=== PATIENT | female | born 2000 | race Caucasian/White ===

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

== ENCOUNTER 2019-07-09 09:23 | Inpatient (IN) | payer MEDICAID ==
[2019-07-09] VITALS (14 sets, daily range): BP systolic 84–160; BP diastolic 44–117
[~2019-07-09] VITALS: Ht 157 cm; Wt 79.0 kg
[~2019-07-09 09:23] MED LIST changes: +ACET-77 PO; +DOCU100C37 PO; +GUAI600T43 PO; +IBUP-844 PO; +INSN1U SQ; +METR-145 PO; -METR500T21 PO; +SERT50TA2 PO
--- NOTE | 2019-07-09 09:48 | NUR ---
PT VOMITED LARGE AMT OF CLEAR LIQUID (WATER).
--- NOTE | 2019-07-09 09:58 | NUR ---
RESTING WITH EYES CLOSED.
--- NOTE | 2019-07-09 10:26 | ED Psychosocial ---
General Chief Complaint: Substance Abuse Stated Complaint: PANIC ATTACK Nursing Triage Note: ARRIVED VIA EMS FROM HOME. EMS REPORTS PT S/O LEFT TWO DAYS AGO WITH THE KIDS AND WENT TO [place]. PT SNORTED METH AT THAT TIME. PT HAS NOT SLEPT AND HAS BEEN CUTTING HERSELF AND COMPLETLEY TORE UP THE HOUSE. EMS REPORTS PT BEING VERY ANXIOUS. BRUISING NOTED RIGHT ARM. MULTIPLE CUT [place] NEW AND OLD LEFT LOWER ARM. PT DENIES BEING ABUSED OR IN HARM. PT. WANTING TO SLEEP. WARM BLANKET APPLIED ET LIGHTS TURNED DOWN. Source: patient, EMS Exam Limitations: clinical condition History of Present Illness Date Seen by Provider: Jul 09, 2019 Time Seen by Provider: 10:24 Initial Comments This 19-year-old white female presents via EMS with a history of acute meth use and an attempt to harm her self by cutting her left wrist. The patient's has left her in the previous 2 days and taken their children to [place]. On environmental health nurse arrival it was apparent that the patient had torn up the house. This insulin-dependent diabetics glucose was 200 at the scene. The patient has not slept for the last 2 days. Upon arrival in the emergency department patient fell asleep. She is arousable but not offering helpful history at this point. Allergies and Home Medications Allergies Coded Allergies: No Known Drug Allergies (Unverified , 08/12/12) Home Medications Acetaminophen 500 Mg Tablet, 1,000 MG PO Q8H PRN for PAIN-MILD Prescribed by: SHANKAR ALONZO on 02/07/18914 Docusate Sodium 100 Mg Capsule, 100 MG PO BID Prescribed by: SHANKAR ALONZO on 02/07/18914 Guaifenesin 600 Mg Tab.er.12h, 600 MG PO BID Prescribed by: SHANKAR ALONZO on 02/07/18914 Ibuprofen 600 Mg Tablet, 600 MG PO Q6H Prescribed by: SHANKAR ALONZO on 02/07/18914 Insulin Aspart 300 Units/3 Ml Solution, 5 UNITS SQ AC Prescribed by: DARION HERRING on 04/29/16 1109 Insulin Aspart 300 Units/3 Ml Solution, 28 UNITS SQ AC, (Reported) Multivit with Calcium,Iron,Min 1 Each Tablet, 1 TAB PO DAILY, (Reported) Sertraline HCl 50 Mg Tablet, 50 MG PO DAILY, (Reported) Patient Home Medication List Home Medication List Reviewed: Yes Review of Systems Constitutional: no symptoms reported EENTM: no symptoms reported Respiratory: no symptoms reported Cardiovascular: no symptoms reported Gastrointestinal: no symptoms reported Genitourinary: no symptoms reported Musculoskeletal: no symptoms reported Skin: see HPI Psychiatric/Neurological: Anxiety, Depressed, Emotional Problems Past Evtkrko-Pmrcsb-Nrddco Hx Past Med/Social Hx: Reviewed Nursing Past Med/Soc Hx Patient Social History Alcohol Use: Occasionally Uses Alcohol Beverage of Choice: Whiskey, Vodka Recreational Drug Use: Yes (SNORTS METH, POT) Drug of Choice: marijuana Smoking Status: Current Everyday Smoker Type Used: Cigarettes Former Smoker, Quit: Apr 02, 2016 2nd Hand Smoke Exposure: Yes (history of IV drug usage, meth, opiates, etc in the past) Recent Foreign Travel: No Contact w/Someone Who Travel: No Recent Infectious Disease Expo: No Recent Hopitalizations: No Physical Abuse: No (BRUISING NOTED) Sexual Abuse: No Mistreated: No Fear: No Immunizations Up To Date Tetanus Booster (TDap): Less than 5yrs PED Vaccines UTD: No Seasonal Allergies Seasonal Allergies: Yes Past Medical History Surgeries: Yes (splinter removed from left foot ) Ear Surgery Respiratory: No Asthma Currently Using CPAP: No Currently Using BIPAP: No Cardiac: No Hypertension Neurological: No Reproductive Disorders: No Female Reproductive Disorders: Denies Sexually Transmitted Disease: No HIV/AIDS: No Genitourinary: No UTI-Chronic Gastrointestinal: No Musculoskeletal: No Endocrine: Yes Diabetes, Insulin dep HEENT: No Chronic Ear Infection, Tonsilitis Loss of Vision: Denies Hearing Impairment: Denies Cancer: No Psychosocial: Yes (no suicide but did self harm) Anxiety, Depression Integumentary: No Blood Disorders: No Adverse Reaction/Blood Tranf: No Family Medical History Colon cancer 19 MOTHER (copd ; breast cancer ) Cystic fibrosis (nephew has CF ) Hypertension 19 MOTHER (copd ; breast cancer ) No Pertinent Family Hx Physical Exam Vital Signs - First Documented 07/09/19 09:23 Temp 35.7 Pulse 99 Resp 16 B/P (MAP) 131/94 (106) Pulse Ox 100 O2 Delivery Room Air Capillary Refill : Less Than 3 Seconds Height, Weight, BMI Height: 5'2.00" Weight: 210lbs. 0.0oz. 95.781742wm; 27.00 BMI Method:Stated General Appearance: WD/WN, moderate distress (patient was agitated upon arrival. Within the next 30 minutes patient fell asleep) HEENT: normal ENT inspection Neck: full range of motion, supple Respiratory: lungs clear Cardiovascular: regular rate, rhythm Gastrointestinal: normal bowel sounds, non tender, soft Extremities: normal range of motion, non-tender, other (superficial lacerations are noted over the volar surface of the left wrist.) Neurologic/Psychiatric: no motor/sensory deficits Appearance/Memory: disheveled, other (the patient is asleep. She will rouse and is minimally verbally appropriate.) Progress/Results/Core Measures Results/Orders Lab Results Laboratory Tests Test 07/09/19 10:53 07/09/19 10:58 07/09/19 12:30 07/09/19 12:31 Range/Units White Blood Count 26.8 H 4.3-11.0 10^3/uL Red Blood Count 5.24 4.35-5.85 10^6/uL Hemoglobin 16.5 H 11.5-16.0 G/DL Hematocrit 47 35-52 % Mean Corpuscular Volume 89 80-99 FL Mean Corpuscular Hemoglobin 31 25-34 PG Mean Corpuscular Hemoglobin Concent 35 32-36 G/DL Red Cell Distribution Width 12.5 10.0-14.5 % Platelet Count 416 H 130-400 10^3/uL Mean Platelet Volume 9.8 7.4-10.4 FL Neutrophils (%) (Auto) 87 H 42-75 % Lymphocytes (%) (Auto) 8 L 12-44 % Monocytes (%) (Auto) 4 0-12 % Eosinophils (%) (Auto) 0 0-10 % Basophils (%) (Auto) 0 0-10 % Neutrophils # (Auto) 23.4 H 1.8-7.8 X 10^3 Lymphocytes # (Auto) 2.1 1.0-4.0 X 10^3 Monocytes # (Auto) 1.2 H 0.0-1.0 X 10^3 Eosinophils # (Auto) 0.0 0.0-0.3 10^3/uL Basophils # (Auto) 0.1 0.0-0.1 10^3/uL Neutrophils % (Manual) 87 % Lymphocytes % (Manual) 6 % Monocytes % (Manual) 5 % Band Neutrophils 2 % Toxic Granulation 1+ Blood Morphology Comment NORMAL Sodium Level 136 135-145 MMOL/L Potassium Level 4.7 3.6-5.0 MMOL/L Chloride Level 106 98-107 MMOL/L Carbon Dioxide Level < 5 *L 21-32 MMOL/L Anion Gap 20 H 5-14 MMOL/L Blood Urea Nitrogen 14 7-18 MG/DL Creatinine 1.17 0.60-1.30 MG/DL Estimat Glomerular Filtration Rate 59 BUN/Creatinine Ratio 12 Glucose Level 209 H 70-105 MG/DL Calcium Level 10.1 8.5-10.1 MG/DL Corrected Calcium 8.5-10.1 MG/DL Total Bilirubin 0.3 0.1-1.0 MG/DL Aspartate Amino Transf (AST/SGOT) 35 H 5-34 U/L Alanine Aminotransferase (ALT/SGPT) 37 0-55 U/L Alkaline Phosphatase 162 H 40-136 U/L Total Protein 9.2 H 6.4-8.2 GM/DL Albumin 5.6 H 3.2-4.5 GM/DL Salicylates Level < 5.0 L 5.0-20.0 MG/DL Acetaminophen Level < 10 L 10-30 UG/ML Serum Alcohol < 10 <10 MG/DL Urine Color YELLOW Urine Clarity CLEAR Urine pH 5.5 5-9 Urine Specific [place] >=1.030 1.016-1.022 Urine Protein 1+ H NEGATIVE Urine Glucose (UA) TRACE H NEGATIVE Urine Ketones 3+ H NEGATIVE Urine Nitrite NEGATIVE NEGATIVE Urine Bilirubin NEGATIVE NEGATIVE Urine Urobilinogen 0.2 < = 1.0 MG/DL Urine Leukocyte Esterase NEGATIVE NEGATIVE Urine RBC (Auto) 1+ H NEGATIVE Urine RBC 0-2 /HPF Urine WBC 0-2 /HPF Urine Crystals NONE /LPF Urine Bacteria FEW H /HPF Urine Casts NONE /LPF Urine Mucus NEGATIVE /LPF Urine Culture Indicated NO Urine Opiates Screen NEGATIVE NEGATIVE Urine Oxycodone Screen NEGATIVE NEGATIVE Urine Methadone Screen NEGATIVE NEGATIVE Urine Propoxyphene Screen NEGATIVE NEGATIVE Urine Barbiturates Screen NEGATIVE NEGATIVE Ur Tricyclic Antidepressants Screen NEGATIVE NEGATIVE Urine Phencyclidine Screen NEGATIVE NEGATIVE Urine Amphetamines Screen POSITIVE H NEGATIVE Urine Methamphetamines Screen POSITIVE H NEGATIVE Urine Benzodiazepines Screen NEGATIVE NEGATIVE Urine Cocaine Screen NEGATIVE NEGATIVE Urine Cannabinoids Screen POSITIVE H NEGATIVE Blood Gas Puncture Site RT RAD Blood Gas Patient Temperature 96.2 Arterial Blood pH 7.10 *L 7.37-7.43 Arterial Blood Partial Pressure CO2 11 *L 35-45 MMHG Arterial Blood Partial Pressure O2 114 H 79-93 MMHG Arterial Blood HCO3 3 *L 23-27 MMOL/L Arterial Blood Total CO2 3.8 L 21.0-31.0 MMOL/L Arterial Blood Oxygen Saturation 97 94-100 % Arterial Blood Base Excess -25.1 L -2.5-2.5 MMOL/L [place] Test YES-POS Blood Gas Ventilator Setting NO Blood Gas Inspired Oxygen ROOM AIR Lactic Acid Level 0.89 0.50-2.00 MMOL/L Test 07/09/19 12:51 Range/Units Glucometer 232 H 70-110 MG/DL My Orders Orders - YADIRA VELARDE MD Cbc With Automated Diff (07/09/19 10:33) Comprehensive Metabolic Panel (07/09/19 10:33) Ua Culture If Indicated (07/09/19 10:33) Drug Screen Stat (Urine) (07/09/19 10:33) Salicylate (07/09/19 10:33) Alcohol (07/09/19 10:33) Ekg Tracing (07/09/19 10:33) Chest 1 View, Ap/Pa Only (07/09/19 10:33) Acetaminophen (07/09/19 10:33) Manual Differential (07/09/19 10:53) Blood Culture (07/09/19 12:03) Arterial Blood Gas (07/09/19 12:03) Lactic Acid Analyzer (07/09/19 12:03) Arterial Blood Draw (07/09/19 ) Insulin Determir (Per Unit) (Levemir (Pe (07/09/19 12:59) Lactated Ringers (Lr 1000 Ml Iv Solution (07/09/19 13:01) Piperacillin/Tazobactam (Bulk) (Zosyn In (07/09/19 13:00) Ondansetron Injection (Zofran Injectio (07/09/19 13:15) Vital Signs/I&O 07/09/19 07/09/19 09:23 09:48 Temp 35.7 37.7 Pulse 99 Resp 16 B/P (MAP) 131/94 (106) Pulse Ox 100 O2 Delivery Room Air Blood Pressure Mean: 106 POS Progress Progress Note : Time: 10:33 Progress Note Screening exams for a psych admission have been initiated. 1 p.m. The patient's labs demonstrated a leukocytosis of 26,000. Patient's CO2 is 5. Her pH is 7.1. Lactic acid is pending. Repeat glucose is 232. Patient was vigorously fluid resuscitated with orders for her 3 L of lactated Ringer's. Patient received 15 units of Levemir subcutaneous. Zosyn 4.5 g IV and IV vancomycin per the pharmacist have been ordered. The patient was was awake and able to offer coherent conversation. Patient was admitted to Dr. Herring service Dr. Hernandez has been counseled. Departure Communication (Admissions) Time/Spoke to Admitting Phy: 13:13 Dr. Herring Time/Spoke to Consulting Phy: 13:13 Dr. Hernandez Impression Primary Impression: Leukocytosis Qualified Codes: D72.829 - Elevated white blood cell count, unspecified Additional Impressions: Acidosis Methadone adverse reaction Qualified Codes: T40.3X5A - Adverse effect of methadone, initial encounter Sepsis Qualified Codes: A41.9 - Sepsis, unspecified organism Disposition: ADMITTED INPATIENT Condition: Improved Admissions Decision to Admit Reason: Admit from ER (General) Decision to Admit/Date: Jul 09, 2019 Time/Decision to Admit Time: 13:13 Departure-Patient Inst. Referrals: [facility] [place] (PCP/Family) Primary Care Physician Patient Instructions: ALCOHOL AND SUBSTANCE ABUSE YADIRA VELARDE MD Jul 09, 2019 10:26 POS
--- NOTE | 2019-07-09 11:00 | NUR ---
CONTINUES TO REST WITH EYES CLOSED BUT WILL WAKE WHEN TALKED TO AND MUMBLE. AT TIMES SHE IGNORES AND CLOSES HER EYES.
[2019-07-09 11:01] LABS: BASOPHILS # (AUTO) 0.1 10^3/uL (0.0-0.1); BASOPHILS % (AUTO) 0 % (0-10); EOSINOPHILS % (AUTO) 0 % (0-10); HEMATOCRIT 47 % (35-52); HEMOGLOBIN 16.5 G/DL (11.5-16.0); LYMPHOCYTES # (AUTO) 2.1 X 10^3 (1.0-4.0); LYMPHOCYTES % (AUTO) 8 % (12-44); MEAN CORPUSCULAR HGB CONC 35 G/DL (32-36); MEAN CORPUSCULAR VOLUME 89 FL (80-99); MEAN PLATELET VOLUME 9.8 FL (7.4-10.4); MONOCYTES # (AUTO) 1.2 X 10^3 (0.0-1.0); MONOCYTES % (AUTO) 4 % (0-12); NEUTROPHILS # (AUTO) 23.4 X 10^3 (1.8-7.8); NEUTROPHILS % (AUTO) 87 % (42-75); PLATELET COUNT 416 10^3/uL (130-400); RED CELL DISTRIBUTION WIDTH 12.5 % (10.0-14.5); WHITE BLOOD COUNT 26.8 10^3/uL (4.3-11.0)
[2019-07-09 11:02] LABS: MEAN CORPUSCULAR HEMOGLOBIN 31 PG (25-34)
[2019-07-09 11:09] LABS: BILIRUBIN,URINE NEGATIVE (NEGATIVE); CLARITY,URINE CLEAR; COLOR,URINE YELLOW; GLUCOSE, URINE (UA) TRACE (NEGATIVE); KETONES,URINE 3+ (NEGATIVE); LEUKOCYTE ESTERASE ,URINE NEGATIVE (NEGATIVE); NITRITE,URINE NEGATIVE (NEGATIVE); PH,URINE 5.5 (5-9); PROTEIN,URINE 1+ (NEGATIVE)
--- NOTE | 2019-07-09 11:14 | NUR ---
PT'S MOM ON THE PHONE WANTING INFORMATION. PT GAVE PERMISSION FOR ME TO TALK TO HER MOM.
[2019-07-09 11:15] LABS: BAND NEUTROPHILS 2 %; LYMPHOCYTES % (MANUAL) 6 %; MONOCYTES % (MANUAL) 5 %; NEUTROPHILS % (MANUAL) 87 %; RBC MORPH NORMAL; TOXIC GRANULATION/VACUOLAZATIO 1+
[2019-07-09 11:18] LABS: BACTERIA,URINE FEW /HPF; RBC,URINE 0-2 /HPF; WBC,URINE 0-2 /HPF
[2019-07-09 11:22] LABS: AMPHETAMINE SCREEN, URINE POSITIVE (NEGATIVE); BARBITURATE SCREEN URINE NEGATIVE (NEGATIVE); BENZODIAZEPINES SCREEN URINE NEGATIVE (NEGATIVE); CANNABINOID SCREEN, URINE POSITIVE (NEGATIVE); COCAINE SCREEN URINE NEGATIVE (NEGATIVE); METHADONE STAT NEGATIVE (NEGATIVE); METHAMPHETAMINE SCREEN URINE S POSITIVE (NEGATIVE); OPIATE SCREEN URINE NEGATIVE (NEGATIVE); OXYCODONE STAT NEGATIVE (NEGATIVE); PROPOXYPHENE STAT NEGATIVE (NEGATIVE); TRICYCLIC ANTIDEPRESSANTS SCRE NEGATIVE (NEGATIVE)
[2019-07-09 11:23] LABS: ALANINE AMINOTRANSFERASE 37 U/L (0-55); ALBUMIN 5.6 GM/DL (3.2-4.5); ALKALINE PHOSPHATASE 162 U/L (40-136); BILIRUBIN,TOTAL 0.3 MG/DL (0.1-1.0); BUN/CREATININE RATIO 12; CALCIUM 10.1 MG/DL (8.5-10.1); CHLORIDE 106 MMOL/L (98-107); CREATININE SERUM 1.17 MG/DL (0.60-1.30); GFR ESTIMATED 59; GLUCOSE 209 MG/DL (70-105); POTASSIUM 4.7 MMOL/L (3.6-5.0); SALICYLATE < 5.0 MG/DL (5.0-20.0); SODIUM 136 MMOL/L (135-145); TOTAL PROTEIN 9.2 GM/DL (6.4-8.2)
--- NOTE | 2019-07-09 11:32 | Diagnostic Imaging Report ---
CLINICAL INDICATION: Patient with substance abuse. Exam: Portable chest x-ray upright view. Comparisons: Chest x-ray dated 04/29/2016. Findings: Lungs/pleura: Lungs are clear. There is no pneumothorax. There is no pleural effusion. Mediastinum: Unremarkable. Pulmonary vasculature: Unremarkable. Heart: Unremarkable. Bones/extrathoracic soft tissue: Unremarkable. Impression: There is no radiographic evidence of acute cardiopulmonary process. Dictated by: Dictated on workstation # [id number]
[2019-07-09 11:38] LABS: CARBON DIOXIDE < 5 MMOL/L (21-32)
[2019-07-09 11:39] LABS: ACETAMINOPHEN < 10 UG/ML (10-30)
--- NOTE | 2019-07-09 12:00 | NUR ---
RESTING IN BED ET NO CHANGE IN STATUS. VSS .
--- NOTE | 2019-07-09 12:33 | NUR ---
FINANCIAL LEGAL ASSISTANT NOTIFEID OF NEEDING A BED.
--- NOTE | 2019-07-09 12:42 | NUR ---
LAB IN ROOM AT THIS TIME.
[2019-07-09 12:47] LABS: ABG BASE EXCESS -25.1 MMOL/L (-2.5-2.5); ABG OXYGEN SATURATION 97 % (94-100); ABG PO2 114 MMHG (79-93); ABG TCO2 3.8 MMOL/L (21.0-31.0)
[2019-07-09 12:49] LABS: ABG PCO2 11 MMHG (35-45); ALLENS TEST YES-POS
[2019-07-09 12:50] LABS: INSPIRED O2 ROOM AIR; PATIENT TEMP 96.2; VENTILATOR NO
--- NOTE | 2019-07-09 12:51 | History & Physical-Hospitalist ---
History of Present Illness HPI/Chief Complaint Chief complaint: Altered mental status History of present illness: This is a 19-year-old white female clinic patient of [facility] who presents to the ER after altered mental status was noted by family patient had suffered multiple losses in her psychosocial life and apparently took an overdose of methamphetamine. At this current time she is exhibiting signs of multisystem organ failure and will be intubated. Exam Limitations: clinical condition Date Seen 07/09/19 Time Seen by a Provider: 13:00 Attending Physician [facility] Referring Physician Date of Admission Home Medications & Allergies Home Medications Reviewed patient Home Medication Reconciliation performed by pharmacy medication reconciliations field technician and/or nursing. Patients Allergies have been reviewed. Allergies Allergies Coded Allergies No Known Drug Allergies (Unverified08/12/12) Past Gygdvlp-Rstpis-Wcvobc Hx Past Med/Social Hx: Reviewed Nursing Past Med/Soc Hx, Reviewed and Corrections made Patient Social History Marrital Status: single Alcohol Use: Occasionally Uses Alcohol Beverage of Choice: Whiskey, Vodka Recreational Drug Use: Yes (SNORTS METH, POT) Drug of Choice: marijuana Smoking Status: Current Everyday Smoker Former Smoker, Quit: Apr 02, 2016 Type Used: Cigarettes 2nd Hand Smoke Exposure: Yes (history of IV drug usage, meth, opiates, etc in the past) Recent Foreign Travel: No Contact w/other who traveled: No Recent Hopitalizations: No Recent Infectious Disease Expo: No Immunizations Up To Date Tetanus Booster (TDap): Less than 5yrs Pediatric: No Seasonal Allergies Seasonal Allergies: Yes Past Medical History Surgeries: Ear Surgery Currently Using CPAP: No Currently Using BIPAP: No Cardiac: Hypertension Reproductive: No Sexually Transmitted Disease: No HIV/AIDS: No Female Reproductive Disorders: Denies Genitourinary: UTI-Chronic Endocrine: Diabetes, Insulin dep HEENT: Chronic Ear Infection, Tonsilitis Loss of Vision: Denies Hearing Impairment: Denies Psychosocial: Anxiety, Depression History of Blood Disorders: No Adverse Reaction to Blood Marquez: No Family History Colon cancer 19 MOTHER (copd ; breast cancer ) Cystic fibrosis (nephew has CF ) Hypertension 19 MOTHER (copd ; breast cancer ) No Pertinent Family Hx Review of Systems ROS-Unable to Obtain: intubation Constitutional: see HPI Physical Exam Physical Exam Vital Signs Vital Signs - First Documented 07/09/19 07/09/19 09:23 14:35 Temp 35.7 Pulse 99 Resp 16 B/P (MAP) 131/94 (106) Pulse Ox 100 O2 Delivery Room Air O2 Flow Rate 30.00 Capillary Refill : Less Than 3 Seconds Height, Weight, BMI Height: 5'2.00" Weight: 210lbs. 0.0oz. 95.036955zq; 27.00 BMI Method:Stated General Appearance: Anxious, Chronically ill, Severe Distress Respiratory: Crackles, Decreased Breath Sounds Cardiovascular: Tachycardia Neurologic/Psychiatric: Alert, Disoriented Results Results/Procedures Labs Laboratory Tests 07/09/19 10:53 Patient resulted labs reviewed. Assessment/Plan Admission Diagnosis Assessment: Multisystem organ failure Acute respiratory failure requiring intubation Severe sepsis Methamphetamine use Episode of SVT Metabolic acidosis Plan: Ventilator management per Dr. Hernandez Severe sepsis protocol Antibiotics Insulin drip Admission Status: Inpatient Order (span 2 midnights) Reason for Inpatient Admission: severe sepsis with vent dependence Diagnosis/Problems Diagnosis/Problems (1) Severe sepsis (2) DKA (diabetic ketoacidoses) (3) Type 1 diabetes (4) Confusion (5) Respiratory failure (6) Ventilator dependence (7) Methamphetamine abuse (8) SVT (supraventricular tachycardia) (9) Leukocytosis Status: Acute Qualifiers: Leukocytosis type: unspecified Qualified Codes: D72.829 - Elevated white blood cell count, unspecified (10) Alcoholism Status: Acute (11) Electrolyte imbalance Status: Acute DARION HRERING DO Jul 09, 2019 12:51 POS
--- NOTE | 2019-07-09 12:58 | NUR ---
BRUISING NOTICED WIDE SPREAD ALL OVER BILAT LEGS. DR IN ROOM ET AWARE ET PLAN FOR SOCIAL SERVICE CONSULT WITH ADMISSION.
[2019-07-09] MEDS ORDERED: PIPERACILLIN/TAZOBACTAM (BULK) 4.5 GM in NS (IVPB) 100 ML IV ONE (13:00)
[2019-07-09] MEDS ORDERED: LACTATED RINGERS 1,000 ML IV ONE (13:01)
[2019-07-09] MEDS ORDERED: ONDANSETRON 4 MG/2 ML (SDV) Z0FRAN ONE (13:04)
[2019-07-09] MEDS ORDERED: LACTATED RINGERS 1,000 ML IV SCH (13:15)
[2019-07-09] MEDS ORDERED: ONDANSETRON 4 MG/2 ML (SDV) Z0FRAN IVP ONE (13:15)
--- NOTE | 2019-07-09 13:15 | NUR ---
PT STARTING TO PANIC AGAIN. STATES SHE CAN'T BREATHE AND NEEDS TO GO OUT SIDE. PULSE OX 100% RA. EASILY TALKED DOWN ET LAYING BACK IN BED AGAIN EATING ICE.
--- NOTE | 2019-07-09 13:26 | NUR ---
Pt arrived to [facility] from ED. Pt alert et yelling out. Pt grabbing stomach and writhing in pain. Pt screaming for water. Pt able to state where she is, speech garbled. Pt instantly falls asleep mid-scream. Pt alternates between screaming, garbled speech, et sleeping.
--- NOTE | 2019-07-09 13:42 | NUR ---
VANCOMYCIN DOSING: IBW 49.7, SCr 1.17, CrCl 60 LOADING DOSE 1,500 MG MAIN DOSE 1,000 MG DAILY VANCOMYCIN TROUGH ORDERED FOR 07/12/19 @ 13:00 IF TROUGH > 20 HOLD 07/12/19 14:00 DOSE.
[2019-07-09] MEDS ORDERED: CATHETER FLUSH 10 ML SYR IV PRN (13:45)
--- NOTE | 2019-07-09 13:50 | NUR ---
Dr. Hernandez notified pt here et status. States he will be here to see pt shortly.
[2019-07-09] MEDS ORDERED: HALOPERIDOL 5 MG/ML (HALDOL) AMP IV PRN (14:00)
[2019-07-09] MEDS ORDERED: VANCOMYCIN 1500 MG/NS 500 ML IVPB IV NR ×2 (14:00)
[2019-07-09] MEDS ORDERED: LORazepam INJ 2 MG/ML (ATIVAN) VIAL IVP PRN (14:00)
[2019-07-09] MEDS ORDERED: morphine INJ 4 MG/ML 1 ML (VIAL/SYRINGE) IVP PRN (14:15)
[2019-07-09] MEDS: LACTATED RINGERS 1,000 ML IV SCH ×2 (14:19→14:21)
[2019-07-09] MEDS: DEXMEDETOMIDINE 1,000 MCG/NS 250 ML IV SCH ×2 (14:20)
[2019-07-09] MEDS ORDERED: PROPOFOL DRIP (ICU) 100 ML IV ONE (14:23)
[2019-07-09] MEDS ORDERED: SODIUM BICARB 8.4% 50 MEQ/50 ML VIAL ONE (14:23)
[2019-07-09] MEDS ORDERED: PROMETHAZINE INJ 25 MG/ML (PHENERGAN) AMP ONE (14:27)
--- NOTE | 2019-07-09 14:30 | NUR ---
Intubation timeline - Sanjana Hoover RT, Penny Caamrillo, RN house sup, this RN et Donald Ramirez, RN at bedside. 1430 - 4mg versed IV push given 1432 - 50mg Fentanyl IV push given 1433 - 50mg IV push propofol 1434 - 30mg propofol IV push given, 50mg rocuronium given 1435 - Pt intubated by Dr. Hernandez with 7.5 tube, color change, 23@lip 1445 - 50mg fentanyl given 1450 - 4mg versed IV push given
[2019-07-09] MEDS ORDERED: meTOprolol 5 MG/5 ML (LOPRESSOR) VIAL ONE (14:49)
--- NOTE | 2019-07-09 14:58 | Pulmonary Procedures ---
Pulmonary Procedures Date of Procedure Date of Service: Jul 09, 2019 Lumen: triple (US guided ) Central Line Procedure: betadine prep, sterile drapes applied Position: internal jugular (R) Anesthesia: local Volume Anesthetic (ccs): 5 Complications: none Post Position: sutured, good blood return, position confirmed w/ CXR JAMEL NIEVES DO Jul 09, 2019 14:58 POS
--- NOTE | 2019-07-09 14:59 | Pulmonary Procedures ---
Pulmonary Procedures Date of Procedure Date of Service: Jul 09, 2019 Reason for Intubation: Acute agitation, respiratory failure Time of Intubation: 14:59 Intubation Method: orotracheal Tube Size: 7.5 Medications: Fentanyl, Propofol, Rocuronium, Versed Positive End Tide CO2: Yes Breath Sounds after Intubation: bilateral-equal Intubation Complications: no complications Post Intubation Xray: Yes JAMEL NIEVES DO Jul 09, 2019 14:59 POS
[2019-07-09] MEDS ORDERED: fentaNYL INJECTION 1,000 MCG in NS (IVPB) 80 ML IV SCH (15:00)
--- NOTE | 2019-07-09 15:00 | NUR ---
Unable to complete all interventions on admission due to pt being intubated et unable to make contact with family or SO
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
[2019-07-09] MEDS ORDERED: FOMEPIZOLE INJECTION 1.5 GM in NS (IVPB) 100 ML IV NR (15:06)
[2019-07-09] MEDS ORDERED: inSUlin REGULAR TPN/DRIP ONLY 250 UNITS in NORMAL SALINE 250 ML IV SCH ×2 (15:15→16:30)
[2019-07-09] MEDS ORDERED: POTASSIUM CL 10MEQ/50ML IVPB 50 ML IV SCH (15:15)
--- NOTE | 2019-07-09 15:25 | Diagnostic Imaging Report ---
CLINICAL INDICATION: Patient with history of substance abuse. Patient intubated. Evaluate lines and tubes. EXAM: Portable chest x-ray, upright view. COMPARISONS: Chest x-ray dated 07/09/2019. FINDINGS: Lungs are clear. There is no pleural effusion or pneumothorax. Pulmonary vasculature and cardiac silhouette are within normal limits. There is interval placement of ET tube with tip seen roughly 2.2 cm from the level of the yifan. Right IJ central line is seen with tip in the distal superior vena cava. Orogastric feeding tube is seen with its distal portion below the level of the diaphragm, and appears to be looped with its tip overlying the expected region of the gastric fundus. Bones show no significant abnormality. IMPRESSION: 1: Lines and tubes are in place, as described above. 2: There is no radiographic evidence of acute cardiopulmonary process. Dictated by: Dictated on workstation # [id number]
[2019-07-09] MEDS ORDERED: PROMETHAZINE INJ 25 MG/ML (PHENERGAN) AMP IVP NR (15:30)
[2019-07-09] MEDS ORDERED: meTOprolol 5 MG/5 ML (LOPRESSOR) VIAL IV NR (15:30)
[2019-07-09] MEDS ORDERED: fentaNYL INJECTION 1,250 MCG in NS (IVPB) 250 ML IV SCH (15:30)
[2019-07-09] MEDS ORDERED: SODIUM BICARB 8.4% 50 MEQ/50 ML VIAL IV NR (15:30)
[2019-07-09] MEDS: fentaNYL 1,250 MCG/NS 250 ML DRIP IV SCH ×2 (15:40)
[2019-07-09] MEDS: D5 LR IV SCH ×4 (15:56→20:00)
[2019-07-09] MEDS: KCL IV SCH ×4 (15:56→20:00)
[2019-07-09 16:00] LABS: ABG BASE EXCESS -17.3 MMOL/L (-2.5-2.5); ABG OXYGEN SATURATION 99 % (94-100); ABG PCO2 21 MMHG (35-45); ABG PO2 143 MMHG (79-93); ABG TCO2 9.6 MMOL/L (21.0-31.0)
[2019-07-09 16:01] LABS: ABG PH 7.24 (7.37-7.43)
[2019-07-09] MEDS: PROPOFOL DRIP (ICU) 100 ML IV SCH ×2 (16:01→20:01)
[2019-07-09 16:02] LABS: ALLENS TEST YES-POS; INSPIRED O2 30%; VENTILATOR YES
[2019-07-09] MEDS ORDERED: NS IV 1000 ML 1,000 ML IV SCH (16:25)
[2019-07-09 16:31] LABS: BASOPHILS # (AUTO) 0.1 10^3/uL (0.0-0.1); BASOPHILS % (AUTO) 0 % (0-10); EOSINOPHILS # (AUTO) 0.1 10^3/uL (0.0-0.3); EOSINOPHILS % (AUTO) 0 % (0-10); HEMATOCRIT 37 % (35-52); HEMOGLOBIN 12.9 G/DL (11.5-16.0); LYMPHOCYTES # (AUTO) 2.1 X 10^3 (1.0-4.0); LYMPHOCYTES % (AUTO) 8 % (12-44); MEAN CORPUSCULAR HEMOGLOBIN 32 PG (25-34); MEAN CORPUSCULAR HGB CONC 35 G/DL (32-36); MEAN CORPUSCULAR VOLUME 91 FL (80-99); MEAN PLATELET VOLUME 9.9 FL (7.4-10.4); MONOCYTES # (AUTO) 1.3 X 10^3 (0.0-1.0); MONOCYTES % (AUTO) 5 % (0-12); NEUTROPHILS # (AUTO) 22.9 X 10^3 (1.8-7.8); NEUTROPHILS % (AUTO) 87 % (42-75); PLATELET COUNT 319 10^3/uL (130-400); RED CELL DISTRIBUTION WIDTH 12.1 % (10.0-14.5); WHITE BLOOD COUNT 26.4 10^3/uL (4.3-11.0)
[2019-07-09 16:45] LABS: BILIRUBIN,URINE NEGATIVE (NEGATIVE); COLOR,URINE YELLOW; GLUCOSE, URINE (UA) 1+ (NEGATIVE); KETONES,URINE 3+ (NEGATIVE); LEUKOCYTE ESTERASE ,URINE NEGATIVE (NEGATIVE); NITRITE,URINE NEGATIVE (NEGATIVE); PH,URINE 5.5 (5-9); PROTEIN,URINE 1+ (NEGATIVE)
[2019-07-09] MEDS ORDERED: ROCURONIUM 10 MG/ML 5 ML SYRINGE IV ONE (16:45)
[2019-07-09] MEDS ORDERED: fentaNYL INJECTION 100 MCG/2 ML AMP INJ ONE (16:45)
[2019-07-09] MEDS ORDERED: MIDAZOLAM 5 MG/5 ML (VERSED) VIAL INJ ONE (16:45)
[2019-07-09 16:52] LABS: CLARITY,URINE SL CLOUDY
--- NOTE | 2019-07-09 16:52 | NUR ---
Attempted to call emergency contact numbers listed et top two numbers the individuals whom answered stated it was wrong number. Bottom number listed on emergenct contacts goes to voicemail et states the patient's name. Unable to reach family at this time
[2019-07-09 16:54] LABS: BACTERIA,URINE NEGATIVE /HPF; RENAL EPITHELIAL CELLS,URINE RARE /HPF; SQUAMOUS EPITHELIAL CELL,UR RARE /HPF
[2019-07-09 16:57] LABS: ALANINE AMINOTRANSFERASE 28 U/L (0-55); ALKALINE PHOSPHATASE 113 U/L (40-136); BILIRUBIN,TOTAL 0.4 MG/DL (0.1-1.0); BUN/CREATININE RATIO 14; CALCIUM 8.1 MG/DL (8.5-10.1); CHLORIDE 107 MMOL/L (98-107); CREATININE SERUM 0.86 MG/DL (0.60-1.30); GFR ESTIMATED > 60; GLUCOSE 275 MG/DL (70-105); MAGNESIUM 1.8 MG/DL (1.6-2.4); PHOSPHORUS 4.1 MG/DL (2.3-4.7); SODIUM 138 MMOL/L (135-145); TOTAL PROTEIN 6.4 GM/DL (6.4-8.2); TRIGLYCERIDES 180 MG/DL (<150)
[2019-07-09 16:59] LABS: CARBON DIOXIDE 8 MMOL/L (21-32)
[2019-07-09] MEDS: D5 1/2 NS 1000 ML IV SOLUTION 1,000 ML IV SCH ×2 (17:43→21:42)
[2019-07-09] MEDS: 1/2 NS IV SOLUTION 1,000 ML IV SCH ×2 (17:43→21:42)
[2019-07-09] MEDS: POTASSIUM CL 10MEQ/50ML IVPB 50 ML IV SCH ×7 (17:43→21:51)
[2019-07-09] MEDS ORDERED: inSUlin ASPART (NovoLOG) 1 UNIT/0.01 ML (CHARGE PER UNIT) SQ SCH (18:00)
[2019-07-09] MEDS ORDERED: NS IV 500 ML 500 ML ONE (18:09)
[2019-07-09] MEDS: PIPERACILLIN/TAZO 4.5 GM/NS 100 ML IV SCH ×2 (18:25)
[2019-07-09 18:41] LABS: BUN/CREATININE RATIO 14; CALCIUM 7.6 MG/DL (8.5-10.1); CHLORIDE 111 MMOL/L (98-107); GFR ESTIMATED > 60; GLUCOSE 307 MG/DL (70-105); POTASSIUM 3.8 MMOL/L (3.6-5.0); SODIUM 140 MMOL/L (135-145)
[2019-07-09 18:43] LABS: CARBON DIOXIDE 9 MMOL/L (21-32)
--- NOTE | 2019-07-09 19:53 | NUR ---
Contacted E-ICU, updated on pt condition, IV medications clarified.
[2019-07-09] MEDS ORDERED: NS IV 500 ML 500 ML IV ONE (20:30)
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
[2019-07-09] MEDS: ENOXAPARIN 40 MG/0.4 ML (LOVENOX) SYR SC SCH (21:11)
[2019-07-10] VITALS (30 sets, daily range): BP systolic 78–107; BP diastolic 42–86
[2019-07-10] MEDS: D5 LR IV SCH ×2 (00:09)
[2019-07-10] MEDS: KCL IV SCH ×2 (00:09)
[2019-07-10] MEDS: POTASSIUM CHLORIDE INJ 20 MEQ in D5 LR IV SOLUTION 1,000 ML IV SCH ×7 (00:10→21:20)
[2019-07-10] MEDS: POTASSIUM CL 10MEQ/50ML IVPB 50 ML IV SCH ×18 (00:43→22:40)
[2019-07-10] MEDS: PIPERACILLIN/TAZO 4.5 GM/NS 100 ML IV SCH ×6 (02:28→18:24)
[2019-07-10] MEDS: DEXMEDETOMIDINE 1,000 MCG/NS 250 ML IV SCH ×2 (02:28)
[2019-07-10 03:05] LABS: BASOPHILS % (AUTO) 0 % (0-10); EOSINOPHILS # (AUTO) 0.1 10^3/uL (0.0-0.3); EOSINOPHILS % (AUTO) 0 % (0-10); HEMATOCRIT 31 % (35-52); LYMPHOCYTES # (AUTO) 3.9 X 10^3 (1.0-4.0); LYMPHOCYTES % (AUTO) 29 % (12-44); MEAN CORPUSCULAR HEMOGLOBIN 32 PG (25-34); MEAN CORPUSCULAR HGB CONC 36 G/DL (32-36); MEAN CORPUSCULAR VOLUME 88 FL (80-99); MEAN PLATELET VOLUME 9.6 FL (7.4-10.4); MONOCYTES % (AUTO) 7 % (0-12); NEUTROPHILS # (AUTO) 8.8 X 10^3 (1.8-7.8); NEUTROPHILS % (AUTO) 64 % (42-75); PLATELET COUNT 255 10^3/uL (130-400); WHITE BLOOD COUNT 13.8 10^3/uL (4.3-11.0)
[2019-07-10 03:06] LABS: ABG BASE EXCESS -10.4 MMOL/L (-2.5-2.5); ABG OXYGEN SATURATION 99 % (94-100); ABG PCO2 23 MMHG (35-45); ABG PH 7.39 (7.37-7.43); ABG PO2 111 MMHG (79-93); ABG TCO2 14.7 MMOL/L (21.0-31.0)
--- NOTE | 2019-07-10 03:18 | NUR ---
Pt's temperature decreased, warm blankets applied, will recheck temp
[2019-07-10 03:21] LABS: ALLENS TEST POSITIVE; INSPIRED O2 N; PATIENT TEMP 35.5; VENTILATOR YES
[2019-07-10 03:33] LABS: ALANINE AMINOTRANSFERASE 16 U/L (0-55); ALBUMIN 3.1 GM/DL (3.2-4.5); ALKALINE PHOSPHATASE 87 U/L (40-136); BILIRUBIN,TOTAL 0.4 MG/DL (0.1-1.0); BUN/CREATININE RATIO 11; CALCIUM 8.2 MG/DL (8.5-10.1); CARBON DIOXIDE 14 MMOL/L (21-32); CHLORIDE 120 MMOL/L (98-107); GFR ESTIMATED > 60; GLUCOSE 142 MG/DL (70-105); MAGNESIUM 1.6 MG/DL (1.6-2.4); POTASSIUM 2.6 MMOL/L (3.6-5.0); SODIUM 142 MMOL/L (135-145); TOTAL PROTEIN 4.8 GM/DL (6.4-8.2)
[2019-07-10] MEDS: MAGNESIUM 1 GM/100 ML IVPB 100 ML IV SCH ×3 (03:51→05:10)
[2019-07-10] MEDS: KCL 20 MEQ TAB (K-DUR) PO SCH (05:10)
--- NOTE | 2019-07-10 06:01 | Pulmonary Progress Note ---
Subjective Date Seen by a Provider: Jul 10, 2019 Time Seen by a Provider: 08:22 Subjective/Events-last exam PT is sedated on vent Sepsis Event Evaluation Height, Weight, BMI Height: 5'2.00" Weight: 210lbs. 0.0oz. 95.868234bd; 26.41 BMI Method:Stated Focused Exam Lactate Level 07/09/19 12:31: Lactic Acid Level 0.89 Exam Exam Vital Signs Date Time Temp Pulse Resp B/P (MAP) Pulse Ox O2 Delivery O2 Flow Rate FiO2 07/10/19 04:00 Mechanical Ventilator 21 07/10/19 03:30 59 24 98 21 07/10/19 03:17 35.5 Mechanical Ventilator 21.00 07/10/19 01:00 62 07/10/19 00:00 Mechanical Ventilator 21 07/10/19 00:00 64 93/56 (68) 99 Mechanical Ventilator 21.00 07/10/19 00:00 36.0 Mechanical Ventilator 21.00 07/09/19 23:10 65 24 99 21 07/09/19 23:00 65 91/52 (65) 100 Mechanical Ventilator 21.00 07/09/19 22:00 67 87/48 (61) 98 Mechanical Ventilator 21.00 07/09/19 21:00 68 86/44 (58) 98 Mechanical Ventilator 21.00 07/09/19 20:01 70 88/44 96 Mechanical Ventilator 07/09/19 20:00 Mechanical Ventilator 21 07/09/19 20:00 70 88/44 (59) 97 Mechanical Ventilator 21.00 07/09/19 19:59 35.8 Mechanical Ventilator 21.00 07/09/19 19:00 72 07/09/19 19:00 71 86/44 (58) 98 Mechanical Ventilator 21.00 07/09/19 18:17 88 24 100 21 07/09/19 18:00 75 84/44 (57) 97 Mechanical Ventilator 21.00 07/09/19 17:00 79 84/49 (61) 96 Mechanical Ventilator 21.00 07/09/19 16:01 127/74 07/09/19 16:00 Mechanical Ventilator 21 07/09/19 16:00 87 108/67 (81) 98 Mechanical Ventilator 21.00 07/09/19 15:33 36.0 07/09/19 15:05 149 07/09/19 15:00 158 27 160/117 (131) 99 Mechanical Ventilator 30.00 07/09/19 14:49 206 07/09/19 14:45 151 07/09/19 14:45 88 24 100 30 07/09/19 14:35 Mechanical Ventilator 30.00 07/09/19 14:00 72 153/87 (109) 100 Room Air 07/09/19 13:45 112 31 127/98 (108) 100 Room Air 07/09/19 13:33 114 07/09/19 13:30 97 Room Air 07/09/19 13:25 36.0 115 18 121/86 100 Room Air 07/09/19 09:48 37.7 07/09/19 09:23 35.7 99 16 131/94 (106) 100 Room Air I & O 07/10/19 07:00 Intake Total 8240.5 ml Output Total 1400 ml Balance 6840.5 ml Height & Weight Height: 5'2.00" Weight: 210lbs. 0.0oz. 95.914075id; 26.41 BMI Method:Stated General Appearance: No Apparent Distress, Anxious, Chronically ill Neck: Full Range of Motion, Non Tender, Supple Respiratory: Crackles, Decreased Breath Sounds Cardiovascular: Regular Rate, Rhythm, No Edema, Tachycardia Capillary Refill: Less Than 3 Seconds Gastrointestinal: normal bowel sounds, non tender, soft Neurologic/Psychiatric: Alert, Disoriented Skin: Normal Color, Warm/Dry Lymphatic: No Adenopathy Results Lab Laboratory Tests 07/09/19 10:53 07/09/19 16:23 07/09/19 18:10 07/10/19 02:47 Assessment/Plan Assessment/Plan Acute respiratory failure -Continue vent management. -Repeat all labs severe sepsis -Continue Zosyn. D/C Vanco -Lactic acid is negative -3+ ketones in urine -Check beta hydroxybuterate - was high and is now improved. - serum osmolarity pending -Check toxic alcohol panel Methamphetamine -Unsure if pt was just snorting or also injecting Hypokalemia -Replace -And recheck Marijuanna use Severe metabolic acidosis - most likely secondary secondary to acute DKA -PT does have IDDM -Gap is now closed -Will continue DKA protocol for now -Betahydroxybuterate was high now improved. Pt did have urine Ketones. -Pt was given Fomparazole prior to all labs coming back. This looks more like acute DKA vs toxic alcohol. -Will D/C Fomaprazole and continue to treat DKA. -Aggressive IVF JAMEL NIEVES DO Jul 10, 2019 06:01 POS
[2019-07-10] MEDS ORDERED: D5 LR IV SOLUTION 1,000 ML IV ONE ×2 (06:30→06:39)
--- NOTE | 2019-07-10 06:45 | Diagnostic Imaging Report ---
INDICATION: Intubated. COMPARISON: 07/09/2019. FINDINGS: Single view of the chest demonstrates well positioned support lines. Lungs remain clear. The heart is normal. There is no pneumothorax. Osseous structures are age-appropriate. IMPRESSION: Stable support lines. No acute cardiopulmonary findings. Dictated by: Dictated on workstation # [id number]
--- NOTE | 2019-07-10 08:18 | Physical Therapy Progress Note ---
Therapy Progress Note Patient is currently sedated and on ventilator. PT will continue to monitor patient status and assess when medically stable and able to actively participate with skilled therapy. REN WIN PT Jul 10, 2019 08:18 POS
--- NOTE | 2019-07-10 08:32 | Occ Therapy Progress Note ---
Therapy Progress Note Pt. is currently sedated and on ventilator support. Will continue to monitor and evaluate pt. when medically stable. 0832 ISAK HE OT Jul 10, 2019 08:32 POS
--- NOTE | 2019-07-10 08:49 | NUR ---
Dr. Hernandez updated on pt status including hypotension
[2019-07-10] MEDS ORDERED: KCL 20 MEQ POWDER FOR ORAL SOLUTION PO ONE (09:00)
[2019-07-10] MEDS ORDERED: PANTOPRAZOLE 40 MG (PROTONIX) VIAL IV SCH (09:00)
--- NOTE | 2019-07-10 09:00 | NUR ---
Pt hypothermic despite warm blankets. Rectal temp probe et bear hugger placed on pt.
[2019-07-10] MEDS: PANTOPRAZOLE 40 MG (PROTONIX) VIAL IV SCH ×2 (09:02→20:39)
[2019-07-10] MEDS ORDERED: LACTATED RINGERS 1,000 ML IV ONE ×4 (09:05→20:46)
[2019-07-10] MEDS ORDERED: LACTATED RINGERS 1,000 ML IV SCH ×2 (09:15→21:30)
--- NOTE | 2019-07-10 09:30 | NUR ---
Dr. Hernandez notified or phos level
[2019-07-10] MEDS ORDERED: INSU100I14 SQ (09:38)
[2019-07-10] MEDS ORDERED: CEPH500C PO (09:38)
[2019-07-10] MEDS ORDERED: INSU100I29 SQ ×2 (09:38)
[2019-07-10] MEDS ORDERED: NS IV NR ×2 (10:30)
[2019-07-10] MEDS ORDERED: SODIUM PHOSPHATE MM IV NR ×2 (10:30)
[2019-07-10 10:35] LABS: CLARITY,URINE CLEAR; COLOR,URINE YELLOW; GLUCOSE, URINE (UA) NEGATIVE (NEGATIVE); KETONES,URINE NEGATIVE (NEGATIVE); LEUKOCYTE ESTERASE ,URINE 1+ (NEGATIVE); NITRITE,URINE NEGATIVE (NEGATIVE); PROTEIN,URINE NEGATIVE (NEGATIVE)
--- NOTE | 2019-07-10 10:44 | NUR ---
Received dietary consult regarding pt's vent status. Would recommend the following TF: Jevity 1.5 at goal rate of 45 ml/hr. Begin at 10 ml/hr and increase by 10 ml q6h as tolerated. At goal rate, provides 1620 kcal (20 kcal/kg); 68 g Pro (0.9 g Pro/kg); and 820 ml free water. Flush with 125 ml H2O q4h for hydration status. With flushes, provides 1570 ml free water. If pt's blood glucose levels remain elevated, would recommend switching to Glucerna 1.5 at same goal rate of 45 ml/hr. At goal rate of Glucerna 1.5, provides 1620 kcal (20 kcal/kg); 89 g Pro (1.1 g Pro/kg) and 820 ml free water. Flush with 125 ml q4h H2O for hydration status. With flushes, provides, 1570 ml free water. Will continue to follow and reassess as pt needs and status change. Dwain Casarez, MS, RD, LD [phone]
[2019-07-10 10:57] LABS: BILIRUBIN,URINE 1+ (NEGATIVE)
[2019-07-10 10:58] LABS: AMORPHOUS SEDIMENT,UR FEW AMOR URATES /LPF; BACTERIA,URINE FEW /HPF; WBC,URINE 50-100 /HPF
--- NOTE | 2019-07-10 11:36 | NUR ---
SS/CM: Pt is on the vent and is non responsive Plan: Consult for Drug and Alcohol. Will meet with pt and or next of kin to determine plan for pt once pt is responsive.
--- NOTE | 2019-07-10 11:36 | NUR ---
UNABLE TO SPEAK WITH THE PATIENT ABOUT MEDICATIONS AT THIS TIME. [facility] HAS NOT FILLED ANYTHING SINCE 2016. [facility] DID NOT HAVE ANY ACTIVITY SINCE 10-05-17. [facility] FILLED: 07-04-19 CEPHALEXIN 500MG Q12H X 10 DAYS #20 06-23-19 NOVOLOG PEN 16 UNITS TID AC 06-23-19 LEVEMIR FLEXTOUCH 28 AM 30 HS 06-14-19 TEST STRIP AND LANCETS BID THEY HAVE NOT FILLED SERTRALINE 50MG SINCE APR 2018
[2019-07-10] MEDS ORDERED: VANCOMYCIN 1 GM/NS 250 ML IVPB IV SCH ×2 (14:00)
--- NOTE | 2019-07-10 14:05 | NUR ---
Dr. Hernandez updated on pt status including hypotension
--- NOTE | 2019-07-10 15:03 | NUR ---
Pt on the vent and non-responsive. Offered compassionate touch and prayed for God's mercy and help in the pt's time of need.
[2019-07-10] MEDS: PROPOFOL DRIP (ICU) 100 ML IV SCH (15:13)
--- NOTE | 2019-07-10 15:43 | Progress Note ---
Subjective Subjective/Events-last exam Patient intubated and sedated. Review of Systems Unable to get 2/2 sedation Focused Exam Lactate Level 07/09/19 12:31: Lactic Acid Level 0.89 Objective Exam Last Set of Vital Signs Vital Signs Date Time Temp Pulse Resp B/P (MAP) Pulse Ox O2 Delivery O2 Flow Rate FiO2 07/10/19 15:13 86/53 07/10/19 15:00 72 23 100 Mechanical Ventilator 21.00 07/10/19 12:00 36.9 07/10/19 12:00 21 Capillary Refill : Less Than 3 Seconds I&O Intake and Output 07/10/19 00:00 Intake Total 5820.5 ml Output Total 1250 ml Balance 4570.5 ml Intake Oral 0 ml IV Total 5820.5 ml Output Urine Total 1250 ml Daily Weight Change Unsure/Unresponsive General: Other (Intubated and sedated) Lungs: Other (Bilateral wheezing, breathing with vent) Heart: Regular Rate, No Murmurs Abdomen: Normal Bowel Sounds, Soft Extremities: No Edema, No Tenderness/Swelling Results/Procedures Lab Laboratory Tests 07/09/19 15:55: Blood Gas Puncture Site RT RAD, Blood Gas Patient Temperature 36.0, Arterial B lood pH 7.24*L, Arterial Blood Partial Pressure CO2 21L, Arterial Blood Partial Pressure O2 143H, Arterial Blood HCO3 9*L, Arterial Blood Total CO2 9.6L, Arterial Blood Oxygen Saturation 99, Arterial Blood Base Excess -17.3L, Montez Test YES-POS, Blood Gas Ventilator Setting YES, Blood Gas Inspired Oxygen 30% 07/09/19 16:01: Glucometer 256H 07/09/19 16:23: White Blood Count 26.4H, Red Blood Count 4.05L, Hemoglobin 12.9#, Hematocrit 37, Mean Corpuscular Volume 91, Mean Corpuscular Hemoglobin 32, Mean Corpuscular Hemoglobin Concent 35, Red Cell Distribution Width 12.1, Platelet Count 319, Mean Platelet Volume 9.9, Neutrophils (%) (Auto) 87H, Lymphocytes (%) (Auto) 8L, Monocytes (%) (Auto) 5, Eosinophils (%) (Auto) 0, Basophils (%) (Auto) 0, Neutrophils # (Auto) 22.9H, Lymphocytes # (Auto) 2.1, Monocytes # (Auto) 1.3H, Eosinophils # (Auto) 0.1, Basophils # (Auto) 0.1, Sodium Level 138, Potassium Level 4.0, Chloride Level 107, Carbon Dioxide Level 8*L, Anion Gap 23H, Blood Urea Nitrogen 12, Creatinine 0.86, Estimat Glomerular Filtration Rate > 60, BUN/Creatinine Ratio 14, Glucose Level 275H, Calcium Level 8.1L, Corrected Calcium 8.1L, Phosphorus Level 4.1, Magnesium Level 1.8, Total Bilirubin 0.4, Aspartate Amino Transf (AST/SGOT) 24, Alanine Aminotransferase (ALT/SGPT) 28, Alkaline Phosphatase 113, Total Protein 6.4, Albumin 4.0, Triglycerides Level 180H 07/09/19 16:25: Beta-Hydroxybutyrate (Chem panel) 8.97H 07/09/19 16:39: Urine Color YELLOW, Urine Clarity SL CLOUDY, Urine pH 5.5, Urine Specific [place] >=1.030, Urine Protein 1+H, Urine Glucose (UA) 1+H, Urine Ketones 3+H, Urine Nitrite NEGATIVE, Urine Bilirubin NEGATIVE, Urine Urobilinogen 0.2, Urine Leukocyte Esterase NEGATIVE, Urine RBC (Auto) 1+H, Urine RBC NONE, Urine WBC NONE, Urine Squamous Epithelial Cells RARE, Urine Renal Epithelial Cells RARE, Urine Crystals NONE, Urine Bacteria NEGATIVE, Urine Casts NONE, Urine Mucus SMALLH, Urine Culture Indicated NO 07/09/19 16:58: Glucometer 255H 07/09/19 17:58: Glucometer 282H 07/09/19 18:10: Sodium Level 140, Potassium Level 3.8, Chloride Level 111H, Carbon Dioxide Level 9*L, Anion Gap 20H, Blood Urea Nitrogen 11, Creatinine 0.80, Estimat Glomerular Filtration Rate > 60, BUN/Creatinine Ratio 14, Glucose Level 307H, Calcium Level 7.6L 07/09/19 18:57: Glucometer 253H 07/09/19 20:12: Glucometer 266H 07/09/19 21:10: Glucometer 261H 07/09/19 22:27: Glucometer 228H 07/09/19 23:27: Glucometer 209H 07/10/19 00:13: Glucometer 216H 07/10/19 01:32: Glucometer 181H 07/10/19 02:16: Glucometer 161H 07/10/19 02:47: White Blood Count 13.8H, Red Blood Count 3.48L, Hemoglobin 11.0L, Hematocrit 31L , Mean Corpuscular Volume 88, Mean Corpuscular Hemoglobin 32, Mean Corpuscular Hemoglobin Concent 36, Red Cell Distribution Width 12.0, Platelet Count 255, Mean Platelet Volume 9.6, Neutrophils (%) (Auto) 64, Lymphocytes (%) (Auto) 29, Monocytes (%) (Auto) 7, Eosinophils (%) (Auto) 0, Basophils (%) (Auto) 0, Neutrophils # (Auto) 8.8H, Lymphocytes # (Auto) 3.9, Monocytes # (Auto) 1.0, Eosinophils # (Auto) 0.1, Basophils # (Auto) 0.0, Blood Gas Puncture Site LEFT RADIAL, Blood Gas Patient Temperature 35.5, Arterial Blood pH 7.39, Arterial Blood Partial Pressure CO2 23L, Arterial Blood Partial Pressure O2 111H, Arter ial Blood HCO3 14*L, Arterial Blood Total CO2 14.7L, Arterial Blood Oxygen Saturation 99, Arterial Blood Base Excess -10.4L, Montez Test POSITIVE, Blood Gas Ventilator Setting YES, Blood Gas Inspired Oxygen N, Sodium Level 142, Potassium Level 2.6L, Chloride Level 120H, Carbon Dioxide Level 14L, Anion Gap 8, Blood Urea Nitrogen 8, Creatinine 0.70, Estimat Glomerular Filtration Rate > 60, BUN/Creatinine Ratio 11, Glucose Level 142H, Calcium Level 8.2L, Corrected Calcium 8.9, Phosphorus Level < 0.7#*L, Magnesium Level 1.6, Total Bilirubin 0.4, Aspartate Amino Transf (AST/SGOT) 13, Alanine Aminotransferase (ALT/SGPT) 16, Alkaline Phosphatase 87, Total Protein 4.8L, Albumin 3.1L, Beta- Hydroxybutyrate (Chem panel) 0.05 07/10/19 03:21: Glucometer 144H 07/10/19 04:09: Glucometer 102 07/10/19 05:15: Glucometer 111H 07/10/19 06:17: Glucometer 84 07/10/19 08:13: Glucometer 178H 07/10/19 09:13: Glucometer 140H 07/10/19 10:14: Glucometer 129H 07/10/19 10:25: Urine Color YELLOW, Urine Clarity CLEAR, Urine pH 6.0, Urine Specific [place] 1.020, Urine Protein NEGATIVE, Urine Glucose (UA) NEGATIVE, Urine Ketones NEGATIVE, Urine Nitrite NEGATIVE, Urine Bilirubin 1+H, Urine Urobilinogen 0.2, Urine Leukocyte Esterase 1+H, Urine RBC (Auto) TRACE-I, Urine RBC 5-10H, Urine WBC 50-100H, Urine Squamous Epithelial Cells 2-5, Urine Crystals PRESENTH, Urine Amorphous Sediment FEW JASON URATESH, Urine Bacteria FEWH, Urine Casts NONE, Urine Mucus SMALLH, Urine Culture Indicated YES 07/10/19 11:00: Glucometer 97 07/10/19 12:20: Glucometer 146H 07/10/19 13:05: Glucometer 111H 07/10/19 14:02: Glucometer 128H 07/10/19 15:10: Glucometer 141H Assessment/Plan Assessment/Plan (1) Respiratory failure Status: Acute Assessment & Plan: 07/10: Likely 2/2 to drug OD, Vent managed by Dr Hernandez, MAT protocol Qualifiers: Qualified Codes: J96.01 - Acute respiratory failure with hypoxia (2) Severe sepsis Status: Acute Assessment & Plan: 07/10: Continue broad spectrum antibiotics, HDS (3) DKA (diabetic ketoacidoses) Status: Acute Assessment & Plan: 07/10: Continue insulin gtts, blood sugars better controlled Qualifiers: (4) Type 1 diabetes Status: Chronic Qualifiers: Qualified Codes: E10.9 - Type 1 diabetes mellitus without complications (5) Methamphetamine abuse Status: Chronic Assessment & Plan: 07/10: Suspected Suicide attempt, per family patient had recent stay at inpatient psych in [place], Will needs psych eval when extubated (6) Hypokalemia Status: Acute Assessment & Plan: - Replaced and repeat level this afternoon (7) Hypophosphatemia Status: Acute Assessment & Plan: 07/10: Severely low, replaced and repeat this afternoon (8) DVT prophylaxis Status: Acute Assessment & Plan: Lovenox Clinical Quality Measures DVT/VTE Risk/Contraindication: Risk Factor Score Per Nursin RFS Level Per Nursing on Admit: 1=Low/No VTE PPX HARRY TO MD Jul 10, 2019 15:43 POS
--- NOTE | 2019-07-10 16:00 | NUR ---
Pt's grandmother, Alfred, at bedside
[2019-07-10] MEDS: fentaNYL 1,250 MCG/NS 250 ML DRIP IV SCH ×2 (16:32)
[2019-07-10 19:45] LABS: ALANINE AMINOTRANSFERASE 28 U/L (0-55); ALBUMIN 2.8 GM/DL (3.2-4.5); ALKALINE PHOSPHATASE 78 U/L (40-136); BUN/CREATININE RATIO 8; CALCIUM 7.8 MG/DL (8.5-10.1); CARBON DIOXIDE 16 MMOL/L (21-32); CREATININE SERUM 0.74 MG/DL (0.60-1.30); GFR ESTIMATED > 60; GLUCOSE 198 MG/DL (70-105); MAGNESIUM 1.7 MG/DL (1.6-2.4); POTASSIUM 4.2 MMOL/L (3.6-5.0); SODIUM 143 MMOL/L (135-145); TOTAL PROTEIN 4.4 GM/DL (6.4-8.2)
[2019-07-10 19:54] LABS: BILIRUBIN,TOTAL 0.3 MG/DL (0.1-1.0); CHLORIDE 121 MMOL/L (98-107)
[2019-07-10] MEDS: ENOXAPARIN 40 MG/0.4 ML (LOVENOX) SYR SC SCH (20:39)
[2019-07-10] MEDS ORDERED: MIDAZOLAM 5 MG/5 ML (VERSED) VIAL IV PRN (21:30)
[2019-07-11] VITALS (15 sets, daily range): BP systolic 90–147; BP diastolic 52–107
[2019-07-11] MEDS: POTASSIUM CL 10MEQ/50ML IVPB 50 ML IV SCH ×8 (00:30→08:17)
[2019-07-11] MEDS: POTASSIUM CHLORIDE INJ 20 MEQ in D5 LR IV SOLUTION 1,000 ML IV SCH (01:34)
[2019-07-11] MEDS: PIPERACILLIN/TAZO 4.5 GM/NS 100 ML IV SCH ×6 (02:36→19:44)
[2019-07-11 03:18] LABS: BASOPHILS % (AUTO) 0 % (0-10); EOSINOPHILS % (AUTO) 0 % (0-10); HEMATOCRIT 30 % (35-52); HEMOGLOBIN 10.5 G/DL (11.5-16.0); LYMPHOCYTES # (AUTO) 4.3 X 10^3 (1.0-4.0); LYMPHOCYTES % (AUTO) 35 % (12-44); MEAN CORPUSCULAR HEMOGLOBIN 32 PG (25-34); MEAN CORPUSCULAR HGB CONC 35 G/DL (32-36); MEAN CORPUSCULAR VOLUME 90 FL (80-99); MEAN PLATELET VOLUME 9.9 FL (7.4-10.4); MONOCYTES # (AUTO) 1.2 X 10^3 (0.0-1.0); MONOCYTES % (AUTO) 10 % (0-12); NEUTROPHILS # (AUTO) 6.9 X 10^3 (1.8-7.8); NEUTROPHILS % (AUTO) 56 % (42-75); PLATELET COUNT 191 10^3/uL (130-400); RED CELL DISTRIBUTION WIDTH 12.3 % (10.0-14.5); WHITE BLOOD COUNT 12.5 10^3/uL (4.3-11.0)
[2019-07-11 03:19] LABS: ABG BASE EXCESS -8.3 MMOL/L (-2.5-2.5); ABG OXYGEN SATURATION 99 % (94-100); ABG PCO2 21 MMHG (35-45); ABG PH 7.46 (7.37-7.43); ABG PO2 122 MMHG (79-93); ABG TCO2 15.7 MMOL/L (21.0-31.0)
[2019-07-11 03:20] LABS: ALLENS TEST POSITIVE; INSPIRED O2 21
[2019-07-11 03:21] LABS: PATIENT TEMP 35.8; VENTILATOR YES
[2019-07-11 03:42] LABS: ALANINE AMINOTRANSFERASE 33 U/L (0-55); ALBUMIN 2.5 GM/DL (3.2-4.5); ALKALINE PHOSPHATASE 79 U/L (40-136); BILIRUBIN,TOTAL 0.2 MG/DL (0.1-1.0); BUN/CREATININE RATIO 7; CALCIUM 7.8 MG/DL (8.5-10.1); CARBON DIOXIDE 15 MMOL/L (21-32); CHLORIDE 121 MMOL/L (98-107); CREATININE SERUM 0.68 MG/DL (0.60-1.30); GFR ESTIMATED > 60; GLUCOSE 124 MG/DL (70-105); MAGNESIUM 1.5 MG/DL (1.6-2.4); PHOSPHORUS 2.1 MG/DL (2.3-4.7); POTASSIUM 3.5 MMOL/L (3.6-5.0); SODIUM 146 MMOL/L (135-145); TOTAL PROTEIN 4.1 GM/DL (6.4-8.2)
--- NOTE | 2019-07-11 04:28 | Pulmonary Progress Note ---
Subjective Time Seen by a Provider: 07:16 Sepsis Event Evaluation Height, Weight, BMI Height: 5'2.00" Weight: 210lbs. 0.0oz. 95.567103kn; 26.41 BMI Method:Stated Focused Exam Lactate Level 07/09/19 12:31: Lactic Acid Level 0.89 Exam Exam Vital Signs Date Time Temp Pulse Resp B/P (MAP) Pulse Ox O2 Delivery O2 Flow Rate FiO2 07/11/19 01:53 71 24 100 21 07/11/19 01:00 72 24 95/61 (72) 99 Mechanical Ventilator 21.00 07/11/19 00:40 74 07/11/19 00:00 36.3 07/11/19 00:00 98 Mechanical Ventilator 21 07/11/19 00:00 74 23 96/52 (67) 100 Mechanical Ventilator 21.00 07/10/19 23:00 77 23 88/49 (62) 99 Mechanical Ventilator 21.00 07/10/19 22:00 80 24 88/50 (63) 99 Mechanical Ventilator 21.00 07/10/19 21:33 80 24 99 21 07/10/19 21:00 81 23 83/49 (60) 100 Mechanical Ventilator 21.00 07/10/19 20:00 98 Mechanical Ventilator 21 07/10/19 20:00 86 23 90/65 (73) 100 Mechanical Ventilator 21.00 07/10/19 20:00 37.0 07/10/19 19:00 86 24 92/67 (75) 100 Mechanical Ventilator 21.00 07/10/19 18:39 86 07/10/19 18:27 86 24 100 21 07/10/19 18:00 84 23 100/86 (91) 100 Mechanical Ventilator 21.00 07/10/19 17:00 82 24 100/82 (88) 100 Mechanical Ventilator 21.00 07/10/19 16:00 98 Mechanical Ventilator 21 07/10/19 16:00 80 23 92/59 (70) 100 Mechanical Ventilator 21.00 07/10/19 15:13 86/53 07/10/19 15:00 36.7 72 23 106/65 (79) 100 Mechanical Ventilator 21.00 07/10/19 14:50 72 24 100 21 07/10/19 14:00 72 24 89/59 (69) 100 Mechanical Ventilator 21.00 07/10/19 13:00 68 20 86/59 (68) 100 Mechanical Ventilator 21.00 07/10/19 13:00 72 07/10/19 12:00 36.9 63 10 95/73 (80) 100 Mechanical Ventilator 21.00 07/10/19 12:00 98 Mechanical Ventilator 21 07/10/19 11:25 61 24 100 21 07/10/19 11:00 57 23 96/71 (79) 100 Mechanical Ventilator 21.00 07/10/19 10:00 58 23 87/62 (70) 100 Mechanical Ventilator 21.00 07/10/19 09:00 59 23 86/59 (68) 100 Mechanical Ventilator 21.00 07/10/19 09:00 35.3 07/10/19 08:05 57 24 100 21 07/10/19 08:00 57 23 84/54 (64) 100 Mechanical Ventilator 21.00 07/10/19 08:00 98 Mechanical Ventilator 21 07/10/19 08:00 35.0 07/10/19 07:00 58 23 78/49 (59) 100 Mechanical Ventilator 21.00 07/10/19 07:00 58 07/10/19 06:00 56 86/58 (67) 100 Mechanical Ventilator 21.00 07/10/19 05:00 56 85/42 (56) 99 Mechanical Ventilator 21.00 I & O 07/11/19 07:00 Intake Total 7910 ml Output Total 965 ml Balance 6945 ml Height & Weight Height: 5'2.00" Weight: 210lbs. 0.0oz. 95.295757ag; 26.41 BMI Method:Stated General Appearance: No Apparent Distress, Anxious, Chronically ill Neck: Full Range of Motion, Non Tender, Supple Respiratory: Crackles, Decreased Breath Sounds Cardiovascular: Regular Rate, Rhythm, No Edema, Tachycardia Capillary Refill: Less Than 3 Seconds Gastrointestinal: normal bowel sounds, non tender, soft Neurologic/Psychiatric: Alert, Disoriented Skin: Normal Color, Warm/Dry Lymphatic: No Adenopathy Results Lab Laboratory Tests 07/09/19 10:53 07/09/19 16:23 07/09/19 18:10 07/10/19 02:47 07/10/19 18:00 07/11/19 03:05 Assessment/Plan Assessment/Plan Acute respiratory failure -Continue vent management. -Repeat all labs severe sepsis - Zosyn. D/C Vanco -Lactic acid is negative -3+ ketones in urine -Check beta hydroxybuterate - was high and is now improved. - serum osmolarity pending -Check toxic alcohol panel DKA -Give levemir and D/C gtt Methamphetamine -Unsure if pt was just snorting or also injecting Hypokalemia, hypomag, hypophos -Replace -And recheck Marijuanna use Severe metabolic acidosis - -Improving JAMEL NIEVES DO Jul 11, 2019 04:28 POS
[2019-07-11] MEDS ORDERED: LACTATED RINGERS 1,000 ML IV SCH (04:30)
[2019-07-11] MEDS ORDERED: LACTATED RINGERS 1,000 ML IV ONE (04:40)
[2019-07-11] MEDS: MAGNESIUM 1 GM/100 ML IVPB 100 ML IV SCH ×5 (04:56→07:08)
[2019-07-11] MEDS: DEXMEDETOMIDINE 1,000 MCG/NS 250 ML IV SCH ×2 (05:06)
[2019-07-11] MEDS: KCL 20 MEQ TAB (K-DUR) PO SCH (06:22)
[2019-07-11] MEDS: inSUlin ASPART (NovoLOG) 1 UNIT/0.01 ML (CHARGE PER UNIT) SC SCH ×4 (06:23→20:19)
--- NOTE | 2019-07-11 06:49 | Diagnostic Imaging Report ---
INDICATION: Intubation, acidosis, unresponsive. TECHNIQUE: Single view chest 3:55 AM. CORRELATION STUDY: 07/10/2019 FINDINGS: The heart size, mediastinal configuration and pulmonary vascularity are within normal limits. The lungs are clear with no consolidating infiltrate. There is no significant effusion or pneumothorax. Endotracheal tube projects over the low trachea just above the yifan. Gastric tube and right IJ central line remain in place. IMPRESSION: 1. Stable appearance of the support lines and tubes. Endotracheal tube tip does project over the lower aspect of the trachea. Dictated by: Dictated on workstation # [id number]
--- NOTE | 2019-07-11 08:06 | Physical Therapy Progress Note ---
Therapy Progress Note Patient is currently sedated and on mechanical ventilator. PT will continue to monitor patient status and assess when medically stable and able to actively participate with skilled therapy. REN WIN PT Jul 11, 2019 08:06 POS
[2019-07-11] MEDS: PANTOPRAZOLE 40 MG (PROTONIX) VIAL IV SCH ×2 (08:16→20:18)
--- NOTE | 2019-07-11 08:54 | NUR ---
RT at bedside. Pt extubated without difficulty. RA. Able to vocalize. Alert and Oriented x4.
[2019-07-11] MEDS ORDERED: POTASSIUM PHOSPHATE INJ 30 MM in NS (IVPB) 250 ML IV ONE (09:00)
--- NOTE | 2019-07-11 12:56 | Occupational Therapy Eval ---
OT Evaluation-General/PLF Medical Diagnosis Admission Date Jul 09, 2019 at 12:40 Medical Diagnosis: acidosis/unresponsive Onset Date: Jul 09, 2019 Therapy Diagnosis Therapy Diagnosis: debility Height/Weight Height (Feet): 5 Height (Inches): 2.00 Weight (Pounds): 210 Weight (Ounces): 0.0 Precautions Precautions/Isolations: Aspiration, Fall Prevention, Standard Precautions Safety Interventions: Reorient-PRN Referral Physician: Mary Medical History Pertinent Medical History: DM, HTN Additional Medical History anxiety, depression, history of IV drug use. Current History Pt presented to hospital with AMS. Pt had multisystem organ failure and respiratory failure requiring intubation. Pt extubated this morning. Reviewed History: Yes Social History Home: Single Level Current Living Status: Other Family (father) ADL-Prior Level of Function SCALE: Activities may be completed with or without assistive devices. 0-Qkcgbghgpb-yudslls completes the activity by him/herself with no assistance from a helper. 5-Set-up or Clean-up Assistance-helper sets up or cleans up; patient completes activity. [place] assists only prior to or following the activity. 4-Supervision or Touching Assistance-helper provides verbal cues and/or touching/steadying and/or contact guard assistance as patient completes activity. Assistance may be provided throughout the activity or intermittently. 3-Partial/Moderate Assistance-helper does LESS THAN HALF the effort. [place] lifts, holds or supports trunk or limbs, but provides less than half the effort. 2-Substantial/Maximal Assistance-helper does MORE THAN HALF the effort. [place] lifts or holds trunk or limbs and provides more than half the effort. 4-Hdntkrfrn-dvynan does ALL the effort. Patient does none of the effort to complete the activity. Or, the assistance of 2 or more helpers is required for the patient to complete the activity. If activity was not attempted, code reason: 7-Patient Refused. 9-Not Applicable-not attempted and the patient did not perform the activity before the current illness, exacerbation or injury. 10-Not Attempted due to Environmental Limitations-(lack of equipment, weather restraints, etc.). 88-Not Attempted due to Medical Conditions or Safety Concerns. ADL PLOF Comments Pt reports being independent with mobility and self care prior to admission. Self Care: Independent Functional Cognition: Independent OT Current Status Subjective Pt in bed, agrees to therapy. Mental Status/Objective Patient Orientation: Person, Place Attachments: Amador Catheter, IV Current Upper Extremity ROM Not formally assessed, but pt moving bilateral UE without difficulty throughout session. ADL-Treatment ADL-Current Pt in bed, requesting to use toilet. Supine to sit without assist. Pt sit to stand with supervision. Pt transferred to toilet with hand held assist. Pt attempts to move quickly, requires cues for safety and assist to manage lines. Pt able to complete toileting hygiene. Then transferred to chair with SBA for safety. Pt demonstrated ability to doff/don socks with set up while seated. Declined to complete grooming tasks at this time. Pt sitting in chair with needs met, chair alarm in place, and father present after session. Eating (QC): 5 (set up) Oral Hygiene (QC): 7 Shower/Bathe Self (QC): 10 Upper Body Dressing (QC): 10 Lower Body Dressing (QC): 10 On/Off Footwear (QC): 5 Toileting Hygiene (QC): 4 (SBA) Toilet Transfer (QC): 4 (SBA) Education OT Patient Education: Rehab process Teaching Recipient: Patient Teaching Methods: Discussion OT Handstitching Machine Armhole Feller Goals Penitentiary Goals Time Frame: Jul 15, 2019 Eating (QC): 6 Oral Hygiene (QC): 6 Toileting Hygiene (QC): 6 Shower/Bathe Self (QC): 6 Upper Body Dressing (QC): 6 Lower Body Dressing (QC): 6 On/Off Footwear (QC): 6 1=Demonstrate adherence to instructed precautions during ADL tasks. 2=Patient will verbalize/demonstrate understanding of assistive devices/modifications for ADL. 3=Patient will improve strength/tolerance for activity to enable patient to perform ADL's. OT Education/Plan Problem List/Assessment Assessment: Impaired Self-Care Skills Pt admitted with AMS. Extubated this am. Pt transferred to commode with cues for safety and assist to manage lines. Will follow up with pt for safety regarding ADLs and transfers. Discharge Recommendations Plan/Recommendations: Continue POC Treatment Plan/Plan of Care Treatment,Training & Education: Yes Patient would benefit from OT for education, treatment and training to promote independence in ADL's, mobility, safety and/or upper extremity function for ADL's. Plan of Care: ADL Retraining, Functional Mobility Treatment Duration: Jul 15, 2019 Frequency: 5 times per week Estimated Hrs Per Day: .25 hour per day Rehab Potential: Fair Time/GCodes Start Time: 11:02 Stop Time: 11:22 Total Time Billed (hr/min): 20 Billed Treatment Time 1 visit, NARCISO(20minutes) SCOTTY CONNELLY OT Jul 11, 2019 12:56 POS
--- NOTE | 2019-07-11 13:00 | NUR ---
Mental Health Screener at bedside.
--- NOTE | 2019-07-11 13:14 | Physical Therapy Evaluation ---
PT Evaluation-General Medical Diagnosis Admission Date Jul 09, 2019 at 12:40 Medical Diagnosis: acidosis/unresponsive Onset Date: Jul 09, 2019 Therapy Diagnosis Therapy Diagnosis: debility/weakness Height/Weight Height (Feet): 5 Height (Inches): 2.00 Weight (Pounds): 210 Weight (Ounces): 0.0 Precautions Precautions/Isolations: Aspiration, Fall Prevention, Standard Precautions Referral Physician: Mary Reason for Referral: Evaluation/Treatment Medical History Pertinent Medical History: DM, HTN Additional Medical History alcohol and drug use Current History EMS from home secondary to "snorted" mets and cutting self Reviewed History: Yes Social History Home: Single Level Current Living Status: Other Family (father) Prior Prior Level of Function SCALE: Activities may be completed with or without assistive devices. 2-Nrndekvqve-qgkabmy completes the activity by him/herself with no assistance from a helper. 5-Set-up or Clean-up Assistance-helper sets up or cleans up; patient completes activity. [place] assists only prior to or following the activity. 4-Supervision or Touching Assistance-helper provides verbal cues and/or touching/steadying and/or contact guard assistance as patient completes activity. Assistance may be provided throughout the activity or intermittently. 3-Partial/Moderate Assistance-helper does LESS THAN HALF the effort. [place] lifts, holds or supports trunk or limbs, but provides less than half the effort. 2-Substantial/Maximal Assistance-helper does MORE THAN HALF the effort. [place] lifts or holds trunk or limbs and provides more than half the effort. 1-Lzuajplqi-lnmcej does ALL the effort. Patient does none of the effort to complete the activity. Or, the assistance of 2 or more helpers is required for the patient to complete the activity. If activity was not attempted, code reason: 7-Patient Refused. 9-Not Applicable-not attempted and the patient did not perform the activity before the current illness, exacerbation or injury. 10-Not Attempted due to Environmental Limitations-(lack of equipment, weather restraints, etc.). 88-Not Attempted due to Medical Conditions or Safety Concerns. Bed Mobility: 6 Transfers (B,C,W/C): 6 Gait: 6 Stairs: 6 Indoor Mobility (Ambulation): Independent Stairs: Independent Prior Devices Use: None PT Evaluation-Current Subjective Patient request toilet use. Objective Patient Orientation: Normal For Age Attachments: Amador Catheter, IV ROM/Strength ROM Lower Extremities bilateral LE WFL Strength Lower Extremities 5/5 grossly bilateral LE Integumentary/Posture Integumentary refer to nursing notes Bowel Incontinence: No Bladder Incontinence: Amador Cath Posture WFL Neuromuscular (Tone, Coordination, Reflexes) grossly intact Sensory Vision: Functional Hearing: Functional Sensation Right Lower Extremit: Intact Sensation Left Lower Extremity: Intact Transfers Roll Left to Right (QC): 6 Sit to Lying (QC): 6 Lying to Sitting/Side of Bed(Q: 6 Sit to Stand (QC): 6 Chair/Dza-aw-Ypfwn Xfer(QC): 6 Car Transfer (QC): 10 Gait Does the Patient Walk?: Yes Mode of Locomotion: Walk Anticipated Mode of Locomotion: Walk Walk 10 feet (QC): 6 Walk 50 ft with 2 Turns(QC): 7 Walk 150 ft (QC): 7 Walking 10ft/uneven surface-QC: 7 Gait Assistive Device: None Wheelchair Training Does the Pt Use a Wheelchair?: No Wheel 50 ft with 2 turns (QC): 9 Wheel 150 ft (QC): 9 Type of Wheelchair: Manual Stairs 1 Step (curb) (QC): 88 4 Steps (QC): 88 12 Steps (QC): 88 Balance Sitting Static: Normal Sitting Dynamic: Normal Standing Static: Normal Standing Dynamic: Normal Picking up an Object (QC): 6 Assessment/Needs Patient is currently independent with all gross motor skills and declined ambulation outside of room. Patient declined PT. PT to dismiss patient from services. Rehab Potential: Fair PT Combo Welder Goals Combo Welder Goals PT Combo Welder Goals Time Frame: Jul 11, 2019 Roll Left & Right (QC): 6 Sit to Lying (QC): 6 Lying-Sitting on Side/Bed(QC): 6 Sit to Stand (QC): 6 Chair/Dqe-lb-Llnkb Xfer(QC): 6 Toilet Transfer (QC): 6 Car Transfer (QC): 6 Does the Patient Walk: Yes Walk 10 feet (QC): 6 Walk 50ft with 2 Turns (QC): 6 Walk 150 ft (QC): 6 Walking 10ft on Uneven Surface: 6 1 Step (curb) (QC): 6 4 Steps (QC): 6 12 Steps (QC): 6 Picking up an Object (QC): 6 Does the Pt use WC or Scooter?: No Type: N/A Type: N/A PT Plan Treatment/Plan Treatment Plan: Discontinue PT, goals met Treatment Plan: Other Treatment Duration: Jul 11, 2019 Frequency: 1 time per week Estimated Hrs Per Day: .25 hour per day Patient and/or Family Agrees t: Yes Time/GCodes Time In: 1247 Time Out: 1255 Total Billed Treatment Time: 8 Total Billed Treatment 1 visit EVLowC 8 min REN WIN PT Jul 11, 2019 13:14 POS
--- NOTE | 2019-07-11 14:00 | NUR ---
Dr Hernandez and Dr Abreu notified on mental health screener's observations. Field Geologist looking for bed for voluntary Psychiatric hold.
--- NOTE | 2019-07-11 16:11 | NUR ---
SS/CM: Visited pt based on need for possible psychiatric placement for suicidal ideation. Plan: Pt to be evaluated for inpatient psychiatric placement. [facility] notified (Thompson Celestin [phone]) Summary: Visited with pt. Pt reports she want her child, but can not have him as he is with his father. She says she is stable and does not need a Cement Finisher Apprentice or mental health. [facility] notified about need for screening. [facility] assessed pt. Pt meets criteria for inpatient psychiatric placement, based on significant suicidal attempt on 07/09/19, pt remains agitated, distraught, and unclear, and refuses to state if she has a plan to harm herself. Pt continues to have suspicious behavior about her intent. Pt at this time reportedly is wanting to go voluntary per the screener from mental health. Will follow up and seek psychiatric placement for pt.
--- NOTE | 2019-07-11 16:12 | NUR ---
Pt elevated BS. Notified. Orders received.
[2019-07-11] MEDS ORDERED: ACETAMINOPHEN 325 MG TABLET ONE (17:08)
[2019-07-11] MEDS: ACETAMINOPHEN 325 MG TABLET PO PRN (17:12)
[2019-07-11] MEDS: ENOXAPARIN 40 MG/0.4 ML (LOVENOX) SYR SC SCH (20:18)
--- NOTE | 2019-07-11 20:53 | Progress Note ---
Subjective Subjective/Events-last exam Patient extubated this AM. States that she was upset after the FOB took her son and she was trying to hurt herself but denies trying to kill herself. States that she recently had inpatient stay in [place] last month for similar thoughts. Review of Systems HEENT: Sore Throat, Other (dry mouth) Pulmonary: Cough Cardiovascular: No: Chest Pain, Palpitations Gastrointestinal: No: Nausea, Vomiting, Abdominal Pain Genitourinary: No Dysuria, No Frequency Focused Exam Lactate Level 07/09/19 12:31: Lactic Acid Level 0.89 Objective Exam Last Set of Vital Signs Vital Signs Date Time Temp Pulse Resp B/P (MAP) Pulse Ox O2 Delivery O2 Flow Rate FiO2 07/11/19 17:00 98 25 Room Air 07/11/19 13:00 23 07/11/19 08:00 35.3 07/11/19 08:00 21.00 07/11/19 08:00 21 Capillary Refill : Less Than 3 Seconds I&O Intake and Output 07/11/19 00:00 Intake Total 9650 ml Output Total 1515 ml Balance 8135 ml Intake Oral 0 ml IV Total 9650 ml Output Urine Total 815 ml Gastric Drainage Total 700 ml General: Alert, Oriented X3, No Acute Distress Lungs: Clear to Auscultation, Normal Air Movement Heart: Regular Rate, No Murmurs Abdomen: Normal Bowel Sounds, Soft, No Tenderness, No Masses Extremities: No Edema, No Tenderness/Swelling Neuro: Sensation Intact, Cranial Nerves 3-12 NL Psych/Mental Status: Mental Status NL, Mood NL Results/Procedures Lab Laboratory Tests 07/10/19 21:24: Glucometer 188H 07/10/19 22:07: Glucometer 183H 07/10/19 23:06: Glucometer 164H 07/11/19 00:04: Glucometer 158H 07/11/19 00:59: Glucometer 152H 07/11/19 02:06: Glucometer 136H 07/11/19 02:58: Glucometer 119H 07/11/19 03:05: White Blood Count 12.5H, Red Blood Count 3.33L, Hemoglobin 10.5L, Hematocrit 30L , Mean Corpuscular Volume 90, Mean Corpuscular Hemoglobin 32, Mean Corpuscular Hemoglobin Concent 35, Red Cell Distribution Width 12.3, Platelet Count 191, Mean Platelet Volume 9.9, Neutrophils (%) (Auto) 56, Lymphocytes (%) (Auto) 35, Monocytes (%) (Auto) 10, Eosinophils (%) (Auto) 0, Basophils (%) (Auto) 0, Neutrophils # (Auto) 6.9, Lymphocytes # (Auto) 4.3H, Monocytes # (Auto) 1.2H, Eosinophils # (Auto) 0.0, Basophils # (Auto) 0.0, Sodium Level 146H, Potassium Level 3.5L, Chloride Level 121H, Carbon Dioxide Level 15L, Anion Gap 10, Blood Urea Nitrogen 5L, Creatinine 0.68, Estimat Glomerular Filtration Rate > 60, BUN/Creatinine Ratio 7, Glucose Level 124H, Calcium Level 7.8L, Corrected Calcium 9.0, Phosphorus Level 2.1L, Magnesium Level 1.5L, Total Bilirubin 0.2, Aspartate Amino Transf (AST/SGOT) 49H, Alanine Aminotransferase (ALT/SGPT) 33, Alkaline Phosphatase 79, Total Protein 4.1L, Albumin 2.5L 07/11/19 03:10: Blood Gas Puncture Site LEFT RADIAL, Blood Gas Patient Temperature 35.8, Arterial Blood pH 7.46H, Arterial Blood Partial Pressure CO2 21L, Arterial Blood Partial Pressure O2 122H, Arterial Blood HCO3 15*L, Arterial Blood Total CO2 15.7L, Arterial Blood Oxygen Saturation 99, Arterial Blood Base Excess -8.3L, Montez Test POSITIVE, Blood Gas Ventilator Setting YES, Blood Gas Inspired Oxygen 21 07/11/19 03:57: Glucometer 124H 07/11/19 11:29: Glucometer 320H 07/11/19 15:10: Glucometer 392H 07/11/19 16:09: Glucometer 402*H 07/11/19 20:13: Glucometer 243H Microbiology 07/09/19 Blood Culture - Preliminary, Resulted No growth 07/10/19 Gram Stain - Final, Resulted 07/10/19 Sputum Culture - Preliminary, Resulted YEAST 07/10/19 Urine Culture - Final, Complete NO GROWTH Assessment/Plan Assessment/Plan (1) Respiratory failure Status: Acute Assessment & Plan: 07/10: Likely 2/2 to drug OD, Vent managed by Dr Hernandez, [facility] protocol 07/11: Extubated today, Will continue antibiotics at this time Qualifiers: Qualified Codes: J96.01 - Acute respiratory failure with hypoxia (2) Severe sepsis Status: Resolved Assessment & Plan: 07/10: Continue broad spectrum antibiotics, HDS (3) DKA (diabetic ketoacidoses) Status: Acute Assessment & Plan: 07/10: Continue insulin gtts, blood sugars better controlled 07/11: Restart home insulin Qualifiers: (4) Type 1 diabetes Status: Chronic Qualifiers: Qualified Codes: E10.9 - Type 1 diabetes mellitus without complications (5) Methamphetamine abuse Status: Chronic Assessment & Plan: 07/10: Suspected Suicide attempt, per family patient had recent stay at inpatient psych in [place], Will needs psych eval when extubated (6) Hypokalemia Status: Resolved Assessment & Plan: - Replaced and repeat level this afternoon (7) Hypophosphatemia Status: Resolved Assessment & Plan: 07/10: Severely low, replaced and repeat this afternoon (8) DVT prophylaxis Status: Acute Assessment & Plan: Lovenox Clinical Quality Measures DVT/VTE Risk/Contraindication: Risk Factor Score Per Nursin RFS Level Per Nursing on Admit: 1=Low/No VTE PPX HARRY TO MD Jul 11, 2019 20:52 POS
[2019-07-11] MEDS ORDERED: NON-FORMULARY MEDICATION 1 EA EA (Insulin Detemir (Levemir Flextouch) 30 UNIT) SQ SCH (21:00)
[2019-07-11] MEDS ORDERED: ZOLPIDEM 5 MG (AMBIEN) TAB ONE (23:30)
[2019-07-11] MEDS ORDERED: ZOLPIDEM 5 MG (AMBIEN) TAB PO PRN (23:45)
[2019-07-12] VITALS (7 sets, daily range): BP systolic 122–147; BP diastolic 60–83
[2019-07-12] MEDS: PIPERACILLIN/TAZO 4.5 GM/NS 100 ML IV SCH ×6 (03:00→18:52)
[2019-07-12 05:28] LABS: BASOPHILS % (AUTO) 0 % (0-10); EOSINOPHILS % (AUTO) 0 % (0-10); HEMATOCRIT 34 % (35-52); HEMOGLOBIN 11.9 G/DL (11.5-16.0); LYMPHOCYTES # (AUTO) 4.4 X 10^3 (1.0-4.0); LYMPHOCYTES % (AUTO) 31 % (12-44); MEAN CORPUSCULAR HEMOGLOBIN 31 PG (25-34); MEAN CORPUSCULAR HGB CONC 35 G/DL (32-36); MEAN CORPUSCULAR VOLUME 90 FL (80-99); MEAN PLATELET VOLUME 10.4 FL (7.4-10.4); MONOCYTES # (AUTO) 1.6 X 10^3 (0.0-1.0); MONOCYTES % (AUTO) 12 % (0-12); NEUTROPHILS % (AUTO) 57 % (42-75); PLATELET COUNT 233 10^3/uL (130-400); WHITE BLOOD COUNT 14.1 10^3/uL (4.3-11.0)
[2019-07-12 05:46] LABS: ALANINE AMINOTRANSFERASE 59 U/L (0-55); ALBUMIN 3.2 GM/DL (3.2-4.5); ALKALINE PHOSPHATASE 119 U/L (40-136); BILIRUBIN,TOTAL 0.3 MG/DL (0.1-1.0); BUN/CREATININE RATIO 7; CALCIUM 7.9 MG/DL (8.5-10.1); CARBON DIOXIDE 20 MMOL/L (21-32); CHLORIDE 107 MMOL/L (98-107); CREATININE SERUM 0.76 MG/DL (0.60-1.30); GFR ESTIMATED > 60; GLUCOSE 230 MG/DL (70-105); POTASSIUM 3.9 MMOL/L (3.6-5.0); SODIUM 139 MMOL/L (135-145); TOTAL PROTEIN 5.5 GM/DL (6.4-8.2)
[2019-07-12] MEDS ORDERED: inSUlin ASPART (NovoLOG) 1 UNIT/0.01 ML (CHARGE PER UNIT) SC SCH (06:00)
[2019-07-12] MEDS ORDERED: INSULIN ASPART 16 UNIT SQ SCH (06:00)
[2019-07-12] MEDS: inSUlin ASPART (NovoLOG) 1 UNIT/0.01 ML (CHARGE PER UNIT) SC SCH ×4 (06:35→21:36)
[2019-07-12] MEDS ORDERED: INSULIN DETEMIR 28 UNIT SQ SCH (09:00)
--- NOTE | 2019-07-12 10:22 | NUR ---
SS/CM: Referral sent to [facility]: phone [phone] Plan: Follow up with [facility] determine bed availability and if they can take pt. Summary: Awaiting to hear back on bed availability and if no availability will contact another Behavioral Health placement.
[2019-07-12] MEDS ORDERED: LORazepam 1 MG (ATIVAN) TAB PO NR (12:15)
--- NOTE | 2019-07-12 15:07 | NUR ---
SS/CM: [facility] called and are requesting additional information. They are requesting to know if pt is suicidal right now. Plan: To meet with pt and determine her current mental health status.
--- NOTE | 2019-07-12 15:12 | NUR ---
SS/MH: Visited with pt to determine her current mental health status Plan: Determine if inpatient or outpatient will meet pt's needs for mental health Summary: Pt reports that she is wanting to leave and go somewhere and get help so that she can be with her baby. She reports talking to son Pt is tearful indicating she is sad about being away from her child. Pt seems more clear on today and shares that she does not remember visiting with this worker on yesterday. Pt denies suicidal thoughts or ideas. Pt reports that she just wants to get help and be able to be with her son and yudith. Pt reports that she wants help with her anger and emotions. Pt seems motivated to get help. This worker will follow up with physician Dr. Abreu and let her know the current status of the pt. Talked with Dr. Abreu, she is updated on status of [facility] and pts' current mental health status. She will follow up with [facility] and see if she can get an appt for outpatient based on pt no longer having suicidal thoughts. Dr Abreu returned called - pt will have a phone call from a Behavioral Health Counselor in the morning 07/13. and can be discharged tomorrow with a in person appt on Wednesday, 07/14 at 11:00am with Mental health person Manju Mcclellan at [facility] located at [facility] and [facility] in [place]. Thompson Celestin, [facility] - notified of the above information. He is ok with that knowing that pt will be seeking outpatient treatment, and no longer meets the criteria for inpatient behavioral treatment. [facility] notified via phone- voice mail message left about no longer needing the bed for inpatient behavioral health. Addendum: 07/12/19 at 1608 by VITOR BAZZI SS/CM: Pt notified of the above information and in agreeable at this time.
[2019-07-12] MEDS: ACETAMINOPHEN 325 MG TABLET PO PRN (15:39)
[2019-07-12] MEDS: PANTOPRAZOLE 40 MG (PROTONIX) TAB PO SCH (17:56)
--- NOTE | 2019-07-12 20:55 | Progress Note ---
Subjective Subjective/Events-last exam Patient upset this AM. She has been talking to her mother. She is denying any thoughts of wanting to harm herself at this time. States that she is interested in doing outpatient. Will work on getting it set up. Review of Systems Pulmonary: Cough Cardiovascular: No: Chest Pain, Palpitations, Orthopnea Gastrointestinal: No: Nausea, Vomiting, Abdominal Pain, Diarrhea, Constipation Neurological: Other (anxiety and agitated) Objective Exam Last Set of Vital Signs Vital Signs Date Time Temp Pulse Resp B/P (MAP) Pulse Ox O2 Delivery O2 Flow Rate FiO2 07/12/19 20:33 36.6 108 20 147/66 (93) 99 Room Air 07/11/19 08:00 21.00 07/11/19 08:00 21 Capillary Refill : Less Than 3 SecondsLess Than 3 Seconds I&O Intake and Output 07/12/19 00:00 Intake Total 4450 ml Output Total 4860 ml Balance -410 ml Intake Oral 2240 ml IV Total 2210 ml Output Urine Total 4860 ml # Voids 4 # Bowel Movements 3 General: Alert, Oriented X3, Cooperative, No Acute Distress Lungs: Clear to Auscultation, Normal Air Movement Heart: Regular Rate, No Murmurs Abdomen: Normal Bowel Sounds, Soft, No Tenderness, No Masses Extremities: No Edema, No Tenderness/Swelling Skin: No Rashes, No Breakdown Neuro: Strength at 5/5 X4 Ext, Sensation Intact, Cranial Nerves 3-12 NL Results/Procedures Lab Laboratory Tests 07/12/19 04:30: White Blood Count 14.1H, Red Blood Count 3.80L, Hemoglobin 11.9, Hematocrit 34L, Mean Corpuscular Volume 90, Mean Corpuscular Hemoglobin 31, Mean Corpuscular Hemoglobin Concent 35, Red Cell Distribution Width 13.0, Platelet Count 233, Mean Platelet Volume 10.4, Neutrophils (%) (Auto) 57, Lymphocytes (%) (Auto) 31, Monocytes (%) (Auto) 12, Eosinophils (%) (Auto) 0, Basophils (%) (Auto) 0, Neutrophils # (Auto) 8.0H, Lymphocytes # (Auto) 4.4H, Monocytes # (Auto) 1.6H, Eosinophils # (Auto) 0.0, Basophils # (Auto) 0.0, Sodium Level 139, Potassium Level 3.9, Chloride Level 107, Carbon Dioxide Level 20L, Anion Gap 12, Blood Urea Nitrogen 5L, Creatinine 0.76, Estimat Glomerular Filtration Rate > 60, BUN/Creatinine Ratio 7, Glucose Level 230H, Calcium Level 7.9L, Corrected Calcium 8.5, Total Bilirubin 0.3, Aspartate Amino Transf (AST/SGOT) 68H, Alanine Aminotransferase (ALT/SGPT) 59H, Alkaline Phosphatase 119, Total Protein 5.5L, Albumin 3.2 07/12/19 11:13: Glucometer 184H 07/12/19 15:50: Glucometer 236H Microbiology 07/09/19 Blood Culture - Preliminary, Resulted No growth 07/10/19 Gram Stain - Final, Complete 07/10/19 Sputum Culture - Final, Complete YEAST 07/10/19 Urine Culture - Final, Complete NO GROWTH Assessment/Plan Assessment/Plan (1) Respiratory failure Status: Resolved Assessment & Plan: 07/10: Likely 2/2 to drug OD, Vent managed by Dr Hernandez, [facility] protocol 07/11: Extubated today, Will continue antibiotics at this time Qualifiers: Qualified Codes: J96.01 - Acute respiratory failure with hypoxia (2) Severe sepsis Status: Resolved Assessment & Plan: 07/10: Continue broad spectrum antibiotics, HDS 07/12: Continue PO antibiotics (3) DKA (diabetic ketoacidoses) Status: Acute Assessment & Plan: 07/10: Continue insulin gtts, blood sugars better controlled 07/11: Restart home insulin Qualifiers: (4) Type 1 diabetes Status: Chronic Qualifiers: Qualified Codes: E10.9 - Type 1 diabetes mellitus without complications (5) Methamphetamine abuse Status: Chronic Assessment & Plan: 07/10: Suspected Suicide attempt, per family patient had recent stay at inpatient psych in [place], Will needs psych eval when extubated 07/12: Patient denies any thoughts of wanting to harm herself this AM, Interested in outpatient rather then inpatient at this time. (6) Hypokalemia Status: Resolved Assessment & Plan: - Replaced and repeat level this afternoon (7) Hypophosphatemia Status: Resolved Assessment & Plan: 07/10: Severely low, replaced and repeat this afternoon (8) DVT prophylaxis Status: [facility] Measures DVT/VTE Risk/Contraindication: Risk Factor Score Per Nursin RFS Level Per Nursing on Admit: 1=Low/No VTE PPX HARRY TO MD Jul 12, 2019 20:55 POS
[2019-07-12] MEDS: ENOXAPARIN 40 MG/0.4 ML (LOVENOX) SYR SC SCH (21:00)
[2019-07-13 03:12] VITALS: BP 124/73
[2019-07-13] MEDS: PIPERACILLIN/TAZO 4.5 GM/NS 100 ML IV SCH ×4 (03:27→11:19)
[2019-07-13 05:12] LABS: BASOPHILS % (AUTO) 0 % (0-10); EOSINOPHILS # (AUTO) 0.1 10^3/uL (0.0-0.3); EOSINOPHILS % (AUTO) 0 % (0-10); HEMATOCRIT 36 % (35-52); HEMOGLOBIN 12.6 G/DL (11.5-16.0); LYMPHOCYTES # (AUTO) 4.1 X 10^3 (1.0-4.0); LYMPHOCYTES % (AUTO) 34 % (12-44); MEAN CORPUSCULAR HEMOGLOBIN 32 PG (25-34); MEAN CORPUSCULAR HGB CONC 35 G/DL (32-36); MEAN CORPUSCULAR VOLUME 91 FL (80-99); MEAN PLATELET VOLUME 10.2 FL (7.4-10.4); MONOCYTES # (AUTO) 1.4 X 10^3 (0.0-1.0); MONOCYTES % (AUTO) 12 % (0-12); NEUTROPHILS # (AUTO) 6.4 X 10^3 (1.8-7.8); NEUTROPHILS % (AUTO) 54 % (42-75); PLATELET COUNT 227 10^3/uL (130-400); WHITE BLOOD COUNT 11.9 10^3/uL (4.3-11.0)
[2019-07-13 05:30] LABS: ALANINE AMINOTRANSFERASE 54 U/L (0-55); ALBUMIN 3.7 GM/DL (3.2-4.5); ALKALINE PHOSPHATASE 116 U/L (40-136); BILIRUBIN,TOTAL 0.2 MG/DL (0.1-1.0); BUN/CREATININE RATIO 10; CALCIUM 8.8 MG/DL (8.5-10.1); CARBON DIOXIDE 24 MMOL/L (21-32); CHLORIDE 101 MMOL/L (98-107); CREATININE SERUM 0.72 MG/DL (0.60-1.30); GFR ESTIMATED > 60; GLUCOSE 262 MG/DL (70-105); SODIUM 137 MMOL/L (135-145); TOTAL PROTEIN 6.3 GM/DL (6.4-8.2)
[2019-07-13] MEDS: PANTOPRAZOLE 40 MG (PROTONIX) TAB PO SCH (05:47)
[2019-07-13] MEDS: inSUlin ASPART (NovoLOG) 1 UNIT/0.01 ML (CHARGE PER UNIT) SC SCH ×2 (06:08→11:20)
[2019-07-13 08:00] VITALS: BP 126/76
--- NOTE | 2019-07-13 11:00 | NUR ---
SS/CM : Discharge plan Plan: Pt spoke with Tabitha Blevins via telephone, from [facility] as a pat of the plan for her discharge. Summary: Call went well and pt did report she plans to make [facility] on tomorrow. Pt verified the location of appointment and verbalized understanding.
--- NOTE | 2019-07-13 11:47 | Discharge Summary ---
Diagnosis/Chief Complaint Date of Admission Jul 09, 2019 at 12:40 Date of Discharge 07/13/19 Admission Diagnosis Admission Diagnosis See problem list Discharge Diagnosis See below Problems/Diagnosis: (1) Respiratory failure Assessment & Plan: 07/10: Likely 2/2 to drug OD, Vent managed by Dr Hernandez, [facility] protocol 07/11: Extubated today, Will continue antibiotics at this time Qualifiers: Qualified Codes: J96.01 - Acute respiratory failure with hypoxia Status: Resolved Resolution Date/Time: 07/12/19 @ 20:54 (2) Severe sepsis Assessment & Plan: 07/10: Continue broad spectrum antibiotics, HDS 07/12: Continue PO antibiotics Status: Resolved Resolution Date/Time: 07/11/19 @ 20:52 (3) DKA (diabetic ketoacidoses) Assessment & Plan: 07/10: Continue insulin gtts, blood sugars better controlled 07/11: Restart home insulin 07/13: Patient needs to keep blood sugar log as her insulin may need adjusted after stressing event Qualifiers: Status: Acute (4) Type 1 diabetes Qualifiers: Qualified Codes: E10.9 - Type 1 diabetes mellitus without complications Status: Chronic (5) Methamphetamine abuse Assessment & Plan: 07/10: Suspected Suicide attempt, per family patient had recent stay at inpatient psych in [place], Will needs psych eval when extubated 07/12: Patient denies any thoughts of wanting to harm herself this AM, Interested in outpatient rather then inpatient at this time. 07/13: Has f.u tomorrow with [facility] Status: Chronic (6) Hypokalemia Assessment & Plan: - Replaced and repeat level this afternoon Status: Resolved Resolution Date/Time: 07/11/19 @ 20:52 (7) Hypophosphatemia Assessment & Plan: 07/10: Severely low, replaced and repeat this afternoon Status: Resolved Resolution Date/Time: 07/11/19 @ 20:52 (8) DVT prophylaxis Assessment & Plan: Lovenox Status: Acute Discharge Summary-Simple/Stand Consultations Dr Hernandez: Pulm, Critical Care Discharge Physical Examination Allergies: Coded Allergies: No Known Drug Allergies (Unverified , 08/12/12) Vitals & I&Os Vital Sign - Last 12Hours Date Time Temp Pulse Resp B/P (MAP) Pulse Ox O2 Delivery O2 Flow Rate FiO2 07/13/19 08:00 36.1 92 20 126/76 (93) 98 Room Air 07/11/19 08:00 21.00 07/11/19 08:00 21 Intake and Output 07/13/19 00:00 Intake Total 1140 ml Balance 1140 ml General Appearance: Alert, Oriented X3, Cooperative, No Acute Distress HEENT: Mucous Memb Moist/[place] Respiratory: Clear to Auscultation, Normal Air Movement Cardiovascular: Regular Rate, No Murmurs Abdominal: Normal Bowel Sounds, Soft, No Tenderness, No Masses Extremities: No Edema, No Tenderness/Swelling Skin: No Rashes, No Breakdown Neuro: Normal Speech, Strength at 5/5 X4 Ext, Sensation Intact, Cranial Nerves 3-12 NL Psych/Mental Status: Mental Status NL, Mood NL Hospital Course Was the Problem List Reviewed?: Yes See final discharge diagnosis. Discussion & Recommendations 19 yo F that presented after initial ingestion that was intubated for 2 days. Patient required ICU stay due to intubation. After extubation patient stated that she is not suicidal and she was seen by psych who stated there were not enough ground to admit to inpatient psych involuntarily and patient does not wish to have inpatient psych stay. Safety plan was discussed and patient agrees to extensive outpatient therapy at [facility]. She has clsoe f.u with tomorrow. Discharge Condition at discharge stable Instructions to patient/family Please see electronic discharge instructions given to patient. Discharge Medications Reviewed and agree with Discharge Medication list on patient's Discharge Instruction sheet Clinical Quality Measures DVT/VTE Risk/Contraindication: Risk Factor Score Per Nursin RFS Level Per Nursing on Admit: 1=Low/No VTE PPX Copy Copies To 1: HARRY TO MD, HOLLY R MD Jul 13, 2019 11:47 POS
[2019-07-13] MEDS ORDERED: CEFD300C3 PO (11:49)
--- NOTE | 2019-07-13 11:51 | Discharge Instructions ---
Discharge [facility] Reconcile Patient Problems Problems Reviewed?: Yes Discharge Medications New Medications: Cefdinir (Cefdinir) 300 Mg Capsule 300 MG PO BID, #10 CAP Continued Medications: Insulin Aspart (Novolog Flexpen) 300 Units/3 Ml Solution 16 UNITS SQ TIDAC, EA Insulin Detemir (Levemir Flextouch) 100 Unit/1 Ml Insuln.pen 28 UNIT SQ DAILY, EA Insulin Detemir (Levemir Flextouch) 100 Unit/1 Ml Insuln.pen 30 UNIT SQ HS, EA Discontinued Medications: Cephalexin (Cephalexin) 500 Mg Capsule 500 MG PO Q12H for 10 Days, CAP 10 DAY SUPPLY FILLED 07-04-19 Patient Instructions Goal/Follow Up Appt: You have an appt with Camilla wallace at 11AM tomorrow You have an appt with Dr Brady Shetty Jul 20 @ 0940 AM Activity & Diet Discharge Diet: ADA Diet Activity as Tolerated: Yes Copy Copies To 1: HARRY TO MD, HOLLY R MD Jul 13, 2019 11:51 POS
--- NOTE | 2019-07-13 12:30 | NUR ---
DC'D AMBULATORY WITH FATHER WITH F/U OUTPATIENT. VERBALIZED UNDERSTANDING.
== END 2019-07-13 12:30 | disposition home or self-care (01) | DRG 917 ==
LOC: EDUNIT# 09:23 → ER 09:24 → ICU 12:40 → 4TH 07-11 21:20
PROVIDERS: ADMIT Internal Medicine; ATTEND Internal Medicine
PROC: 5A1945Z Respiratory Ventilation, 24-96 Consecutive Hours (ICD-10-PCS; principal; 2019-07-09)
PROC: 0BH17EZ Insertion of Endotracheal Airway into Trachea, Via Natural or Artificial Opening (ICD-10-PCS; 2019-07-09)
DX: T43.622A Poisoning by amphetamines, intentional self-harm, initial encounter (principal); J96.01 Acute respiratory failure with hypoxia; A41.9 Sepsis, unspecified organism; R65.20 Severe sepsis without septic shock; E10.10 Type 1 diabetes mellitus with ketoacidosis without coma; I47.1 Supraventricular tachycardia; S61.512A Laceration without foreign body of left wrist, initial encounter; E87.6 Hypokalemia; E83.39 Other disorders of phosphorus metabolism; F15.10 Other stimulant abuse, uncomplicated; F17.210 Nicotine dependence, cigarettes, uncomplicated; J45.909 Unspecified asthma, uncomplicated; I10 Essential (primary) hypertension; F41.9 Anxiety disorder, unspecified; F32.9 Major depressive disorder, single episode, unspecified; F10.20 Alcohol dependence, uncomplicated; R41.0 Disorientation, unspecified; X78.9XXA Intentional self-harm by unspecified sharp object, initial encounter; Z79.4 Long term (current) use of insulin
CPT/HCPCS: 36415; 36600; 71045; 80048; 80053; 80306; 80320; 80329; 81000; 82010; 82805; 82962; 83036; 83605; 83690; 83735; 83930; 84100; 84478; 84703; 85007; 85025; 85027; 87040; 87070; 87088; 87205; 93005; 94002; 94003; 94799; 96372; 96374; 96375

== ENCOUNTER 2019-12-22 21:36 | Inpatient (IN) | payer MEDICAID ==
[~2019-12-22] VITALS: Ht 160 cm; Wt 65.7 kg
[~2019-12-22 21:36] MED LIST changes: -ACET-77 PO; +ACET-78 PO; +CEFD300C3 PO
--- OUTSIDE RECORDS SUMMARY | 2019-12-22 21:43 | XMS REPORT | Clinical Summary ---
Author Author [facility] Organization [facility] Address Unknown Phone Unavailable Care Team Providers [employer] Consultant Name Role Phone Nathan Tapia RN Unavailable Unavailable No Pcp, Na PCP Unavailable Source Comments Some departments are not documenting in the electronic medical record. If you d o not see the information that you expected, contact Release of Information in [facility] [employer] Information Management department at [phone] for further assistan ce in locating additional records.[facility] Allergies No Known Allergies Medications End Date Status Medication Sig Dispensed Refills Start Date Active Take 2 0 VITS62/FA/OM3/DHA/EPA tablets by ( GUMMY PO) mouth. Active blood sugar diagnostic check blood 300 strip 6 test strip sugar 8 fasting, pre and 2 hours post prandial, at bed time, and 3 am; up to 10 x q day as directed Active cyclobenzaprine Take 10 mg by 0 (FLEXERIL) 10 mg tablet mouth three times daily as needed for Muscle Cramps. Active LORazepam (ATIVAN) 0.5 mg Take 1 tablet 0 tablet by mouth every 8 hours as needed for Nausea. Active QUEtiapine (SEROQUEL) 200 Take 200 mg 0 mg tablet by mouth at bedtime daily. Active insulin syringe-needle Use 1 each as 100 Syringe 5 0 U-100 0.3 mL 31 gauge x directed as 8 14" syrg Needed. Active lancets MISC Test blood 300 each 11 sugar prn as 8 directed up to 10x q day Active ondansetron (ZOFRAN ODT) Dissolve 1 30 tablet 0 0 4 mg rapid dissolve tablet by 8 tablet mouth every 8 hours as needed for Nausea or Vomiting. Place on tongue to disolve. Active insulin aspart U-100 Please 45 mL 3 01/28 (NOVOLOG FLEXPEN) 100 administer 28 8 unit/mL injection units with PENIndications: Diabetes breakfast, 12 mellitus during units with , antepartum, lunch, and 25 unspecified diabetes units with mellitus type dinner Active insulin NPH (NOVOLIN N Inject 44 3000 Units 0 NPH U-100 INSULIN) 100 units with 8 unit/mL breakfast and injectionIndications: 62 units at Diabetes mellitus during bedtime daily , antepartum, unspecified diabetes mellitus type Active Problems Problem Noted Date High-risk in third trimester 12/30/2017 Diabetes in 08/21/2017 Immunizations Name Administration Dates Next Due Tdap Vaccine 12/07/2017 Social History Date Tobacco Use Types Packs/Day Years Used Current Every Day Smoker 0.5 Smokeless Tobacco: Current User Tobacco Cessation: Ready to Quit: No Comments: marijuana smoker Drinks/Week oz/Week Comments Alcohol Use Yes Sex Assigned at Date Recorded Not on file Industry Job Start Date Occupation Not on file Not on file Not on file Travel End Travel History Travel Start No recent travel history available. 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 Oxygen Saturation - - Inhaled Oxygen Concentration 90.5 kg (199 lb 9.6 oz) 01/11/2018 1:21 PM CDT Weight 157.5 cm (5' 2.01") 01/11/2018 1:21 PM CDT Height 36.5 01/11/2018 1:21 PM CDT Body Mass Index Plan of Treatment Health Maintenance Due Date Last Done Comments DILATED EYE EXAM 2017 FOOT EXAM 2017 HEPATITIS C SCREENING 2017 MICROALBUMIN 2017 PHYSICAL (COMPREHENSIVE) 2017 EXAM PNEUMONIA VACCINE (DM) 2017 HBA1C 06/09/2018 12/07/2017, 08/21/2017 INFLUENZA VACCINE 05/02/2020 07/08/2009 DTAP/TDAP VACCINES (2 - 12/08/2027 12/07/2017 Td) HPV VACCINES Completed 12/11/2013, 04/06/2013, 11/08/2012 MENINGOCOCCAL VACCINE Aged Out 12/11/2013, No longe r eligible based on patient's age to (ROYAL,Jeniffer) 11/08/2012 complete this topic HIV SCREENING Completed 08/21/2017 Results Not on filefrom Last 3 Months 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 necessary based on Dx
--- OUTSIDE RECORDS SUMMARY | 2019-12-22 21:44 | XMS REPORT ---
Author Author Charlotte Bello Organization [facility] Address [address] [place] [address] Care Team Providers Care Collaborative Physician Name Role Phone ROBERT Bello Unavailable PROBLEMS Type Condition ICD9-CM Code UNW03-EU Code Onset Dates Condition S tatus SNOMED Code Problem Migraine without aura and without status migrain osus, not intractable G43.009 Active 672638912 Problem Muscle spasm M62.838 Active 0410041 6 Problem Essential hypertension I10 Active 44518453 Problem BMI 31.0-31.9,adult Z68.31 Active [id number] Problem Type 1 diabetes mellitus without complication E10. 9 Active 627056851 Problem Seasonal allergies J30.2 Active 4 40688640 Problem Bipolar disorder, most recent episode manic F31.10 Active 30796411 Problem Mood disorder F39 Active 293011 05 Problem Anxiety F41.9 Active 01267685 Problem Type I diabetes mellitus with complication E10.8 Active 14527883 Problem Pityriasis rosea L42 Active 772 88522 ALLERGIES No Information ENCOUNTERS Encounter Location Date Diagnosis [facility] [address] [id number] [address] [place] [id number] 10 Sep, 2019 [facility] [address] [id number] [address] [place] [phone] Jul, [facility] [address] [id number] [address] [place] [id number] Jul, Blister of right foot, initi al encounter S90.821A [facility] [address] [id number] [address] [place] [id number] Jul, [facility] [address] [id number] [address] [place] [phone] Jul, [facility] [address] [place] [id number] 03 Jul, 2019 Abscess of great toe of left foot L02.612 and Cellulitis of toe of left foot L03.032 [facility] [address] [place] [phone] Jun, [facility] [address] [place] [id number] [address] [place] [phone] Jun, [facility] [address] [place] [id number] [address] [place] [address] Jun, Type 1 diabetes mellitus wit hout complication E10.9 and BMI 31.0- 31.9,adult Z68.31 [place] [address] [place] [id number] [address] [place] [phone] 16 May, 2019 Type 1 diabetes mellitus wit hout complication E10.9 [place] [address] [address] Mar, Encounter for Depo-Provera c ontraception Z30.42 [place] [address] [place] [id number] [address] [place] [phone] Mar, Type 1 diabetes mellitus wit hout complication E10.9 [place] [address] [place] [id number] [address] [place] [phone] Jan, Type 1 diabetes mellitus wit hout complication E10.9 [place] [address] [place] [phone] Dec, Type 1 diabetes mellitus wit hout complication E10.9 ; Seasonal allergies J30.2 and BMI 31.0-31.9,adult Z68.31 [place] [address] [place] [phone] Dec, [place] [address] [place] [id number] [address] [place] [phone] November, Type 1 diabetes mellitus wit hout complication E10.9 [place] [address] [id number] [address] 14 Nov, 2018 [facility] [address] [id number] [address] [place] [id number] 14 Nov, 2018 Encounter for Depo-Provera c ontraception Z30.42 [facility] [address] [id number] [address] [place] [phone] 10 Nov, 2018 [facility] [id number] [id number] 10 Oct, 2018 [facility] [address] [id number] [address] [place] [phone] 28 Sep, 2018 Type 1 diabetes mellitus wit hout complication E10.9 [facility] [address] [place] [id number] [address] [place] [id number] 20 Sep, 2018 [facility] [address] [id number] 07 Sep, 2018 [facility] [address] [place] [phone] 25 Sep, 2018 Influenza A J10.1 [facility] [address] [place] [id number] [address] [place] [phone] 13 Sep, 2018 [facility] [address] [place] [phone] 11 Sep, 2018 Type 1 diabetes mellitus wit hout complication E10.9 and BMI 31.0- 31.9,adult Z68.31 [facility] [address] [place] [phone] 28 Aug, 2018 control counseling Z30 .09 and Encounter for Depo-Provera contraception Z30.42 [facility] [address] [place] [phone] 16 Aug, 2018 Type I diabetes mellitus wit h complication E10.8 [facility] [address] [place] [id number] [address] [place] [id number] Aug, [facility] [address] [id number] [address] [place] [id number] Aug, Type 1 diabetes mellitus wit hout complication E10.9 [facility] [address] [id number] [address] [place] [phone] 16 Aug, 2018 [facility] [address] [id number] [address] [place] [phone] Aug, [facility] [address] [id number] [address] [place] [id number] Aug, [facility] [address] [id number] [address] [place] [phone] Aug, [facility] [address] [id number] [address] [place] [phone] Jul, Pityriasis rosea L42 [facility] [address] [id number] [address] [place] [id number] Jul, Fungal dermatosis B36.9 [facility] [address] [id number] [address] [place] [phone] Jul, [facility] [address] [id number] [address] [place] [phone] Jun, [facility] [address] [id number] [address] [place] [phone] Jun, [facility] [address] [id number] [address] [place] [id number] May, Type I diabetes mellitus wit h complication E10.8 [facility] [address] [id number] [address] [place] [id number] Apr, Type I diabetes mellitus wit h complication E10.8 [facility] [address] [id number] [address] [place] [phone] Mar, [facility] [address] [id number] [address] [place] [phone] Jan, Type I diabetes mellitus wit h complication E10.8 and Essential hypertension I10 [facility] [address] [id number] [address] [place] [phone] Jan, Type I diabetes mellitus wit h complication E10.8 [facility] [address] [id number] [address] [place] [phone] Jan, [facility] [address] [id number] [address] [place] [phone] Jan, [facility] [address] [id number] [address] [place] [id number] Jan, Type I diabetes mellitus wit h complication E10.8 [facility] [address] [id number] [address] [place] [phone] Jan, [facility] [address] [id number] [address] [place] [phone] Jan, [facility] [address] [id number] [address] [place] [phone] Jan, Type I diabetes mellitus wit h complication E10.8 ; Upper respiratory tract infection, unspecified type J06.9 and delivery O60.10X0 [facility] [address] [id number] [address] [place] [phone] Jan, [facility] [address] [id number] [address] [place] [phone] November, [facility] [address] [id number] [address] [place] [phone] November, [facility] [address] [id number] [address] [place] [id number] Sep, [facility] [address] [id number] [address] [place] [id number] Sep, [facility] [address] [id number] [address] [place] [phone] Sep, [facility] [address] [id number] [address] [place] [phone] Sep, Dysuria R30.0 and Normal pre gnancy in second trimester Z34.92 [facility] [address] [id number] [address] [place] [id number] Sep, [facility] [address] [id number] [address] [place] [phone] Sep, [facility] [address] [id number] [address] [place] [phone] Sep, [facility] [address] [id number] [address] [place] [phone] Sep, [facility] [address] [id number] [address] [place] [id number] Aug, [facility] [address] [place] [id number] [address] [place] [phone] Jul, [facility] [address] [id number] [address] [place] [phone] Jul, [facility] [address] [id number] [address] [place] [phone] Jul, [facility] [address] [id number] [address] [place] [phone] Jul, Other viral agents as the ca use of diseases classified elsewhere B97.89 and Acute upper respiratory infection, unspecified J06.9 [facility] [address] [id number] [address] [place] [id number] Jul, Type 1 diabetes mellitus wit hout complication E10.9 [facility] [address] [id number] [address] [place] [id number] Jul, [facility] [address] [id number] [address] [place] [phone] Jul, [facility] [address] [id number] [address] [place] [phone] Jul, [facility] [address] [place] [id number] [address] [place] [phone] Jul, [place] [address] [id number] Jul, Screening, deficiency anemia , iron Z13.0 [place] [address] [address] Jul, [facility] [place] [address] [address] Jul, Suprapubic discomfort R10.2 ; Near syncope R55 ; Abdominal cramping R10.9 and Less than 8 weeks gestation of Z3A.01 [place] [address] [address] Jul, [place] [address] [address] Jun, Type I diabetes mellitus wit h complication E10.8 ; Mood disorder F39 and Bipolar disorder, most recent episode manic F31.10 [facility] [place] [address] [address] May, Acute cystitis with hematuri a N30.01 [place] [address] [place] [id number] [address] [place] [phone] May, [place] [address] [address] May, Type 1 diabetes mellitus wit hout complication E10.9 [place] [address] [place] [id number] [address] [place] [address] May, Abrasion of toe of left foot , initial encounter S90.415A ; Type 1 diabetes mellitus without complication E10.9 ; Anxiety F41.9 ; Mood disorder F39 ; Essential hypertension I10 ; Migraine without aura and without status migrainosus, not intractable G43.009 ; Bipolar disorder, most recent episode manic F31.10 and Muscle spasm M62.838 [facility] [place] [id number] [address] [place] [address] Mar, Abrasion of toe of left foot , initial encounter S90.415A and Tooth pain K08.89 [facility] [address] [id number] [address] [place] [phone] Oct, [facility] [address] [id number] [address] [place] [phone] Oct, [facility] [address] [id number] [address] [place] [id number] Jul, [facility] [address] [id number] [address] [place] [phone] Jul, [facility] [address] [id number] [address] [place] [phone] Jun, [facility] [address] [id number] [address] [place] [phone] Jun, [facility] [address] [id number] [address] [place] [phone] May, [facility] [address] [id number] [address] [place] [id number] May, [facility] [address] [id number] [address] [place] [phone] May, [facility] [address] [id number] [address] [place] [phone] May, [facility] [address] [id number] [address] [place] [phone] May, [facility] [address] [id number] [address] [place] [phone] May, [facility] [address] [id number] [address] [place] [phone] May, [facility] [address] [id number] [address] [place] [phone] November, [facility] [address] [id number] [address] [place] [id number] November, [facility] [address] [id number] [address] [place] [address], [place] [address] Oct, [facility] [address] [id number] [address] [place] [address], [place] [address] Oct, [facility] [address] [id number] [address] [place] [address], [place] [address] Oct, [facility] [address] [id number] [address] [place] [address], [place] [address] Sep, [facility] [address] [id number] [address] [place] [address], [place] [address] Sep, [facility] [address] [id number] [address] [place] [address], [place] [address] Sep, [facility] [address] [id number] [address] [place] [address], [place] [address] Sep, [facility] [address] [id number] [address] [place] [address], [place] [address] Sep, [facility] [address] [id number] [address] [place] [address], [place] [address] Sep, [facility] [address] [id number] [address] [place] [address], [place] [address] Sep, [facility] [address] [id number] [address] [place] [address], [place] [address] Sep, [facility] [address] [id number] [address] [place] [address], [place] [address] Aug, [facility] [address] [id number] [address] [place] [address], [place] [address] Aug, [facility] [address] [id number] [address] [place] [address], [place] [address] Aug, [facility] [address] [id number] [address] [place] [address], [place] [address] Aug, [facility] [address] [id number] [address] [place] [address], [place] [address] Aug, [facility] [address] [id number] [address] [place] [address], [place] [address] Aug, [facility] [address] [id number] [address] [place] [address], [place] [address] Aug, [facility] [address] [id number] [address] [place] [address], [place] [address] Aug, [facility] [address] [id number] [address] [place] [address], [place] [address] Aug, [facility] [address] [id number] [address] [place] [address], [place] [address] Aug, [facility] [address] [id number] [address] [place] [address], [place] [address] Aug, [facility] [address] [id number] [address] [place] [address], [place] [address] Aug, [facility] [address] [id number] [address] [place] [address], [place] [address] Aug, [facility] [address] [id number] [address] [place] [address], [place] [address] Aug, [facility] [address] [id number] [address] [place] [address], [place] [address] Aug, [facility] [address] [id number] [address] [place] [address], [place] [address] Aug, [facility] [address] [id number] [address] [place] [address], [place] [address] Jul, [facility] [address] [id number] [address] [place] [address], [place] [address] Jul, [facility] [address] [id number] [address] [place] [address], [place] [address] Jul, [facility] [address] [id number] [address] [place] [phone] Jul, [facility] [address] [id number] [address] [place] [phone] Jul, [facility] [address] [id number] [address] [place] [phone] Jul, [facility] [address] [id number] [address] [place] [id number] Jun, [facility] [address] [id number] [address] [place] [phone] Jun, [facility] [address] [id number] [address] [place] [phone] May, [facility] [address] [id number] [address] [place] [phone] May, [facility] [address] [id number] [address] [place] [phone] May, [facility] [address] [id number] [address] [place] [id number] May, [facility] [address] [id number] [address] [place] [phone] Apr, [facility] [address] [id number] [address] [place] [phone] Apr, IMMUNIZATIONS No Known Immunizations SOCIAL HISTORY Never Assessed REASON FOR VISIT PLAN OF CARE VITAL SIGNS Height 63 in 2013-08-03 Weight 157.25 lbs 2013-08-03 Temperature 99.3 degrees Fahrenheit 2013-08-03 Heart Rate 88 bpm 2013-08-03 Respiratory Rate 24 2013-08-03 Blood pressure systolic 136 mmHg 2013-08-03 Blood pressure diastolic 84 mmHg 2013-08-03 MEDICATIONS Unknown Medications RESULTS No Results PROCEDURES No Known procedures INSTRUCTIONS MEDICATIONS ADMINISTERED No Known Medications MEDICAL (GENERAL) HISTORY Type Description Date Medical History Type I Diabetes Medical History Anxiety Medical History ADHD Medical History Bipolar Disorders Medical History Chronic Migrains Medical History Hypertension, resolved with weight loss Surgical History Tonsilectomy Surgical History [facility] Teeth Extraction Hospitalization History [facility]-diagnosed with type I diabetes 2 016 Hospitalization History diabetes regulating 08/2017 Hospitalization History childbirth Hospitalization History [facility] 07/2019
--- OUTSIDE RECORDS SUMMARY | 2019-12-22 21:44 | XMS REPORT ---
Author Author Charlotte Eller Doctor Organization [facility] Address Unknown Phone Unavailable Care Team Providers Care Wood Car Builder Name Role Phone Migration, Doctor Unavailable Unavailable PROBLEMS Type Condition ICD9-CM Code IBI56-WB Code Onset Dates Condition S tatus SNOMED Code Problem Migraine without aura and without status migrain osus, not intractable G43.009 Active 917233010 Problem Muscle spasm M62.838 Active 8035321 6 Problem Essential hypertension I10 Active 20456993 Problem BMI 31.0-31.9,adult Z68.31 Active [id number] Problem Type 1 diabetes mellitus without complication E10. 9 Active 780645586 Problem Seasonal allergies J30.2 Active 4 01187791 Problem Bipolar disorder, most recent episode manic F31.10 Active 81960804 Problem Mood disorder F39 Active 892958 05 Problem Anxiety F41.9 Active 41394284 Problem Type I diabetes mellitus with complication E10.8 Active 99111945 Problem Pityriasis rosea L42 Active 772 65807 ALLERGIES No Information ENCOUNTERS Encounter Location Date Diagnosis [facility] [id number] [place] [id number] 10 Sep, 2019 [facility] [id number] [place] [id number] Jul, [facility] [address] [place] [id number] [address] [place] [id number] Jul, Blister of right foot, initi al encounter S90.821A [facility] [id number] [place] [id number] Jul, [facility] [address] [place] [id number] [address] [place] [id number] Jul, [facility] [address] [place] [address] [id number] [address] [place] [id number] 03 Dec, 2019 Abscess of great toe of left foot L02.612 and Cellulitis of toe of left foot L03.032 [facility] [address] [id number] [address] [place] [id number] Jun, [facility] [address] [id number] [address] [place] [phone] Jun, [facility] [address] [id number] [address] [place] [id number] Jun, Type 1 diabetes mellitus wit hout complication E10.9 and BMI 31.0- 31.9,adult Z68.31 [facility] [address] [id number] [address] [place] [phone] May, Type 1 diabetes mellitus wit hout complication E10.9 [place] [address] [id number] [address] [place] [phone] Mar, Encounter for Depo-Provera c ontraception Z30.42 [place] [address] [id number] [address] [place] [phone] Mar, Type 1 diabetes mellitus wit hout complication E10.9 [place] [address] [id number] [address] [place] [phone] Jan, Type 1 diabetes mellitus wit hout complication E10.9 [place] [address] [id number] [address] [place] [phone] Dec, Type 1 diabetes mellitus wit hout complication E10.9 ; Seasonal allergies J30.2 and BMI 31.0-31.9,adult Z68.31 [facility] [address] [id number] [address] [place] [id number] Dec, [facility] [address] [id number] [address] [place] [phone] November, Type 1 diabetes mellitus wit hout complication E10.9 [facility] [address] [id number] [address] [place] [phone] November, [facility] [address] [id number] [address] [place] [id number] 14 Nov, 2018 Encounter for Depo-Provera c ontraception Z30.42 [facility] [address] [id number] [address] [place] [id number] 10 Nov, 2018 [facility] [address] [id number] [address] [place] [id number] 10 Oct, 2018 [facility] [address] [id number] [address] [place] [phone] Sep, Type 1 diabetes mellitus wit hout complication E10.9 [facility] [address] [id number] [address] [place] [phone] Sep, [facility] [address] [id number] [address] [place] [phone] Sep, [facility] [address] [id number] [address] [place] [id number] 25 Sep, 2018 Influenza A J10.1 [facility] [address] [id number] [address] [place] [id number] 13 Sep, 2018 [facility] [address] [place] [id number] 11 Sep, 2018 Type 1 diabetes mellitus wit hout complication E10.9 and BMI 31.0- 31.9,adult Z68.31 [facility] [address] [place] [id number] 28 Aug, 2018 control counseling Z30 .09 and Encounter for Depo-Provera contraception Z30.42 [facility] [address] [id number] [address] [place] [id number] 16 Aug, 2018 Type I diabetes mellitus wit h complication E10.8 [facility] [address] [id number] [address] [place] [id number] Aug, [facility] [address] [id number] [address] [place] [phone] Aug, Type 1 diabetes mellitus wit hout complication E10.9 [facility] [address] [id number] [address] [place] [id number] 16 Aug, 2018 [facility] [address] [id number] [address] [place] [phone] Aug, [facility] [address] [id number] [address] [place] [phone] Aug, [facility] [address] [id number] [address] [place] [id number] Aug, [facility] [address] [id number] [address] [place] [phone] Jul, Pityriasis rosea L42 [facility] [address] [id number] [address] [place] [phone] Jul, Fungal dermatosis B36.9 [facility] [address] [id number] [address] [place] [phone] Jul, [facility] [address] [id number] [address] [place] [phone] Jun, [facility] [address] [id number] [address] [place] [phone] Jun, [facility] [address] [id number] [address] [place] [phone] May, Type I diabetes mellitus wit h complication E10.8 [facility] [address] [id number] [address] [place] [id number] Apr, Type I diabetes mellitus wit h complication E10.8 [facility] [address] [id number] [address] [place] [id number] Mar, [facility] [address] [id number] [address] [place] [id number] Jan, Type I diabetes mellitus wit h complication E10.8 and Essential hypertension I10 [facility] [address] [id number] [address] [place] [id number] Jan, Type I diabetes mellitus wit h complication E10.8 [facility] [address] [id number] [address] [place] [id number] Jan, [facility] [address] [id number] [address] [place] [id number] Jan, [facility] [address] [id number] [address] [place] [id number] Jan, Type I diabetes mellitus wit h complication E10.8 [facility] [address] [id number] [address] [place] [phone] Jan, [facility] [address] [id number] [address] [place] [phone] Jan, [facility] [address] [id number] [address] [place] [id number] Jan, Type I diabetes mellitus wit h complication E10.8 ; Upper respiratory tract infection, unspecified type J06.9 and delivery O60.10X0 [facility] [address] [id number] [address] [place] [phone] Jan, [facility] [address] [id number] [address] [place] [phone] November, [facility] [address] [id number] [address] [place] [phone] November, [facility] [address] [id number] [address] [place] [phone] Sep, [facility] [address] [id number] [address] [place] [phone] Sep, [facility] [address] [id number] [address] [place] [phone] Sep, [facility] [address] [id number] [address] [place] [id number] Sep, Dysuria R30.0 and Normal pre gnancy in second trimester Z34.92 [facility] [address] [id number] [address] [place] [id number] Sep, [facility] [address] [id number] [address] [place] [phone] Sep, [facility] [address] [id number] [address] [place] [id number] Sep, [facility] [address] [id number] [address] [place] [phone] Sep, [facility] [address] [id number] [address] [place] [phone] Aug, [facility] [address] [id number] [address] [place] [id number] Jul, [facility] [address] [id number] [address] [place] [phone] Jul, [facility] [address] [id number] [address] [place] [id number] Jul, [facility] [address] [id number] [address] [place] [id number] Jul, Other viral agents as the ca use of diseases classified elsewhere B97.89 and Acute upper respiratory infection, unspecified J06.9 [facility] [address] [id number] [address] [place] [phone] Jul, Type 1 diabetes mellitus wit hout complication E10.9 [facility] [address] [id number] [address] [place] [id number] Jul, [facility] [address] [id number] [address] [place] [phone] Jul, [facility] [address] [id number] [address] [place] [phone] Jul, [facility] [address] [id number] [address] [place] [phone] Jul, [facility] [address] [id number] Jul, Screening, deficiency anemia , iron Z13.0 [place] [address] [id number] Jul, [facility] [place] [address] [id number] Jul, Suprapubic discomfort R10.2 ; Near syncope R55 ; Abdominal cramping R10.9 and Less than 8 weeks gestation of Z3A.01 [place] [address] [phone] Jul, [place] [address] [id number] Jun, Type I diabetes mellitus wit h complication E10.8 ; Mood disorder F39 and Bipolar disorder, most recent episode manic F31.10 [facility] [address] [address] May, Acute cystitis with hematuri a N30.01 [place] [address] [id number] May, [place] [address] [id number] May, Type 1 diabetes mellitus wit hout complication E10.9 [place] [address] [id number] May, Abrasion of toe of left foot , initial encounter S90.415A ; Type 1 diabetes mellitus without complication E10.9 ; Anxiety F41.9 ; Mood disorder F39 ; Essential hypertension I10 ; Migraine without aura and without status migrainosus, not intractable G43.009 ; Bipolar disorder, most recent episode manic F31.10 and Muscle spasm M62.838 [facility] [address] [id number] Mar, Abrasion of toe of left foot , initial encounter S90.415A and Tooth pain K08.89 [facility] [address] [id number] [address] [place] [address], [place] [address] Oct, [facility] [address] [id number] [address] [place] [address], [place] [address] Oct, [facility] [address] [id number] [address] [place] [address], [place] [address] Jul, [facility] [address] [id number] [address] [place] [phone] Jul, [facility] [address] [id number] [address] [place] [address], [place] [address] Jun, [facility] [address] [id number] [address] [place] [phone] Jun, [facility] [address] [id number] [address] [place] [address], [place] [address] May, [facility] [address] [id number] [address] [place] [phone] May, [facility] [address] [id number] [address] [place] [address], [place] [address] May, [facility] [address] [id number] [address] [place] [phone] May, [facility] [address] [id number] [address] [place] [phone] May, [facility] [address] [id number] [address] [place] [phone] May, [facility] [address] [id number] [address] [place] [id number] May, [facility] [address] [id number] [address] [place] [phone] November, [facility] [address] [id number] [address] [place] [phone] November, [facility] [address] [id number] [address] [place] [address], [place] [phone] 29 Oct, 2013 [facility] [address] [id number] [address] [place] [address], [place] [address] 17 Oct, 2013 [facility] [address] [id number] [address] [place] [address], [place] [address] 17 Oct, 2013 [facility] [address] [id number] [address] [place] [address], [place] [address] Sep, [facility] [address] [id number] [address] [place] [address], [place] [address] Sep, [facility] [address] [id number] [address] [place] [address], [place] [address] Sep, [facility] [address] [id number] [address] [place] [address], [place] [address] Sep, [facility] [address] [id number] [address] [place] [address], [place] [address] Sep, [facility] [address] [id number] [address] [place] [address], [place] [address] Sep, [facility] [address] [id number] [address] [place] [address], [place] [address] Sep, [facility] [address] [id number] [address] [place] [address], [place] [address] Sep, [facility] [address] [id number] [address] [place] [address], [place] [address] Aug, [facility] [address] [id number] [address] [place] [address], [place] [address] Aug, [facility] [address] [id number] [address] [place] [address], [place] [address] Aug, [facility] [address] [id number] [address] [place] [address], [place] [address] Aug, [facility] [address] [id number] [address] [place] [address], [place] [address] Aug, [facility] [address] [id number] [address] [place] [address], [place] [address] Aug, [facility] [address] [id number] [address] [place] [address], [place] [address] Aug, [facility] [address] [id number] [address] [place] [address], [place] [address] Aug, [facility] [address] [id number] [address] [place] [address], [place] [address] Aug, [facility] [address] [id number] [address] [place] [address], [place] [address] Aug, [facility] [address] [id number] [address] [place] [address], [place] [address] Aug, [facility] [address] [id number] [address] [place] [address], [place] [address] Aug, [facility] [address] [id number] [address] [place] [address], [place] [address] Aug, [facility] [address] [id number] [address] [place] [address], [place] [address] Aug, [facility] [address] [id number] [address] [place] [address], [place] [address] Aug, [facility] [address] [id number] [address] [place] [address], [place] [address] Aug, [facility] [address] [id number] [address] [place] [address], [place] [address] Jul, [facility] [address] [id number] [address] [place] [address], [place] [address] Jul, [facility] [address] [id number] [address] [place] [address], [place] [address] Jul, [facility] [address] [id number] [address] [place] [address], [place] [address] Jul, [facility] [address] [id number] [address] [place] [phone] Jul, [facility] [address] [id number] [address] [place] [phone] Jul, [facility] [address] [id number] [address] [place] [phone] Jun, [facility] [address] [id number] [address] [place] [phone] Jun, [facility] [address] [id number] [address] [place] [id number] May, [facility] [address] [id number] [address] [place] [phone] May, [facility] [address] [id number] [address] [place] [phone] May, [facility] [address] [id number] [address] [place] [id number] May, [facility] [address] [id number] [address] [place] [id number] Apr, [facility] [address] [id number] [address] [place] [phone] Apr, IMMUNIZATIONS No Known Immunizations SOCIAL HISTORY Never Assessed REASON FOR VISIT PLAN OF CARE VITAL SIGNS MEDICATIONS Unknown Medications RESULTS No Results PROCEDURES No Known procedures INSTRUCTIONS MEDICATIONS ADMINISTERED No Known Medications MEDICAL (GENERAL) HISTORY Type Description Date Medical History Type I Diabetes Medical History Anxiety Medical History ADHD Medical History Bipolar Disorders Medical History Chronic Migrains Medical History Hypertension, resolved with weight loss Surgical History Tonsilectomy Surgical History [facility] Teeth Extraction Hospitalization History [facility]-diagnosed with type I diabetes 2 016 Hospitalization History diabetes regulating 08/2017 Hospitalization History childbirth Hospitalization History [facility] 07/2019
--- OUTSIDE RECORDS SUMMARY | 2019-12-22 21:44 | XMS REPORT ---
Author Author Charlotte Bello Organization [facility] Address [address] [place] [address] Care Team Providers Care Reading Efficiency Course Director Name Role Phone ROBERT Bello Unavailable PROBLEMS Type Condition ICD9-CM Code DEI10-TY Code Onset Dates Condition S tatus SNOMED Code Problem Migraine without aura and without status migrain osus, not intractable G43.009 Active 610249640 Problem Muscle spasm M62.838 Active 5202963 6 Problem Essential hypertension I10 Active 29060635 Problem BMI 31.0-31.9,adult Z68.31 Active [id number] Problem Type 1 diabetes mellitus without complication E10. 9 Active 853597412 Problem Seasonal allergies J30.2 Active 4 70401534 Problem Bipolar disorder, most recent episode manic F31.10 Active 72265724 Problem Mood disorder F39 Active 338175 05 Problem Anxiety F41.9 Active 66770726 Problem Type I diabetes mellitus with complication E10.8 Active 34674753 Problem Pityriasis rosea L42 Active 772 82078 ALLERGIES No Information ENCOUNTERS Encounter Location Date Diagnosis [facility] [address] [facility] [id number] [address] [place] [address] 10 Sep, 2019 [facility] [address] [facility] [id number] [address] [place] [address] Jul, [facility] [address] [facility] [id number] [address] [place] [address] Jul, Blister of right foot, initi al encounter S90.821A [facility] [address] [facility] [id number] [address] [place] [address] Jul, [facility] [address] [facility] [id number] [address] [place] [address] Jul, [facility] [address] [place] [address] 03 Jul, 2019 Abscess of great toe of left foot L02.612 and Cellulitis of toe of left foot L03.032 [facility] [address] [place] [address] Jun, [facility] [address] [place] [id number] [address] [place] [address] Jun, [facility] [address] [place] [id number] [address] [place] [address] Jun, Type 1 diabetes mellitus wit hout complication E10.9 and BMI 31.0- 31.9,adult Z68.31 [place] [address] [place] [id number] [address] [place] [address] 16 May, 2019 Type 1 diabetes mellitus wit hout complication E10.9 [place] [address] [address] Mar, Encounter for Depo-Provera c ontraception Z30.42 [place] [address] [place] [id number] [address] [place] [address] Mar, Type 1 diabetes mellitus wit hout complication E10.9 [place] [address] [place] [id number] [address] [place] [address] Jan, Type 1 diabetes mellitus wit hout complication E10.9 [place] [address] [place] [address] Dec, Type 1 diabetes mellitus wit hout complication E10.9 ; Seasonal allergies J30.2 and BMI 31.0-31.9,adult Z68.31 [place] [address] [place] [address] Dec, [place] [address] [place] [id number] [address] [place] [address] November, Type 1 diabetes mellitus wit hout complication E10.9 [place] [address] [place] [id number] [address] 14 Nov, 2018 [facility] [address] [facility] [id number] [address] [place] [address] 14 Nov, 2018 Encounter for Depo-Provera c ontraception Z30.42 [facility] [address] [facility] [id number] [address] [place] [address] 10 Nov, 2018 [facility] [address] [facility] [id number] [address] 10 Oct, 2018 [facility] [address] [facility] [id number] [address] [place] [address] 28 Sep, 2018 Type 1 diabetes mellitus wit hout complication E10.9 [facility] [address] [place] [id number] [address] [place] [address] 20 Sep, 2018 [facility] [address] [address] 07 Sep, 2018 [facility] [address] [place] [address] 25 Sep, 2018 Influenza A J10.1 [facility] [address] [place] [id number] [address] [place] [address] 13 Sep, 2018 [facility] [address] [place] [address] 11 Sep, 2018 Type 1 diabetes mellitus wit hout complication E10.9 and BMI 31.0- 31.9,adult Z68.31 [facility] [address] [place] [address] 28 Aug, 2018 control counseling Z30 .09 and Encounter for Depo-Provera contraception Z30.42 [facility] [address] [place] [address] 16 Aug, 2018 Type I diabetes mellitus wit h complication E10.8 [facility] [address] [place] [id number] [address] [place] [address] Aug, [facility] [address] [id number] [address] [place] [address] Aug, Type 1 diabetes mellitus wit hout complication E10.9 [facility] [address] [id number] [address] [place] [address] 16 Aug, 2018 [facility] [address] [facility] [id number] [address] [place] [address] Aug, [facility] [address] [id number] [address] [place] [address] Aug, [facility] [address] [facility] [id number] [address] [place] [address] Aug, [facility] [address] [facility] [id number] [address] [place] [address] Jul, Pityriasis rosea L42 [facility] [address] [facility] [id number] [address] [place] [address] Jul, Fungal dermatosis B36.9 [facility] [address] [id number] [address] [place] [address] Jul, [facility] [address] [facility] [id number] [address] [place] [address] Jun, [facility] [address] [facility] [id number] [address] [place] [address] Jun, [facility] [address] [facility] [id number] [address] [place] [address] May, Type I diabetes mellitus wit h complication E10.8 [facility] [address] [id number] [address] [place] [address] Apr, Type I diabetes mellitus wit h complication E10.8 [facility] [address] [facility] [id number] [address] [place] [address] Mar, [facility] [address] [id number] [address] [place] [address] Jan, Type I diabetes mellitus wit h complication E10.8 and Essential hypertension I10 [facility] [address] [id number] [address] [place] [address] Jan, Type I diabetes mellitus wit h complication E10.8 [facility] [address] [id number] [address] [place] [address] Jan, [facility] [address] [id number] [address] [place] [address] Jan, [facility] [address] [id number] [address] [place] [address] Jan, Type I diabetes mellitus wit h complication E10.8 [facility] [address] [id number] [address] [place] [address] Jan, [facility] [address] [id number] [address] [place] [address] Jan, [facility] [address] [id number] [address] [place] [address] Jan, Type I diabetes mellitus wit h complication E10.8 ; Upper respiratory tract infection, unspecified type J06.9 and delivery O60.10X0 [facility] [address] [id number] [address] [place] [address] Jan, [facility] [address] [id number] [address] [place] [address] November, [facility] [address] [id number] [address] [place] [address] November, [facility] [address] [id number] [address] [place] [address] Sep, [facility] [address] [id number] [address] [place] [address] Sep, [facility] [address] [id number] [address] [place] [address] Sep, [facility] [address] [id number] [address] [place] [address] Sep, Dysuria R30.0 and Normal pre gnancy in second trimester Z34.92 [facility] [address] [facility] [id number] [address] [place] [address] Sep, [facility] [address] [facility] [id number] [address] [place] [address] Sep, [facility] [address] [facility] [id number] [address] [place] [address] Sep, [facility] [address] [id number] [address] [place] [address] Sep, [facility] [address] [facility] [id number] [address] [place] [address] Aug, [facility] [address] [place] [id number] [address] [place] [address] Jul, [facility] [address] [facility] [id number] [address] [place] [address] Jul, [facility] [address] [facility] [id number] [address] [place] [address] Jul, [facility] [address] [facility] [id number] [address] [place] [address] Jul, Other viral agents as the ca use of diseases classified elsewhere B97.89 and Acute upper respiratory infection, unspecified J06.9 [facility] [address] [facility] [id number] [address] [place] [address] Jul, Type 1 diabetes mellitus wit hout complication E10.9 [facility] [address] [facility] [id number] [address] [place] [address] Jul, [facility] [address] [facility] [id number] [address] [place] [address] Jul, [facility] [address] [facility] [id number] [address] [place] [address] Jul, [facility] [address] [place] [id number] [address] [place] [address] Jul, [place] [address] [address] Jul, Screening, deficiency anemia , iron Z13.0 [place] [address] [address] Jul, [facility] [place] [address] [address] Jul, Suprapubic discomfort R10.2 ; Near syncope R55 ; Abdominal cramping R10.9 and Less than 8 weeks gestation of Z3A.01 [place] [address] [address] Jul, [place] [address] [address] Jun, Type I diabetes mellitus wit h complication E10.8 ; Mood disorder F39 and Bipolar disorder, most recent episode manic F31.10 [facility] [place] [address] [address] May, Acute cystitis with hematuri a N30.01 [place] [address] [place] [id number] [address] [place] [address] May, [place] [address] [address] May, Type 1 diabetes mellitus wit hout complication E10.9 [place] [address] [place] [id number] [address] [place] [address] May, Abrasion of toe of left foot , initial encounter S90.415A ; Type 1 diabetes mellitus without complication E10.9 ; Anxiety F41.9 ; Mood disorder F39 ; Essential hypertension I10 ; Migraine without aura and without status migrainosus, not intractable G43.009 ; Bipolar disorder, most recent episode manic F31.10 and Muscle spasm M62.838 [facility] WALK IN [place] [id number] [address] [place] [address] Mar, Abrasion of toe of left foot , initial encounter S90.415A and Tooth pain K08.89 [facility] [address] [id number] [address] [place] [address] Oct, [facility] [address] [id number] [address] [place] [address] Oct, [facility] [address] [id number] [address] [place] [address] Jul, [facility] [address] [id number] [address] [place] [address] Jul, [facility] [address] [id number] [address] [place] [address] Jun, [facility] [address] [id number] [address] [place] [address] Jun, [facility] [address] [id number] [address] [place] [address] May, [facility] [address] [id number] [address] [place] [address] May, [facility] [address] [id number] [address] [place] [address] May, [facility] [address] [id number] [address] [place] [address] May, [facility] [address] [id number] [address] [place] [address] May, [facility] [address] [id number] [address] [place] [address] May, [facility] [address] [id number] [address] [place] [address] May, [facility] [address] [id number] [address] [place] [address] November, [facility] [address] [id number] [address] [place] [address] November, [facility] [address] [id number] [address] [place] [address], [place] [address] Oct, [facility] [address] [id number] [address] [place] [address], [place] [address] Oct, [facility] [address] [id number] [address] [place] [address], [place] [address] Oct, [facility] [address] [id number] [address] [place] [address], [place] [address] Sep, [facility] [address] [id number] [address] [place] [address], [place] [address] Sep, [facility] [address] [id number] [address] [place] [address], [place] [address] Sep, [facility] [address] [id number] [address] [place] [address], [place] [address] Sep, [facility] [address] [id number] [address] [place] [address], [place] [address] Sep, [facility] [address] [id number] [address] [place] [address], [place] [address] Sep, [facility] [address] [id number] [address] [place] [address], [place] [address] Sep, [facility] [address] [id number] [address] [place] [address], [place] [address] Sep, [facility] [address] [id number] [address] [place] [address], [place] [address] Aug, [facility] [address] [id number] [address] [place] [address], [place] [address] Aug, [facility] [address] [id number] [address] [place] [address], [place] [address] Aug, [facility] [address] [id number] [address] [place] [address], [place] [address] Aug, [facility] [address] [id number] [address] [place] [address], [place] [address] Aug, [facility] [address] [id number] [address] [place] [address], [place] [address] Aug, [facility] [address] [id number] [address] [place] [address], [place] [address] Aug, [facility] [address] [id number] [address] [place] [address], [place] [address] Aug, [facility] [address] [id number] [address] [place] [address], [place] [address] Aug, [facility] [address] [id number] [address] [place] [address], [place] [address] Aug, [facility] [address] [id number] [address] [place] [address], [place] [address] Aug, [facility] [address] [id number] [address] [place] [address], [place] [address] Aug, [facility] [address] [id number] [address] [place] [address], [place] [address] Aug, [facility] [address] [id number] [address] [place] [address], [place] [address] Aug, [facility] [address] [id number] [address] [place] [address], [place] [address] Aug, [facility] [address] [id number] [address] [place] [address], [place] [address] Aug, [facility] [address] [id number] [address] [place] [address], [place] [address] Jul, [facility] [address] [id number] [address] [place] [address], [place] [address] Jul, [facility] [address] [id number] [address] [place] [address], [place] [address] Jul, [facility] [address] [id number] [address] [place] [address] Jul, [facility] [address] [id number] [address] [place] [address] Jul, [facility] [address] [id number] [address] [place] [address] Jul, [facility] [address] [id number] [address] [place] [address] Jun, [facility] [address] [id number] [address] [place] [address] Jun, [facility] [address] [id number] [address] [place] [address] May, [facility] [address] [id number] [address] [place] [address] May, [facility] [address] [id number] [address] [place] [address] May, [facility] [address] [id number] [address] [place] [address] May, [facility] [address] [id number] [address] [place] [address] Apr, [facility] [address] [id number] [address] [place] [address] Apr, IMMUNIZATIONS No Known Immunizations SOCIAL HISTORY [...] weight loss Surgical History Tonsilectomy Surgical History [facility] Teeth Extraction Hospitalization History [facility]-diagnosed with type I diabetes 2 016 Hospitalization History diabetes regulating 08/2017 Hospitalization History childbirth Hospitalization History [facility] 07[facility]2019
--- OUTSIDE RECORDS SUMMARY | 2019-12-22 21:44 | XMS REPORT ---
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 9 Active 133808279 Problem Seasonal allergies J30.2 Active 4 84354426 Problem Bipolar disorder, most recent episode manic F31.10 Active 52628813 Problem Mood disorder F39 Active 636910 05 Problem Anxiety F41.9 Active 30315451 Problem Type I diabetes mellitus with complication E10.8 Active 29374213 Problem Pityriasis rosea L42 Active 772 20598 ALLERGIES No Information ENCOUNTERS Encounter Location Date Diagnosis [facility] [address] [id number] [address] [place] [id number] 10 Sep, 2019 [facility] [address] [id number] [address] [place] [phone] Jul, [facility] [address] [facility] [id number] [address] [place] [id number] Jul, Blister of right foot, initi al encounter S90.821A [facility] [address] [facility] [id number] [address] [place] [phone] Jul, [facility] [address] [facility] [id number] [address] [place] [phone] Jul, [facility] [address] [place] [phone] Jul, Abscess of great toe of left foot L02.612 and Cellulitis of toe of left foot L03.032 [place] [address] [place] [id number] Jun, [facility] [address] [place] [id number] [address] [place] [phone] Jun, [place] [address] [place] [id number] [address] [place] [phone] Jun, Type 1 diabetes mellitus wit hout complication E10.9 and BMI 31.0- 31.9,adult Z68.31 [place] [address] [place] [id number] [address] [place] [phone] May, Type 1 diabetes mellitus wit hout complication E10.9 [place] [address] [address] Mar, Encounter for Depo-Provera c ontraception Z30.42 [place] [address] [place] [phone] Mar, Type 1 diabetes mellitus wit hout complication E10.9 [place] [address] [place] [id number] [address] [place] [phone] Jan, Type 1 diabetes mellitus wit hout complication E10.9 [place] [address] [place] [phone] Dec, Type 1 diabetes mellitus wit hout complication E10.9 ; Seasonal allergies J30.2 and BMI 31.0-31.9,adult Z68.31 [place] [address] [place] [id number] [place] [phone] Dec, [place] [address] [place] [id number] [address] [place] [phone] November, Type 1 diabetes mellitus wit hout complication E10.9 [place] [address] [place] [id number] [address] [place] [phone] 14 Nov, 2018 [facility] [address] [facility] [id number] [address] [place] [id number] 14 Nov, 2018 Encounter for Depo-Provera c ontraception Z30.42 [facility] [address] [facility] [id number] [address] [place] [phone] 10 Nov, 2018 [facility] [address] [id number] 10 Oct, 2018 [facility] [address] [id number] [address] [place] [phone] 28 Sep, 2018 Type 1 diabetes mellitus wit hout complication E10.9 [facility] [address] [id number] [address] [place] [phone] Sep, [facility] [address] [id number] 07 Sep, 2018 [facility] [address] [id number] [address] [place] [phone] 25 Sep, 2018 Influenza A J10.1 [facility] [address] [id number] [address] [place] [phone] 13 Sep, 2018 [facility] [address] [place] [phone] 11 Sep, 2018 Type 1 diabetes mellitus wit hout complication E10.9 and BMI 31.0- 31.9,adult Z68.31 [facility] [address] [id number] [address] [place] [id number] 28 Aug, 2018 control counseling Z30 .09 and Encounter for Depo-Provera contraception Z30.42 [facility] [address] [id number] [address] [place] [phone] Aug, Type I diabetes mellitus wit h complication E10.8 [facility] [address] [id number] [address] [place] [phone] Aug, [facility] [address] [id number] [address] [place] [phone] 16 Aug, 2018 Type 1 diabetes mellitus wit hout complication E10.9 [facility] [address] [id number] [address] [place] [phone] 16 Aug, 2018 [facility] [address] [id number] [address] [place] [phone] Aug, [facility] [address] [id number] [address] [place] [phone] Aug, [facility] [address] [id number] [address] [place] [phone] Aug, [facility] [address] [facility] [id number] [address] [place] [phone] Jul, Pityriasis rosea L42 [facility] [address] [facility] [id number] [address] [place] [phone] Jul, Fungal dermatosis B36.9 [facility] [address] [id number] [address] [place] [phone] Jul, [facility] [address] [facility] [id number] [address] [place] [phone] Jun, [facility] [address] [facility] [id number] [address] [place] [id number] Jun, [facility] [address] [facility] [id number] [address] [place] [phone] May, Type I diabetes mellitus wit h complication E10.8 [facility] [address] [id number] [address] [place] [id number] Apr, Type I diabetes mellitus wit h complication E10.8 [facility] [address] [facility] [id number] [address] [place] [phone] Mar, [facility] [address] [facility] [id number] [address] [place] [phone] Jan, Type I diabetes mellitus wit h complication E10.8 and Essential hypertension I10 [facility] [address] [id number] [address] [place] [phone] Jan, Type I diabetes mellitus wit h complication E10.8 [facility] [address] [id number] [address] [place] [phone] Jan, [facility] [address] [id number] [address] [place] [phone] Jan, [facility] [address] [id number] [address] [place] [phone] Jan, Type I diabetes mellitus wit h complication E10.8 [facility] [address] [id number] [address] [place] [phone] Jan, [facility] [address] [id number] [address] [place] [phone] Jan, [facility] [address] [id number] [address] [place] [phone] Jan, Type I diabetes mellitus wit complication E10.8 ; Upper respiratory tract infection, unspecified type J06.9 and delivery O60.10X0 [facility] [address] [id number] [address] [place] [phone] Jan, [facility] [address] [id number] [address] [place] [phone] November, [facility] [address] [id number] [address] [place] [phone] November, [facility] [address] [id number] [address] [place] [phone] Sep, [facility] [address] [id number] [address] [place] [phone] Sep, [facility] [address] [id number] [address] [place] [phone] Sep, [facility] [address] [id number] [address] [place] [phone] Sep, Dysuria R30.0 and Normal pre gnancy in second trimester Z34.92 [facility] [address] [facility] [id number] [address] [place] [phone] Sep, [facility] [address] [facility] [id number] [address] [place] [phone] Sep, [facility] [address] [facility] [id number] [address] [place] [phone] Sep, [facility] [address] [facility] [id number] [address] [place] [phone] Sep, [facility] [address] [facility] [id number] [address] [place] [phone] Aug, [facility] [address] [facility] [id number] [address] [place] [phone] Jul, [facility] [address] [facility] [id number] [address] [place] [phone] Jul, [facility] [address] [facility] [id number] [address] [place] [phone] Jul, [facility] [address] [facility] [id number] [address] [place] [phone] Jul, Other viral agents as the ca use of diseases classified elsewhere B97.89 and Acute upper respiratory infection, unspecified J06.9 [facility] [address] [facility] [id number] [address] [place] [phone] Jul, Type 1 diabetes mellitus wit hout complication E10.9 [facility] [address] [facility] [id number] [address] [place] [phone] Jul, [facility] [address] [facility] [id number] [address] [place] [phone] Jul, [facility] [address] [facility] [id number] [address] [place] [phone] Jul, [facility] [address] [id number] [address] [place] [id number] Jul, [place] [address] [id number] Jul, Screening, deficiency anemia , iron Z13.0 [place] [address] [place] [id number] [address] [place] [id number] Jul, [facility] [place] [address] [address] Jul, Suprapubic discomfort R10.2 ; Near syncope R55 ; Abdominal cramping R10.9 and Less than 8 weeks gestation of Z3A.01 [place] [address] [address] Jul, [place] [address] [address] Jun, Type I diabetes mellitus wit h complication E10.8 ; Mood disorder F39 and Bipolar disorder, most recent episode manic F31.10 [facility] [place] [address] [address] May, Acute cystitis with hematuri a N30.01 [place] [address] [address] May, [place] [address] [address] May, Type 1 diabetes mellitus wit hout complication E10.9 [place] [address] [address] May, Abrasion of toe of left foot , initial encounter S90.415A ; Type 1 diabetes mellitus without complication E10.9 ; Anxiety F41.9 ; Mood disorder F39 ; Essential hypertension I10 ; Migraine without aura and without status migrainosus, not intractable G43.009 ; Bipolar disorder, most recent episode manic F31.10 and Muscle spasm M62.838 [facility] [place] [address] [place] [id number] [place] [address] Mar, Abrasion of toe of left foot , initial encounter S90.415A and Tooth pain K08.89 [facility] [address] [id number] [address] [place] [phone] Oct, [facility] [address] [id number] [address] [place] [phone] Oct, [facility] [address] [id number] [address] [place] [phone] Jul, [facility] [address] [id number] [address] [place] [id number] Jul, [facility] [address] [id number] [address] [place] [phone] Jun, [facility] [address] [id number] [address] [place] [phone] Jun, [facility] [address] [id number] [address] [place] [phone] May, [facility] [address] [id number] [address] [place] [phone] May, [facility] [address] [id number] [address] [place] [phone] May, [facility] [address] [id number] [address] [place] [phone] May, [facility] [address] [id number] [address] [place] [phone] May, [facility] [address] [id number] [address] [place] [phone] May, [facility] [address] [id number] [address] [place] [phone] May, [facility] [address] [id number] [address] [place] [phone] November, [facility] [address] [id number] [address] [place] [phone] November, [facility] [address] [id number] [address] [place] [address], [place] [address] Oct, [facility] [address] [id number] [address] [place] [address], [place] [address] Oct, [facility] [address] [id number] [address] [place] [address], [place] [address] Oct, [facility] [address] [id number] [address] [place] [address], [place] [address] Sep, [facility] [address] [id number] [address] [place] [address], [place] [address] Sep, [facility] [address] [id number] [address] [place] [address], [place] [address] Sep, [facility] [address] [id number] [address] [place] [address], [place] [address] Sep, [facility] [address] [id number] [address] [place] [address], [place] [address] Sep, [facility] [address] [id number] [address] [place] [address], [place] [address] Sep, [facility] [address] [id number] [address] [place] [address], [place] [address] Sep, [facility] [address] [id number] [address] [place] [address], [place] [address] Sep, [facility] [address] [id number] [address] [place] [address], [place] [address] Aug, [facility] [address] [id number] [address] [place] [address], [place] [address] Aug, [facility] [address] [id number] [address] [place] [address], [place] [address] Aug, [facility] [address] [id number] [address] [place] [address], [place] [address] Aug, [facility] [address] [id number] [address] [place] [address], [place] [address] Aug, [facility] [address] [id number] [address] [place] [address], [place] [address] Aug, [facility] [address] [id number] [address] [place] [address], [place] [address] Aug, [facility] [address] [id number] [address] [place] [address], [place] [address] Aug, [facility] [address] [id number] [address] [place] [address], [place] [address] Aug, [facility] [address] [id number] [address] [place] [address], [place] [address] Aug, [facility] [address] [id number] [address] [place] [address], [place] [address] Aug, [facility] [address] [id number] [address] [place] [address], [place] [address] Aug, [facility] [address] [id number] [address] [place] [address], [place] [address] Aug, [facility] [address] [id number] [address] [place] [address], [place] [address] Aug, [facility] [address] [id number] [address] [place] [address], [place] [address] Aug, [facility] [address] [id number] [address] [place] [address], [place] [address] Aug, [facility] [address] [id number] [address] [place] [address], [place] [address] Jul, [facility] [address] [id number] [address] [place] [address], [place] [address] Jul, [facility] [address] [id number] [address] [place] [address], [place] [address] Jul, [facility] [address] [id number] [address] [place] [address] [address] Jul, [facility] [address] [id number] [address] [place] [phone] Jul, [facility] [address] [id number] [address] [place] [phone] Jul, [facility] [address] [id number] [address] [place] [phone] Jun, [facility] [address] [id number] [address] [place] [id number] Jun, [facility] [address] [id number] [address] [place] [phone] May, [facility] [address] [id number] [address] [place] [phone] May, [facility] [address] [id number] [address] [place] [phone] May, [facility] [address] [id number] [address] [place] [id number] May, [facility] [address] [id number] [address] [place] [id number] Apr, [facility] [address] [id number] [address] [place] [phone] Apr, IMMUNIZATIONS No Known Immunizations SOCIAL HISTORY [...] weight loss Surgical History Tonsilectomy Surgical History [facility] Hospitalization History [facility]-diagnosed with type I diabetes 2 016 Hospitalization History diabetes regulating 08/2017 Hospitalization History childbirth Hospitalization History [facility]2019
--- OUTSIDE RECORDS SUMMARY | 2019-12-22 21:44 | XMS REPORT ---
Author Author Charlotte Zheng Organization [facility] Address [address] [place] [address] Care Team Providers Care Slip Caster Name Role Phone RYANNE Zheng Unavailable PROBLEMS Type Condition ICD9-CM Code GAT46-NL Code Onset Dates Condition S tatus SNOMED Code Problem Migraine without aura and without status migrain osus, not intractable G43.009 Active 663428162 Problem Muscle spasm M62.838 Active 7919343 6 Problem Essential hypertension I10 Active 45033583 Problem BMI 31.0-31.9,adult Z68.31 Active 355817112604330 Problem Type 1 diabetes mellitus without complication E10. 9 Active 852895219 Problem Seasonal allergies J30.2 Active 4 70946443 Problem Bipolar disorder, most recent episode manic F31.10 Active 16700725 Problem Mood disorder F39 Active 215383 05 Problem Anxiety F41.9 Active 82518071 Problem Type I diabetes mellitus with complication E10.8 Active 99656126 Problem Pityriasis rosea L42 Active 772 41091 ALLERGIES No Information ENCOUNTERS Encounter Location Date Diagnosis [facility] [address] [facility] [id number] [address] [place] [id number] 10 Sep, 2019 [facility] [address] [facility] [id number] [address] [place] [address] Jul, [facility] [address] [facility] [id number] [address] [place] [address] Jul, Blister of right foot, initi al encounter S90.821A [facility] [address] [facility] [id number] [address] [place] [address] Jul, [facility] [address] [facility] [id number] [address] [place] [address] Jul, [facility] [address] [place] [id number] [address] [place] [address] Jul, Abscess of great toe of left foot L02.612 and Cellulitis of toe of left foot L03.032 [facility] [address] [facility] [id number] [address] [place] [address] Jun, [place] [address] [address] Jun, [facility] [address] [place] [id number] [address] [place] [address] Jun, Type 1 diabetes mellitus wit hout complication E10.9 and BMI 31.0- 31.9,adult Z68.31 [place] [address] [place] [id number] [address] [place] [address] May, Type 1 diabetes mellitus wit hout complication E10.9 [place] [address] [place] [id number] [address] [place] [address] Mar, Encounter for Depo-Provera c ontraception Z30.42 [place] [address] [address] Mar, Type 1 diabetes mellitus wit hout complication E10.9 [place] [address] [place] [id number] [address] [place] [address] Jan, Type 1 diabetes mellitus wit hout complication E10.9 [place] [id number] [place] [address] Dec, Type 1 diabetes mellitus wit hout complication E10.9 ; Seasonal allergies J30.2 and BMI 31.0-31.9,adult Z68.31 [place] [address] [place] [id number] [address] [place] [address] Dec, [place] [address] [place] [id number] [address] [place] [address] November, Type 1 diabetes mellitus wit hout complication E10.9 [place] [address] [place] [id number] [address] [place] [address] 14 Nov, 2018 [facility] [address] [id number] 14 Nov, 2018 Encounter for Depo-Provera c ontraception Z30.42 [facility] [address] [facility] [id number] [address] [place] [id number] 10 Nov, 2018 [facility] [address] [facility] [id number] [address] 10 Oct, 2018 [facility] [address] [facility] [id number] [address] [place] [id number] 28 Sep, 2018 Type 1 diabetes mellitus wit hout complication E10.9 [facility] [address] [facility] [id number] [address] [place] [id number] 20 Sep, 2018 [facility] [address] [id number] 07 Sep, 2018 [facility] [address] [facility] [id number] [address] [place] [address] 25 Sep, 2018 Influenza A J10.1 [facility] [address] [place] [id number] [address] [place] [address] 13 Sep, 2018 [facility] [id number] [place] [address] 11 Sep, 2018 Type 1 diabetes mellitus wit hout complication E10.9 and BMI 31.0- 31.9,adult Z68.31 [facility] [address] [facility] [id number] [address] [place] [id number] 28 Aug, 2018 control counseling Z30 .09 and Encounter for Depo-Provera contraception Z30.42 [facility] [address] [place] [id number] [address] [place] [id number] 16 Aug, 2018 Type I diabetes mellitus wit h complication E10.8 [facility] [address] [place] [id number] [address] [place] [phone] Aug, [facility] [address] [id number] [address] [place] [address] Aug, Type 1 diabetes mellitus wit hout complication E10.9 [facility] [address] [id number] [address] [place] [address] Aug, [facility] [address] [id number] [address] [place] [id number] Aug, [facility] [address] [id number] [address] [place] [address] Aug, [facility] [address] [id number] [address] [place] [address] Aug, [facility] [address] [facility] [id number] [address] [place] [id number] Jul, Pityriasis rosea L42 [facility] [address] [facility] [id number] [address] [place] [address] Jul, Fungal dermatosis B36.9 [facility] [address] [id number] [address] [place] [id number] 04 Jul, 2018 [facility] [address] [id number] [address] [place] [address] Jun, [facility] [address] [facility] [id number] [address] [place] [address] Jun, [facility] [address] [id number] [address] [place] [address] May, Type I diabetes mellitus wit h complication E10.8 [facility] [address] [id number] [address] [place] [address] Apr, Type I diabetes mellitus wit h complication E10.8 [facility] [address] [id number] [address] [place] [address] Mar, [facility] [address] [id number] [address] [place] [phone] Jan, Type I diabetes mellitus wit h complication E10.8 and Essential hypertension I10 [facility] [address] [id number] [address] [place] [address] Jan, Type I diabetes mellitus wit h complication E10.8 [facility] [address] [id number] [address] [place] [id number] Jan, [facility] [address] [id number] [address] [place] [address] Jan, [facility] [address] [id number] [address] [place] [address] Jan, Type I diabetes mellitus wit h complication E10.8 [facility] [address] [id number] [address] [place] [address] Jan, [facility] [address] [id number] [address] [place] [address] Jan, [facility] [address] [id number] [address] [place] [address] Jan, Type I diabetes mellitus wit h complication E10.8 ; Upper respiratory tract infection, unspecified type J06.9 and delivery O60.10X0 [facility] [address] [id number] [address] [place] [phone] Jan, [facility] [address] [id number] [address] [place] [address] November, [facility] [address] [id number] [address] [place] [phone] November, [facility] [address] [id number] [address] [place] [address] Sep, [facility] [address] [id number] [address] [place] [address] Sep, [facility] [address] [id number] [address] [place] [phone] Sep, [facility] [address] [id number] [address] [place] [address] Sep, Dysuria R30.0 and Normal pre gnancy in second trimester Z34.92 [facility] [address] [facility] [id number] [address] [place] [address] Sep, [facility] [address] [facility] [id number] [address] [place] [address] Sep, [facility] [address] [facility] [id number] [address] [place] [address] Sep, [facility] [address] [facility] [id number] [address] [place] [address] Sep, [facility] [address] [facility] [id number] [address] [place] [address] Aug, [facility] [address] [facility] [id number] [address] [place] [address] Jul, [facility] [address] [facility] [id number] [address] [place] [address] Jul, [facility] [address] [facility] [id number] [address] [place] [address] Jul, [facility] [address] [facility] [id number] [address] [place] [address] Jul, Other viral agents as the ca use of diseases classified elsewhere B97.89 and Acute upper respiratory infection, unspecified J06.9 [facility] [address] [facility] [id number] [address] [place] [address] Jul, Type 1 diabetes mellitus wit hout complication E10.9 [facility] [address] [facility] [id number] [address] [place] [address] Jul, [facility] [address] [facility] [id number] [address] [place] [address] Jul, [facility] [address] [facility] [id number] [address] [place] [address] Jul, [facility] [address] [address] Jul, [place] [address] [address] Jul, Screening, deficiency anemia , iron Z13.0 [place] [id number] [address] Jul, [facility] [address] [address] Jul, Suprapubic discomfort R10.2 ; Near syncope R55 ; Abdominal cramping R10.9 and Less than 8 weeks gestation of Z3A.01 [place] [address] [address] Jul, [place] [address] [address] Jun, Type I diabetes mellitus wit h complication E10.8 ; Mood disorder F39 and Bipolar disorder, most recent episode manic F31.10 [facility] [place] [address] [address] May, Acute cystitis with hematuri a N30.01 [place] [address] [address] May, [place] [address] [address] May, Type 1 diabetes mellitus wit hout complication E10.9 [place] [address] [place] [id number] [address] [place] [address] May, Abrasion of toe of left foot , initial encounter S90.415A ; Type 1 diabetes mellitus without complication E10.9 ; Anxiety F41.9 ; Mood disorder F39 ; Essential hypertension I10 ; Migraine without aura and without status migrainosus, not intractable G43.009 ; Bipolar disorder, most recent episode manic F31.10 and Muscle spasm M62.838 [facility] [address] [place] [address] Mar, Abrasion of toe of left foot , initial encounter S90.415A and Tooth pain K08.89 [facility] [address] [id number] [address] [place] [id number] 14 Oct, 2014 [facility] [address] [id number] [address] [place] [address] Oct, [facility] [address] [id number] [address] [place] [address] Jul, [facility] [address] [id number] [address] [place] [address] Jul, [facility] [address] [id number] [address] [place] [address] Jun, [facility] [address] [id number] [address] [place] [address] Jun, [facility] [address] [id number] [address] [place] [address] May, [facility] [address] [id number] [address] [place] [address] May, [facility] [address] [id number] [address] [place] [address] May, [facility] [address] [id number] [address] [place] [address] May, [facility] [address] [id number] [address] [place] [address] May, [facility] [address] [id number] [address] [place] [address] May, [facility] [address] [id number] [address] [place] [address] May, [facility] [address] [id number] [address] [place] [address] November, [facility] [address] [id number] [address] [place] [address], [place] [address] November, [facility] [address] [id number] [address] [place] [address], [place] [address] Oct, [facility] [address] [id number] [address] [place] [address], [place] [address] Oct, [facility] [address] [id number] [address] [place] [address], [place] [address] Oct, [facility] [address] [id number] [address] [place] [address], [place] [address] Sep, [facility] [address] [id number] [address] [place] [address], [place] [address] Sep, [facility] [address] [id number] [address] [place] [address], [place] [address] Sep, [facility] [address] [id number] [address] [place] [address], [place] [address] Sep, [facility] [address] [id number] [address] [place] [address], [place] [address] Sep, [facility] [address] [id number] [address] [place] [address], [place] [address] Sep, [facility] [address] [id number] [address] [place] [address], [place] [address] Sep, [facility] [address] [id number] [address] [place] [address], [place] [address] Sep, [facility] [address] [id number] [address] [place] [address], [place] [address] Aug, [facility] [address] [id number] [address] [place] [address], [place] [address] Aug, [facility] [address] [id number] [address] [place] [address], [place] [address] Aug, [facility] [address] [id number] [address] [place] [address], [place] [address] Aug, [facility] [address] [id number] [address] [place] [address], [place] [address] Aug, [facility] [address] [id number] [address] [place] [address], [place] [address] Aug, [facility] [address] [id number] [address] [place] [address], [place] [address] Aug, [facility] [address] [id number] [address] [place] [address], [place] [address] Aug, [facility] [address] [id number] [address] [place] [address], [place] [address] Aug, [facility] [address] [id number] [address] [place] [address], [place] [address] Aug, [facility] [address] [id number] [address] [place] [address], [place] [address] Aug, [facility] [address] [id number] [address] [place] [address], [place] [address] Aug, [facility] [address] [id number] [address] [place] [address], [place] [address] Aug, [facility] [address] [id number] [address] [place] [address], [place] [address] Aug, [facility] [address] [id number] [address] [place] [address], [place] [address] Aug, [facility] [address] [id number] [address] [place] [address], [place] [address] Aug, [facility] [address] [id number] [address] [place] [address], [place] [address] Jul, [facility] [address] [id number] [address] [place] [address], [place] [address] Jul, [facility] [address] [id number] [address] [place] [address], [place] [address] Jul, [facility] [address] [id number] [address] [place] [address] Jul, [facility] [address] [id number] [address] [place] [address] Jul, [facility] [address] [id number] [address] [place] [address] Jul, [facility] [address] [id number] [address] [place] [address] Jun, [facility] [address] [id number] [address] [place] [address] Jun, [facility] [address] [id number] [address] [place] [address] May, [facility] [address] [id number] [address] [place] [address] May, [facility] [address] [id number] [address] [place] [address] May, [facility] [address] [id number] [address] [place] [address] May, [facility] [address] [id number] [address] [place] [address] Apr, [facility] [address] [id number] [address] [place] [address] Apr, IMMUNIZATIONS No Known Immunizations SOCIAL HISTORY Never Assessed REASON FOR VISIT PLAN OF CARE VITAL SIGNS Height 63 in 2014-05-10 Weight 180.8 lbs 2014-05-10 Temperature 98.1 degrees Fahrenheit 2014-05-10 Heart Rate 80 bpm 2014-05-10 Respiratory Rate 18 2014-05-10 Blood pressure systolic 100 mmHg 2014-05-10 Blood pressure diastolic 70 mmHg 2014-05-10 MEDICATIONS Unknown Medications RESULTS No Results PROCEDURES No Known procedures INSTRUCTIONS MEDICATIONS ADMINISTERED No Known Medications MEDICAL (GENERAL) HISTORY Type Description Date Medical History Type I Diabetes Medical History Anxiety Medical History ADHD Medical History Bipolar Disorders Medical History Chronic Migrains Medical History Hypertension, resolved with weight loss Surgical History Tonsilectomy Surgical History Eckley Teeth Extraction Hospitalization History [facility]-diagnosed with type I diabetes 2 016 Hospitalization History diabetes regulating 08/2017 Hospitalization History childbirth Hospitalization History [facility] 07/2019
--- OUTSIDE RECORDS SUMMARY | 2019-12-22 21:45 | XMS REPORT ---
Author Author Charlotte Bello Organization [facility] Address [address] [place] [address] Care Team Providers Care Certified Anesthesiologist Assistant Name Role Phone ROBERT Bello Unavailable PROBLEMS Type Condition ICD9-CM Code TIC80-VF Code Onset Dates Condition S tatus SNOMED Code Problem Essential hypertension I10 Active 67955959 Problem Muscle spasm M62.838 Active 7702093 6 Problem Migraine without aura and without status migrain osus, not intractable G43.009 Active 670472676 Problem BMI 31.0-31.9,adult Z68.31 Active [id number] Problem Mood disorder F39 Active 177775 05 Problem Seasonal allergies J30.2 Active 4 78830931 Problem Anxiety F41.9 Active 02176729 Problem Type 1 diabetes mellitus without complication E10. 9 Active 172143049 Problem Bipolar disorder, most recent episode manic F31.10 Active 88357903 Problem Type I diabetes mellitus with complication E10.8 Active 26353687 Problem Pityriasis rosea L42 Active 772 64304 ALLERGIES No Information ENCOUNTERS Encounter Location Date Diagnosis [facility] [address] [facility] [id number] [address] [place] [address] 10 Sep, 2019 [facility] [address] [facility] [id number] [address] [place] [address] Jul, [facility] [address] [facility] [id number] [address] [place] [address] Jul, Blister of right foot, initi al encounter S90.821A [facility] [address] [facility] [id number] [address] [place] [address] Jul, [facility] [address] [facility] [id number] [address] [place] [phone] Jul, [facility] [address] [place] [address] 03 Jul, 2019 Abscess of great toe of left foot L02.612 and Cellulitis of toe of left foot L03.032 [facility] [address] [place] [address] Jun, [facility] [address] [place] [id number] [address] [place] [address] Jun, [facility] [address] [place] [id number] [address] [place] [address] Jun, Type 1 diabetes mellitus wit hout complication E10.9 and BMI 31.0- 31.9,adult Z68.31 [place] [address] [place] [id number] [address] [place] [address] 16 May, 2019 Type 1 diabetes mellitus wit hout complication E10.9 [place] [address] [address] Mar, Encounter for Depo-Provera c ontraception Z30.42 [place] [address] [place] [id number] [address] [place] [address] Mar, Type 1 diabetes mellitus wit hout complication E10.9 [place] [address] [place] [id number] [address] [place] [address] Jan, Type 1 diabetes mellitus wit hout complication E10.9 [place] [address] [place] [address] Dec, Type 1 diabetes mellitus wit hout complication E10.9 ; Seasonal allergies J30.2 and BMI 31.0-31.9,adult Z68.31 [place] [address] [place] [address] Dec, [place] [address] [place] [id number] [address] [place] [address] November, Type 1 diabetes mellitus wit hout complication E10.9 [place] [address] [place] [id number] [place] [address] 14 Nov, 2018 [facility] [address] [facility] [id number] [address] [place] [address] 14 Nov, 2018 Encounter for Depo-Provera c ontraception Z30.42 [facility] [address] [facility] [id number] [address] [place] [address] 10 Nov, 2018 [facility] [address] [facility] [id number] [address] 10 Oct, 2018 [facility] [address] [facility] [id number] [address] [place] [address] 28 Sep, 2018 Type 1 diabetes mellitus wit hout complication E10.9 [facility] [address] [place] [id number] [address] [place] [address] 20 Sep, 2018 [facility] [address] [address] 07 Sep, 2018 [facility] [address] [place] [address] 25 Sep, 2018 Influenza A J10.1 [facility] [address] [place] [id number] [address] [place] [address] 13 Sep, 2018 [facility] [address] [place] [address] 11 Sep, 2018 Type 1 diabetes mellitus wit hout complication E10.9 and BMI 31.0- 31.9,adult Z68.31 [facility] [address] [place] [address] 28 Aug, 2018 control counseling Z30 .09 and Encounter for Depo-Provera contraception Z30.42 [facility] [address] [place] [address] 16 Aug, 2018 Type I diabetes mellitus wit h complication E10.8 [facility] [address] [place] [id number] [address] [place] [address] Aug, [facility] [address] [id number] [address] [place] [address] Aug, Type 1 diabetes mellitus wit hout complication E10.9 [facility] [address] [id number] [address] [place] [address] 16 Aug, 2018 [facility] [address] [facility] [id number] [address] [place] [address] Aug, [facility] [address] [id number] [address] [place] [address] Aug, [facility] [address] [facility] [id number] [address] [place] [address] Aug, [facility] [address] [facility] [id number] [address] [place] [address] Jul, Pityriasis rosea L42 [facility] [address] [facility] [id number] [address] [place] [address] Jul, Fungal dermatosis B36.9 [facility] [address] [id number] [address] [place] [address] Jul, [facility] [address] [facility] [id number] [address] [place] [address] Jun, [facility] [address] [facility] [id number] [address] [place] [address] Jun, [facility] [address] [facility] [id number] [address] [place] [address] May, Type I diabetes mellitus wit h complication E10.8 [facility] [address] [id number] [address] [place] [address] Apr, Type I diabetes mellitus wit h complication E10.8 [facility] [address] [facility] [id number] [address] [place] [address] Mar, [facility] [address] [id number] [address] [place] [address] Jan, Type I diabetes mellitus wit h complication E10.8 and Essential hypertension I10 [facility] [address] [id number] [address] [place] [address] Jan, Type I diabetes mellitus wit h complication E10.8 [facility] [address] [id number] [address] [place] [id number] Jan, [facility] [address] [id number] [address] [place] [address] Jan, [facility] [address] [id number] [address] [place] [address] Jan, Type I diabetes mellitus wit h complication E10.8 [facility] [address] [id number] [address] [place] [address] Jan, [facility] [address] [id number] [address] [place] [address] Jan, [facility] [address] [id number] [address] [place] [address] Jan, Type I diabetes mellitus wit h complication E10.8 ; Upper respiratory tract infection, unspecified type J06.9 and delivery O60.10X0 [facility] [address] [id number] [address] [place] [address] Jan, [facility] [address] [id number] [address] [place] [address] November, [facility] [address] [id number] [address] [place] [address] November, [facility] [address] [id number] [address] [place] [address] Sep, [facility] [address] [id number] [address] [place] [address] Sep, [facility] [address] [id number] [address] [place] [address] Sep, [facility] [address] [id number] [address] [place] [address] Sep, Dysuria R30.0 and Normal pre gnancy in second trimester Z34.92 [facility] [address] [facility] [id number] [address] [place] [address] Sep, [facility] [address] [facility] [id number] [address] [place] [address] Sep, [facility] [address] [facility] [id number] [address] [place] [address] Sep, [facility] [address] [id number] [address] [place] [address] Sep, [facility] [address] [facility] [id number] [address] [place] [address] Aug, [facility] [address] [place] [id number] [address] [place] [address] Jul, [facility] [address] [facility] [id number] [address] [place] [address] Jul, [facility] [address] [facility] [id number] [address] [place] [address] Jul, [facility] [address] [facility] [id number] [address] [place] [address] Jul, Other viral agents as the ca use of diseases classified elsewhere B97.89 and Acute upper respiratory infection, unspecified J06.9 [facility] [address] [facility] [id number] [address] [place] [address] Jul, Type 1 diabetes mellitus wit hout complication E10.9 [facility] [address] [facility] [id number] [address] [place] [address] Jul, [facility] [address] [facility] [id number] [address] [place] [address] Jul, [facility] [address] [facility] [id number] [address] [place] [address] Jul, [facility] [address] [place] [id number] [address] [place] [id number] Jul, [place] [address] [address] Jul, Screening, deficiency anemia , iron Z13.0 [place] [address] [address] Jul, [facility] [place] [address] [address] Jul, Suprapubic discomfort R10.2 ; Near syncope R55 ; Abdominal cramping R10.9 and Less than 8 weeks gestation of Z3A.01 [place] [address] [address] Jul, [place] [address] [address] Jun, Type I diabetes mellitus wit h complication E10.8 ; Mood disorder F39 and Bipolar disorder, most recent episode manic F31.10 [facility] [place] [address] [address] May, Acute cystitis with hematuri a N30.01 [place] [address] [place] [id number] [address] [place] [address] May, [place] [address] [address] May, Type 1 diabetes mellitus wit hout complication E10.9 [place] [address] [place] [id number] [address] [place] [address] May, Abrasion of toe of left foot , initial encounter S90.415A ; Type 1 diabetes mellitus without complication E10.9 ; Anxiety F41.9 ; Mood disorder F39 ; Essential hypertension I10 ; Migraine without aura and without status migrainosus, not intractable G43.009 ; Bipolar disorder, most recent episode manic F31.10 and Muscle spasm M62.838 [facility] [place] [id number] [address] [place] [address] Mar, Abrasion of toe of left foot , initial encounter S90.415A and Tooth pain K08.89 [facility] [address] [id number] [address] [place] [address] Oct, [facility] [address] [id number] [address] [place] [address] Oct, [facility] [address] [id number] [address] [place] [address] Jul, [facility] [address] [id number] [address] [place] [address] Jul, [facility] [address] [id number] [address] [place] [address] Jun, [facility] [address] [id number] [address] [place] [address] Jun, [facility] [address] [id number] [address] [place] [address] May, [facility] [address] [id number] [address] [place] [address] May, [facility] [address] [id number] [address] [place] [address] May, [facility] [address] [id number] [address] [place] [address] May, [facility] [address] [id number] [address] [place] [address] May, [facility] [address] [id number] [address] [place] [phone] May, [facility] [address] [id number] [address] [place] [address] May, [facility] [address] [id number] [address] [place] [address] November, [facility] [address] [id number] [address] [place] [address] November, [facility] [address] [id number] [address] [place] [address], [place] [address] Oct, [facility] [address] [id number] [address] [place] [address], [place] [address] Oct, [facility] [address] [id number] [address] [place] [address], [place] [address] Oct, [facility] [address] [id number] [address] [place] [address], [place] [address] Sep, [facility] [address] [id number] [address] [place] [address], [place] [address] Sep, [facility] [address] [id number] [address] [place] [address], [place] [address] Sep, [facility] [address] [id number] [address] [place] [address], [place] [address] Sep, [facility] [address] [id number] [address] [place] [address], [place] [address] Sep, [facility] [address] [id number] [address] [place] [address], [place] [address] Sep, [facility] [address] [id number] [address] [place] [address], [place] [address] Sep, [facility] [address] [id number] [address] [place] [address], [place] [address] Sep, [facility] [address] [id number] [address] [place] [address], [place] [address] Aug, [facility] [address] [id number] [address] [place] [address], [place] [address] Aug, [facility] [address] [id number] [address] [place] [address], [place] [address] Aug, [facility] [address] [id number] [address] [place] [address], [place] [address] Aug, [facility] [address] [id number] [address] [place] [address], [place] [address] Aug, [facility] [address] [id number] [address] [place] [address], [place] [address] Aug, [facility] [address] [id number] [address] [place] [address], [place] [address] Aug, [facility] [address] [id number] [address] [place] [address], [place] [address] Aug, [facility] [address] [id number] [address] [place] [address], [place] [address] Aug, [facility] [address] [id number] [address] [place] [address], [place] [address] Aug, [facility] [address] [id number] [address] [place] [address], [place] [address] Aug, [facility] [address] [id number] [address] [place] [address], [place] [address] Aug, [facility] [address] [id number] [address] [place] [address], [place] [address] Aug, [facility] [address] [id number] [address] [place] [address], [place] [address] Aug, [facility] [address] [id number] [address] [place] [address], [place] [address] Aug, [facility] [address] [id number] [address] [place] [address], [place] [address] Aug, [facility] [address] [id number] [address] [place] [address], [place] [address] Jul, [facility] [address] [id number] [address] [place] [address], [place] [address] Jul, [facility] [address] [id number] [address] [place] [address], [place] [address] Jul, [facility] [address] [id number] [address] [place] [address] Jul, [facility] [address] [id number] [address] [place] [address] Jul, [facility] [address] [id number] [address] [place] [address] Jul, [facility] [address] [id number] [address] [place] [address] Jun, [facility] [address] [id number] [address] [place] [address] Jun, [facility] [address] [id number] [address] [place] [address] May, [facility] [address] [id number] [address] [place] [address] May, [facility] [address] [id number] [address] [place] [address] May, [facility] [address] [id number] [address] [place] [address] May, [facility] [address] [id number] [address] [place] [address] Apr, [facility] [address] [id number] [address] [place] [address] Apr, IMMUNIZATIONS No Known Immunizations SOCIAL HISTORY Never Assessed REASON FOR VISIT PLAN OF CARE VITAL SIGNS Height 63 in 2013-08-31 Weight 157 lbs 2013-08-31 Temperature 99.5 degrees Fahrenheit 2013-08-31 Heart Rate 68 bpm 2013-08-31 Respiratory Rate 24 2013-08-31 Blood pressure systolic 120 mmHg 2013-08-31 Blood pressure diastolic 78 mmHg 2013-08-31 MEDICATIONS Unknown Medications RESULTS No Results PROCEDURES No Known procedures INSTRUCTIONS MEDICATIONS ADMINISTERED No Known Medications MEDICAL (GENERAL) HISTORY Type Description Date Medical History Type I Diabetes Medical History Anxiety Medical History ADHD Medical History Bipolar Disorders Medical History Chronic Migrains Medical History Hypertension, resolved with weight loss Surgical History Tonsilectomy Surgical History Mica Teeth Extraction Hospitalization History [facility]-diagnosed with type I diabetes 2 016 Hospitalization History diabetes regulating 08/2017 Hospitalization History childbirth Hospitalization History [facility] 07[facility]2019
--- OUTSIDE RECORDS SUMMARY | 2019-12-22 21:45 | XMS REPORT ---
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 9 Active 413755544 Problem Seasonal allergies J30.2 Active 4 12190642 Problem Bipolar disorder, most recent episode manic F31.10 Active 37852108 Problem Mood disorder F39 Active 143552 05 Problem Anxiety F41.9 Active 69114657 Problem Type I diabetes mellitus with complication E10.8 Active 50038707 Problem Pityriasis rosea L42 Active 772 12863 ALLERGIES No Information ENCOUNTERS Encounter Location Date Diagnosis [place] [address] [address] 10 Sep, 2019 [facility] [address] [address] Jul, [facility] [address] [facility] [id number] [address] [place] [address] Jul, Blister of right foot, initi al encounter S90.821A [facility] [address] [address] Jul, [facility] [address] [address] Jul, [facility] [address] [facility] [id number] [address] [place] [address] Jul, Abscess of great toe of left foot L02.612 and Cellulitis of toe of left foot L03.032 [place] [address] [address] Jun, [place] [address] [address] Jun, [place] [address] [address] Jun, Type 1 diabetes mellitus without complic ation E10.9 and BMI 31.0- 31.9,adult Z68.31 [place] [address] [address] May, Type 1 diabetes mellitus without complic ation E10.9 [place] [address] [address] Mar, Encounter for Depo-Provera contraception Z30.42 [place] [address] [address] Mar, Type 1 diabetes mellitus without complic ation E10.9 [place] [address] [address] Jan, Type 1 diabetes mellitus without complic ation E10.9 [place] [address] [address] Dec, Type 1 diabetes mellitus without complic ation E10.9 ; Seasonal allergies J30.2 and BMI 31.0-31.9,adult Z68.31 [place] [address] [address] Dec, [place] [address] [address] November, Type 1 diabetes mellitus without complic ation E10.9 [place] [address] [address] November, [place] [address] [place] [address] [place] [address] 14 Nov, 2018 Encounter for Depo-Provera contraception Z30.42 [facility] [address] [address] 10 Nov, 2018 [facility] [address] [place] [id number] [place] [address] Oct, [place] [address] [address] Sep, Type 1 diabetes mellitus without complic ation E10.9 [place] [address] [address] Sep, [place] [address] [address] Sep, [facility] [address] [facility] [id number] [address] [place] [address] 25 Sep, 2018 Influenza A J10.1 [place] [address] [address] 13 Sep, 2018 [place] [address] [address] 11 Sep, 2018 Type 1 diabetes mellitus without complic ation E10.9 and BMI 31.0- 31.9,adult Z68.31 [place] [address] [address] 28 Aug, 2018 control counseling Z30.09 and Enco unter for Depo-Provera contraception Z30.42 [place] [address] [place] [id number] [place] [address] Aug, Type I diabetes mellitus with complicati on E10.8 [place] [address] [address] Aug, [place] [address] [address] Aug, Type 1 diabetes mellitus without complic ation E10.9 [place] [address] [place] [address] [place] [address] Aug, [facility] [address] [place] [id number] [place] [address] Aug, [facility] [address] [place] [id number] [place] [address] Aug, [facility] [address] [place] [id number] [place] [address] Aug, [facility] [address] [facility] [id number] [address] [place] [address] Jul, Pityriasis rosea L42 [facility] [address] [facility] [id number] [address] [place] [address] Jul, Fungal dermatosis B36.9 [facility] [address] [place] [id number] [place] [address] Jul, [facility] [address] [place] [id number] [place] [address] Jun, [facility] [address] [place] [id number] [place] [address] Jun, [facility] [address] [place] [id number] [place] [address] May, Type I diabetes mellitus with complicati on E10.8 [facility] [address] [place] [id number] [place] [address] Apr, Type I diabetes mellitus with complicati on E10.8 [facility] [address] [place] [id number] [place] [address] Mar, [facility] [address] [place] [id number] [place] [address] Jan, Type I diabetes mellitus with complicati on E10.8 and Essential hypertension I10 [facility] [address] [place] [id number] [place] [address] Jan, Type I diabetes mellitus with complicati on E10.8 [facility] [address] [place] [id number] [place] [address] Jan, [facility] [address] [place] [id number] [place] [address] Jan, [facility] [address] [place] [id number] [place] [address] Jan, Type I diabetes mellitus with complicati on E10.8 [facility] [address] [place] [id number] [place] [address] Jan, [facility] [address] [address] Jan, [facility] [address] [address] Jan, Type I diabetes mellitus with complicati on E10.8 ; Upper respiratory tract infection, unspecified type J06.9 and delivery O60.10X0 [facility] [address] [place] [id number] [place] [address] Jan, [facility] [address] [address] November, [facility] [address] [address] November, [facility] [address] [address] Sep, [facility] [address] [place] [id number] [place] [address] Sep, [facility] [address] [place] [id number] [place] [address] Sep, [facility] [address] [facility] [id number] [address] [place] [address] Sep, Dysuria R30.0 and Normal pre gnancy in second trimester Z34.92 [facility] [address] [place] [id number] [place] [address] Sep, [facility] [address] [address] Sep, [facility] [address] [place] [id number] [place] [address] Sep, [facility] [address] [facility] [id number] [address] [place] [address] Sep, [facility] [address] [place] [id number] [place] [address] Aug, [facility] [address] [place] [id number] [place] [address] Jul, [facility] [address] [place] [id number] [place] [address] Jul, [facility] [address] [address] Jul, [facility] [address] [place] [id number] [address] [place] [address] Jul, Other viral agents as the ca use of diseases classified elsewhere B97.89 and Acute upper respiratory infection, unspecified J06.9 [facility] [address] [address] Jul, Type 1 diabetes mellitus without complic ation E10.9 [facility] [address] [place] [id number] [place] [address] Jul, [facility] [address] [address] Jul, [facility] [address] [place] [id number] [place] [address] Jul, [facility] [address] [address] Jul, [facility] [address] [address] Jul, Screening, deficiency anemia, iron Z13.0 [facility] [address] [place] [id number] [place] [address] 05 Jul, 2017 [facility] [address] [place] [id number] [address] [place] [address] Jul, Suprapubic discomfort R10.2 ; Near syncope R55 ; Abdominal cramping R10.9 and Less than 8 weeks gestation of Z3A.01 [place] [address] [address] Jul, [place] [address] [address] Jun, Type I diabetes mellitus with complicati on E10.8 ; Mood disorder F39 and Bipolar disorder, most recent episode manic F31.[address] [facility] [address] [place] [id number] [address] [place] [address] May, Acute cystitis with hematuri a N30.01 [place] [address] [address] May, [place] [address] [address] May, Type 1 diabetes mellitus without complic ation E10.9 [place] [address] [address] May, Abrasion of toe of left foot, initial en counter S90.415A ; Type 1 diabetes mellitus without complication E10.9 ; Anxiety F41.9 ; Mood disorder F39 ; Essential hypertension I10 ; Migraine without aura and without status migrainosus, not intractable G43.009 ; Bipolar disorder, most recent episode manic F31.10 and Muscle spasm M62.[address] [facility] [address] [place] [id number] [address] [place] [address] Mar, Abrasion of toe of left foot , initial encounter S90.415A and Tooth pain K08.89 [place] [address] [address] Oct, [place] [address] [address] Oct, [place] [address] [address] Jul, [facility] [address] [facility] [id number] [place] [address] Jul, [facility] [address] [id number] [place] [address] Jun, [facility] [address] [id number] [place] [address] Jun, [facility] [address] [id number] [place] [address] May, [facility] [address] [facility] [id number] [place] [address] May, [facility] [address] [id number] [place] [address] May, [facility] [address] [id number] [place] [address] May, [facility] [address] [id number] [place] [address] May, [facility] [address] [id number] [place] [address] May, [facility] [address] [id number] [place] [address] May, [facility] [address] [id number] [place] [address] November, [facility] [address] [id number] [place] [address] November, [facility] [address] [id number] [place] [address] Oct, [facility] [address] [id number] [place] [address] Oct, [facility] [address] [id number] [place] [address] Oct, [facility] [address] [id number] [place] [address] Sep, [facility] [address] [id number] [place] [address] 13 Sep, 2013 [facility] [address] [facility] [id number] [place] [address] Sep, [facility] [address] [id number] [place] [address] Sep, [facility] [address] [id number] [place] [address] Sep, [facility] [address] [facility] [id number] [place] [address] Sep, [facility] [address] [id number] [place] [address] Sep, [facility] [address] [id number] [place] [address] Sep, [facility] [address] [id number] [place] [address] Aug, [facility] [address] [id number] [place] [address] Aug, [facility] [address] [id number] [place] [address] Aug, [facility] [address] [id number] [place] [address] Aug, [facility] [address] [id number] [place] [address] Aug, [facility] [address] [id number] [place] [address] Aug, [facility] [address] [id number] [place] [address] Aug, [facility] [address] [id number] [place] [address] Aug, [facility] [address] [id number] [place] [address] Aug, [facility] [address] [id number] [place] [address] Aug, [facility] [address] [id number] [place] [address] Aug, [facility] [address] [id number] [place] [address] Aug, [facility] [address] [id number] [place] [address] Aug, [facility] [address] [id number] [place] [address] Aug, [facility] [address] [id number] [place] [address] Aug, [facility] [address] [id number] [place] [address] Aug, [facility] [address] [id number] [place] [address] Jul, [facility] [address] [id number] [place] [address] Jul, [facility] [address] [id number] [place] [address] Jul, [facility] [address] [id number] [place] [address] Jul, [facility] [address] [id number] [place] [address] Jul, [facility] [address] [id number] [place] [address] Jul, [facility] [address] [id number] [place] [address] Jun, [facility] [address] [id number] [place] [address] Jun, [facility] [address] [id number] [place] [address] May, [facility] [address] [id number] [place] [address] May, [facility] [address] [id number] [place] [address] May, [facility] [address] [facility] [id number] [place] [address] May, [facility] [address] [id number] [place] [address] Apr, [facility] [address] [facility] [id number] [place] [address] Apr, IMMUNIZATIONS No Known Immunizations SOCIAL HISTORY Never Assessed REASON FOR VISIT PLAN OF CARE VITAL SIGNS Height 63 in 2013-09-20 Weight 161.9 lbs 2013-09-20 Temperature 99.7 degrees Fahrenheit 2013-09-20 Heart Rate 68 bpm 2013-09-20 Respiratory Rate 16 2013-09-20 Blood pressure systolic 102 mmHg 2013-09-20 Blood pressure diastolic 68 mmHg 2013-09-20 MEDICATIONS Unknown Medications RESULTS No Results PROCEDURES [...]
--- OUTSIDE RECORDS SUMMARY | 2019-12-22 21:45 | XMS REPORT ---
Author Author Charlotte Eller Doctor Organization [facility] Address Unknown Phone Unavailable Care Team Providers Care Residential Sales Associate Name Role Phone Migration, Doctor Unavailable Unavailable PROBLEMS Type Condition ICD9-CM Code [id number] Code Onset Dates Condition S tatus SNOMED Code Problem Migraine without aura and without status migrain osus, not intractable G43.009 Active 360382510 Problem Muscle spasm M62.838 Active 9937737 6 Problem Essential hypertension I10 Active 66517629 Problem BMI 31.0-31.9,adult Z68.31 Active 204554916252591 Problem Type 1 diabetes mellitus without complication E10. 9 Active 930465544 Problem Seasonal allergies J30.2 Active 4 36656296 Problem Bipolar disorder, most recent episode manic F31.10 Active 94090429 Problem Mood disorder F39 Active 896974 05 Problem Anxiety F41.9 Active 20865923 Problem Type I diabetes mellitus with complication E10.8 Active 62416451 Problem Pityriasis rosea L42 Active 772 11419 ALLERGIES No Information ENCOUNTERS Encounter Location Date Diagnosis [place] [address] [address] Sep, [facility], [place] [address] [address] Jul, [facility] [address] [place] [id number] [address] [place] [address] Jul, Blister of right foot, initi al encounter S90.821A [facility], [place] [address] [address] Jul, [facility], [place] [address] [address] Jul, [facility] [address] [facility] [id number] [address] [place] [address] Jul, Abscess of great toe of left foot L02.612 and Cellulitis of toe of left foot L03.032 [place] [address] [address] Jun, [place] [address] [address] Jun, [place] [address] [address] Jun, Type 1 diabetes mellitus without complic ation E10.9 and BMI 31.0- 31.9,adult Z68.31 [place] [address] [address] May, Type 1 diabetes mellitus without complic ation E10.9 [place] [address] [address] Mar, Encounter for Depo-Provera contraception Z30.42 [place] [address] [address] Mar, Type 1 diabetes mellitus without complic ation E10.9 [place] [address] [address] Jan, Type 1 diabetes mellitus without complic ation E10.9 [place] [address] [address] Dec, Type 1 diabetes mellitus without complic ation E10.9 ; Seasonal allergies J30.2 and BMI 31.0-31.9,adult Z68.31 [place] [address] [address] Dec, [place] [address] [address] November, Type 1 diabetes mellitus without complic ation E10.9 [place] [address] [address] November, [place] [address] [address] November, Encounter for Depo-Provera contraception Z30.42 [facility], [place] [address] [id number] [place] [address] 10 Nov, 2018 [facility], [place] [address] [address] Oct, [facility], [place] [address] [place] [id number] [place] [address] 28 Sep, 2018 Type 1 diabetes mellitus without complic ation E10.9 [facility], [place] [address] [address] Sep, [facility], [place] [address] [address] Sep, [facility] [address] [facility] [id number] [address] [place] [address] 25 Sep, 2018 Influenza A J10.1 [place] [address] [address] 13 Sep, 2018 [facility], [place] [address] [address] 11 Sep, 2018 Type 1 diabetes mellitus without complic ation E10.9 and BMI 31.0- 31.9,adult Z68.31 [place] [address] [address] 28 Aug, 2018 control counseling Z30.09 and Enco unter for Depo-Provera contraception Z30.42 [place] [address] [address] 16 Aug, 2018 Type I diabetes mellitus with complicati on E10.8 [place] [address] [address] Aug, [place] [address] [address] Aug, Type 1 diabetes mellitus without complic ation E10.9 [place] [address] [address] Aug, [place] [address] [place] [id number] [place] [address] Aug, [facility], [place] [address] [place] [id number] [place] [address] Aug, [facility], [place] [address] [place] [id number] [place] [address] Aug, [facility] [address] [facility] [id number] [address] [address] Jul, Pityriasis rosea L42 [facility] [address] [facility] [id number] [place] [address] Jul, Fungal dermatosis B36.9 [facility], [place] [address] [place] [id number] [place] [address] Jul, [facility], [place] [address] [place] [id number] [place] [address] Jun, [facility], [place] [address] [place] [id number] [place] [address] Jun, [facility], [place] [address] [place] [id number] [place] [address] May, Type I diabetes mellitus with complicati on E10.8 [facility], [place] [address] [place] [id number] [place] [address] Apr, Type I diabetes mellitus with complicati on E10.8 [facility], [place] [address] [place] [id number] [place] [address] Mar, [facility], [place] [address] [place] [id number] [place] [address] Jan, Type I diabetes mellitus with complicati on E10.8 and Essential hypertension I10 [facility], [place] [address] [place] [id number] [place] [address] Jan, Type I diabetes mellitus with complicati on E10.8 [facility], [place] [address] [address] Jan, [facility], [place] [address] [place] [address] Jan, [facility], [place] [address] [place] [id number] [place] [address] Jan, Type I diabetes mellitus with complicati on E10.8 [facility], [place] [address] [place] [id number] [place] [address] Jan, [facility], [place] [address] [address] Jan, [facility], [place] [address] [address] Jan, Type I diabetes mellitus with complicati on E10.8 ; Upper respiratory tract infection, unspecified type J06.9 and delivery O60.10X0 [facility], [place] [address] [address] Jan, [facility], [place] [address] [address] November, [facility], [place] [address] [address] November, [facility], [place] [address] [address] Sep, [facility], [place] [address] [address] Sep, [facility], [place] [address] [id number] [place] [address] Sep, [facility] [address] [facility] [id number] [place] [address] Sep, Dysuria R30.0 and Normal pre gnancy in second trimester Z34.92 [facility], [place] [address] [address] Sep, [facility], [place] [address] [address] Sep, [facility], [place] [address] [address] Sep, [facility] [address] [facility] [id number] [address] [place] [address] Sep, [place] [address] [address] Aug, [facility], [place] [address] [address] Jul, [place] [address] [address] Jul, [place] [address] [address] Jul, [facility] [place] [address] [place] [id number] [place] [address] Jul, Other viral agents as the ca use of diseases classified elsewhere B97.89 and Acute upper respiratory infection, unspecified J06.9 [place] [address] [address] Jul, Type 1 diabetes mellitus without complic ation E10.9 [place] [address] [address] Jul, [place] [address] [address] Jul, [place] [address] [address] Jul, [place] [address] [address] Jul, [place] [address] [address] Jul, Screening, deficiency anemia, iron Z13.0 [place] [address] [address] Jul, [facility] N [facility] [id number] [address] [place] [address] Jul, Suprapubic discomfort R10.2 ; Near syncope R55 ; Abdominal cramping R10.9 and Less than 8 weeks gestation of Z3A.01 [place] [address] [address] Jul, [place] [address] [address] Jun, Type I diabetes mellitus with complicati on E10.8 ; Mood disorder F39 and Bipolar disorder, most recent episode manic F31.10 [facility] [address] [address] May, Acute cystitis with hematuri a N30.01 [place] [address] [address] May, [place] [address] [address] May, Type 1 diabetes mellitus without complic ation E10.9 [place] [address] [address] May, Abrasion of toe of left foot, initial en counter S90.415A ; Type 1 diabetes mellitus without complication E10.9 ; Anxiety F41.9 ; Mood disorder F39 ; Essential hypertension I10 ; Migraine without aura and without status migrainosus, not intractable G43.009 ; Bipolar disorder, most recent episode manic F31.10 and Muscle spasm M62.838 [facility] [address] [place] [id number] [place] [address] Mar, Abrasion of toe of left foot , initial encounter S90.415A and Tooth pain K08.89 [place] [address] [address] Oct, [place] [address] [address] Oct, [place] [address] [address] Jul, [place] [address] [address] Jul, [facility] [address] [facility] [id number] [place] [address] Jun, [facility] [address] [id number] [place] [address] Jun, [facility] [address] [id number] [place] [address] May, [facility] [address] [id number] [place] [address] May, [facility] [address] [id number] [place] [address] May, [facility] [address] [id number] [place] [address] May, [facility] [address] [id number] [place] [address] May, [facility] [address] [id number] [place] [address] May, [facility] [address] [id number] [place] [address] May, [facility] [address] [id number] [place] [address] November, [facility] [address] [id number] [place] [address] November, [facility] [address] [id number] [place] [address] Oct, [facility] [address] [id number] [place] [address] Oct, [facility] [address] [id number] [place] [address] Oct, [facility] [address] [id number] [place] [address] Sep, [facility] [address] [id number] [place] [address] Sep, [facility] [address] [id number] [place] [address] 10 Sep, 2013 [facility] [address] [id number] [place] [address] Sep, [facility] [address] [id number] [place] [address] Sep, [facility] [address] [id number] [place] [address] Sep, [facility] [address] [id number] [place] [address] Sep, [facility] [address] [id number] [place] [address] Sep, [facility] [address] [id number] [place] [address] Aug, [facility] [address] [id number] [place] [address] Aug, [facility] [address] [id number] [place] [address] Aug, [facility] [address] [id number] [place] [address] Aug, [facility] [address] [id number] [place] [address] Aug, [facility] [address] [id number] [place] [address] Aug, [facility] [address] [id number] [place] [address] Aug, [facility] [address] [id number] [place] [address] Aug, [facility] [address] [id number] [place] [address] Aug, [facility] [address] [id number] [place] [address] Aug, [facility] [address] [id number] [place] [address] Aug, [facility] [address] [id number] [place] [address] Aug, [facility] [address] [id number] [place] [address] Aug, [facility] [address] [id number] [place] [address] Aug, [facility] [address] [id number] [place] [address] Aug, [facility] [address] [id number] [place] [address] Aug, [facility] [address] [id number] [place] [address] Jul, [facility] [address] [id number] [place] [address] Jul, [facility] [address] [id number] [place] [address] Jul, [facility] [address] [id number] [place] [address] Jul, [facility] [address] [id number] [place] [address] Jul, [facility] [address] [id number] [place] [address] Jul, [facility] [address] [id number] [place] [address] Jun, [facility] [address] [id number] [place] [address] Jun, [facility] [address] [id number] [place] [address] May, [facility] [address] [id number] [place] [address] May, [facility] [address] [id number] [place] [address] May, [facility] [address] [id number] [place] [address] May, [facility] [place] [address] [facility] [id number] [place] [address] Apr, [facility] [place] [address] [facility] [id number] [place] [address] Apr, IMMUNIZATIONS No Known Immunizations SOCIAL HISTORY Never Assessed REASON FOR VISIT PLAN OF CARE VITAL SIGNS MEDICATIONS Unknown Medications RESULTS No Results PROCEDURES Procedure Date Ordered Result Body Site PSYTX PT&/FAMILY 45 MINUTES Sep 01, 2013 INSTRUCTIONS MEDICATIONS ADMINISTERED No Known Medications MEDICAL (GENERAL) HISTORY Type Description Date Medical History Type I Diabetes Medical History Anxiety Medical History ADHD Medical History Bipolar Disorders Medical History Chronic Migrains Medical History Hypertension, resolved with weight loss Surgical History Tonsilectomy Surgical History Diggs Teeth Extraction Hospitalization History [facility]-diagnosed with type I diabetes 2 016 Hospitalization History diabetes regulating 08/2017 Hospitalization History childbirth Hospitalization [facility]2019
--- OUTSIDE RECORDS SUMMARY | 2019-12-22 21:45 | XMS REPORT ---
Author Author Charlotte Eller Doctor Organization [facility] Address Unknown Phone Unavailable Care Team Providers Care Director Patient Accounting Name Role Phone Migration, Doctor Unavailable Unavailable PROBLEMS Type Condition ICD9-CM Code [id number] Code Onset Dates Condition S tatus SNOMED Code Problem Migraine without aura and without status migrain osus, not intractable G43.009 Active 049410610 Problem Muscle spasm M62.838 Active 1280956 6 Problem Essential hypertension I10 Active 19241735 Problem BMI 31.0-31.9,adult Z68.31 Active 242990145023324 Problem Type 1 diabetes mellitus without complication E10. 9 Active 943531896 Problem Seasonal allergies J30.2 Active 4 32423979 Problem Bipolar disorder, most recent episode manic F31.10 Active 81627089 Problem Mood disorder F39 Active 762951 05 Problem Anxiety F41.9 Active 05117566 Problem Type I diabetes mellitus with complication E10.8 Active 39205913 Problem Pityriasis rosea L42 Active 772 76270 ALLERGIES No Information ENCOUNTERS Encounter Location Date Diagnosis [place] [address] [address] 10 Sep, 2019 [facility] [address] [address] Jul, [facility] [address] [place] [id number] [address] [place] [address] Jul, Blister of right foot, initi al encounter S90.821A [facility] [address] [address] Jul, [facility] [address] [address] Jul, [facility] [address] [facility] [id number] [address] [place] [address] Jul, Abscess of great toe of left foot L02.612 and Cellulitis of toe of left foot L03.032 [place] [address] [address] Jun, [place] [address] [address] Jun, [place] [address] [address] Jun, Type 1 diabetes mellitus without complic ation E10.9 and BMI 31.0- 31.9,adult Z68.31 [place] [address] [address] May, Type 1 diabetes mellitus without complic ation E10.9 [place] [address] [address] Mar, Encounter for Depo-Provera contraception Z30.42 [place] [address] [address] Mar, Type 1 diabetes mellitus without complic ation E10.9 [place] [address] [address] Jan, Type 1 diabetes mellitus without complic ation E10.9 [place] [address] [address] Dec, Type 1 diabetes mellitus without complic ation E10.9 ; Seasonal allergies J30.2 and BMI 31.0-31.9,adult Z68.31 [place] [address] [address] Dec, [place] [address] [address] November, Type 1 diabetes mellitus without complic ation E10.9 [place] [address] [address] November, [place] [address] [address] November, Encounter for Depo-Provera contraception Z30.42 [facility] [address] [id number] [place] [address] 10 Nov, 2018 [facility] [address] [address] Oct, [facility] [address] [place] [id number] [place] [address] 28 Sep, 2018 Type 1 diabetes mellitus without complic ation E10.9 [facility] [address] [address] Sep, [facility] [address] [address] Sep, [facility] [address] [facility] [id number] [address] [place] [address] 25 Sep, 2018 Influenza A J10.1 [place] [address] [address] 13 Sep, 2018 [facility] [address] [address] 11 Sep, 2018 Type 1 diabetes mellitus without complic ation E10.9 and BMI 31.0- 31.9,adult Z68.31 [place] [address] [address] 28 Aug, 2018 control counseling Z30.09 and Enco unter for Depo-Provera contraception Z30.42 [place] [address] [address] 16 Aug, 2018 Type I diabetes mellitus with complicati on E10.8 [place] [address] [address] Aug, [place] [address] [address] Aug, Type 1 diabetes mellitus without complic ation E10.9 [place] [address] [address] Aug, [place] [address] [place] [id number] [place] [address] Aug, [facility] [address] [place] [id number] [place] [address] Aug, [facility] [address] [place] [id number] [place] [address] Aug, [facility] [address] [facility] [id number] [place] [address] Jul, Pityriasis rosea L42 [facility] [address] [facility] [id number] [address] [address] Jul, Fungal dermatosis B36.9 [facility] [address] [place] [id number] [place] [address] Jul, [facility] [address] [place] [id number] [place] [address] Jun, [facility] [address] [place] [id number] [place] [address] Jun, [facility] [address] [place] [id number] [place] [address] May, Type I diabetes mellitus with complicati on E10.8 [facility] [address] [place] [id number] [place] [address] Apr, Type I diabetes mellitus with complicati on E10.8 [facility] [address] [place] [id number] [place] [address] Mar, [facility] [address] [place] [id number] [place] [address] Jan, Type I diabetes mellitus with complicati on E10.8 and Essential hypertension I10 [facility] [address] [place] [id number] [place] [address] Jan, Type I diabetes mellitus with complicati on E10.8 [facility] [address] [address] Jan, [facility] [address] [place] [address] Jan, [facility] [address] [place] [id number] [place] [address] Jan, Type I diabetes mellitus with complicati on E10.8 [facility] [address] [place] [id number] [place] [address] Jan, [facility] [address] [address] Jan, [facility] [address] [address] Jan, Type I diabetes mellitus with complicati on E10.8 ; Upper respiratory tract infection, unspecified type J06.9 and delivery O60.10X0 [facility] [address] [address] Jan, [facility] [address] [address] November, [facility] [address] [address] November, [facility] [address] [address] Sep, [facility] [address] [address] Sep, [facility] [address] [id number] [place] [address] Sep, [facility] [address] [facility] [id number] [place] [address] Sep, Dysuria R30.0 and Normal pre gnancy in second trimester Z34.92 [facility] [address] [address] Sep, [facility] [address] [address] Sep, [facility] [address] [address] Sep, [facility] [address] [facility] [id number] [address] [place] [address] Sep, [place] [address] [address] Aug, [facility] [address] [address] Jul, [place] [address] [address] Jul, [place] [address] [address] Jul, [facility] [place] [address] [place] [id number] [place] [address] Jul, Other viral agents as the ca use of diseases classified elsewhere B97.89 and Acute upper respiratory infection, unspecified J06.9 [place] [address] [address] Jul, Type 1 diabetes mellitus without complic ation E10.9 [place] [address] [address] Jul, [place] [address] [address] Jul, [place] [address] [address] Jul, [place] [address] [address] Jul, [place] [address] [address] Jul, Screening, deficiency anemia, iron Z13.0 [place] [address] [address] Jul, [facility] N [facility] [id number] [address] [place] [address] Jul, Suprapubic discomfort R10.2 ; Near syncope R55 ; Abdominal cramping R10.9 and Less than 8 weeks gestation of Z3A.01 [place] [address] [address] Jul, [place] [address] [address] Jun, Type I diabetes mellitus with complicati on E10.8 ; Mood disorder F39 and Bipolar disorder, most recent episode manic F31.10 [facility] [address] [address] May, Acute cystitis with hematuri a N30.01 [place] [address] [address] May, [place] [address] [address] May, Type 1 diabetes mellitus without complic ation E10.9 [place] [address] [address] May, Abrasion of toe of left foot, initial en counter S90.415A ; Type 1 diabetes mellitus without complication E10.9 ; Anxiety F41.9 ; Mood disorder F39 ; Essential hypertension I10 ; Migraine without aura and without status migrainosus, not intractable G43.009 ; Bipolar disorder, most recent episode manic F31.10 and Muscle spasm M62.838 [facility] [address] [place] [id number] [place] [address] Mar, Abrasion of toe of left foot , initial encounter S90.415A and Tooth pain K08.89 [place] [address] [address] Oct, [place] [address] [address] Oct, [place] [address] [address] Jul, [place] [address] [address] Jul, [facility] [address] [facility] [id number] [place] [address] Jun, [facility] [address] [id number] [place] [address] Jun, [facility] [address] [id number] [place] [address] May, [facility] [address] [id number] [place] [address] May, [facility] [address] [id number] [place] [address] May, [facility] [address] [id number] [place] [address] May, [facility] [address] [id number] [place] [address] May, [facility] [address] [id number] [place] [address] May, [facility] [address] [id number] [place] [address] May, [facility] [address] [id number] [place] [address] November, [facility] [address] [id number] [place] [address] November, [facility] [address] [id number] [place] [address] Oct, [facility] [address] [id number] [place] [address] Oct, [facility] [address] [id number] [place] [address] Oct, [facility] [address] [id number] [place] [address] Sep, [facility] [address] [id number] [place] [address] Sep, [facility] [address] [id number] [place] [address] 10 Sep, 2013 [facility] [address] [id number] [place] [address] Sep, [facility] [address] [id number] [place] [address] Sep, [facility] [address] [id number] [place] [address] Sep, [facility] [address] [id number] [place] [address] Sep, [facility] [address] [id number] [place] [address] Sep, [facility] [address] [id number] [place] [address] Aug, [facility] [address] [id number] [place] [address] Aug, [facility] [address] [id number] [place] [address] Aug, [facility] [address] [id number] [place] [address] Aug, [facility] [address] [id number] [place] [address] Aug, [facility] [address] [id number] [place] [address] Aug, [facility] [address] [id number] [place] [address] Aug, [facility] [address] [id number] [place] [address] Aug, [facility] [address] [id number] [place] [address] Aug, [facility] [address] [id number] [place] [address] Aug, [facility] [address] [id number] [place] [address] Aug, [facility] [address] [id number] [place] [address] Aug, [facility] [address] [id number] [place] [address] Aug, [facility] [address] [id number] [place] [address] Aug, [facility] [address] [id number] [place] [address] Aug, [facility] [address] [id number] [place] [address] Aug, [facility] [address] [id number] [place] [address] Jul, [facility] [address] [id number] [place] [address] Jul, [facility] [address] [id number] [place] [address] Jul, [facility] [address] [id number] [place] [address] Jul, [facility] [address] [id number] [place] [address] Jul, [facility] [address] [id number] [place] [address] Jul, [facility] [address] [id number] [place] [address] Jun, [facility] [address] [id number] [place] [address] Jun, [facility] [address] [id number] [place] [address] May, [facility] [address] [id number] [place] [address] May, [facility] [address] [id number] [place] [address] May, [facility] [address] [id number] [place] [address] May, [facility] [address] [facility] [id number] [place] [address] Apr, [facility] [address] [facility] [id number] [place] [address] Apr, IMMUNIZATIONS No Known Immunizations SOCIAL HISTORY Never Assessed REASON FOR VISIT PLAN OF CARE VITAL SIGNS Height 63 in 2013-08-15 Weight 160 lbs 2013-08-15 Temperature 98.9 degrees Fahrenheit 2013-08-15 Heart Rate 82 bpm 2013-08-15 Respiratory Rate 20 2013-08-15 Blood pressure systolic 100 mmHg 2013-08-15 Blood pressure diastolic 78 mmHg 2013-08-15 MEDICATIONS Unknown Medications RESULTS No Results PROCEDURES No Known procedures INSTRUCTIONS MEDICATIONS ADMINISTERED No Known Medications MEDICAL (GENERAL) HISTORY Type Description Date Medical History Type I Diabetes Medical History Anxiety Medical History ADHD Medical History Bipolar Disorders Medical History Chronic Migrains Medical History Hypertension, resolved with weight loss Surgical History Tonsilectomy Surgical History S[place]uma Teeth Extraction Hospitalization History [facility]-diagnosed with type I diabetes 2 016 Hospitalization History diabetes regulating 08/2017 Hospitalization History childbirth Hospitalization History [facility] 07/2019
--- OUTSIDE RECORDS SUMMARY | 2019-12-22 21:45 | XMS REPORT ---
Author Author Charlotte ORTA Organization [facility] Address [address] [place] [address] Care Team Providers Care Vat Tender Name Role Phone FRANKLYN ORTA Unavailable PROBLEMS Type Condition ICD9-CM Code ELB57-YP Code Onset Dates Condition S tatus SNOMED Code Problem Migraine without aura and without status migrain osus, not intractable G43.009 Active 125722698 Problem Muscle spasm M62.838 Active 2645425 6 Problem Essential hypertension I10 Active 67672862 Problem BMI 31.0-31.9,adult Z68.31 Active 126951286172116 Problem Type 1 diabetes mellitus without complication E10. 9 Active 531942842 Problem Seasonal allergies J30.2 Active 4 07125009 Problem Bipolar disorder, most recent episode manic F31.10 Active 60787642 Problem Mood disorder F39 Active 780878 05 Problem Anxiety F41.9 Active 22589809 Problem Type I diabetes mellitus with complication E10.8 Active 33093063 Problem Pityriasis rosea L42 Active 772 26171 ALLERGIES No Information ENCOUNTERS Encounter Location Date Diagnosis [facility] [id number] [place] [address] 10 Sep, 2019 [facility] [address] [address] Jul, [facility] [address] [facility] [id number] [place] [address] Jul, Blister of right foot, initi al encounter S90.821A [facility] [address] [address] Jul, [facility] [address] [address] Jul, [facility] [address] [id number] [place] [address] Jul, Abscess of great toe of left foot L02.612 and Cellulitis of toe of left foot L03.032 [address] [address] [address] Jun, [address] [address] [address] Jun, [place] [address] [address] Jun, Type 1 diabetes mellitus without complic ation E10.9 and BMI 31.0- 31.9,adult Z68.31 [place] [address] [address] May, Type 1 diabetes mellitus without complic ation E10.9 [place] [address] [address] Mar, Encounter for Depo-Provera contraception Z30.42 [place] [address] [address] Mar, Type 1 diabetes mellitus without complic ation E10.9 [place] [address] [address] Jan, Type 1 diabetes mellitus without complic ation E10.9 [place] [address] [address] Dec, Type 1 diabetes mellitus without complic ation E10.9 ; Seasonal allergies J30.2 and BMI 31.0-31.9,adult Z68.31 [place] [address] [address] Dec, [place] [address] [address] November, Type 1 diabetes mellitus without complic ation E10.9 [place] [address] [address] November, [facility] [id number] [place] [address] 14 Nov, 2018 Encounter for Depo-Provera contraception Z30.42 [facility] [address] [address] November, [facility] [address] [address] Oct, [facility] [address] [address] Sep, Type 1 diabetes mellitus without complic ation E10.9 [place] [address] [address] Sep, [place] [address] [address] Sep, [facility] [address] [facility] [id number] [address] [place] [address] Sep, Influenza A J10.1 [place] [address] [address] 13 Sep, 2018 [place] [address] [address] 11 Sep, 2018 Type 1 diabetes mellitus without complic ation E10.9 and BMI 31.0- 31.9,adult Z68.31 [place] [address] [address] Aug, control counseling Z30.09 and Enco unter for Depo-Provera contraception Z30.42 [place] [id number] [place] [address] Aug, Type I diabetes mellitus with complicati on E10.8 [place] [address] [address] Aug, [place] [address] [address] Aug, Type 1 diabetes mellitus without complic ation E10.9 [facility] [id number] [place] [address] Aug, [facility] [id number] [place] [address] Aug, [facility] [id number] [place] [address] Aug, [facility] [id number] [place] [address] Aug, [facility] [address] [facility] [id number] [place] [address] Jul, Pityriasis rosea L42 [facility] [address] [facility] [id number] [address] [address] Jul, Fungal dermatosis B36.9 [facility] [id number] [place] [address] Jul, [facility] [id number] [place] [address] Jun, [facility] [id number] [place] [address] Jun, [facility] [id number] [place] [address] May, Type I diabetes mellitus with complicati on E10.8 [facility] [id number] [place] [address] Apr, Type I diabetes mellitus with complicati on E10.8 [facility] [id number] [place] [address] Mar, [facility] [id number] [place] [address] Jan, Type I diabetes mellitus with complicati on E10.8 and Essential hypertension I10 [facility] [id number] [place] [address] Jan, Type I diabetes mellitus with complicati on E10.8 [facility] [id number] [place] [address] Jan, [facility] [id number] [place] [address] Jan, [facility] [id number] [place] [address] Jan, Type I diabetes mellitus with complicati on E10.8 [facility] [id number] [place] [address] Jan, [facility] [id number] [place] [address] Jan, [facility] [id number] [place] [address] Jan, Type I diabetes mellitus with complicati on E10.8 ; Upper respiratory tract infection, unspecified type J06.9 and delivery O60.10X0 [facility] [id number] [place] [address] Jan, [facility] [id number] [place] [address] November, [facility] [id number] [place] [address] November, [facility] [address] [id number] [place] [address] Sep, [facility] [id number] [place] [address] Sep, [facility] [id number] [place] [address] Sep, [facility] [address] [facility] [id number] [address] [place] [address] Sep, Dysuria R30.0 and Normal pre gnancy in second trimester Z34.92 [facility] [id number] [place] [address] Sep, [facility] [id number] [place] [address] Sep, [facility] [id number] [place] [address] Sep, [facility] [id number] [address] Sep, [facility] [id number] [place] [address] Aug, [facility] [address] [address] Jul, [facility] [address] [address] Jul, [facility] [address] [address] Jul, [facility] [id number] [place] [address] Jul, Other viral agents as the ca use of diseases classified elsewhere B97.89 and Acute upper respiratory infection, unspecified J06.9 [facility] [address] [address] Jul, Type 1 diabetes mellitus without complic ation E10.9 [facility] [id number] [place] [address] Jul, [facility] [address] [address] Jul, [facility] [id number] [place] [address] Jul, [facility] [address] [address] Jul, [facility] [address] [address] Jul, Screening, deficiency anemia, iron Z13.0 [facility] [id number] [place] [address] Jul, [facility] [id number] [place] [address] 05 Jul, 2017 Suprapubic discomfort R10.2 ; Near syncope R55 ; Abdominal cramping R10.9 and Less than 8 weeks gestation of Z3A.01 [address] [address] [address] Jul, [place] [address] [address] Jun, Type I diabetes mellitus with complicati on E10.8 ; Mood disorder F39 and Bipolar disorder, most recent episode manic F31.10 [facility] [address] [address] May, Acute cystitis with hematuri a N30.01 [address] [address] [address] May, [place] [address] [address] May, Type 1 diabetes mellitus without complic ation E10.9 [address] [address] [address] May, Abrasion of toe of left foot, initial en counter S90.415A ; Type 1 diabetes mellitus without complication E10.9 ; Anxiety F41.9 ; Mood disorder F39 ; Essential hypertension I10 ; Migraine without aura and without status migrainosus, not intractable G43.009 ; Bipolar disorder, most recent episode manic F31.10 and Muscle spasm M62.838 [facility] [id number] [place] [address] Mar, Abrasion of toe of left foot , initial encounter S90.415A and Tooth pain K08.89 [address] [address] [address] Oct, [address] [address] [address] Oct, [place] [address] [place] [address] Jul, [facility] [address] [id number] [place] [address] Jul, [facility] [address] [id number] [place] [address] Jun, [facility] [address] [id number] [place] [address] Jun, [facility] [address] [id number] [place] [address] May, [facility] [address] [id number] [place] [address] May, [facility] [address] [id number] [place] [address] May, [facility] [address] [id number] [place] [address] May, [facility] [address] [id number] [place] [address] May, [facility] [address] [id number] [place] [address] May, [facility] [address] [id number] [place] [address] May, [facility] [address] [id number] [place] [address] November, [facility] [address] [id number] [place] [address] November, [facility] [address] [id number] [place] [address] Oct, [facility] [address] [id number] [place] [address] Oct, [facility] [address] [id number] [place] [address] Oct, [facility] [address] [id number] [place] [address] Sep, [facility] [address] [id number] [place] [address] Sep, [facility] [address] [id number] [place] [address] Sep, [facility] [address] [id number] [place] [address] Sep, [facility] [address] [id number] [place] [address] Sep, [facility] [address] [id number] [place] [address] Sep, [facility] [address] [id number] [place] [address] Sep, [facility] [address] [id number] [place] [address] Sep, [facility] [address] [id number] [place] [address] Aug, [facility] [address] [id number] [place] [address] Aug, [facility] [address] [id number] [place] [address] Aug, [facility] [address] [id number] [place] [address] Aug, [facility] [address] [id number] [place] [address] Aug, [facility] [address] [id number] [place] [address] Aug, [facility] [address] [id number] [place] [address] Aug, [facility] [address] [id number] [place] [address] Aug, [facility] [address] [id number] [place] [address] Aug, [facility] [address] [id number] [place] [address] Aug, [facility] [address] [id number] [place] [address] Aug, [facility] [address] [id number] [place] [address] Aug, [facility] [address] [id number] [place] [address] Aug, [facility] [address] [id number] [place] [address] Aug, [facility] [address] [id number] [place] [address] Aug, [facility] [address] [id number] [place] [address] Aug, [facility] [address] [id number] [place] [address] Jul, [facility] [address] [id number] [place] [address] Jul, [facility] [address] [id number] [place] [address] Jul, [facility] [address] [id number] [place] [address] Jul, [facility] [address] [id number] [place] [address] Jul, [facility] [address] [id number] [place] [address] Jul, [facility] [address] [id number] [place] [address] Jun, [facility] [address] [id number] [place] [address] Jun, [facility] [address] [id number] [place] [address] May, [facility] [address] [id number] [place] [address] May, [facility] [address] [id number] [place] [address] May, [facility] [address] [id number] [place] [address] May, [facility] [address] [id number] [place] [address] Apr, [facility] [address] [id number] [place] [address] Apr, IMMUNIZATIONS No Known Immunizations SOCIAL HISTORY Never Assessed REASON FOR VISIT PLAN OF CARE VITAL SIGNS Height 63 in 2013-08-29 Weight 152.2 lbs 2013-08-29 Temperature 100 degrees Fahrenheit 2013-08-29 Heart Rate 88 bpm 2013-08-29 Respiratory Rate 18 2013-08-29 Blood pressure systolic 120 mmHg 2013-08-29 Blood pressure diastolic 68 mmHg 2013-08-29 MEDICATIONS Unknown Medications RESULTS No Results PROCEDURES No Known procedures INSTRUCTIONS MEDICATIONS ADMINISTERED No Known Medications MEDICAL (GENERAL) HISTORY Type Description Date Medical History Type I Diabetes Medical History Anxiety Medical History ADHD Medical History Bipolar Disorders Medical History Chronic Migrains Medical History Hypertension, resolved with weight loss Surgical History Tonsilectomy Surgical History [place] Teeth Extraction Hospitalization History [facility]-diagnosed with type I diabetes 2 016 Hospitalization History diabetes regulating 08/2017 Hospitalization History childbirth Hospitalization History [facility] 07/2019
--- OUTSIDE RECORDS SUMMARY | 2019-12-22 21:45 | XMS REPORT ---
Author Author Charlotte Eller Doctor Organization [facility] Address Unknown Phone Unavailable Care Team Providers Care Audio Visual Secretary Name Role Phone Migration, Doctor Unavailable Unavailable PROBLEMS Type Condition ICD9-CM Code [id number] Code Onset Dates Condition S tatus SNOMED Code Problem Migraine without aura and without status migrain osus, not intractable G43.009 Active 050054522 Problem Muscle spasm M62.838 Active 0453194 6 Problem Essential hypertension I10 Active 17761122 Problem BMI 31.0-31.9,adult Z68.31 Active 400644496294814 Problem Type 1 diabetes mellitus without complication E10. 9 Active 183877122 Problem Seasonal allergies J30.2 Active 4 32774941 Problem Bipolar disorder, most recent episode manic F31.10 Active 07434173 Problem Mood disorder F39 Active 793358 05 Problem Anxiety F41.9 Active 60709651 Problem Type I diabetes mellitus with complication E10.8 Active 65016776 Problem Pityriasis rosea L42 Active 772 33623 ALLERGIES No Information ENCOUNTERS Encounter Location Date Diagnosis [place] [address] [address] 10 Sep, 2019 [facility] [address] [address] Jul, [facility] [address] [place] [id number] [address] [place] [address] Jul, Blister of right foot, initi al encounter S90.821A [facility] [address] [address] Jul, [facility] [address] [address] Jul, [facility] [address] [facility] [id number] [address] [place] [address] Jul, Abscess of great toe of left foot L02.612 and Cellulitis of toe of left foot L03.032 [place] [address] [address] Jun, [place] [address] [address] Jun, [place] [address] [address] Jun, Type 1 diabetes mellitus without complic ation E10.9 and BMI 31.0- 31.9,adult Z68.31 [place] [address] [address] May, Type 1 diabetes mellitus without complic ation E10.9 [place] [address] [address] Mar, Encounter for Depo-Provera contraception Z30.42 [place] [address] [address] Mar, Type 1 diabetes mellitus without complic ation E10.9 [place] [address] [address] Jan, Type 1 diabetes mellitus without complic ation E10.9 [place] [address] [address] Dec, Type 1 diabetes mellitus without complic ation E10.9 ; Seasonal allergies J30.2 and BMI 31.0-31.9,adult Z68.31 [place] [address] [address] Dec, [place] [address] [address] November, Type 1 diabetes mellitus without complic ation E10.9 [place] [address] [address] November, [place] [address] [address] November, Encounter for Depo-Provera contraception Z30.42 [facility] [address] [id number] [place] [address] 10 Nov, 2018 [facility] [address] [address] Oct, [facility] [address] [place] [id number] [place] [address] 28 Sep, 2018 Type 1 diabetes mellitus without complic ation E10.9 [facility] [address] [address] Sep, [facility] [address] [address] Sep, [facility] [address] [facility] [id number] [address] [place] [address] 25 Sep, 2018 Influenza A J10.1 [place] [address] [address] 13 Sep, 2018 [facility] [address] [address] 11 Sep, 2018 Type 1 diabetes mellitus without complic ation E10.9 and BMI 31.0- 31.9,adult Z68.31 [place] [address] [address] 28 Aug, 2018 control counseling Z30.09 and Enco unter for Depo-Provera contraception Z30.42 [place] [address] [address] 16 Aug, 2018 Type I diabetes mellitus with complicati on E10.8 [place] [address] [address] Aug, [place] [address] [address] Aug, Type 1 diabetes mellitus without complic ation E10.9 [place] [address] [address] Aug, [place] [address] [place] [id number] [place] [address] Aug, [facility] [address] [place] [id number] [place] [address] Aug, [facility] [address] [place] [id number] [place] [address] Aug, [facility] [address] [facility] [id number] [place] [address] Jul, Pityriasis rosea L42 [facility] [address] [facility] [id number] [place] [address] Jul, Fungal dermatosis B36.9 [facility] [address] [place] [id number] [place] [address] Jul, [facility] [address] [place] [id number] [place] [address] Jun, [facility] [address] [place] [id number] [place] [address] Jun, [facility] [address] [place] [id number] [place] [address] May, Type I diabetes mellitus with complicati on E10.8 [facility] [address] [place] [id number] [place] [address] Apr, Type I diabetes mellitus with complicati on E10.8 [facility] [address] [place] [id number] [place] [address] Mar, [facility] [address] [place] [id number] [place] [address] Jan, Type I diabetes mellitus with complicati on E10.8 and Essential hypertension I10 [facility] [address] [place] [id number] [place] [address] Jan, Type I diabetes mellitus with complicati on E10.8 [facility] [address] [address] Jan, [facility] [address] [place] [address] Jan, [facility] [address] [place] [id number] [place] [address] Jan, Type I diabetes mellitus with complicati on E10.8 [facility] [address] [place] [id number] [place] [address] Jan, [facility] [address] [address] Jan, [facility] [address] [address] Jan, Type I diabetes mellitus with complicati on E10.8 ; Upper respiratory tract infection, unspecified type J06.9 and delivery O60.10X0 [facility] [address] [address] Jan, [facility] [address] [address] November, [facility] [address] [address] November, [facility] [address] [address] Sep, [facility] [address] [address] Sep, [facility] [address] [id number] [place] [address] Sep, [facility] [address] [facility] [id number] [place] [address] Sep, Dysuria R30.0 and Normal pre gnancy in second trimester Z34.92 [facility] [address] [address] Sep, [facility] [address] [address] Sep, [facility] [address] [address] Sep, [facility] [address] [facility] [id number] [address] [place] [address] Sep, [place] [address] [address] Aug, [facility] [address] [address] Jul, [place] [address] [address] Jul, [place] [address] [address] Jul, [facility] [place] [address] [place] [id number] [address] [place] [address] Jul, Other viral agents as the ca use of diseases classified elsewhere B97.89 and Acute upper respiratory infection, unspecified J06.9 [place] [address] [address] Jul, Type 1 diabetes mellitus without complic ation E10.9 [place] [address] [address] Jul, [place] [address] [address] Jul, [place] [address] [address] Jul, [place] [address] [address] Jul, [place] [address] [address] Jul, Screening, deficiency anemia, iron Z13.0 [place] [address] [address] Jul, [facility] N [facility] [id number] [address] [place] [address] Jul, Suprapubic discomfort R10.2 ; Near syncope R55 ; Abdominal cramping R10.9 and Less than 8 weeks gestation of Z3A.01 [place] [address] [address] Jul, [place] [address] [address] Jun, Type I diabetes mellitus with complicati on E10.8 ; Mood disorder F39 and Bipolar disorder, most recent episode manic F31.10 [facility] [address] [address] May, Acute cystitis with hematuri a N30.01 [place] [address] [address] May, [place] [address] [address] May, Type 1 diabetes mellitus without complic ation E10.9 [place] [address] [address] May, Abrasion of toe of left foot, initial en counter S90.415A ; Type 1 diabetes mellitus without complication E10.9 ; Anxiety F41.9 ; Mood disorder F39 ; Essential hypertension I10 ; Migraine without aura and without status migrainosus, not intractable G43.009 ; Bipolar disorder, most recent episode manic F31.10 and Muscle spasm M62.838 [facility] [address] [place] [id number] [address] [place] [address] Mar, Abrasion of toe of left foot , initial encounter S90.415A and Tooth pain K08.89 [place] [address] [address] Oct, [place] [address] [address] Oct, [place] [address] [address] Jul, [place] [address] [address] Jul, [facility] [address] [facility] [id number] [place] [address] Jun, [facility] [address] [id number] [place] [address] Jun, [facility] [address] [id number] [place] [address] May, [facility] [address] [id number] [place] [address] May, [facility] [address] [id number] [place] [address] May, [facility] [address] [id number] [place] [address] May, [facility] [address] [id number] [place] [address] May, [facility] [address] [id number] [place] [address] May, [facility] [address] [id number] [place] [address] May, [facility] [address] [id number] [place] [address] November, [facility] [address] [id number] [place] [address] November, [facility] [address] [id number] [place] [address] Oct, [facility] [address] [id number] [place] [address] Oct, [facility] [address] [id number] [place] [address] Oct, [facility] [address] [id number] [place] [address] Sep, [facility] [address] [id number] [place] [address] Sep, [facility] [address] [id number] [place] [address] 10 Sep, 2013 [facility] [address] [id number] [place] [address] Sep, [facility] [address] [id number] [place] [address] Sep, [facility] [address] [id number] [place] [address] Sep, [facility] [address] [id number] [place] [address] Sep, [facility] [address] [id number] [place] [address] Sep, [facility] [address] [id number] [place] [address] Aug, [facility] [address] [id number] [place] [address] Aug, [facility] [address] [id number] [place] [address] Aug, [facility] [address] [id number] [place] [address] Aug, [facility] [address] [id number] [place] [address] Aug, [facility] [address] [id number] [place] [address] Aug, [facility] [address] [id number] [place] [address] Aug, [facility] [address] [id number] [place] [address] Aug, [facility] [address] [id number] [place] [address] Aug, [facility] [address] [id number] [place] [address] Aug, [facility] [address] [id number] [place] [address] Aug, [facility] [address] [id number] [place] [address] Aug, [facility] [address] [id number] [place] [address] Aug, [facility] [address] [id number] [place] [address] Aug, [facility] [address] [id number] [place] [address] Aug, [facility] [address] [id number] [place] [address] Aug, [facility] [address] [id number] [place] [address] Jul, [facility] [address] [id number] [place] [address] Jul, [facility] [address] [id number] [place] [address] Jul, [facility] [address] [id number] [place] [address] Jul, [facility] [address] [id number] [place] [address] Jul, [facility] [address] [id number] [place] [address] Jul, [facility] [address] [id number] [place] [address] Jun, [facility] [address] [id number] [place] [address] Jun, [facility] [address] [id number] [place] [address] May, [facility] [address] [id number] [place] [address] May, [facility] [address] [id number] [place] [address] May, [facility] [address] [id number] [place] [address] May, [facility] [address] [facility] [id number] [place] [address] Apr, [facility] [address] [facility] [id number] [place] [address] Apr, IMMUNIZATIONS No Known Immunizations SOCIAL HISTORY Never Assessed REASON FOR VISIT PLAN OF CARE VITAL SIGNS MEDICATIONS Unknown Medications RESULTS No Results PROCEDURES Procedure Date Ordered Result Body Site PSYTX PT&/FAMILY 45 MINUTES Aug 08, 2013 INSTRUCTIONS MEDICATIONS ADMINISTERED No Known Medications MEDICAL (GENERAL) HISTORY Type Description Date Medical History Type I Diabetes Medical History Anxiety Medical History ADHD Medical History Bipolar Disorders Medical History Chronic Migrains Medical History Hypertension, resolved with weight loss Surgical History Tonsilectomy Surgical History [place] Teeth Extraction Hospitalization History [facility]-diagnosed with type I diabetes 2 016 Hospitalization History diabetes regulating 08/2017 Hospitalization History childbirth Hospitalization [facility] 07[facility]2019
--- OUTSIDE RECORDS SUMMARY | 2019-12-22 21:46 | XMS REPORT ---
Author Author Charlotte Zheng Organization [facility] Address [address] [place] [address] Care Team Providers Care Supervisor Transferring And Boxing Name Role Phone RYANNE Zheng Unavailable PROBLEMS Type Condition ICD9-CM Code MON86-YO Code Onset Dates Condition S tatus SNOMED Code Problem Migraine without aura and without status migrain osus, not intractable G43.009 Active 216860296 Problem Muscle spasm M62.838 Active 0253378 6 Problem Essential hypertension I10 Active 20836882 Problem BMI 31.0-31.9,adult Z68.31 Active 859488123911796 Problem Type 1 diabetes mellitus without complication E10. 9 Active 817156515 Problem Seasonal allergies J30.2 Active 4 12459118 Problem Bipolar disorder, most recent episode manic F31.10 Active 91564336 Problem Mood disorder F39 Active 718760 05 Problem Anxiety F41.9 Active 29174901 Problem Type I diabetes mellitus with complication E10.8 Active 36120255 Problem Pityriasis rosea L42 Active 772 73413 ALLERGIES No Information ENCOUNTERS Encounter Location Date Diagnosis [place] [id number] [place] [address] 10 Sep, 2019 [facility] [id number] [place] [address] Jul, [facility] [address] [facility] [id number] [address] [address] Jul, Blister of right foot, initi al encounter S90.821A [facility] [id number] [place] [address] Jul, [facility] [id number] [place] [address] Jul, [facility] [address] [id number] [address] [place] [address] Jul, Abscess of great toe of left foot L02.612 and Cellulitis of toe of left foot L03.032 [place] [address] [address] Jun, [place] [address] [address] Jun, [place] [address] [address] Jun, Type 1 diabetes mellitus without complic ation E10.9 and BMI 31.0- 31.9,adult Z68.31 [place] [address] [address] May, Type 1 diabetes mellitus without complic ation E10.9 [place] [address] [address] Mar, Encounter for Depo-Provera contraception Z30.42 [place] [address] [address] Mar, Type 1 diabetes mellitus without complic ation E10.9 [place] [address] [address] Jan, Type 1 diabetes mellitus without complic ation E10.9 [place] [address] [address] Dec, Type 1 diabetes mellitus without complic ation E10.9 ; Seasonal allergies J30.2 and BMI 31.0-31.9,adult Z68.31 [place] [address] [address] Dec, [place] [address] [address] November, Type 1 diabetes mellitus without complic ation E10.9 [place] [address] [address] November, [place] [id number] [place] [address] 14 Nov, 2018 Encounter for Depo-Provera contraception Z30.42 [facility] [address] [address] 10 Nov, 2018 [facility] [address] [address] Oct, [facility] [address] [address] Sep, Type 1 diabetes mellitus without complic ation E10.9 [place] [address] [address] Sep, [place] [address] [address] Sep, [facility] [address] [facility] [id number] [address] [address] 25 Sep, 2018 Influenza A J10.1 [place] [address] [address] 13 Sep, 2018 [place] [address] [address] 11 Sep, 2018 Type 1 diabetes mellitus without complic ation E10.9 and BMI 31.0- 31.9,adult Z68.31 [place] [address] [address] Aug, control counseling Z30.09 and En[place] unter for Depo-Provera contraception Z30.42 [place] [address] [address] Aug, Type I diabetes mellitus with complicati on E10.8 [place] [address] [address] Aug, [place] [address] [address] Aug, Type 1 diabetes mellitus without complic ation E10.9 [place] [id number] [place] [address] Aug, [facility] [id number] [place] [address] Aug, [facility] [id number] [place] [address] Aug, [facility] [id number] [place] [address] Aug, [facility] [address] [facility] [id number] [address] [place] [address] Jul, Pityriasis rosea L42 [facility] [address] [facility] [id number] [address] [place] [address] Jul, Fungal dermatosis B36.9 [facility] [id number] [place] [address] Jul, [facility] [id number] [place] [address] Jun, [facility] [id number] [place] [address] Jun, [facility] [id number] [place] [address] May, Type I diabetes mellitus with complicati on E10.8 [facility] [id number] [place] [address] Apr, Type I diabetes mellitus with complicati on E10.8 [facility] [id number] [place] [address] Mar, [facility] [id number] [place] [address] Jan, Type I diabetes mellitus with complicati on E10.8 and Essential hypertension I10 [facility] [id number] [place] [address] Jan, Type I diabetes mellitus with complicati on E10.8 [facility] [id number] [place] [address] Jan, [facility] [id number] [place] [address] Jan, [facility] [id number] [place] [address] Jan, Type I diabetes mellitus with complicati on E10.8 [facility] [id number] [place] [address] Jan, [facility] [id number] [place] [address] Jan, [facility] [address] [address] Jan, Type I diabetes mellitus with complicati on E10.8 ; Upper respiratory tract infection, unspecified type J06.9 and delivery O60.10X0 [facility] [id number] [place] [address] Jan, [facility] [id number] [place] [address] November, [facility] [address] [address] November, [facility] [id number] [place] [address] Sep, [facility] [id number] [place] [address] Sep, [facility] [id number] [place] [address] Sep, [facility] [address] [facility] [id number] [address] [place] [address] Sep, Dysuria R30.0 and Normal pre gnancy in second trimester Z34.92 [facility] [id number] [place] [address] Sep, [facility] [id number] [place] [address] Sep, [facility] [id number] [place] [address] Sep, [facility] [address] [facility] [id number] [address] [place] [address] Sep, [facility] [id number] [place] [address] Aug, [facility] [id number] [place] [address] Jul, [facility] [address] [address] Jul, [facility] [address] [address] Jul, [facility] [id number] [place] [address] Jul, Other viral agents as the ca use of diseases classified elsewhere B97.89 and Acute upper respiratory infection, unspecified J06.9 [facility] [id number] [place] [address] Jul, Type 1 diabetes mellitus without complic ation E10.9 [facility] [id number] [place] [address] Jul, [facility] [id number] [place] [address] Jul, [facility] [id number] [place] [address] Jul, [facility] [id number] [place] [address] Jul, [facility] [address] [address] Jul, Screening, deficiency anemia, iron Z13.0 [facility] [id number] [place] [address] 05 Jul, 2017 [facility] [id number] [place] [address] 05 Jul, 2017 Suprapubic discomfort R10.2 ; Near syncope R55 ; Abdominal cramping R10.9 and Less than 8 weeks gestation of Z3A.01 [place] [address] [address] Jul, [place] [address] [address] Jun, Type I diabetes mellitus with complicati on E10.8 ; Mood disorder F39 and Bipolar disorder, most recent episode manic F31.[address] [facility] [address] [address] May, Acute cystitis with hematuri a N30.01 [place] [address] [address] May, [place] [address] [address] May, Type 1 diabetes mellitus without complic ation E10.9 [place] [address] [address] May, Abrasion of toe of left foot, initial en counter S90.415A ; Type 1 diabetes mellitus without complication E10.9 ; Anxiety F41.9 ; Mood disorder F39 ; Essential hypertension I10 ; Migraine without aura and without status migrainosus, not intractable G43.009 ; Bipolar disorder, most recent episode manic F31.10 and Muscle spasm M62.[address] [facility] [id number] [place] [address] Mar, Abrasion of toe of left foot , initial encounter S90.415A and Tooth pain K08.89 [place] [address] [address] Oct, [place] [address] [address] Oct, [place] [address] [address] Jul, [facility] [address] [facility] [id number] [place] [address] Jul, [facility] [address] [id number] [place] [address] Jun, [facility] [address] [id number] [place] [address] Jun, [facility] [address] [id number] [place] [address] May, [facility] [address] [id number] [place] [address] May, [facility] [address] [id number] [place] [address] May, [facility] [address] [id number] [place] [address] May, [facility] [address] [id number] [place] [address] May, [facility] [address] [id number] [place] [address] May, [facility] [address] [id number] [place] [address] May, [facility] [address] [id number] [place] [address] November, [facility] [address] [id number] [place] [address] November, [facility] [address] [id number] [place] [address] Oct, [facility] [address] [id number] [place] [address] Oct, [facility] [address] [id number] [place] [address] Oct, [facility] [address] [id number] [place] [address] Sep, [facility] [address] [id number] [place] [address] 13 Sep, 2013 [facility] [address] [id number] [place] [address] Sep, [facility] [address] [id number] [place] [address] Sep, [facility] [address] [id number] [place] [address] Sep, [facility] [address] [id number] [place] [address] Sep, [facility] [address] [id number] [place] [address] Sep, [facility] [address] [id number] [place] [address] Sep, [facility] [address] [id number] [place] [address] Aug, [facility] [address] [id number] [place] [address] Aug, [facility] [address] [id number] [place] [address] Aug, [facility] [address] [id number] [place] [address] Aug, [facility] [address] [id number] [place] [address] Aug, [facility] [address] [id number] [place] [address] Aug, [facility] [address] [id number] [place] [address] Aug, [facility] [address] [id number] [place] [address] 14 Aug, 2013 [facility] [address] [id number] [place] [address] 14 Aug, 2013 [facility] [address] [id number] [place] [address] Aug, [facility] [address] [id number] [place] [address] Aug, [facility] [address] [id number] [place] [address] Aug, [facility] [address] [id number] [place] [address] Aug, [facility] [address] [id number] [place] [address] Aug, [facility] [address] [id number] [place] [address] Aug, [facility] [address] [id number] [place] [address] Aug, [facility] [address] [id number] [place] [address] Jul, [facility] [address] [id number] [place] [address] Jul, [facility] [address] [id number] [place] [address] Jul, [facility] [address] [id number] [place] [address] Jul, [facility] [address] [id number] [place] [address] Jul, [facility] [address] [id number] [place] [address] Jul, [facility] [address] [id number] [place] [address] Jun, [facility] [address] [id number] [place] [address] Jun, [facility] [address] [id number] [place] [address] May, [facility] [address] [id number] [place] [address] May, [facility] [address] [id number] [place] [address] May, [facility] [address] [id number] [place] [address] May, [facility] [address] [id number] [place] [address] Apr, [facility] [address] [id number] [place] [address] Apr, IMMUNIZATIONS No Known Immunizations SOCIAL HISTORY Never Assessed REASON FOR VISIT PLAN OF CARE VITAL SIGNS Height 63 in 2013-10-09 Weight 155 lbs 2013-10-09 Temperature 97.4 degrees Fahrenheit 2013-10-09 Heart Rate 84 bpm 2013-10-09 Respiratory Rate 14 2013-10-09 Blood pressure systolic 120 mmHg 2013-10-09 Blood pressure diastolic 74 mmHg 2013-10-09 MEDICATIONS Unknown Medications RESULTS No Results PROCEDURES Procedure Date Ordered Result Body Site VISUAL ACUITY SCREEN October 09, 2013 INSTRUCTIONS MEDICATIONS ADMINISTERED No Known Medications MEDICAL (GENERAL) HISTORY Type Description Date Medical History Type I Diabetes Medical History Anxiety Medical History ADHD Medical History Bipolar Disorders Medical History Chronic Migrains Medical History Hypertension, resolved with weight loss Surgical History Tonsilectomy Surgical History [place] Teeth Extraction Hospitalization History [facility]-diagnosed with type I diabetes 2 016 Hospitalization History diabetes regulating 08/2017 Hospitalization History childbirth Hospitalization History [facility] 07[facility]2019
--- OUTSIDE RECORDS SUMMARY | 2019-12-22 21:46 | XMS REPORT ---
Author Author Charlotte Bello Organization [facility] Address [address] [place] [address] Care Team Providers Care Student Activities Director Name Role Phone ROBERT Bello Unavailable PROBLEMS Type Condition ICD9-CM Code YJR11-WN Code Onset Dates Condition S tatus SNOMED Code Problem Migraine without aura and without status migrain osus, not intractable G43.009 Active 287960112 Problem Muscle spasm M62.838 Active 1633938 6 Problem Essential hypertension I10 Active 33832719 Problem BMI 31.0-31.9,adult Z68.31 Active 052280166953021 Problem Type 1 diabetes mellitus without complication E10. 9 Active 858679620 Problem Seasonal allergies J30.2 Active 4 47565897 Problem Bipolar disorder, most recent episode manic F31.10 Active 38932539 Problem Mood disorder F39 Active 342807 05 Problem Anxiety F41.9 Active 98728209 Problem Type I diabetes mellitus with complication E10.8 Active 39774901 Problem Pityriasis rosea L42 Active 772 55807 ALLERGIES No Information ENCOUNTERS Encounter Location Date Diagnosis [facility] [address] [address] Sep, [facility] [address] [address] Jul, [facility] [address] [facility] [id number] [address] [place] [address] Jul, Blister of right foot, initi al encounter S90.821A [facility] [address] [address] Jul, [facility] [address] [address] Jul, [facility] [address] [facility] [id number] [address] [place] [address] 03 Jul, 2019 Abscess of great toe of left foot L02.612 and Cellulitis of toe of left foot L03.032 [place] [address] [address] Jun, [place] [address] [address] Jun, [place] [address] [address] Jun, Type 1 diabetes mellitus without complic ation E10.9 and BMI 31.0- 31.9,adult Z68.31 [place] [address] [address] 16 May, 2019 Type 1 diabetes mellitus without complic ation E10.9 [place] [address] [address] Mar, Encounter for Depo-Provera contraception Z30.42 [place] [address] [address] Mar, Type 1 diabetes mellitus without complic ation E10.9 [place] [address] [address] Jan, Type 1 diabetes mellitus without complic ation E10.9 [place] [address] [address] Dec, Type 1 diabetes mellitus without complic ation E10.9 ; Seasonal allergies J30.2 and BMI 31.0-31.9,adult Z68.31 [place] [address] [address] Dec, [place] [address] [address] November, Type 1 diabetes mellitus without complic ation E10.9 [place] [address] [address] November, [place] [address] [place] [id number] [place] [address] 14 Nov, 2018 Encounter for Depo-Provera contraception Z30.42 [facility] [address] [address] 10 Nov, 2018 [facility] [address] [address] Oct, [place] [address] [address] Sep, Type 1 diabetes mellitus without complic ation E10.9 [place] [address] [address] Sep, [place] [address] [address] Sep, [facility] [address] [facility] [id number] [address] [place] [address] 25 Sep, 2018 Influenza A J10.1 [place] [address] [address] 13 Sep, 2018 [place] [address] [address] 11 Sep, 2018 Type 1 diabetes mellitus without complic ation E10.9 and BMI 31.0- 31.9,adult Z68.31 [place] [address] [address] 28 Aug, 2018 control counseling Z30.09 and [place] unter for Depo-Provera contraception Z30.42 [place] [address] [address] Aug, Type I diabetes mellitus with complicati on E10.8 [place] [address] [address] Aug, [place] [address] [address] Aug, Type 1 diabetes mellitus without complic ation E10.9 [place] [address] [place] [id number] [place] [address] 16 Aug, 2018 [facility] [address] [place] [id number] [place] [address] Aug, [facility] [address] [place] [id number] [place] [address] Aug, [facility] [address] [id number] [place] [address] Aug, [facility] [address] [facility] [id number] [address] [place] [address] Jul, Pityriasis rosea L42 [facility] [address] [facility] [id number] [address] [place] [address] Jul, Fungal dermatosis B36.9 [facility] [address] [place] [id number] [place] [address] Jul, [facility] [address] [place] [id number] [place] [address] Jun, [facility] [address] [place] [id number] [place] [address] Jun, [facility] [address] [place] [id number] [place] [address] May, Type I diabetes mellitus with complicati on E10.8 [facility] [address] [place] [id number] [place] [address] Apr, Type I diabetes mellitus with complicati on E10.8 [facility] [address] [place] [id number] [place] [address] Mar, [facility] [address] [place] [id number] [place] [address] Jan, Type I diabetes mellitus with complicati on E10.8 and Essential hypertension I10 [facility] [address] [place] [id number] [place] [address] Jan, Type I diabetes mellitus with complicati on E10.8 [facility] [address] [place] [id number] [place] [address] Jan, [facility] [address] [place] [id number] [place] [address] Jan, [facility] [address] [place] [id number] [place] [address] Jan, Type I diabetes mellitus with complicati on E10.8 [facility] [address] [address] Jan, [facility] [address] [address] Jan, [facility] [address] [address] Jan, Type I diabetes mellitus with complicati on E10.8 ; Upper respiratory tract infection, unspecified type J06.9 and delivery O60.10X0 [facility] [address] [address] Jan, [facility] [address] [place] [id number] [place] [address] November, [facility] [address] [address] November, [facility] [address] [place] [id number] [place] [address] Sep, [facility] [address] [address] Sep, [facility] [address] [address] Sep, [facility] [address] [facility] [id number] [address] [place] [address] Sep, Dysuria R30.0 and Normal pre gnancy in second trimester Z34.92 [facility] [address] [id number] [place] [address] Sep, [facility] [address] [address] Sep, [facility] [address] [place] [id number] [place] [address] Sep, [facility] [address] [place] [id number] [address] [place] [address] Sep, [facility] [address] [place] [id number] [place] [address] Aug, [facility] [address] [address] Jul, [facility] [address] [address] Jul, [facility] [address] [address] Jul, [facility] [address] [place] [id number] [place] [address] Jul, Other viral agents as the ca use of diseases classified elsewhere B97.89 and Acute upper respiratory infection, unspecified J06.9 [facility] [address] [address] Jul, Type 1 diabetes mellitus without complic ation E10.9 [facility] [address] [place] [id number] [place] [address] Jul, [facility] [address] [address] Jul, [facility] [address] [place] [id number] [place] [address] Jul, [facility] [address] [address] Jul, [facility] [address] [address] Jul, Screening, deficiency anemia, iron Z13.0 [facility] [address] [place] [id number] [place] [address] Jul, [facility] [address] [place] [id number] [address] [place] [address] Jul, Suprapubic discomfort R10.2 ; Near syncope R55 ; Abdominal cramping R10.9 and Less than 8 weeks gestation of Z3A.01 [place] [address] [address] Jul, [place] [address] [address] Jun, Type I diabetes mellitus with complicati on E10.8 ; Mood disorder F39 and Bipolar disorder, most recent episode manic F31.10 [facility] [address] [place] [id number] [place] [address] May, Acute cystitis with hematuri a N30.01 [place] [address] [address] May, [place] [address] [address] May, Type 1 diabetes mellitus without complic ation E10.9 [place] [address] [address] May, Abrasion of toe of left foot, initial en counter S90.415A ; Type 1 diabetes mellitus without complication E10.9 ; Anxiety F41.9 ; Mood disorder F39 ; Essential hypertension I10 ; Migraine without aura and without status migrainosus, not intractable G43.009 ; Bipolar disorder, most recent episode manic F31.10 and Muscle spasm M62.838 [facility] [address] [facility] [id number] [address] [place] [address] Mar, Abrasion of toe of left foot , initial encounter S90.415A and Tooth pain K08.89 [place] [address] [address] Oct, [place] [address] [address] Oct, [place] [address] [address] Jul, [facility] [address] [facility] [id number] [place] [address] Jul, [facility] [address] [id number] [place] [address] Jun, [facility] [address] [id number] [place] [address] Jun, [facility] [address] [id number] [place] [address] May, [facility] [address] [id number] [place] [address] May, [facility] [address] [id number] [place] [address] May, [facility] [address] [id number] [place] [address] May, [facility] [address] [id number] [place] [address] May, [facility] [address] [id number] [place] [address] May, [facility] [address] [id number] [place] [address] May, [facility] [address] [id number] [place] [address] November, [facility] [address] [id number] [place] [address] November, [facility] [address] [id number] [place] [address] Oct, [facility] [address] [id number] [place] [address] Oct, [facility] [address] [id number] [place] [address] Oct, [facility] [address] [id number] [place] [address] Sep, [facility] [address] [id number] [place] [address] 13 Sep, 2013 [facility] [address] [facility] [id number] [place] [address] 10 Sep, 2013 [facility] [address] [id number] [place] [address] 10 Sep, 2013 [facility] [address] [id number] [place] [address] Sep, [facility] [address] [id number] [place] [address] Sep, [facility] [address] [id number] [place] [address] Sep, [facility] [address] [id number] [place] [address] Sep, [facility] [address] [id number] [place] [address] Aug, [facility] [address] [id number] [place] [address] Aug, [facility] [address] [id number] [place] [address] Aug, [facility] [address] [id number] [place] [address] Aug, [facility] [address] [id number] [place] [address] Aug, [facility] [address] [id number] [place] [address] Aug, [facility] [address] [id number] [place] [address] Aug, [facility] [address] [id number] [place] [address] Aug, [facility] [address] [id number] [place] [address] Aug, [facility] [address] [id number] [place] [address] Aug, [facility] [address] [id number] [place] [address] Aug, [facility] [address] [id number] [place] [address] Aug, [facility] [address] [id number] [place] [address] Aug, [facility] [address] [id number] [place] [address] Aug, [facility] [address] [id number] [place] [address] Aug, [facility] [address] [id number] [place] [address] Aug, [facility] [address] [id number] [place] [address] Jul, [facility] [address] [id number] [place] [address] Jul, [facility] [address] [id number] [place] [address] Jul, [facility] [address] [id number] [place] [address] Jul, [facility] [address] [id number] [place] [address] Jul, [facility] [address] [id number] [place] [address] Jul, [facility] [address] [id number] [place] [address] Jun, [facility] [address] [id number] [place] [address] Jun, [facility] [address] [id number] [place] [address] May, [facility] [address] [id number] [place] [address] May, [facility] [address] [id number] [place] [address] May, [facility] [address] [id number] [place] [address] May, [facility] [address] [id number] [place] [address] Apr, [facility] [address] [id number] [place] [address] Apr, IMMUNIZATIONS No Known Immunizations SOCIAL HISTORY [...] weight loss Surgical History Tonsilectomy Surgical History Orbisonia Teeth Extraction Hospitalization History [facility]-diagnosed with type I diabetes 2 016 Hospitalization History diabetes regulating 08/2017 Hospitalization History childbirth Hospitalization History for mental health 07/2019
--- OUTSIDE RECORDS SUMMARY | 2019-12-22 21:46 | XMS REPORT ---
Author Author Charlotte TO Organization [facility] Address [address] [place] [address] Care Team Providers Care Carcass Splitter Name Role Phone HARRY TO Unavailable PROBLEMS Type Condition ICD9-CM Code DOX53-IO Code Onset Dates Condition S tatus SNOMED Code Problem Migraine without aura and without status migrain osus, not intractable G43.009 Active 333494633 Problem Muscle spasm M62.838 Active 7885019 6 Problem Essential hypertension I10 Active 66378384 Problem BMI 31.0-31.9,adult Z68.31 Active [id number] Problem Type 1 diabetes mellitus without complication E10. 9 Active 170365835 Problem Seasonal allergies J30.2 Active 4 01526400 Problem Bipolar disorder, most recent episode manic F31.10 Active 83927055 Problem Mood disorder F39 Active 970169 05 Problem Anxiety F41.9 Active 90844963 Problem Type I diabetes mellitus with complication E10.8 Active 28728156 Problem Pityriasis rosea L42 Active 772 57062 ALLERGIES No Information ENCOUNTERS Encounter Location Date Diagnosis [facility] [address] [address] Sep, [facility] [address] [address] Sep, [facility] [id number] [place] [address] Jul, [facility] [address] [facility] [id number] [address] [place] [address] Jul, Blister of right foot, initi al encounter S90.821A [facility] [id number] [place] [address] Jul, [facility] [address] [address] Jul, [facility] [address] [facility] [id number] [address] [place] [address] Jul, Abscess of great toe of left foot L02.612 and Cellulitis of toe of left foot L03.032 [place] [id number] [place] [address] Jun, [place] [address] [address] Jun, [place] [address] [address] Jun, Type 1 diabetes mellitus without complic ation E10.9 and BMI 31.0- 31.9,adult Z68.31 [place] [address] [address] May, Type 1 diabetes mellitus without complic ation E10.9 [place] [address] [address] Mar, Encounter for Depo-Provera contraception Z30.42 [place] [address] [address] Mar, Type 1 diabetes mellitus without complic ation E10.9 [place] [address] [address] Jan, Type 1 diabetes mellitus without complic ation E10.9 [place] [address] [address] Dec, Type 1 diabetes mellitus without complic ation E10.9 ; Seasonal allergies J30.2 and BMI 31.0-31.9,adult Z68.31 [place] [address] [address] Dec, [place] [address] [address] November, Type 1 diabetes mellitus without complic ation E10.9 [place] [id number] [place] [address] 14 Nov, 2018 [facility] [address] [address] 14 Nov, 2018 Encounter for Depo-Provera contraception Z30.42 [facility] [address] [address] 10 Nov, 2018 [place] [address] [address] Oct, [facility] [address] [address] Sep, Type 1 diabetes mellitus without complic ation E10.9 [place] [address] [address] Sep, [place] [address] [address] Sep, [facility] [address] [facility] [id number] [place] [address] 25 Sep, 2018 Influenza A J10.1 [place] [address] [address] 13 Sep, 2018 [place] [address] [address] 11 Sep, 2018 Type 1 diabetes mellitus without complic ation E10.9 and BMI 31.0- 31.9,adult Z68.31 [place] [address] [address] Aug, control counseling Z30.09 and Enco unter for Depo-Provera contraception Z30.42 [place] [address] [address] Aug, Type I diabetes mellitus with complicati on E10.8 [place] [address] [address] Aug, [place] [address] [address] Aug, Type 1 diabetes mellitus without complic ation E10.9 [facility] [id number] [place] [address] Aug, [facility] [address] [address] Aug, [facility] [address] [address] Aug, [facility] [address] [address] Aug, [facility] [address] [facility] [id number] [address] [place] [address] Jul, Pityriasis rosea L42 [facility] [address] [facility] [id number] [address] [place] [address] Jul, Fungal dermatosis B36.9 [facility] [address] [address] Jul, [facility] [id number] [place] [address] Jun, [facility] [address] [address] Jun, [facility] [address] [address] May, Type I diabetes mellitus with complicati on E10.8 [facility] [address] [address] Apr, Type I diabetes mellitus with complicati on E10.8 [facility] [address] [address] Mar, [facility] [address] [address] Jan, Type I diabetes mellitus with complicati on E10.8 and Essential hypertension I10 [facility] [address] [address] Jan, Type I diabetes mellitus with complicati on E10.8 [facility] [id number] [place] [address] Jan, [facility] [id number] [place] [address] Jan, [facility] [address] [id number] [place] [address] Jan, Type I diabetes mellitus with complicati on E10.8 [facility] [id number] [place] [address] Jan, [facility] [address] [address] Jan, [facility] [address] [address] Jan, Type I diabetes mellitus with complicati on E10.8 ; Upper respiratory tract infection, unspecified type J06.9 and delivery O60.10X0 [facility] [id number] [place] [address] Jan, [facility] [id number] [place] [address] November, [facility] [address] [address] November, [facility] [address] [id number] [place] [address] Sep, [facility] [id number] [place] [address] Sep, [facility] [address] [id number] [place] [address] Sep, [facility] [address] [facility] [id number] [address] [place] [address] Sep, Dysuria R30.0 and Normal pre gnancy in second trimester Z34.92 [facility] [address] [id number] [place] [address] Sep, [facility] [address] [id number] [place] [address] Sep, [facility] [id number] [place] [address] Sep, [facility] [address] [facility] [id number] [address] [place] [address] Sep, [facility] [id number] [place] [address] Aug, [facility] [id number] [place] [address] Jul, [facility] [address] [address] Jul, [facility] [id number] [place] [address] Jul, [facility] [address] [facility] [id number] [address] [place] [address] Jul, Other viral agents as the ca use of diseases classified elsewhere B97.89 and Acute upper respiratory infection, unspecified J06.9 [place] [id number] [place] [address] Jul, Type 1 diabetes mellitus without complic ation E10.9 [facility] [id number] [place] [address] Jul, [facility] [id number] [place] [address] Jul, [facility] [id number] [place] [address] Jul, [place] [address] [address] Jul, [facility] [id number] [place] [address] Jul, Screening, deficiency anemia, iron Z13.0 [place] [id number] [place] [address] Jul, [facility] [place] [id number] [place] [address] Jul, Suprapubic discomfort R10.2 ; Near syncope R55 ; Abdominal cramping R10.9 and Less than 8 weeks gestation of Z3A.01 [place] [address] [address] Jul, [address] [address] Jun, Type I diabetes mellitus with complicati on E10.8 ; Mood disorder F39 and Bipolar disorder, most recent episode manic F31.10 [facility] [address] [address] May, Acute cystitis with hematuri a N30.[address] [address] May, [place] [address] [address] May, Type 1 diabetes mellitus without complic ation E10.[address] [address] May, Abrasion of toe of left foot, initial en counter S90.415A ; Type 1 diabetes mellitus without complication E10.9 ; Anxiety F41.9 ; Mood disorder F39 ; Essential hypertension I10 ; Migraine without aura and without status migrainosus, not intractable G43.009 ; Bipolar disorder, most recent episode manic F31.10 and Muscle spasm M62.838 [facility] [address] [address] Mar, Abrasion of toe of left foot , initial encounter S90.415A and Tooth pain K08.89 [place] [address] [address] 14 Oct, [address] [address] Oct, [facility] [address] [facility] [id number] [place] [address] Jul, [facility] [address] [id number] [place] [address] Jul, [facility] [address] [id number] [place] [address] Jun, [facility] [address] [id number] [place] [address] Jun, [facility] [address] [facility] [id number] [place] [address] May, [facility] [address] [id number] [place] [address] May, [facility] [address] [id number] [place] [address] May, [facility] [address] [id number] [place] [address] May, [facility] [address] [id number] [place] [address] May, [facility] [address] [id number] [place] [address] May, [facility] [address] [id number] [place] [address] May, [facility] [address] [id number] [place] [address] November, [facility] [address] [id number] [place] [address] November, [facility] [address] [id number] [place] [address] Oct, [facility] [address] [id number] [place] [address] Oct, [facility] [address] [id number] [place] [address] Oct, [facility] [address] [id number] [place] [address] 13 Sep, 2013 [facility] [address] [facility] [id number] [place] [address] Sep, [facility] [address] [id number] [place] [address] Sep, [facility] [address] [id number] [place] [address] Sep, [facility] [address] [id number] [place] [address] Sep, [facility] [address] [facility] [id number] [place] [address] Sep, [facility] [address] [id number] [place] [address] Sep, [facility] [address] [id number] [place] [address] Sep, [facility] [address] [id number] [place] [address] Aug, [facility] [address] [id number] [place] [address] Aug, [facility] [address] [id number] [place] [address] Aug, [facility] [address] [id number] [place] [address] Aug, [facility] [address] [id number] [place] [address] Aug, [facility] [address] [facility] [id number] [place] [address] Aug, [facility] [address] [id number] [place] [address] Aug, [facility] [address] [id number] [place] [address] Aug, [facility] [address] [id number] [place] [address] Aug, [facility] [address] [id number] [place] [address] 14 Aug, 2013 [facility] [address] [id number] [place] [address] Aug, [facility] [address] [id number] [place] [address] Aug, [facility] [address] [id number] [place] [address] Aug, [facility] [address] [id number] [place] [address] Aug, [facility] [address] [id number] [place] [address] Aug, [facility] [address] [id number] [place] [address] Aug, [facility] [id number] [place] [address] Jul, [facility] [address] [id number] [place] [address] Jul, [facility] [address] [id number] [place] [address] Jul, [facility] [address] [id number] [place] [address] Jul, [facility] [address] [id number] [place] [address] Jul, [facility] [address] [id number] [place] [address] Jul, [facility] [address] [id number] [place] [address] Jun, [facility] [address] [id number] [place] [address] Jun, [facility] [address] [id number] [place] [address] May, [facility] [address] [id number] [place] [address] May, [facility] [address] [id number] [place] [address] May, [facility] [address] [id number] [place] [address] May, [facility] [address] [id number] [place] [address] Apr, [facility] [address] [id number] [place] [address] Apr, IMMUNIZATIONS No Known Immunizations SOCIAL HISTORY Never Assessed REASON FOR VISIT Lancet Refill PLAN OF CARE VITAL SIGNS MEDICATIONS Medication Instructions Dosage Frequency Start Date End Date Duration S tarun Evaristo Microlet Lancets - subcutaneously 5 times per day DX: E10.9 test blood sugar Sep, Active RESULTS No Results PROCEDURES No Known procedures INSTRUCTIONS MEDICATIONS ADMINISTERED No Known Medications MEDICAL (GENERAL) HISTORY Type Description Date Medical History Type I Diabetes Medical History Anxiety Medical History ADHD Medical History Bipolar Disorders Medical History Chronic Migrains Medical History Hypertension, resolved with weight loss Surgical History Tonsilectomy Surgical History Brilliant Teeth Extraction Hospitalization History [facility]-diagnosed with type I diabetes 2 016 Hospitalization History diabetes regulating 08/2017 Hospitalization History childbirth Hospitalization [facility] 07[facility]2019
--- OUTSIDE RECORDS SUMMARY | 2019-12-22 21:46 | XMS REPORT ---
Author Author Charlotte Zheng Organization [facility] Address [address] [place] [address] Care Team Providers Care Senior Manager Asset Protection Name Role Phone RYANNE Zheng Unavailable PROBLEMS Type Condition ICD9-CM Code HKV15-IM Code Onset Dates Condition S tatus SNOMED Code Problem Migraine without aura and without status migrain osus, not intractable G43.009 Active 511764300 Problem Muscle spasm M62.838 Active 8668238 6 Problem Essential hypertension I10 Active 01706615 Problem BMI 31.0-31.9,adult Z68.31 Active [id number] Problem Type 1 diabetes mellitus without complication E10. 9 Active 737472877 Problem Seasonal allergies J30.2 Active 4 00446840 Problem Bipolar disorder, most recent episode manic F31.10 Active 94952949 Problem Mood disorder F39 Active 757238 05 Problem Anxiety F41.9 Active 99892012 Problem Type I diabetes mellitus with complication E10.8 Active 41652254 Problem Pityriasis rosea L42 Active 772 04877 ALLERGIES No Information ENCOUNTERS Encounter Location Date Diagnosis [place] [id number] [place] [address] 10 Sep, 2019 [facility] [id number] [place] [address] Jul, [facility] [address] [facility] [id number] [place] [address] Jul, Blister of right foot, initi al encounter S90.821A [facility] [id number] [place] [address] Jul, [facility] [id number] [place] [address] Jul, [facility] [address] [id number] [address] [place] [address] Jul, Abscess of great toe of left foot L02.612 and Cellulitis of toe of left foot L03.032 [place] [address] [address] Jun, [place] [address] [address] Jun, [place] [address] [address] Jun, Type 1 diabetes mellitus without complic ation E10.9 and BMI 31.0- 31.9,adult Z68.31 [place] [address] [address] May, Type 1 diabetes mellitus without complic ation E10.9 [place] [address] [address] Mar, Encounter for Depo-Provera contraception Z30.42 [place] [address] [address] Mar, Type 1 diabetes mellitus without complic ation E10.9 [place] [address] [address] Jan, Type 1 diabetes mellitus without complic ation E10.9 [place] [address] [address] Dec, Type 1 diabetes mellitus without complic ation E10.9 ; Seasonal allergies J30.2 and BMI 31.0-31.9,adult Z68.31 [place] [address] [address] Dec, [place] [address] [address] November, Type 1 diabetes mellitus without complic ation E10.9 [place] [address] [address] November, [place] [id number] [place] [address] 14 Nov, 2018 Encounter for Depo-Provera contraception Z30.42 [facility] [address] [address] 10 Nov, 2018 [facility] [address] [address] Oct, [facility] [address] [address] Sep, Type 1 diabetes mellitus without complic ation E10.9 [place] [address] [address] Sep, [place] [address] [address] Sep, [facility] [address] [facility] [id number] [place] [address] 25 Sep, 2018 Influenza A J10.1 [place] [address] [address] 13 Sep, 2018 [place] [address] [address] 11 Sep, 2018 Type 1 diabetes mellitus without complic ation E10.9 and BMI 31.0- 31.9,adult Z68.31 [place] [address] [address] Aug, control counseling Z30.09 and [place] unter for Depo-Provera contraception Z30.42 [place] [address] [address] Aug, Type I diabetes mellitus with complicati on E10.8 [place] [address] [address] Aug, [place] [address] [address] Aug, Type 1 diabetes mellitus without complic ation E10.9 [place] [id number] [place] [address] Aug, [facility] [id number] [place] [address] Aug, [facility] [id number] [place] [address] Aug, [facility] [id number] [place] [address] Aug, [facility] [address] [facility] [id number] [address] [place] [address] Jul, Pityriasis rosea L42 [facility] [address] [facility] [id number] [address] [place] [address] Jul, Fungal dermatosis B36.9 [facility] [id number] [place] [address] Jul, [facility] [id number] [place] [address] Jun, [facility] [id number] [place] [address] Jun, [facility] [id number] [place] [address] May, Type I diabetes mellitus with complicati on E10.8 [facility] [id number] [place] [address] Apr, Type I diabetes mellitus with complicati on E10.8 [facility] [id number] [place] [address] Mar, [facility] [id number] [place] [address] Jan, Type I diabetes mellitus with complicati on E10.8 and Essential hypertension I10 [facility] [id number] [place] [address] Jan, Type I diabetes mellitus with complicati on E10.8 [facility] [id number] [place] [address] Jan, [facility] [id number] [place] [address] Jan, [facility] [id number] [place] [address] Jan, Type I diabetes mellitus with complicati on E10.8 [facility] [id number] [place] [address] Jan, [facility] [id number] [place] [address] Jan, [facility] [address] [address] Jan, Type I diabetes mellitus with complicati on E10.8 ; Upper respiratory tract infection, unspecified type J06.9 and delivery O60.10X0 [facility] [id number] [place] [address] Jan, [facility] [id number] [place] [address] November, [facility] [address] [address] November, [facility] [id number] [place] [address] Sep, [facility] [id number] [place] [address] Sep, [facility] [id number] [place] [address] Sep, [facility] [address] [facility] [id number] [address] [place] [address] Sep, Dysuria R30.0 and Normal pre gnancy in second trimester Z34.92 [facility] [id number] [place] [address] Sep, [facility] [id number] [place] [address] Sep, [facility] [id number] [place] [address] Sep, [facility] [address] [facility] [id number] [address] [place] [address] Sep, [facility] [id number] [place] [address] Aug, [facility] [id number] [place] [address] Jul, [facility] [address] [address] Jul, [facility] [address] [address] Jul, [facility] [address] [place] [address] [id number] [place] [address] Jul, Other viral agents as the ca use of diseases classified elsewhere B97.89 and Acute upper respiratory infection, unspecified J06.9 [facility] [id number] [place] [address] Jul, Type 1 diabetes mellitus without complic ation E10.9 [facility] [id number] [place] [address] Jul, [facility] [id number] [place] [address] Jul, [facility] [id number] [place] [address] Jul, [facility] [id number] [place] [address] Jul, [facility] [address] [address] Jul, Screening, deficiency anemia, iron Z13.0 [facility] [id number] [place] [address] 05 Jul, 2017 [facility] [address] [place] [id number] [place] [address] 05 Jul, 2017 Suprapubic discomfort R10.2 ; Near syncope R55 ; Abdominal cramping R10.9 and Less than 8 weeks gestation of Z3A.01 [place] [address] [address] Jul, [place] [address] [address] Jun, Type I diabetes mellitus with complicati on E10.8 ; Mood disorder F39 and Bipolar disorder, most recent episode manic F31.10 [facility] [address] [address] May, Acute cystitis with hematuri a N30.01 [place] [address] [address] May, [place] [address] [address] May, Type 1 diabetes mellitus without complic ation E10.9 [place] [address] [address] May, Abrasion of toe of left foot, initial en counter S90.415A ; Type 1 diabetes mellitus without complication E10.9 ; Anxiety F41.9 ; Mood disorder F39 ; Essential hypertension I10 ; Migraine without aura and without status migrainosus, not intractable G43.009 ; Bipolar disorder, most recent episode manic F31.10 and Muscle spasm M62.838 [facility] [id number] [place] [address] Mar, Abrasion of toe of left foot , initial encounter S90.415A and Tooth pain K08.89 [place] [address] [address] Oct, [place] [address] [address] Oct, [place] [address] [address] Jul, [facility] [address] [facility] [id number] [place] [address] Jul, [facility] [address] [id number] [place] [address] Jun, [facility] [address] [id number] [place] [address] Jun, [facility] [address] [id number] [place] [address] May, [facility] [address] [id number] [place] [address] May, [facility] [address] [id number] [place] [address] May, [facility] [address] [id number] [place] [address] May, [facility] [address] [id number] [place] [address] May, [facility] [address] [id number] [place] [address] May, [facility] [address] [id number] [place] [address] May, [facility] [address] [id number] [place] [address] November, [facility] [address] [id number] [place] [address] November, [facility] [address] [id number] [place] [address] Oct, [facility] [address] [id number] [place] [address] Oct, [facility] [address] [id number] [place] [address] Oct, [facility] [address] [id number] [place] [address] Sep, [facility] [address] [id number] [place] [address] 13 Sep, 2013 [facility] [address] [id number] [place] [address] Sep, [facility] [address] [id number] [place] [address] Sep, [facility] [address] [id number] [place] [address] Sep, [facility] [address] [id number] [place] [address] Sep, [facility] [address] [id number] [place] [address] Sep, [facility] [address] [id number] [place] [address] Sep, [facility] [address] [id number] [place] [address] Aug, [facility] [address] [id number] [place] [address] Aug, [facility] [address] [id number] [place] [address] Aug, [facility] [address] [id number] [place] [address] Aug, [facility] [address] [id number] [place] [address] Aug, [facility] [address] [id number] [place] [address] Aug, [facility] [address] [id number] [place] [address] Aug, [facility] [address] [id number] [place] [address] 14 Aug, 2013 [facility] [address] [id number] [place] [address] 14 Aug, 2013 [facility] [address] [id number] [place] [address] Aug, [facility] [address] [id number] [place] [address] Aug, [facility] [address] [id number] [place] [address] Aug, [facility] [address] [id number] [place] [address] Aug, [facility] [address] [id number] [place] [address] Aug, [facility] [address] [id number] [place] [address] Aug, [facility] [address] [id number] [place] [address] Aug, [facility] [address] [id number] [place] [address] Jul, [facility] [address] [id number] [place] [address] Jul, [facility] [address] [id number] [place] [address] Jul, [facility] [address] [id number] [place] [address] Jul, [facility] [address] [id number] [place] [address] Jul, [facility] [address] [id number] [place] [address] Jul, [facility] [address] [id number] [place] [address] Jun, [facility] [address] [id number] [place] [address] Jun, [facility] [address] [id number] [place] [address] May, [facility] [address] [id number] [place] [address] May, [facility] [address] [id number] [place] [address] May, [facility] [address] [id number] [place] [address] May, [facility] [address] [id number] [place] [address] Apr, [facility] [address] [id number] [place] [address] Apr, IMMUNIZATIONS No Known Immunizations SOCIAL HISTORY [...] weight loss Surgical History Tonsilectomy Surgical History [place] [facility] Ext[facility] Hospitalization History [facility]-diagnosed with type I diabetes 2 016 Hospitalization History diabetes regulating 08/2017 Hospitalization History childbirth Hospitalization History [facility] 07/2019
--- OUTSIDE RECORDS SUMMARY | 2019-12-22 21:46 | XMS REPORT ---
Author Author Charlotte Eller Doctor Organization [facility] Address Unknown Phone Unavailable Care Team Providers Care Histologic Technician Name Role Phone Migration, Doctor Unavailable Unavailable PROBLEMS Type Condition ICD9-CM Code WBP21-NH Code Onset Dates Condition S tatus SNOMED Code Problem Migraine without aura and without status migrain osus, not intractable G43.009 Active 204821585 Problem Muscle spasm M62.838 Active 3161750 6 Problem Essential hypertension I10 Active 78267293 Problem BMI 31.0-31.9,adult Z68.31 Active [id number] Problem Type 1 diabetes mellitus without complication E10. 9 Active 695657537 Problem Seasonal allergies J30.2 Active 4 54905822 Problem Bipolar disorder, most recent episode manic F31.10 Active 08355514 Problem Mood disorder F39 Active 627016 05 Problem Anxiety F41.9 Active 33272263 Problem Type I diabetes mellitus with complication E10.8 Active 71341878 Problem Pityriasis rosea L42 Active 772 55280 ALLERGIES No Information ENCOUNTERS Encounter Location Date Diagnosis [place] [address] [address] 10 Sep, 2019 [facility] [address] [address] Jul, [facility] [address] [place] [id number] [address] [place] [address] Jul, Blister of right foot, initi al encounter S90.821A [facility] [address] [address] Jul, [facility] [address] [address] Jul, [facility] [address] [facility] [id number] [address] [place] [address] Jul, Abscess of great toe of left foot L02.612 and Cellulitis of toe of left foot L03.032 [place] [address] [address] Jun, [place] [address] [address] Jun, [place] [address] [address] Jun, Type 1 diabetes mellitus without complic ation E10.9 and BMI 31.0- 31.9,adult Z68.31 [place] [address] [address] May, Type 1 diabetes mellitus without complic ation E10.9 [place] [address] [address] Mar, Encounter for Depo-Provera contraception Z30.42 [place] [address] [address] Mar, Type 1 diabetes mellitus without complic ation E10.9 [place] [address] [address] Jan, Type 1 diabetes mellitus without complic ation E10.9 [place] [address] [address] Dec, Type 1 diabetes mellitus without complic ation E10.9 ; Seasonal allergies J30.2 and BMI 31.0-31.9,adult Z68.31 [place] [address] [address] Dec, [place] [address] [address] November, Type 1 diabetes mellitus without complic ation E10.9 [place] [address] [address] November, [place] [address] [address] November, Encounter for Depo-Provera contraception Z30.42 [facility] [address] [id number] [place] [address] 10 Nov, 2018 [facility] [address] [address] Oct, [facility] [address] [place] [id number] [place] [address] 28 Sep, 2018 Type 1 diabetes mellitus without complic ation E10.9 [facility] [address] [address] Sep, [facility] [address] [address] Sep, [facility] [address] [facility] [id number] [address] [place] [address] 25 Sep, 2018 Influenza A J10.1 [place] [address] [address] 13 Sep, 2018 [facility] [address] [address] 11 Sep, 2018 Type 1 diabetes mellitus without complic ation E10.9 and BMI 31.0- 31.9,adult Z68.31 [place] [address] [address] 28 Aug, 2018 control counseling Z30.09 and Enco unter for Depo-Provera contraception Z30.42 [place] [address] [address] 16 Aug, 2018 Type I diabetes mellitus with complicati on E10.8 [place] [address] [address] Aug, [place] [address] [address] Aug, Type 1 diabetes mellitus without complic ation E10.9 [place] [address] [address] Aug, [place] [address] [place] [id number] [place] [address] Aug, [facility] [address] [place] [id number] [place] [address] Aug, [facility] [address] [place] [id number] [place] [address] Aug, [facility] [address] [facility] [id number] [address] [address] Jul, Pityriasis rosea L42 [facility] [address] [facility] [id number] [address] [address] Jul, Fungal dermatosis B36.9 [facility] [address] [place] [id number] [place] [address] Jul, [facility] [address] [place] [id number] [place] [address] Jun, [facility] [address] [place] [id number] [place] [address] Jun, [facility] [address] [place] [id number] [place] [address] May, Type I diabetes mellitus with complicati on E10.8 [facility] [address] [place] [id number] [place] [address] Apr, Type I diabetes mellitus with complicati on E10.8 [facility] [address] [place] [id number] [place] [address] Mar, [facility] [address] [place] [id number] [place] [address] Jan, Type I diabetes mellitus with complicati on E10.8 and Essential hypertension I10 [facility] [address] [place] [id number] [place] [address] Jan, Type I diabetes mellitus with complicati on E10.8 [facility] [address] [address] Jan, [facility] [address] [place] [address] Jan, [facility] [address] [place] [id number] [place] [address] Jan, Type I diabetes mellitus with complicati on E10.8 [facility] [address] [place] [id number] [place] [address] Jan, [facility] [address] [address] Jan, [facility] [address] [address] Jan, Type I diabetes mellitus with complicati on E10.8 ; Upper respiratory tract infection, unspecified type J06.9 and delivery O60.10X0 [facility] [address] [address] Jan, [facility] [address] [address] November, [facility] [address] [address] November, [facility] [address] [address] Sep, [facility] [address] [address] Sep, [facility] [address] [id number] [place] [address] Sep, [facility] [address] [facility] [id number] [place] [address] Sep, Dysuria R30.0 and Normal pre gnancy in second trimester Z34.92 [facility] [address] [address] Sep, [facility] [address] [address] Sep, [facility] [address] [address] Sep, [facility] [address] [facility] [id number] [address] [place] [address] Sep, [place] [address] [address] Aug, [facility] [address] [address] Jul, [place] [address] [address] Jul, [place] [address] [address] Jul, [facility] [place] [address] [place] [id number] [place] [address] Jul, Other viral agents as the ca use of diseases classified elsewhere B97.89 and Acute upper respiratory infection, unspecified J06.9 [place] [address] [address] Jul, Type 1 diabetes mellitus without complic ation E10.9 [place] [address] [address] Jul, [place] [address] [address] Jul, [place] [address] [address] Jul, [place] [address] [address] Jul, [place] [address] [address] Jul, Screening, deficiency anemia, iron Z13.0 [place] [address] [address] Jul, [facility] N [facility] [id number] [address] [place] [address] Jul, Suprapubic discomfort R10.2 ; Near syncope R55 ; Abdominal cramping R10.9 and Less than 8 weeks gestation of Z3A.01 [place] [address] [address] Jul, [place] [address] [address] Jun, Type I diabetes mellitus with complicati on E10.8 ; Mood disorder F39 and Bipolar disorder, most recent episode manic F31.10 [facility] [address] [address] May, Acute cystitis with hematuri a N30.01 [place] [address] [address] May, [place] [address] [address] May, Type 1 diabetes mellitus without complic ation E10.9 [place] [address] [address] May, Abrasion of toe of left foot, initial en counter S90.415A ; Type 1 diabetes mellitus without complication E10.9 ; Anxiety F41.9 ; Mood disorder F39 ; Essential hypertension I10 ; Migraine without aura and without status migrainosus, not intractable G43.009 ; Bipolar disorder, most recent episode manic F31.10 and Muscle spasm M62.838 [facility] [address] [place] [id number] [place] [address] Mar, Abrasion of toe of left foot , initial encounter S90.415A and Tooth pain K08.89 [place] [address] [address] Oct, [place] [address] [address] Oct, [place] [address] [address] Jul, [place] [address] [address] Jul, [facility] [address] [facility] [id number] [place] [address] Jun, [facility] [address] [id number] [place] [address] Jun, [facility] [address] [id number] [place] [address] May, [facility] [address] [id number] [place] [address] May, [facility] [address] [id number] [place] [address] May, [facility] [address] [id number] [place] [address] May, [facility] [address] [id number] [place] [address] May, [facility] [address] [id number] [place] [address] May, [facility] [address] [id number] [place] [address] May, [facility] [address] [id number] [place] [address] November, [facility] [address] [id number] [place] [address] November, [facility] [address] [id number] [place] [address] Oct, [facility] [address] [id number] [place] [address] Oct, [facility] [address] [id number] [place] [address] Oct, [facility] [address] [id number] [place] [address] Sep, [facility] [address] [id number] [place] [address] Sep, [facility] [address] [id number] [place] [address] 10 Sep, 2013 [facility] [address] [id number] [place] [address] Sep, [facility] [address] [id number] [place] [address] Sep, [facility] [address] [id number] [place] [address] Sep, [facility] [address] [id number] [place] [address] Sep, [facility] [address] [id number] [place] [address] Sep, [facility] [address] [id number] [place] [address] Aug, [facility] [address] [id number] [place] [address] Aug, [facility] [address] [id number] [place] [address] Aug, [facility] [address] [id number] [place] [address] Aug, [facility] [address] [id number] [place] [address] Aug, [facility] [address] [id number] [place] [address] Aug, [facility] [address] [id number] [place] [address] Aug, [facility] [address] [id number] [place] [address] Aug, [facility] [address] [id number] [place] [address] Aug, [facility] [address] [id number] [place] [address] Aug, [facility] [address] [id number] [place] [address] Aug, [facility] [address] [id number] [place] [address] Aug, [facility] [address] [id number] [place] [address] Aug, [facility] [address] [id number] [place] [address] Aug, [facility] [address] [id number] [place] [address] Aug, [facility] [address] [id number] [place] [address] Aug, [facility] [address] [id number] [place] [address] Jul, [facility] [address] [id number] [place] [address] Jul, [facility] [address] [id number] [place] [address] Jul, [facility] [address] [id number] [place] [address] Jul, [facility] [address] [id number] [place] [address] Jul, [facility] [address] [id number] [place] [address] Jul, [facility] [address] [id number] [place] [address] Jun, [facility] [address] [id number] [place] [address] Jun, [facility] [address] [id number] [place] [address] May, [facility] [address] [id number] [place] [address] May, [facility] [address] [id number] [place] [address] May, [facility] [address] [id number] [place] [address] May, [facility] [address] [facility] [id number] [place] [address] Apr, [facility] [address] [facility] [id number] [place] [address] Apr, IMMUNIZATIONS No Known Immunizations SOCIAL HISTORY [...] weight loss Surgical History Tonsilectomy Surgical History [facility] Teeth Extraction Hospitalization History [facility]-diagnosed with type I diabetes 2 016 Hospitalization History diabetes regulating 08/2017 Hospitalization History childbirth Hospitalization History [facility] 07[facility]2019
--- OUTSIDE RECORDS SUMMARY | 2019-12-22 21:46 | XMS REPORT ---
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 9 Active 400224780 Problem Seasonal allergies J30.2 Active 4 39058419 Problem Bipolar disorder, most recent episode manic F31.10 Active 51274688 Problem Mood disorder F39 Active 399963 05 Problem Anxiety F41.9 Active 66719282 Problem Type I diabetes mellitus with complication E10.8 Active 49399125 Problem Pityriasis rosea L42 Active 772 88298 ALLERGIES No Information ENCOUNTERS Encounter Location Date Diagnosis [facility] [address] [address] Sep, [facility] [address] [address] Jul, [facility] [address] [facility] [id number] [address] [place] [address] Jul, Blister of right foot, initi al encounter S90.821A [facility] [address] [address] Jul, [facility] [address] [address] Jul, [facility] [address] [facility] [id number] [address] [place] [address] 03 Jul, 2019 Abscess of great toe of left foot L02.612 and Cellulitis of toe of left foot L03.032 [place] [address] [address] Jun, [place] [address] [address] Jun, [place] [address] [address] Jun, Type 1 diabetes mellitus without complic ation E10.9 and BMI 31.0- 31.9,adult Z68.31 [place] [address] [address] 16 May, 2019 Type 1 diabetes mellitus without complic ation E10.9 [place] [address] [address] Mar, Encounter for Depo-Provera contraception Z30.42 [place] [address] [address] Mar, Type 1 diabetes mellitus without complic ation E10.9 [place] [address] [address] Jan, Type 1 diabetes mellitus without complic ation E10.9 [place] [address] [address] Dec, Type 1 diabetes mellitus without complic ation E10.9 ; Seasonal allergies J30.2 and BMI 31.0-31.9,adult Z68.31 [place] [address] [address] Dec, [place] [address] [address] November, Type 1 diabetes mellitus without complic ation E10.9 [place] [address] [address] November, [place] [address] [place] [id number] [place] [address] 14 Nov, 2018 Encounter for Depo-Provera contraception Z30.42 [facility] [address] [address] 10 Nov, 2018 [facility] [address] [address] Oct, [place] [address] [address] Sep, Type 1 diabetes mellitus without complic ation E10.9 [place] [address] [address] Sep, [place] [address] [address] Sep, [facility] [address] [facility] [id number] [address] [place] [address] 25 Sep, 2018 Influenza A J10.1 [place] [address] [address] 13 Sep, 2018 [place] [address] [address] 11 Sep, 2018 Type 1 diabetes mellitus without complic ation E10.9 and BMI 31.0- 31.9,adult Z68.31 [place] [address] [address] 28 Aug, 2018 control counseling Z30.09 and Enco unter for Depo-Provera contraception Z30.42 [place] [address] [address] Aug, Type I diabetes mellitus with complicati on E10.8 [place] [address] [address] Aug, [place] [address] [address] Aug, Type 1 diabetes mellitus without complic ation E10.9 [place] [address] [place] [id number] [place] [address] 16 Aug, 2018 [facility] [address] [place] [id number] [place] [address] Aug, [facility] [address] [place] [id number] [place] [address] Aug, [facility] [id number] [place] [address] Aug, [facility] [address] [facility] [id number] [address] [place] [address] Jul, Pityriasis rosea L42 [facility] [address] [facility] [id number] [address] [place] [address] Jul, Fungal dermatosis B36.9 [facility] [address] [place] [id number] [place] [address] Jul, [facility] [address] [place] [id number] [place] [address] Jun, [facility] [address] [place] [id number] [place] [address] Jun, [facility] [address] [place] [id number] [place] [address] May, Type I diabetes mellitus with complicati on E10.8 [facility] [address] [place] [address] [id number] [place] [address] Apr, Type I diabetes mellitus with complicati on E10.8 [facility] [address] [place] [address] [id number] [place] [address] Mar, [facility] [address] [place] [id number] [place] [address] Jan, Type I diabetes mellitus with complicati on E10.8 and Essential hypertension I10 [facility] [address] [place] [address] [id number] [place] [address] Jan, Type I diabetes mellitus with complicati on E10.8 [facility] [address] [place] [id number] [place] [address] Jan, [facility] [address] [place] [address] [id number] [place] [address] Jan, [facility] [address] [place] [id number] [place] [address] Jan, Type I diabetes mellitus with complicati on E10.8 [facility] [address] [address] Jan, [facility] [address] [address] Jan, [facility] [address] [address] Jan, Type I diabetes mellitus with complicati on E10.8 ; Upper respiratory tract infection, unspecified type J06.9 and delivery O60.10X0 [facility] [address] [address] Jan, [facility] [address] [place] [id number] [place] [address] November, [facility] [address] [address] November, [facility] [address] [place] [id number] [place] [address] Sep, [facility] [address] [address] Sep, [facility] [address] [address] Sep, [facility] [address] [facility] [id number] [address] [place] [address] Sep, Dysuria R30.0 and Normal pre gnancy in second trimester Z34.92 [facility] [id number] [place] [address] Sep, [facility] [address] [address] Sep, [facility] [address] [place] [id number] [place] [address] Sep, [facility] [address] [place] [id number] [address] [place] [address] Sep, [facility] [address] [place] [id number] [place] [address] Aug, [facility] [address] [address] Jul, [facility] [address] [address] Jul, [facility] [address] [address] Jul, [facility] [address] [place] [id number] [address] [place] [address] Jul, Other viral agents as the ca use of diseases classified elsewhere B97.89 and Acute upper respiratory infection, unspecified J06.9 [facility] [address] [address] Jul, Type 1 diabetes mellitus without complic ation E10.9 [facility] [address] [place] [id number] [place] [address] Jul, [facility] [address] [address] Jul, [facility] [address] [place] [id number] [place] [address] Jul, [facility] [address] [address] Jul, [facility] [address] [address] Jul, Screening, deficiency anemia, iron Z13.0 [facility] [address] [place] [id number] [place] [address] Jul, [facility] [address] [place] [id number] [address] [place] [address] Jul, Suprapubic discomfort R10.2 ; Near syncope R55 ; Abdominal cramping R10.9 and Less than 8 weeks gestation of Z3A.01 [place] [address] [address] Jul, [place] [address] [address] Jun, Type I diabetes mellitus with complicati on E10.8 ; Mood disorder F39 and Bipolar disorder, most recent episode manic F31.10 [facility] [address] [place] [id number] [address] [place] [address] May, Acute cystitis with hematuri a N30.01 [place] [address] [address] May, [place] [address] [address] May, Type 1 diabetes mellitus without complic ation E10.9 [place] [address] [address] May, Abrasion of toe of left foot, initial en counter S90.415A ; Type 1 diabetes mellitus without complication E10.9 ; Anxiety F41.9 ; Mood disorder F39 ; Essential hypertension I10 ; Migraine without aura and without status migrainosus, not intractable G43.009 ; Bipolar disorder, most recent episode manic F31.10 and Muscle spasm M62.838 [facility] [address] [facility] [id number] [address] [place] [address] Mar, Abrasion of toe of left foot , initial encounter S90.415A and Tooth pain K08.89 [place] [address] [address] Oct, [place] [address] [address] Oct, [place] [address] [address] Jul, [facility] [address] [facility] [id number] [place] [address] Jul, [facility] [id number] [place] [address] Jun, [facility] [id number] [place] [address] Jun, [facility] [id number] [place] [address] May, [facility] [id number] [place] [address] May, [facility] [id number] [place] [address] May, [facility] [id number] [place] [address] May, [facility] [id number] [place] [address] May, [facility] [id number] [place] [address] May, [facility] [id number] [place] [address] May, [facility] [id number] [place] [address] November, [facility] [id number] [place] [address] November, [facility] [id number] [place] [address] Oct, [facility] [id number] [place] [address] Oct, [facility] [id number] [place] [address] Oct, [facility] [id number] [place] [address] Sep, [facility] [id number] [place] [address] 13 Sep, 2013 [facility] [address] [facility] [id number] [place] [address] 10 Sep, 2013 [facility] [id number] [place] [address] 10 Sep, 2013 [facility] [id number] [place] [address] Sep, [facility] [id number] [place] [address] Sep, [facility] [id number] [place] [address] Sep, [facility] [id number] [place] [address] Sep, [facility] [id number] [place] [address] Aug, [facility] [id number] [place] [address] Aug, [facility] [id number] [place] [address] Aug, [facility] [id number] [place] [address] Aug, [facility] [id number] [place] [address] Aug, [facility] [id number] [place] [address] Aug, [facility] [id number] [place] [address] Aug, [facility] [id number] [place] [address] Aug, [facility] [id number] [place] [address] Aug, [facility] [id number] [place] [address] Aug, [facility] [id number] [place] [address] Aug, [facility] [id number] [place] [address] Aug, [facility] [id number] [place] [address] Aug, [facility] [id number] [place] [address] Aug, [facility] [id number] [place] [address] Aug, [facility] [id number] [place] [address] Aug, [facility] [id number] [place] [address] Jul, [facility] [id number] [place] [address] Jul, [facility] [id number] [place] [address] Jul, [facility] [id number] [place] [address] Jul, [facility] [id number] [place] [address] Jul, [facility] [id number] [place] [address] Jul, [facility] [id number] [place] [address] Jun, [facility] [id number] [place] [address] Jun, [facility] [id number] [place] [address] May, [facility] [id number] [place] [address] May, [facility] [id number] [place] [address] May, [facility] [id number] [place] [address] May, [facility] [id number] [place] [address] Apr, [facility] [id number] [place] [address] Apr, IMMUNIZATIONS No Known Immunizations SOCIAL HISTORY [...] weight loss Surgical History Tonsilectomy Surgical History [place] Teeth Extraction Hospitalization History [facility]-diagnosed with type I diabetes 2 016 Hospitalization History diabetes regulating 08/2017 Hospitalization History childbirth Hospitalization History for mental health 07/2019
--- NOTE | 2019-12-22 21:50 | NUR ---
PT DENIES BEING ABLE TO VOID AT THIS TIME.
--- OUTSIDE RECORDS SUMMARY | 2019-12-22 21:50 | XMS REPORT | Continuity of Care Document ---
Author Organization Unknown Address Unknown Phone Unavailable Allergies Active Description Code Type Severity Reaction Onset Reported/Identified Relationship to Patient Clinical Status Yes No Known Drug Allergies [id number] Drug Allergy Unknown N/A 08/12/2012 Medications There is no data. Problems Date Dx Coded Attending Type Code Diagnosis Diagnosed By 08/12/2012 Ot 305.90 MAGDA G ABUSE NEC- UNSPEC 08/12/2012 Ot 311 DEPRES SIVE DISORDER NEC 08/12/2012 Ot 599.0 URIN TRACT INFECTION NOS 04/10/2013 311 DEPRES SIVE DISORDER NOS 04/10/2013 V25.02 CON TRACEPTION - ANY METHOD 04/10/2013 V70.0 EXAM - ROUTINE H&P 04/10/2013 ASHLEY ROD APRN 31 1 DEPRESSIVE DISORDER NOS 04/10/2013 ASHLEY ROD APRN V25.02 CONTRACEPTION - ANY METHOD 04/10/2013 ASHLEY ROD APRN V7 0.0 EXAM - ROUTINE [facility] 1 DEPRESSIVE DISORDER NOS 04/10/2013 [facility] V25.02 CONTRACEPTION - ANY METHOD 04/10/2013 [facility] V7 0.0 EXAM - ROUTINE H&P 04/10/2013 ROSSI AGEE DO 311 DEPRESSIVE DISORDER NOS 04/10/2013 ROSSI AGEE DO V25.02 CONTRACEPTION - ANY METHOD 04/10/2013 CRISTAL AGEE DOA K V70.0 EXAM - ROUTINE H&P 04/10/2013 CRISTAL AGEE DOA K 311 DEPRESSIVE DISORDER NOS 04/10/2013 CRISTAL AGEE DOA K V25.02 CONTRACEPTION - ANY METHOD 04/10/2013 CRISTAL AGEE DOA K V70.0 EXAM - ROUTINE H&P 04/10/2013 [facility] 1 DEPRESSIVE DISORDER NOS 04/10/2013 [facility] V25.02 CONTRACEPTION - ANY METHOD 04/10/2013 [facility] V7 0.0 EXAM - ROUTINE H&P 04/10/2013 SARAH GUILLEN MD 311 DEPRESSIVE DISORDER NOS 04/10/2013 SARAH GUILLEN MD V25.0 2 CONTRACEPTION - ANY METHOD 04/10/2013 MINDY DAVID, SARAH V70.0 EXAM - ROUTINE H&P 04/10/2013 [facility] 31 1 DEPRESSIVE DISORDER NOS 04/10/2013 [facility] A V25.02 CONTRACEPTION - ANY METHOD 04/10/2013 [facility] A V7 0.0 EXAM - ROUTINE H&P 04/10/2013 MORAIMA DAVID, MARSHA 311 DEPRESSIVE DISORDER NOS 04/10/2013 MORAIMA DAVID, MARSHA V25.02 CONTRACEPTION - ANY METHOD 04/10/2013 MORAIMA DAVID, MARSHA V70.0 EXAM - ROUTINE H&P 04/10/2013 SARAH GUILLEN MD 311 DEPRESSIVE DISORDER NOS 04/10/2013 SARAH GUILLEN MD V25.0 2 CONTRACEPTION - ANY METHOD 04/10/2013 SARAH GUILLEN MD V70.0 EXAM - ROUTINE H&P 04/10/2013 [facility] Zamudio 31 1 DEPRESSIVE DISORDER NOS 04/10/2013 [facility] Zamudio V25.02 CONTRACEPTION - ANY METHOD 04/10/2013 [facility] Lizz V7 0.0 EXAM - ROUTINE H&P 04/10/2013 PENNY XAVIER APRN S 311 DEPRESSIVE DISORDER NOS 04/10/2013 DAMION XAVIER APRNA S V25.02 CONTRACEPTION - ANY METHOD 04/10/2013 DAMION XAVIER APRNA S V70.0 EXAM - ROUTINE H&P 04/10/2013 MAUREENE LOAD TEST MECHANIC, RYANNE A 311 DEPRESSIVE DISORDER NOS 04/10/2013 RAJKYLEE LOAD TEST MECHANIC, RYANNE A V25.02 CONTRACEPTION - ANY METHOD 04/10/2013 RAJOTTE LOAD TEST MECHANIC, RYANNE A V70.0 EXAM - ROUTINE H&P 04/10/2013 RAJOTTE LOAD TEST MECHANIC, RYANNE A 311 DEPRESSIVE DISORDER NOS 04/10/2013 RAJOTTE LOAD TEST MECHANIC, RYANNE A V25.02 CONTRACEPTION - ANY METHOD 04/10/2013 MAUREENE LOAD TEST MECHANIC, RYANNE A V70.0 EXAM - ROUTINE H&P 04/10/2013 BARBARA THOMAS RYANNE A 311 DEPRESSIVE DISORDER NOS 04/10/2013 RYANNE JIMENEZ APRN A V25.02 CONTRACEPTION - ANY METHOD 04/10/2013 JOSE JIMENEZ APRNYL A V70.0 EXAM - ROUTINE H&P 05/12/2013 ASHLEY ROD APRN 00 8.8 GASTROENTERITIS, VIRAL 05/12/2013 [facility] A 00 8.8 GASTROENTERITIS, VIRAL 05/12/2013 AGEE DO, ROSSI K 008.8 GASTROENTERITIS, VIRAL 05/12/2013 AGEE DO, ROSSI K 008.8 GASTROENTERITIS, VIRAL 05/12/2013 [facility] A 00 8.8 GASTROENTERITIS, VIRAL 05/12/2013 SARAH GUILLEN MD 008.8 GASTROENTERITIS, VIRAL 05/12/2013 [facility] A 00 8.8 GASTROENTERITIS, VIRAL 05/12/2013 MARSHA VALERA MD 008.8 GASTROENTERITIS, VIRAL 05/12/2013 SARAH GUILLEN MD 008.8 GASTROENTERITIS, VIRAL 05/12/2013 [facility] A 00 8.8 GASTROENTERITIS, VIRAL 05/12/2013 PENNY XAVIER APRN S 008.8 GASTROENTERITIS, VIRAL 05/12/2013 JOSE JIMENEZ APRNYL A 008.8 GASTROENTERITIS, VIRAL 05/12/2013 BARBARA THOMAS RYANNE A 008.8 GASTROENTERITIS, VIRAL 05/12/2013 BARBARA THOMAS, RYANNE A 008.8 GASTROENTERITIS, VIRAL 07/11/2013 ROSSI AGEE DO K V25.09 CONTRACEPTIVE COUNSELING - GENERAL 07/11/2013 ROSSI AGEE DO K V25.09 CONTRACEPTIVE COUNSELING - GENERAL 07/11/2013 [facility] Zamudio V25.09 CONTRACEPTIVE COUNSELING - GENERAL 07/11/2013 SARAH GUILLEN MD V25.0 9 CONTRACEPTIVE COUNSELING - GENERAL 07/11/2013 [facility] Zamudio V25.09 CONTRACEPTIVE COUNSELING - GENERAL 07/11/2013 MARSHA VALERA MD V25.09 CONTRACEPTIVE COUNSELING - GENERAL 07/11/2013 SARAH GUILLEN MD V25.0 9 CONTRACEPTIVE COUNSELING - GENERAL 07/11/2013 [facility] Zamudio V25.09 CONTRACEPTIVE COUNSELING - GENERAL 07/11/2013 PENNY XAVIER APRN S V25.09 CONTRACEPTIVE COUNSELING - GENERAL 07/11/2013 RAJOTTE LOAD TEST MECHANIC, RYANNE A V25.09 CONTRACEPTIVE COUNSELING - GENERAL 07/11/2013 BARBARA THOMAS, RYANNE A V25.09 CONTRACEPTIVE COUNSELING - GENERAL 07/11/2013 BARBARA THOMAS, RYANNE A V25.09 CONTRACEPTIVE COUNSELING - GENERAL 08/03/2013 SARAH GUILLEN MD 296.9 0 MOOD DISORDER NOS 08/03/2013 SARAH GUILLEN MD 304.8 0 SA POLYSUB DEP 08/03/2013 [facility] A 296.90 MOOD DISORDER NOS 08/03/2013 [facility] A 304.80 SA POLYSUB DEP 08/03/2013 MARSHA VALERA MD 296.90 MOOD DISORDER NOS 08/03/2013 MARSHA VALERA MD 304.80 SA POLYSUB DEP 08/03/2013 SARAH GUILLEN MD 296.9 0 MOOD DISORDER NOS 08/03/2013 SARAH GUILLEN MD 304.8 0 SA POLYSUB DEP 08/03/2013 [facility] A 296.90 MOOD DISORDER NOS 08/03/2013 [facility] A 304.80 SA POLYSUB DEP 08/03/2013 DUC THOMAS PENNY S 296.90 MOOD DISORDER NOS 08/03/2013 DUC LOAD TEST MECHANIC, PENNY S 304.80 SA POLYSUB DEP 08/03/2013 MAUREENE LOAD TEST MECHANIC, RYANNE A 296.90 MOOD DISORDER NOS 08/03/2013 RAJKYLEE LOAD TEST MECHANIC, RYANNE A 304.80 SA POLYSUB DEP 08/03/2013 RAJKYLEE LOAD TEST MECHANIC, RYANNE A 296.90 MOOD DISORDER NOS 08/03/2013 RAJKYLEE LOAD TEST MECHANIC, RYANNE A 304.80 SA POLYSUB DEP 08/03/2013 RAJOTTE LOAD TEST MECHANIC, RYANNE A 296.90 MOOD DISORDER NOS 08/03/2013 RAJOTTE LOAD TEST MECHANIC, RYANNE A 304.80 SA POLYSUB DEP 08/15/2013 MARSHA VALERA MD 487.1 INFLUENZA 08/15/2013 SARAH GUILLEN MD 487.1 INFLUENZA 08/15/2013 [facility] A 48 7.1 INFLUENZA 08/15/2013 KEN XAVIER APRNNDA S 487.1 INFLUENZA 08/15/2013 BARBARA THOMAS RYANNE A 487.1 INFLUENZA 08/15/2013 RAJOTTE LOAD TEST MECHANIC, RYANNE A 487.1 INFLUENZA 08/15/2013 RAJOTTE LOAD TEST MECHANIC, RYANNE A 487.1 INFLUENZA 08/29/2013 SARAH GUILLEN MD 461.8 OTHER ACUTE SINUSITIS 08/29/2013 SARAH GUILLEN MD 528.9 OTHER AND UNSPECIFIED DISEASES OF THE ORAL SOFT TISSUES 08/29/2013 [facility], [facility] A 46 1.8 OTHER ACUTE SINUSITIS 08/29/2013 [facility] 52 8.9 OTHER AND UNSPECIFIED DISEASES OF THE ORAL SOFT TISSUES 08/29/2013 DUC LOAD TEST MECHANIC, PENNY S 461.8 OTHER ACUTE SINUSITIS 08/29/2013 DUC LOAD TEST MECHANIC, PENNY S 528.9 OTHER AND UNSPECIFIED DISEASES OF THE ORAL SOFT TISSUE S 08/29/2013 RAJOTTE LOAD TEST MECHANIC, RYANNE A 461.8 OTHER ACUTE SINUSITIS 08/29/2013 RAJOTTE LOAD TEST MECHANIC, RYANNE A 528.9 OTHER AND UNSPECIFIED DISEASES OF THE ORAL SOFT TISSUE S 08/29/2013 RAJOTTE LOAD TEST MECHANIC, RYANNE A 461.8 OTHER ACUTE SINUSITIS 08/29/2013 RAJOTTE LOAD TEST MECHANIC, RYANNE A 528.9 OTHER AND UNSPECIFIED DISEASES OF THE ORAL SOFT TISSUE S 08/29/2013 RAJOTTE LOAD TEST MECHANIC, RYANNE A 461.8 OTHER ACUTE SINUSITIS 08/29/2013 RAJOTTE LOAD TEST MECHANIC, RYANNE A 528.9 OTHER AND UNSPECIFIED DISEASES OF THE ORAL SOFT TISSUE S 09/20/2013 DUC LOAD TEST MECHANIC, PENNY S 558.9 GASTROENTERITIS NONINFECTIOUS 09/20/2013 DUC PERDOMON, PENNY S 787.91 DIARRHEA 09/20/2013 RAJOTTE LOAD TEST MECHANIC, RYANNE A 558.9 GASTROENTERITIS NONINFECTIOUS 09/20/2013 RAJOTTE LOAD TEST MECHANIC, RYANNE A 787.91 DIARRHEA 09/20/2013 RAJOTTE LOAD TEST MECHANIC, RYANNE A 558.9 GASTROENTERITIS NONINFECTIOUS 09/20/2013 RAJOTTE LOAD TEST MECHANIC, RYANNE A 787.91 DIARRHEA 09/20/2013 RAJOTTE LOAD TEST MECHANIC, RYANNE A 558.9 GASTROENTERITIS NONINFECTIOUS 09/20/2013 RAJOTTE LOAD TEST MECHANIC, RYANNE A 787.91 DIARRHEA 10/09/2013 RAJOTTE LOAD TEST MECHANIC, RYANNE A 305.1 TOBACCO ABUSE 10/09/2013 BARBARA LOAD TEST MECHANIC, RYANNE A V70.3 SPORTS PHYSICAL 10/09/2013 BARBARA LOAD TEST MECHANIC, RYANNE A 305.1 TOBACCO ABUSE 10/09/2013 АНДРЕЙOTTE LOAD TEST MECHANIC, RYANNE A V70.3 SPORTS PHYSICAL 10/09/2013 RAJKYLEE LOAD TEST MECHANIC, RYANNE A 305.1 TOBACCO ABUSE 10/09/2013 BARBARA PERDOMON, RYANNE A V70.3 SPORTS PHYSICAL 05/23/2014 BARBARA PERDOMON, RYANNE A 461.9 SINUSITIS ACUTE 05/23/2014 BARBARA THOMAS, RYANNE A V15.82 NICOTINE ABUSE 01/04/2016 ADRIENNE EDEN DO Ot S80.212 A ABRASION, LEFT KNEE, INITIAL ENCOUNTER 01/04/2016 ADRIENNE EDEN DO Ot Z53.21 PROC/TRTMT NOT CRD OUT D/T PT LV BEF SEE 01/06/2016 ADRIENNE EDEN DO Ot S80.212 A ABRASION, LEFT KNEE, INITIAL ENCOUNTER 01/06/2016 ADRIENNE EDEN DO Ot Z53.21 PROC/TRTMT NOT CRD OUT D/T PT LV BEF SEE 04/28/2016 DARION HERRING DO Ot D72.82 9 ELEVATED WHITE BLOOD CELL COUNT, UNSPECI 04/28/2016 DARION HERRING DO Ot E10.10 TYPE 1 DIABETES MELLITUS WITH KETOACIDOS 04/28/2016 FABIAN HERRING DOI Ot F10.20 ALCOHOL DEPENDENCE, UNCOMPLICATED 04/28/2016 DARION HERRING DO Ot F12.10 CANNABIS ABUSE, UNCOMPLICATED 04/28/2016 DARION HERRING DO Ot F32.9 MAJOR DEPRESSIVE DISORDER, SINGLE EPISOD 04/28/2016 DARION HERRING DO Ot F41.9 ANXIETY DISORDER, UNSPECIFIED 04/28/2016 DARION HERRING DO Ot F90.9 ATTENTION-DEFICIT HYPERACTIVITY DISORDER 04/28/2016 DARION HERRING DO Ot G43.90 9 MIGRAINE, UNSP, NOT INTRACTABLE, WITHOUT 04/28/2016 DARION HERRING DO Ot Z87.89 1 PERSONAL HISTORY OF NICOTINE DEPENDENCE 04/29/2016 DARION HERRING DO Ot D72.82 9 ELEVATED WHITE BLOOD CELL COUNT, UNSPECI 04/29/2016 HERRING DO, DARION Ot E10.10 TYPE 1 DIABETES MELLITUS WITH KETOACIDOS 04/29/2016 HERRING DO, DARION Ot F10.20 ALCOHOL DEPENDENCE, UNCOMPLICATED 04/29/2016 HERRING DO, DARION Ot F12.10 CANNABIS ABUSE, UNCOMPLICATED 04/29/2016 HERRING DO, DARION Ot F32.9 MAJOR DEPRESSIVE DISORDER, SINGLE EPISOD 04/29/2016 HERRING DO, DARION Ot F41.9 ANXIETY DISORDER, UNSPECIFIED 04/29/2016 HERRING DO DARION Ot F90.9 ATTENTION-DEFICIT HYPERACTIVITY DISORDER 04/29/2016 HERRING DO, DARION Ot G43.90 9 MIGRAINE, UNSP, NOT INTRACTABLE, WITHOUT 04/29/2016 HERRING DO, DARION Ot Z87.89 1 PERSONAL HISTORY OF NICOTINE DEPENDENCE 04/29/2016 HERRING DO DARION Ot D72.82 9 ELEVATED WHITE BLOOD CELL COUNT, UNSPECI 04/29/2016 [...] Ot F90.9 ATTENTION-DEFICIT HYPERACTIVITY DISORDER 04/29/2016 HERRING DO, DARION Ot G43.90 9 MIGRAINE, UNSP, NOT INTRACTABLE, WITHOUT 04/29/2016 NIMA PENN DARION Ot Z87.89 1 PERSONAL HISTORY OF NICOTINE DEPENDENCE 09/04/2016 PIPPA BARRERA APRN Ot E11 .9 TYPE 2 DIABETES MELLITUS WITHOUT COMPLIC 09/04/2016 PIPPA BARRERA LOAD TEST MECHANIC Ot I10 ESSENTIAL (PRIMARY) HYPERTENSION 09/04/2016 PIPPA BARRERA APRN Ot M79.602 PAIN IN LEFT ARM 09/04/2016 PIPPA BARRERA LOAD TEST MECHANIC Ot Z79 .4 RENAL TECHNICIAN (CURRENT) USE OF INSULIN 09/06/2016 PIPPA BARRERA LOAD TEST MECHANIC Ot E11 .9 TYPE 2 DIABETES MELLITUS WITHOUT COMPLIC 09/06/2016 PIPPA BARRERA LOAD TEST MECHANIC Ot I10 ESSENTIAL (PRIMARY) HYPERTENSION 09/06/2016 PIPPA BARRERA LOAD TEST MECHANIC Ot M79.602 PAIN IN LEFT ARM 09/06/2016 PIPPA BARRERA LOAD TEST MECHANIC Ot Z79 .4 SNF (CURRENT) USE OF INSULIN 09/10/2016 PIPPA BARRERA LOAD TEST MECHANIC Ot E11 .9 TYPE 2 DIABETES MELLITUS WITHOUT COMPLIC 09/10/2016 PIPPA BARRERA LOAD TEST MECHANIC Ot I10 ESSENTIAL (PRIMARY) HYPERTENSION 09/10/2016 PIPPA BARRERA LOAD TEST MECHANIC Ot M79.602 PAIN IN LEFT ARM 09/10/2016 PIPPA BARRERA LOAD TEST MECHANIC Ot Z79 .4 SNF (CURRENT) USE OF INSULIN 10/24/2016 RUCHI GARCÍA [...] CAUSE STATUS 10/24/2016 RUCHI GARCÍA Ot 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 10/26/2016 RUCHI GARCÍA [...] CAUSE STATUS 10/26/2016 RUCHI GARCÍA Ot 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 06/02/2017 RUCHI GARCÍA Ot E11.9 TYPE 2 DIABETES MELLITUS WITHOUT COMPLIC 06/02/2017 RUCHI GARCÍA Ot F12.90 CANNABIS USE, UNSPECIFIED, UNCOMPLICATED 06/02/2017 RUCHI GARCÍA Ot F32.9 MAJOR DEPRESSIVE DISORDER, SINGLE EPISOD 06/02/2017 RUCHI GARCÍA Ot F41.9 ANXIETY DISORDER, UNSPECIFIED 06/02/2017 RUCHI GARCÍA Ot F90.9 ATTENTION-DEFICIT HYPERACTIVITY DISORDER 06/02/2017 RUCHI GARCÍA Ot I 10 ESSENTIAL (PRIMARY) HYPERTENSION 06/02/2017 RUCHI GARCÍA Ot K52.9 NONINFECTIVE GASTROENTERITIS AND COLITIS 06/02/2017 RUCHI GARCÍA Ot R10.31 RIGHT LOWER QUADRANT PAIN 06/02/2017 RUCHI GARCÍA Ot 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 06/02/2017 RUCHI GARCÍA Ot Z87.891 PERSONAL HISTORY OF NICOTINE DEPENDENCE 06/10/2017 RUCHI GARCÍA Ot E11.9 TYPE 2 DIABETES MELLITUS WITHOUT COMPLIC 06/10/2017 RUCHI GARCÍA Ot F12.90 CANNABIS USE, UNSPECIFIED, UNCOMPLICATED 06/10/2017 RUCHI GARCÍA Ot F32.9 MAJOR DEPRESSIVE DISORDER, SINGLE EPISOD 06/10/2017 RUCHI GARCÍA Ot F41.9 ANXIETY DISORDER, UNSPECIFIED 06/10/2017 RUCHI GARCÍA Ot F90.9 ATTENTION-DEFICIT HYPERACTIVITY DISORDER 06/10/2017 RUCHI GARCÍA Ot I 10 ESSENTIAL (PRIMARY) HYPERTENSION 06/10/2017 RUCHI GARCÍA Ot K52.9 NONINFECTIVE GASTROENTERITIS AND COLITIS 06/10/2017 RUCHI GARCÍA Ot R10.31 RIGHT LOWER QUADRANT PAIN 06/10/2017 RUCHI GARCÍA Ot Z79.4 SNF (CURRENT) USE OF INSULIN 06/10/2017 RUCHI GARCÍA Ot Z87.891 PERSONAL HISTORY OF NICOTINE DEPENDENCE 07/19/2017 KAREY DO, ADRIENNE K Ot F12.90 CANNABIS USE, UNSPECIFIED, UNCOMPLICATED 07/19/2017 KAREY DO, ADRIENNE K Ot F32.9 MAJOR DEPRESSIVE DISORDER, SINGLE EPISOD 07/19/2017 KAREY DO, ADRIENNE K Ot F41.9 ANXIETY DISORDER, UNSPECIFIED 07/19/2017 KAREY CARLEY PENNA K Ot F90.9 ATTENTION-DEFICIT HYPERACTIVITY DISORDER 07/19/2017 CARLEY EDEN DOA K Ot J45.909 UNSPECIFIED ASTHMA, UNCOMPLICATED 07/19/2017 CARLEY EDEN DOA K Ot O16.1 UNSPECIFIED MATERNAL HYPERTENSION, FIRST 07/19/2017 KAREY CARLEY PENNA K Ot O21.0 MILD HYPEREMESIS GRAVIDARUM 07/19/2017 KAREY CARLEY PENNA K Ot O23.41 UNSP INFCT OF URINARY TRACT IN 07/19/2017 KAREY CARLEY PENNA K Ot O24.911 UNSPECIFIED DIABETES MELLITUS IN PREGNAN 07/19/2017 KAREY CARLEY PENNA K Ot O99.321 DRUG USE COMPLICATING , FIRST T 07/19/2017 CARLEY EDEN DOA K Ot O99.341 OTH MENTAL DISORDERS COMPLICATING PREGNA 07/19/2017 CARLEY EDEN DOA K Ot O99.511 DISEASES OF THE RESP SYS COMP , 07/19/2017 CARLEY EDEN DOA K Ot O99.89 OTH DISEASES AND CONDITIONS COMPL PREG/C 07/19/2017 CARLEY EDEN DOA K Ot R51 HEADACHE 07/19/2017 CARLEY EDEN DOA K Ot Z3A.01 LESS THAN 8 WEEKS GESTATION OF 07/19/2017 CARLEY EDEN DOA K Ot 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 07/19/2017 CARLEY EDEN DOA K Ot Z87.891 PERSONAL HISTORY OF NICOTINE DEPENDENCE 07/25/2017 KAREY PENN ADRIENNE K Ot F12.90 CANNABIS USE, UNSPECIFIED, UNCOMPLICATED 07/25/2017 KAREY PENN ADRIENNE K Ot F32.9 MAJOR DEPRESSIVE DISORDER, SINGLE EPISOD 07/25/2017 KAREY CARLEY PENNA K Ot F41.9 ANXIETY DISORDER, UNSPECIFIED 07/25/2017 KAREY DO ADRIENNE K Ot F90.9 ATTENTION-DEFICIT HYPERACTIVITY DISORDER 07/25/2017 KARYE CARLEY PENNA K Ot J45.909 UNSPECIFIED ASTHMA, UNCOMPLICATED 07/25/2017 CARLEY EDEN DOA K Ot O16.1 UNSPECIFIED MATERNAL HYPERTENSION, FIRST 07/25/2017 CARLEY EDEN DOA K Ot O21.0 MILD HYPEREMESIS GRAVIDARUM 07/25/2017 KAREY PENN, ADRIENNE K Ot O23.41 UNSP INFCT OF URINARY TRACT IN 07/25/2017 CARLEY EDEN DOA K Ot O24.911 UNSPECIFIED DIABETES MELLITUS IN PREGNAN 07/25/2017 KAREY PENN ADRIENNE K Ot O99.321 DRUG USE COMPLICATING , FIRST T 07/25/2017 CARLEY EDEN DOA K Ot O99.341 OTH MENTAL DISORDERS COMPLICATING PREGNA 07/25/2017 KAREY PENN ADRIENNE K Ot O99.511 DISEASES OF THE RESP SYS COMP , 07/25/2017 KAREY PENN ADRIENNE K Ot O99.89 OTH DISEASES AND CONDITIONS COMPL PREG/C 07/25/2017 CARLEY EDEN DOA K Ot R51 HEADACHE 07/25/2017 CARLEY EDEN DOA K Ot Z3A.01 LESS THAN 8 WEEKS GESTATION OF 07/25/2017 KAREY PENN ADRIENNE K Ot Z79.4 SNF (CURRENT) USE OF INSULIN 07/25/2017 KAREY PENN ADRIENNE K Ot Z87.891 PERSONAL HISTORY OF NICOTINE DEPENDENCE 07/30/2017 RUCHI GARCÍA Ot E11.9 TYPE 2 DIABETES MELLITUS WITHOUT COMPLIC 07/30/2017 RUCHI GARCÍA Ot F12.90 CANNABIS USE, UNSPECIFIED, UNCOMPLICATED 07/30/2017 RUCHI GARCÍA Ot F32.9 MAJOR DEPRESSIVE DISORDER, SINGLE EPISOD 07/30/2017 RUCHI GARCÍA Ot F41.9 ANXIETY DISORDER, UNSPECIFIED 07/30/2017 RUCHI GARCÍA Ot F90.9 ATTENTION-DEFICIT HYPERACTIVITY DISORDER 07/30/2017 RUCHI GARCÍA Ot I 10 ESSENTIAL (PRIMARY) HYPERTENSION 07/30/2017 RUCHI GARCÍA Ot K52.9 NONINFECTIVE GASTROENTERITIS AND COLITIS 07/30/2017 RUCHI GARCÍA Ot R10.31 RIGHT LOWER QUADRANT PAIN 07/30/2017 RUCHI GARCÍA Ot 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 07/30/2017 RUCHI GARCÍA Ot Z87.891 PERSONAL HISTORY OF NICOTINE DEPENDENCE 08/02/2017 ESTELA DAVID, KENZIE Gordillo Ot F32.9 MAJOR DEPRESSIVE DISORDER, SINGLE EPISOD 08/02/2017 KENZIE PALMER MD Ot F41.9 ANXIETY DISORDER, UNSPECIFIED 08/02/2017 KENZIE PALMER MD Ot F90.9 ATTENTION-DEFICIT HYPERACTIVITY DISORDER 08/02/2017 KENZIE PALMER MD Ot J45.909 UNSPECIFIED ASTHMA, UNCOMPLICATED 08/02/2017 KENZIE PALMER MD Ot O16.1 UNSPECIFIED MATERNAL HYPERTENSION, FIRST 08/02/2017 KENZIE PALMER MD Ot O21.9 VOMITING OF , UNSPECIFIED 08/02/2017 KENZIE PALMER MD Ot O24.911 UNSPECIFIED DIABETES MELLITUS IN PREGNAN 08/02/2017 KENZIE PALMER MD Ot O99.341 OTH MENTAL DISORDERS COMPLICATING PREGNA 08/02/2017 KENZIE PALMER MD Ot O99.351 DISEASES OF THE NERVOUS SYS COMP PREGNAN 08/02/2017 KENZIE PALMER MD Ot O99.511 DISEASES OF THE RESP SYS COMP , 08/02/2017 KENZIE PALMER MD Ot R51 HEADACHE 08/02/2017 KENZIE PALMER MD Ot Z79.4 SNF (CURRENT) USE OF INSULIN 08/02/2017 KENZIE PALMER MD Ot Z87.440 PERSONAL HISTORY OF URINARY (TRACT) INFE 08/02/2017 KENZIE PALMER MD Ot Z87.891 PERSONAL HISTORY OF NICOTINE DEPENDENCE 02/07/2018 SHANKAR ALONZO DO Ot E10.9 TYPE 1 DIABETES MELLITUS WITHOUT COMPLIC 02/07/2018 SHANKAR ALONZO DO Ot F31.9 BIPOLAR DISORDER, UNSPECIFIED 02/07/2018 SHANKAR ALONZO DO Ot O24.0 2 PRE-EXISTING TYPE 1 DIABETES MELLITUS, I 02/07/2018 SHANKAR ALONZO DO Ot O40.3XX0 POLYHYDRAMNIOS, THIRD TRIMESTER, NOT MAG 02/07/2018 SHANKAR ALONZO DO Ot O60.14X0 LABOR THIRD TRI W DELIVE 02/07/2018 SHANKAR ALONZO DO Ot O99.3 44 OTHER MENTAL DISORDERS COMPLICATING CHIL 02/07/2018 SHANKAR ALONZO DO Ot Z23 ENCOUNTER FOR IMMUNIZATION 02/07/2018 SHANKAR ALONZO DO Ot Z37.0 SINGLE LIVE 02/07/2018 SHANKAR ALONZO DO Ot Z3A.3 5 35 WEEKS GESTATION OF 07/13/2019 DARION HERRING DO Ot A41.9 SEPSIS, UNSPECIFIED ORGANISM 07/13/2019 NIMA PENN DARION Ot E10.10 TYPE 1 DIABETES MELLITUS WITH KETOACIDOS 07/13/2019 NIMA PENN DARION Ot E11.10 TYPE 2 DIABETES MELLITUS WITH KETOACIDOS 07/13/2019 NIMA PENN DARION Ot E83.39 OTHER DISORDERS OF PHOSPHORUS METABOLISM 07/13/2019 NIMA PENN DARION Ot E87.2 ACIDOSIS 07/13/2019 NIMA PENN DARION Ot E87.6 HYPOKALEMIA 07/13/2019 NIMA PENN DARION Ot F10.20 ALCOHOL DEPENDENCE, UNCOMPLICATED 07/13/2019 NIMA PENN DARION Ot F15.10 OTHER STIMULANT ABUSE, UNCOMPLICATED 07/13/2019 NIMA PENN DARION Ot F17.21 0 NICOTINE DEPENDENCE, CIGARETTES, UNCOMPL 07/13/2019 NIMA PENN DARION Ot F32.9 MAJOR DEPRESSIVE DISORDER, SINGLE EPISOD 07/13/2019 NIMA PENN DARION Ot F41.9 ANXIETY DISORDER, UNSPECIFIED 07/13/2019 NIMA PENN DARION Ot I10 ESSENTIAL (PRIMARY) HYPERTENSION 07/13/2019 FABIAN HERRING DOI Ot I47.1 SUPRAVENTRICULAR TACHYCARDIA 07/13/2019 FABIAN HERRING DOI Ot J45.90 9 UNSPECIFIED ASTHMA, UNCOMPLICATED 07/13/2019 FABIAN HERRING DOI Ot J96.01 ACUTE RESPIRATORY FAILURE WITH HYPOXIA 07/13/2019 DARION HERRING DO Ot R41.0 DISORIENTATION, UNSPECIFIED 07/13/2019 NIMA PENN DARION Ot R65.20 SEVERE SEPSIS WITHOUT SEPTIC SHOCK 07/13/2019 NIMA PENN DARION Ot S61.51 2A LACERATION WITHOUT FOREIGN BODY OF LEFT 07/13/2019 NIMA PENN DARION Ot T43.62 2A POISONING BY AMPHETAMINES, INTENTIONAL S 07/13/2019 NIMA PENN DARION Ot X78.9X XA INTENTIONAL SELF-HARM BY UNSP SHARP OBJE 07/13/2019 FABIAN HERRING DOI Ot 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 Procedures Code [place] [address] URIN E TEST (IN- HOUSE) 04/10/2013 J1050 DEPO PROVERA 04/10/2013 91102 THER APUTIC INJ SQ/IM 04/10/2013 90268 PSYC H DIAGNOSTIC EVALUATION 05/29/2013 73147 ROUT INE VENIPUNCTURE 07/11/2013 95407 HCG QUALITATIVE 07/11/2013 J1050 DEPO PROVERA 07/18/2013 25207 THER APUTIC INJ SQ/IM 07/18/2013 51907 PSYT X PT&/FAMILY 45 MINUTES 07/25/2013 19008 PSYT X PT&/FAMILY 45 MINUTES 08/08/2013 79804 PSYT X PT&/FAMILY 45 MINUTES 09/05/2013 82011 VISU AL ACUITY SCREEN 10/10/2013 [id number] DE LIVERY OF PRODUCTS OF CONCEPTION, EXTE 02/06/2018 [id number] IN SERTION OF ENDOTRACHEAL AIRWAY INTO TR 07/09/2019 [id number] RE SPIRATORY VENTILATION, 24- 96 CONSECUTI 07/09/2019 Results Test Result Range Complete urinalysis with reflex to cultu re - 04/26/16 05:00 Urine color determination YELLOW NRG Urine clarity determination CLEAR NR G Urine pH measurement by test strip 7 5-9 Specific gravity of urine by test strip 1.010 1.016-1.022 Urine protein assay by test strip, semi-quantitative NEGATIVE NEGATIVE Urine glucose detection by automated test strip 4+ NEGATIVE Erythrocytes detection in urine sediment by light micr oscopy NEGATIVE NEGATIVE Urine ketones detection by automated test strip 2+ NEGATIVE Urine nitrite detection by test strip NEGATIVE NEGATIVE Urine total bilirubin detection by test strip NEGA TIVE NEGATIVE Urine urobilinogen measurement by automated test strip (mass/volume) NORMAL NORMAL Urine leukocyte esterase detection by dipstick NEG ATIVE NEGATIVE Automated urine sediment erythrocyte cou nt by microscopy (number/high power field) NONE NRG Automated urine sediment leukocyte count by microscopy (number/high power field) NONE NRG Bacteria detection in urine sediment by light microsco py NEGATIVE NRG Squamous epithelial cells detection in u rine sediment by light microscopy 0-2 NRG Crystals detection in urine sediment by light microsco py NONE NRG Casts detection in urine sediment by light microscopy NONE NRG Mucus detection in urine sediment by light microscopy NEGATIVE NRG Complete urinalysis with reflex to culture NO NRG Urine drug screening test - 04/26/16 05: 00 Urine phencyclidine detection by screening method NEGATIVE NEGATIVE Urine benzodiazepines detection by screening method NEGATIVE NEGATIVE Urine cocaine detection NEGATIVE NEGATI VE Urine amphetamines detection by screening method N EGATIVE NEGATIVE Urine methamphetamine detection by screening method NEGATIVE NEGATIVE Urine cannabinoids detection by screening method P OSITIVE NEGATIVE Urine opiates detection by screening method NEGATI VE NEGATIVE Urine barbiturates detection NEGATIVE N EGATIVE Screening urine tricyclic antidepressants detection NEGATIVE NEGATIVE Urine methadone detection by screening method NEGA TIVE NEGATIVE Urine oxycodone detection NEGATIVE NEGA TIVE Urine propoxyphene detection NEGATIVE N EGATIVE Urine buprenophrine screen NEGATIVE NEG ATIVE Comprehensive metabolic panel - 04/26/16 05:25 Serum or plasma sodium measurement (moles/volume) 128 mmol/L 135-145 Serum or plasma potassium measurement (moles/volume) 4.3 mmol/L 3.6-5.0 Serum or plasma chloride measurement (moles/volume) 96 mmol/L 98-107 Carbon dioxide 14 mmol/L 21-32 Serum or plasma anion gap determination (moles/volume) 18 mmol/L 5-14 Serum or plasma urea nitrogen measurement (mass/volume ) 12 mg/dL 7-18 Serum or plasma creatinine measurement (mass/volume) 1.30 mg/dL 0.60-1.30 Serum or plasma urea nitrogen/creatinine mass ratio 9 NRG Serum or plasma glucose measurement (mass/volume) 820 mg/dL 70-105 Serum or plasma calcium measurement (mass/volume) 10.2 mg/dL 8.5-10.1 Serum or plasma total bilirubin measurement (mass/volu me) 0.9 mg/dL 0.1-1.0 Serum or plasma alkaline phosphatase gerardo surement (enzymatic activity/volume) 181 U/L 60-350 Serum or plasma aspartate aminotransfera se measurement (enzymatic activity/volume) 19 U/L 5-34 Serum or plasma alanine aminotransferase measurement (enzymatic activity/volume) 40 U/L 0-55 Serum or plasma protein measurement (mass/volume) 8.1 g/dL 6.4-8.2 Serum or plasma albumin measurement (mass/volume) 4.9 g/dL 3.2-4.5 Magnesium - 04/26/16 05:25 Magnesium 2.6 mg/dL 1.8-2.4 Serum or plasma amylase measurement (enz ymatic activity/volume) - 04/26/16 05:25 Serum or plasma amylase measurement (enzymatic activit y/volume) 20 U/L 25-125 Lipase - 04/26/16 05:25 Lipase 21 U/L 8-78 Serum or plasma thyrotropin measurement by detection limit <=0.05 miu/l (units/volume) - 04/26/16 05:25 Serum or plasma thyrotropin measurement by detection limit <=0.05 miu/l (units/volume) 2.39 u[iU]/mL 0.35-4.94 Complete blood count (CBC) with automate d white blood cell (WBC) differential - 04/26/16 05:25 Blood leukocytes automated count (number/volume) 13.0 10*3/uL 4.3-11.0 Blood erythrocytes automated count (number/volume) 5.23 10*6/uL 4.35-5.85 Venous blood hemoglobin measurement (mass/volume) 16.0 g/dL 11.5-16.0 Blood hematocrit (volume fraction) 43 % 35-52 Automated erythrocyte mean corpuscular volume 82 [ foz_us] 80-99 Automated erythrocyte mean corpuscular h emoglobin (mass per erythrocyte) 31 pg 25-34 Automated erythrocyte mean corpuscular h emoglobin concentration measurement (mass/volume) 37 g/dL 32-36 Automated erythrocyte distribution width ratio 12. 0 % 10.0- 14.5 Automated blood platelet count (count/volume) 338 10*3/uL 130-400 Automated blood platelet mean volume measurement 11.3 [foz_us] 7.4-10.4 Automated blood neutrophils/100 leukocytes 72 % 42-75 Automated blood lymphocytes/100 leukocytes 19 % 12-44 Blood monocytes/100 leukocytes 8 % 0-12 Automated blood eosinophils/100 leukocytes 0 % 0-10 Automated blood basophils/100 leukocytes 1 % 0-10 Blood neutrophils automated count (number/volume) 9.4 10*3 1.8-7.8 Blood lymphocytes automated count (number/volume) 2.5 10*3 1.0-4.0 Blood monocytes automated count (number/volume) 1. 0 10*3 0.0-1.0 Automated eosinophil count 0.1 10*3/uL 0 .0-0.3 Automated blood basophil count (count/volume) 0.1 10*3/uL 0.0-0.1 Serum or plasma ethanol measurement (mas s/volume) - 04/26/16 05:25 Serum or plasma ethanol measurement (mass/volume) < mg/dL <10 Hemoglobin A1c - 04/26/16 05:25 Hemoglobin A1c 6.8 % 4.5-6.2 Capillary blood glucose measurement by g lucometer (mass/volume) - 04/26/16 05:30 Capillary blood glucose measurement by glucometer (mas s/volume) > mg/dL 70-110 Arterial blood gas measurement - 6 05:35 Blood pCO2 28 mm[Hg] 35-45 Blood pO2 59 mm[Hg] 79-93 Arterial blood bicarbonate measurement (moles/volume) 19 mmol/L 23-27 Arterial blood base excess by calculation -3.0 mmo l/L -2.5-2.5 Arterial blood oxygen saturation measurement 94 % 94-100 * Inhaled oxygen flow rate ROOM AIR NRG Arterial blood pH measurement with patient temperature correction 7.46 7.37-7.43 Arterial blood carbon dioxide, total measurement (mole s/volume) 20.2 mmol/L 21.0-31.0 Body site LT RADIAL NRG Assessment of wrist artery patency prior to arterial p uncture YES-POS NRG Setting of ventilation mode NO NR G Measurement of body temperature 97.4 NRG Capillary blood glucose measurement by g lucometer (mass/volume) - 04/26/16 06:44 Capillary blood glucose measurement by glucometer (mas s/volume) 594 mg/dL 70-110 Capillary blood glucose measurement by g lucometer (mass/volume) - 04/26/16 07:14 Capillary blood glucose measurement by glucometer (mas s/volume) 408 mg/dL 70-110 Capillary blood glucose measurement by g lucometer (mass/volume) - 04/26/16 08:28 Capillary blood glucose measurement by glucometer (mas s/volume) 322 mg/dL 70-110 Capillary blood glucose measurement by g lucometer (mass/volume) - 04/26/16 09:29 Capillary blood glucose measurement by glucometer (mas s/volume) 293 mg/dL 70-110 Capillary blood glucose measurement by g lucometer (mass/volume) - 04/26/16 10:47 Capillary blood glucose measurement by glucometer (mas s/volume) 226 mg/dL 70-110 Whole blood basic metabolic panel - 04/03 12/15 12:25 Serum or plasma sodium measurement (moles/volume) 136 mmol/L 135-145 Serum or plasma potassium measurement (moles/volume) 3.8 mmol/L 3.6-5.0 Serum or plasma chloride measurement (moles/volume) 105 mmol/L 98-107 Carbon dioxide 18 mmol/L 21-32 Serum or plasma anion gap determination (moles/volume) 13 mmol/L 5-14 Serum or plasma urea nitrogen measurement (mass/volume ) 8 mg/dL 7-18 Serum or plasma creatinine measurement (mass/volume) 0.78 mg/dL 0.60-1.30 Serum or plasma urea nitrogen/creatinine mass ratio 10 NRG Serum or plasma glucose measurement (mass/volume) 301 mg/dL 70-105 Serum or plasma calcium measurement (mass/volume) 8.8 mg/dL 8.5-10.1 Capillary blood glucose measurement by g lucometer (mass/volume) - 04/26/16 12:31 Capillary blood glucose measurement by glucometer (mas s/volume) 326 mg/dL 70-110 Capillary blood glucose measurement by g lucometer (mass/volume) - 04/26/16 13:37 Capillary blood glucose measurement by glucometer (mas s/volume) 230 mg/dL 70-110 Capillary blood glucose measurement by g lucometer (mass/volume) - 04/26/16 15:56 Capillary blood glucose measurement by glucometer (mas s/volume) 222 mg/dL 70-110 Capillary blood glucose measurement by g lucometer (mass/volume) - 04/26/16 16:58 Capillary blood glucose measurement by glucometer (mas s/volume) 222 mg/dL 70-110 Whole blood basic metabolic panel - 04/03 12/15 17:12 Serum or plasma sodium measurement (moles/volume) 135 mmol/L 135-145 Serum or plasma potassium measurement (moles/volume) 3.6 mmol/L 3.6-5.0 Serum or plasma chloride measurement (moles/volume) 106 mmol/L 98-107 Carbon dioxide 15 mmol/L -32 Serum or plasma anion gap determination (moles/volume) 14 mmol/L 5-14 Serum or plasma urea nitrogen measurement (mass/volume ) 7 mg/dL 7-18 Serum or plasma creatinine measurement (mass/volume) 0.68 mg/dL 0.60-1.30 Serum or plasma urea nitrogen/creatinine mass ratio 10 NRG Serum or plasma glucose measurement (mass/volume) 215 mg/dL 70-105 Serum or plasma calcium measurement (mass/volume) 8.7 mg/dL 8.5-10.1 Capillary blood glucose measurement by g lucometer (mass/volume) - 04/26/16 17:52 Capillary blood glucose measurement by glucometer (mas s/volume) 199 mg/dL 70-110 Capillary blood glucose measurement by g lucometer (mass/volume) - 04/26/16 19:11 Capillary blood glucose measurement by glucometer (mas s/volume) 278 mg/dL 70-110 Capillary blood glucose measurement by g lucometer (mass/volume) - 04/26/16 21:01 Capillary blood glucose measurement by glucometer (mas s/volume) 262 mg/dL 70-110 Complete blood count (CBC) with automate d white blood cell (WBC) differential - 04/27/16 05:12 Blood leukocytes automated count (number/volume) 10.7 10*3/uL 4.3-11.0 Blood erythrocytes automated count (number/volume) 4.40 10*6/uL 4.35-5.85 Venous blood hemoglobin measurement (mass/volume) 13.6 g/dL 11.5-16.0 Blood hematocrit (volume fraction) 38 % 35-52 Automated erythrocyte mean corpuscular volume 85 [ foz_us] 80-99 Automated erythrocyte mean corpuscular h emoglobin (mass per erythrocyte) 31 pg 25-34 Automated erythrocyte mean corpuscular h emoglobin concentration measurement (mass/volume) 36 g/dL 32-36 Automated erythrocyte distribution width ratio 12. 4 % 10.0- 14.5 Automated blood platelet count (count/volume) 217 10*3/uL 130-400 Automated blood platelet mean volume measurement 11.0 [foz_us] 7.4-10.4 Automated blood neutrophils/100 leukocytes 46 % 42-75 Automated blood lymphocytes/100 leukocytes 44 % 12-44 Blood monocytes/100 leukocytes 9 % 0-12 Automated blood eosinophils/100 leukocytes 2 % 0-10 Automated blood basophils/100 leukocytes 1 % 0-10 Blood neutrophils automated count (number/volume) 4.9 10*3 1.8-7.8 Blood lymphocytes automated count (number/volume) 4.7 10*3 1.0-4.0 Blood monocytes automated count (number/volume) 0. 9 10*3 0.0-1.0 Automated eosinophil count 0.2 10*3/uL 0 .0-0.3 Automated blood basophil count (count/volume) 0.1 10*3/uL 0.0-0.1 Comprehensive metabolic panel - 04/27/16 05:12 Serum or plasma sodium measurement (moles/volume) 137 mmol/L 135-145 Serum or plasma potassium measurement (moles/volume) 4.0 mmol/L 3.6-5.0 Serum or plasma chloride measurement (moles/volume) 110 mmol/L 98-107 Carbon dioxide 14 mmol/L 21-32 Serum or plasma anion gap determination (moles/volume) 13 mmol/L 5-14 Serum or plasma urea nitrogen measurement (mass/volume ) 9 mg/dL 7-18 Serum or plasma creatinine measurement (mass/volume) 0.69 mg/dL 0.60-1.30 Serum or plasma urea nitrogen/creatinine mass ratio 13 NRG Serum or plasma glucose measurement (mass/volume) 233 mg/dL 70-105 Serum or plasma calcium measurement (mass/volume) 8.3 mg/dL 8.5-10.1 Serum or plasma total bilirubin measurement (mass/volu me) 0.7 mg/dL 0.1-1.0 Serum or plasma alkaline phosphatase gerardo surement (enzymatic activity/volume) 129 U/L 60-350 Serum or plasma aspartate aminotransfera se measurement (enzymatic activity/volume) 21 U/L 5-34 Serum or plasma alanine aminotransferase measurement (enzymatic activity/volume) 31 U/L 0-55 Serum or plasma protein measurement (mass/volume) 5.8 g/dL 6.4-8.2 Serum or plasma albumin measurement (mass/volume) 3.4 g/dL 3.2-4.5 Capillary blood glucose measurement by g lucometer (mass/volume) - 04/27/16 09:45 Capillary blood glucose measurement by glucometer (mas s/volume) 239 mg/dL 70-110 Urine ketones detection - 04/27/16 10:25 Urine ketones detection NEGATIVE NEGATI VE Whole blood basic metabolic panel - 04/03 01/15 10:41 Serum or plasma sodium measurement (moles/volume) 138 mmol/L 135-145 Serum or plasma potassium measurement (moles/volume) 4.2 mmol/L 3.6-5.0 Serum or plasma chloride measurement (moles/volume) 111 mmol/L 98-107 Carbon dioxide 20 mmol/L 21-32 Serum or plasma anion gap determination (moles/volume) 7 mmol/L 5-14 Serum or plasma urea nitrogen measurement (mass/volume ) 8 mg/dL 7-18 Serum or plasma creatinine measurement (mass/volume) 0.70 mg/dL 0.60-1.30 Serum or plasma urea nitrogen/creatinine mass ratio 11 NRG Serum or plasma glucose measurement (mass/volume) 297 mg/dL 70-105 Serum or plasma calcium measurement (mass/volume) 8.0 mg/dL 8.5-10.1 Capillary blood glucose measurement by g lucometer (mass/volume) - 04/27/16 11:11 Capillary blood glucose measurement by glucometer (mas s/volume) 285 mg/dL 70-110 Capillary blood glucose measurement by g lucometer (mass/volume) - 04/27/16 12:19 Capillary blood glucose measurement by glucometer (mas s/volume) 367 mg/dL 70-110 Whole blood basic metabolic panel - 04/03 01/15 12:43 Serum or plasma sodium measurement (moles/volume) 134 mmol/L 135-145 Serum or plasma potassium measurement (moles/volume) 4.4 mmol/L 3.6-5.0 Serum or plasma chloride measurement (moles/volume) 108 mmol/L 98-107 Carbon dioxide 19 mmol/L 21-32 Serum or plasma anion gap determination (moles/volume) 7 mmol/L 5-14 Serum or plasma urea nitrogen measurement (mass/volume ) 8 mg/dL 7-18 Serum or plasma creatinine measurement (mass/volume) 0.73 mg/dL 0.60-1.30 Serum or plasma urea nitrogen/creatinine mass ratio 11 NRG Serum or plasma glucose measurement (mass/volume) 365 mg/dL 70-105 Serum or plasma calcium measurement (mass/volume) 8.3 mg/dL 8.5-10.1 Capillary blood glucose measurement by g lucometer (mass/volume) - 04/27/16 13:19 Capillary blood glucose measurement by glucometer (mas s/volume) 360 mg/dL 70-110 Capillary blood glucose measurement by g lucometer (mass/volume) - 04/27/16 14:16 Capillary blood glucose measurement by glucometer (mas s/volume) 291 mg/dL 70-110 Capillary blood glucose measurement by g lucometer (mass/volume) - 04/27/16 15:07 Capillary blood glucose measurement by glucometer (mas s/volume) 273 mg/dL 70-110 Capillary blood glucose measurement by g lucometer (mass/volume) - 04/27/16 16:03 Capillary blood glucose measurement by glucometer (mas s/volume) 265 mg/dL 70-110 Capillary blood glucose measurement by g lucometer (mass/volume) - 04/27/16 17:43 Capillary blood glucose measurement by glucometer (mas s/volume) 143 mg/dL 70-110 Capillary blood glucose measurement by g lucometer (mass/volume) - 04/27/16 18:15 Capillary blood glucose measurement by glucometer (mas s/volume) 116 mg/dL 70-110 Capillary blood glucose measurement by g lucometer (mass/volume) - 04/27/16 19:08 Capillary blood glucose measurement by glucometer (mas s/volume) 181 mg/dL 70-110 Capillary blood glucose measurement by g lucometer (mass/volume) - 04/27/16 19:52 Capillary blood glucose measurement by glucometer (mas s/volume) 230 mg/dL 70-110 Whole blood basic metabolic panel - 04/03 01/15 19:55 Serum or plasma sodium measurement (moles/volume) 135 mmol/L 135-145 Serum or plasma potassium measurement (moles/volume) 3.6 mmol/L 3.6-5.0 Serum or plasma chloride measurement (moles/volume) 106 mmol/L 98-107 Carbon dioxide 18 mmol/L 21-32 Serum or plasma anion gap determination (moles/volume) 11 mmol/L 5-14 Serum or plasma urea nitrogen measurement (mass/volume ) 6 mg/dL 7-18 Serum or plasma creatinine measurement (mass/volume) 0.68 mg/dL 0.60-1.30 Serum or plasma urea nitrogen/creatinine mass ratio 9 NRG Serum or plasma glucose measurement (mass/volume) 192 mg/dL 70-105 Serum or plasma calcium measurement (mass/volume) 9.1 mg/dL 8.5-10.1 Capillary blood glucose measurement by g lucometer (mass/volume) - 04/27/16 20:57 Capillary blood glucose measurement by glucometer (mas s/volume) 236 mg/dL 70-110 Capillary blood glucose measurement by g lucometer (mass/volume) - 04/27/16 21:55 Capillary blood glucose measurement by glucometer (mas s/volume) 245 mg/dL 70-110 Capillary blood glucose measurement by g lucometer (mass/volume) - 04/27/16 22:56 Capillary blood glucose measurement by glucometer (mas s/volume) 241 mg/dL 70-110 Capillary blood glucose measurement by g lucometer (mass/volume) - 04/27/16 23:58 Capillary blood glucose measurement by glucometer (mas s/volume) 172 mg/dL 70-110 Whole blood basic metabolic panel - 04/03 02/14 00:47 Serum or plasma sodium measurement (moles/volume) 139 mmol/L 135-145 Serum or plasma potassium measurement (moles/volume) 3.7 mmol/L 3.6-5.0 Serum or plasma chloride measurement (moles/volume) 112 mmol/L 98-107 Carbon dioxide 17 mmol/L 21-32 Serum or plasma anion gap determination (moles/volume) 10 mmol/L 5-14 Serum or plasma urea nitrogen measurement (mass/volume ) 5 mg/dL 7-18 Serum or plasma creatinine measurement (mass/volume) 0.61 mg/dL 0.60-1.30 Serum or plasma urea nitrogen/creatinine mass ratio 8 NRG Serum or plasma glucose measurement (mass/volume) 127 mg/dL 70-105 Serum or plasma calcium measurement (mass/volume) 8.5 mg/dL 8.5-10.1 Capillary blood glucose measurement by g lucometer (mass/volume) - 04/28/16 00:58 Capillary blood glucose measurement by glucometer (mas s/volume) 118 mg/dL 70-110 Capillary blood glucose measurement by g lucometer (mass/volume) - 04/28/16 01:29 Capillary blood glucose measurement by glucometer (mas s/volume) 111 mg/dL 70-110 Capillary blood glucose measurement by g lucometer (mass/volume) - 04/28/16 02:06 Capillary blood glucose measurement by glucometer (mas s/volume) 127 mg/dL 70-110 Capillary blood glucose measurement by g lucometer (mass/volume) - 04/28/16 02:31 Capillary blood glucose measurement by glucometer (mas s/volume) 105 mg/dL 70-110 Capillary blood glucose measurement by g lucometer (mass/volume) - 04/28/16 03:03 Capillary blood glucose measurement by glucometer (mas s/volume) 94 mg/dL 70-110 Capillary blood glucose measurement by g lucometer (mass/volume) - 04/28/16 03:34 Capillary blood glucose measurement by glucometer (mas s/volume) 75 mg/dL 70-110 Capillary blood glucose measurement by g lucometer (mass/volume) - 04/28/16 04:11 Capillary blood glucose measurement by glucometer (mas s/volume) 135 mg/dL 70-110 Capillary blood glucose measurement by g lucometer (mass/volume) - 04/28/16 04:29 Capillary blood glucose measurement by glucometer (mas s/volume) 171 mg/dL 70-110 Capillary blood glucose measurement by g lucometer (mass/volume) - 04/28/16 06:07 Capillary blood glucose measurement by glucometer (mas s/volume) 261 mg/dL 70-110 Capillary blood glucose measurement by g lucometer (mass/volume) - 04/28/16 07:03 Capillary blood glucose measurement by glucometer (mas s/volume) 292 mg/dL 70-110 Capillary blood glucose measurement by g lucometer (mass/volume) - 04/28/16 08:18 Capillary blood glucose measurement by glucometer (mas s/volume) 291 mg/dL 70-110 Automated blood complete blood count (he mogram) panel - 04/28/16 08:26 Blood leukocytes automated count (number/volume) 10.0 10*3/uL 4.3-11.0 Blood erythrocytes automated count (number/volume) 4.63 10*6/uL 4.35-5.85 Venous blood hemoglobin measurement (mass/volume) 14.2 g/dL 11.5-16.0 Blood hematocrit (volume fraction) 40 % 35-52 Automated erythrocyte mean corpuscular volume 86 [ foz_us] 80-99 Automated erythrocyte mean corpuscular h emoglobin (mass per erythrocyte) 31 pg 25-34 Automated erythrocyte mean corpuscular h emoglobin concentration measurement (mass/volume) 36 g/dL 32-36 Automated erythrocyte distribution width ratio 12. 5 % 10.0- 14.5 Automated blood platelet count (count/volume) 226 10*3/uL 130-400 Automated blood platelet mean volume measurement 11.1 [foz_us] 7.4-10.4 Whole blood basic metabolic panel - 04/03 02/14 08:26 Serum or plasma sodium measurement (moles/volume) 135 mmol/L 135-145 Serum or plasma potassium measurement (moles/volume) 4.2 mmol/L 3.6-5.0 Serum or plasma chloride measurement (moles/volume) 108 mmol/L 98-107 Carbon dioxide 16 mmol/L 21-32 Serum or plasma anion gap determination (moles/volume) 11 mmol/L 5-14 Serum or plasma urea nitrogen measurement (mass/volume ) 4 mg/dL 7-18 Serum or plasma creatinine measurement (mass/volume) 0.69 mg/dL 0.60-1.30 Serum or plasma urea nitrogen/creatinine mass ratio 6 NRG Serum or plasma glucose measurement (mass/volume) 325 mg/dL 70-105 Serum or plasma calcium measurement (mass/volume) 8.7 mg/dL 8.5-10.1 Complete urinalysis with reflex to cultu re - 04/28/16 09:10 Urine color determination YELLOW NRG Urine clarity determination CLEAR NR G Urine pH measurement by test strip 5 5-9 Specific gravity of urine by test strip 1.010 1.016-1.022 Urine protein assay by test strip, semi-quantitative NEGATIVE NEGATIVE Urine glucose detection by automated test strip 4+ NEGATIVE Erythrocytes detection in urine sediment by light micr oscopy NEGATIVE NEGATIVE Urine ketones detection by automated test strip 1+ NEGATIVE Urine nitrite detection by test strip NEGATIVE NEGATIVE Urine total bilirubin detection by test strip NEGA TIVE NEGATIVE Urine urobilinogen measurement by automated test strip (mass/volume) NORMAL NORMAL Urine leukocyte esterase detection by dipstick NEG ATIVE NEGATIVE Automated urine sediment erythrocyte cou nt by microscopy (number/high power field) NONE NRG Automated urine sediment leukocyte count by microscopy (number/high power field) NONE NRG Bacteria detection in urine sediment by light microsco py NEGATIVE NRG Crystals detection in urine sediment by light microsco py NONE NRG Casts detection in urine sediment by light microscopy NONE NRG Mucus detection in urine sediment by light microscopy NEGATIVE NRG Complete urinalysis with reflex to culture NO NRG Capillary blood glucose measurement by g lucometer (mass/volume) - 04/28/16 09:32 Capillary blood glucose measurement by glucometer (mas s/volume) 295 mg/dL 70-110 Capillary blood glucose measurement by g lucometer (mass/volume) - 04/28/16 10:11 Capillary blood glucose measurement by glucometer (mas s/volume) 290 mg/dL 70-110 Whole blood basic metabolic panel - 04/03 02/14 10:34 Serum or plasma sodium measurement (moles/volume) 136 mmol/L 135-145 Serum or plasma potassium measurement (moles/volume) 4.0 mmol/L 3.6-5.0 Serum or plasma chloride measurement (moles/volume) 107 mmol/L 98-107 Carbon dioxide 19 mmol/L 21-32 Serum or plasma anion gap determination (moles/volume) 10 mmol/L 5-14 Serum or plasma urea nitrogen measurement (mass/volume ) 4 mg/dL 7-18 Serum or plasma creatinine measurement (mass/volume) 0.75 mg/dL 0.60-1.30 Serum or plasma urea nitrogen/creatinine mass ratio 5 NRG Serum or plasma glucose measurement (mass/volume) 269 mg/dL 70-105 Serum or plasma calcium measurement (mass/volume) 9.2 mg/dL 8.5-10.1 Capillary blood glucose measurement by g lucometer (mass/volume) - 04/28/16 11:14 Capillary blood glucose measurement by glucometer (mas s/volume) 246 mg/dL 70-110 Capillary blood glucose measurement by g lucometer (mass/volume) - 04/28/16 12:12 Capillary blood glucose measurement by glucometer (mas s/volume) 262 mg/dL 70-110 Whole blood basic metabolic panel - 04/03 02/14 12:35 Serum or plasma sodium measurement (moles/volume) 135 mmol/L 135-145 Serum or plasma potassium measurement (moles/volume) 4.2 mmol/L 3.6-5.0 Serum or plasma chloride measurement (moles/volume) 108 mmol/L 98-107 Carbon dioxide 17 mmol/L -32 Serum or plasma anion gap determination (moles/volume) 10 mmol/L 5-14 Serum or plasma urea nitrogen measurement (mass/volume ) 5 mg/dL 7-18 Serum or plasma creatinine measurement (mass/volume) 0.69 mg/dL 0.60-1.30 Serum or plasma urea nitrogen/creatinine mass ratio 7 NRG Serum or plasma glucose measurement (mass/volume) 241 mg/dL 70-105 Serum or plasma calcium measurement (mass/volume) 9.2 mg/dL 8.5-10.1 Capillary blood glucose measurement by g lucometer (mass/volume) - 04/28/16 13:03 Capillary blood glucose measurement by glucometer (mas s/volume) 183 mg/dL 70-110 Capillary blood glucose measurement by g lucometer (mass/volume) - 04/28/16 14:13 Capillary blood glucose measurement by glucometer (mas s/volume) 133 mg/dL 70-110 Whole blood basic metabolic panel - 04/03 02/14 14:34 Serum or plasma sodium measurement (moles/volume) 138 mmol/L 135-145 Serum or plasma potassium measurement (moles/volume) 3.8 mmol/L 3.6-5.0 Serum or plasma chloride measurement (moles/volume) 109 mmol/L 98-107 Carbon dioxide 21 mmol/L 21-32 Serum or plasma anion gap determination (moles/volume) 8 mmol/L 5-14 Serum or plasma urea nitrogen measurement (mass/volume ) 5 mg/dL 7-18 Serum or plasma creatinine measurement (mass/volume) 0.64 mg/dL 0.60-1.30 Serum or plasma urea nitrogen/creatinine mass ratio 8 NRG Serum or plasma glucose measurement (mass/volume) 108 mg/dL 70-105 Serum or plasma calcium measurement (mass/volume) 9.4 mg/dL 8.5-10.1 Capillary blood glucose measurement by g lucometer (mass/volume) - 04/28/16 15:05 Capillary blood glucose measurement by glucometer (mas s/volume) 92 mg/dL 70-110 Capillary blood glucose measurement by g lucometer (mass/volume) - 04/28/16 15:19 Capillary blood glucose measurement by glucometer (mas s/volume) 226 mg/dL 70-110 Capillary blood glucose measurement by g lucometer (mass/volume) - 04/28/16 16:08 Capillary blood glucose measurement by glucometer (mas s/volume) 148 mg/dL 70-110 Whole blood basic metabolic panel - 04/03 02/14 16:49 Serum or plasma sodium measurement (moles/volume) 140 mmol/L 135-145 Serum or plasma potassium measurement (moles/volume) 3.8 mmol/L 3.6-5.0 Serum or plasma chloride measurement (moles/volume) 108 mmol/L 98-107 Carbon dioxide 19 mmol/L 21-32 Serum or plasma anion gap determination (moles/volume) 13 mmol/L 5-14 Serum or plasma urea nitrogen measurement (mass/volume ) 5 mg/dL 7-18 Serum or plasma creatinine measurement (mass/volume) 0.70 mg/dL 0.60-1.30 Serum or plasma urea nitrogen/creatinine mass ratio 7 NRG Serum or plasma glucose measurement (mass/volume) 99 mg/dL 70-105 Serum or plasma calcium measurement (mass/volume) 9.8 mg/dL 8.5-10.1 Capillary blood glucose measurement by g lucometer (mass/volume) - 04/28/16 17:24 Capillary blood glucose measurement by glucometer (mas s/volume) 96 mg/dL 70-110 Whole blood basic metabolic panel - 04/03 02/14 20:44 Serum or plasma sodium measurement (moles/volume) 136 mmol/L 135-145 Serum or plasma potassium measurement (moles/volume) 4.0 mmol/L 3.6-5.0 Serum or plasma chloride measurement (moles/volume) 106 mmol/L 98-107 Carbon dioxide 17 mmol/L -32 Serum or plasma anion gap determination (moles/volume) 13 mmol/L 5-14 Serum or plasma urea nitrogen measurement (mass/volume ) 6 mg/dL 7-18 Serum or plasma creatinine measurement (mass/volume) 0.73 mg/dL 0.60-1.30 Serum or plasma urea nitrogen/creatinine mass ratio 8 NRG Serum or plasma glucose measurement (mass/volume) 282 mg/dL 70-105 Serum or plasma calcium measurement (mass/volume) 9.2 mg/dL 8.5-10.1 Capillary blood glucose measurement by g lucometer (mass/volume) - 04/28/16 23:59 Capillary blood glucose measurement by glucometer (mas s/volume) 294 mg/dL 70-110 Whole blood basic metabolic panel - 04/03 03/17 00:35 Serum or plasma sodium measurement (moles/volume) 136 mmol/L 135-145 Serum or plasma potassium measurement (moles/volume) 4.0 mmol/L 3.6-5.0 Serum or plasma chloride measurement (moles/volume) 106 mmol/L 98-107 Carbon dioxide 17 mmol/L -32 Serum or plasma anion gap determination (moles/volume) 13 mmol/L 5-14 Serum or plasma urea nitrogen measurement (mass/volume ) 8 mg/dL 7-18 Serum or plasma creatinine measurement (mass/volume) 0.71 mg/dL 0.60-1.30 Serum or plasma urea nitrogen/creatinine mass ratio 11 NRG Serum or plasma glucose measurement (mass/volume) 270 mg/dL 70-105 Serum or plasma calcium measurement (mass/volume) 9.1 mg/dL 8.5-10.1 Complete blood count (CBC) with automate d white blood cell (WBC) differential - 04/29/16 04:25 Blood leukocytes automated count (number/volume) 11.5 10*3/uL 4.3-11.0 Blood erythrocytes automated count (number/volume) 4.37 10*6/uL 4.35-5.85 Venous blood hemoglobin measurement (mass/volume) 13.6 g/dL 11.5-16.0 Blood hematocrit (volume fraction) 38 % 35-52 Automated erythrocyte mean corpuscular volume 87 [ foz_us] 80-99 Automated erythrocyte mean corpuscular h emoglobin (mass per erythrocyte) 31 pg 25-34 Automated erythrocyte mean corpuscular h emoglobin concentration measurement (mass/volume) 36 g/dL 32-36 Automated erythrocyte distribution width ratio 12. 1 % 10.0- 14.5 Automated blood platelet count (count/volume) 206 10*3/uL 130-400 Automated blood platelet mean volume measurement 11.5 [foz_us] 7.4-10.4 Automated blood neutrophils/100 leukocytes 51 % 42-75 Automated blood lymphocytes/100 leukocytes 39 % 12-44 Blood monocytes/100 leukocytes 8 % 0-12 Automated blood eosinophils/100 leukocytes 1 % 0-10 Automated blood basophils/100 leukocytes 0 % 0-10 Blood neutrophils automated count (number/volume) 5.9 10*3 1.8-7.8 Blood lymphocytes automated count (number/volume) 4.5 10*3 1.0-4.0 Blood monocytes automated count (number/volume) 1. 0 10*3 0.0-1.0 Automated eosinophil count 0.1 10*3/uL 0 .0-0.3 Automated blood basophil count (count/volume) 0.0 10*3/uL 0.0-0.1 Whole blood basic metabolic panel - 04/03 03/17 04:25 Serum or plasma sodium measurement (moles/volume) 138 mmol/L 135-145 Serum or plasma potassium measurement (moles/volume) 4.0 mmol/L 3.6-5.0 Serum or plasma chloride measurement (moles/volume) 109 mmol/L 98-107 Carbon dioxide 18 mmol/L 21-32 Serum or plasma anion gap determination (moles/volume) 11 mmol/L 5-14 Serum or plasma urea nitrogen measurement (mass/volume ) 8 mg/dL 7-18 Serum or plasma creatinine measurement (mass/volume) 0.65 mg/dL 0.60-1.30 Serum or plasma urea nitrogen/creatinine mass ratio 12 NRG Serum or plasma glucose measurement (mass/volume) 176 mg/dL 70-105 Serum or plasma calcium measurement (mass/volume) 9.0 mg/dL 8.5-10.1 Serum or plasma phosphate measurement (m ass/volume) - 04/29/16 04:25 Serum or plasma phosphate measurement (mass/volume) 5.4 mg/dL 2.3-4.7 Magnesium - 04/29/16 04:25 Magnesium 1.9 mg/dL 1.8-2.4 Whole blood basic metabolic panel - 04/03 03/17 08:40 Serum or plasma sodium measurement (moles/volume) 138 mmol/L 135-145 Serum or plasma potassium measurement (moles/volume) 4.2 mmol/L 3.6-5.0 Serum or plasma chloride measurement (moles/volume) 110 mmol/L 98-107 Carbon dioxide 17 mmol/L -32 Serum or plasma anion gap determination (moles/volume) 11 mmol/L 5-14 Serum or plasma urea nitrogen measurement (mass/volume ) 7 mg/dL 7-18 Serum or plasma creatinine measurement (mass/volume) 0.65 mg/dL 0.60-1.30 Serum or plasma urea nitrogen/creatinine mass ratio 11 NRG Serum or plasma glucose measurement (mass/volume) 178 mg/dL 70-105 Serum or plasma calcium measurement (mass/volume) 9.0 mg/dL 8.5-10.1 Complete urinalysis with reflex to cultu re - 10/24/16 13:55 Urine color determination YELLOW NRG Urine clarity determination CLEAR NR G Urine pH measurement by test strip 8 5-9 Specific gravity of urine by test strip 1.015 1.016-1.022 Urine protein assay by test strip, semi-quantitative NEGATIVE NEGATIVE Urine glucose detection by automated test strip NE GATIVE NEGATIVE Erythrocytes detection in urine sediment by light micr oscopy NEGATIVE NEGATIVE Urine ketones detection by automated test strip NE GATIVE NEGATIVE Urine nitrite detection by test strip NEGATIVE NEGATIVE Urine total bilirubin detection by test strip NEGA TIVE NEGATIVE Urine urobilinogen measurement by automated test strip (mass/volume) NORMAL NORMAL Urine leukocyte esterase detection by dipstick NEG ATIVE NEGATIVE Automated urine sediment erythrocyte cou nt by microscopy (number/high power field) NONE NRG Automated urine sediment leukocyte count by microscopy (number/high power field) RARE NRG Bacteria detection in urine sediment by light microsco py TRACE NRG Squamous epithelial cells detection in u rine sediment by light microscopy 5-10 NRG Crystals detection in urine sediment by light microsco py NONE NRG Casts detection in urine sediment by light microscopy NONE NRG Mucus detection in urine sediment by light microscopy NEGATIVE NRG Complete urinalysis with reflex to culture NO NRG Urine beta human chorionic gonadotropin (hCG) measurement - 10/24/16 13:55 Urine beta human chorionic gonadotropin (hCG) measurem ent NEGATIVE NEGATIVE Complete blood count (CBC) with automate d white blood cell (WBC) differential - 10/24/16 14:07 Blood leukocytes automated count (number/volume) 11.3 10*3/uL 4.3-11.0 Blood erythrocytes automated count (number/volume) 4.42 10*6/uL 4.35-5.85 Venous blood hemoglobin measurement (mass/volume) 13.9 g/dL 11.5-16.0 Blood hematocrit (volume fraction) 39 % 35-52 Automated erythrocyte mean corpuscular volume 89 [ foz_us] 80-99 Automated erythrocyte mean corpuscular h emoglobin (mass per erythrocyte) 31 pg 25-34 Automated erythrocyte mean corpuscular h emoglobin concentration measurement (mass/volume) 36 g/dL 32-36 Automated erythrocyte distribution width ratio 12. 1 % 10.0- 14.5 Automated blood platelet count (count/volume) 312 10*3/uL 130-400 Automated blood platelet mean volume measurement 9.8 [foz_us] 7.4-10.4 Automated blood neutrophils/100 leukocytes 63 % 42-75 Automated blood lymphocytes/100 leukocytes 27 % 12-44 Blood monocytes/100 leukocytes 9 % 0-12 Automated blood eosinophils/100 leukocytes 1 % 0-10 Automated blood basophils/100 leukocytes 0 % 0-10 Blood neutrophils automated count (number/volume) 7.0 10*3 1.8-7.8 Blood lymphocytes automated count (number/volume) 3.1 10*3 1.0-4.0 Blood monocytes automated count (number/volume) 1. 0 10*3 0.0-1.0 Automated eosinophil count 0.1 10*3/uL 0 .0-0.3 Automated blood basophil count (count/volume) 0.1 10*3/uL 0.0-0.1 Comprehensive metabolic panel - 10/24/16 14:07 Serum or plasma sodium measurement (moles/volume) 142 mmol/L 135-145 Serum or plasma potassium measurement (moles/volume) 3.9 mmol/L 3.6-5.0 Serum or plasma chloride measurement (moles/volume) 108 mmol/L 98-107 Carbon dioxide 23 mmol/L 21-32 Serum or plasma anion gap determination (moles/volume) 11 mmol/L 5-14 Serum or plasma urea nitrogen measurement (mass/volume ) 14 mg/dL 7-18 Serum or plasma creatinine measurement (mass/volume) 0.75 mg/dL 0.60-1.30 Serum or plasma urea nitrogen/creatinine mass ratio 19 NRG Serum or plasma glucose measurement (mass/volume) 102 mg/dL 70-105 Serum or plasma calcium measurement (mass/volume) 9.5 mg/dL 8.5-10.1 Serum or plasma total bilirubin measurement (mass/volu me) 0.3 mg/dL 0.1-1.0 Serum or plasma alkaline phosphatase gerardo surement (enzymatic activity/volume) 122 U/L 60-350 Serum or plasma aspartate aminotransfera se measurement (enzymatic activity/volume) 13 U/L 5-34 Serum or plasma alanine aminotransferase measurement (enzymatic activity/volume) 17 U/L 0-55 Serum or plasma protein measurement (mass/volume) 7.2 g/dL 6.4-8.2 Serum or plasma albumin measurement (mass/volume) 4.4 g/dL 3.2-4.5 Capillary blood glucose measurement by g lucometer (mass/volume) - 10/24/16 14:20 Capillary blood glucose measurement by glucometer (mas s/volume) 128 mg/dL 70-110 Complete urinalysis with reflex to cultu re - 06/02/17 17:00 Urine color determination YELLOW NRG Urine clarity determination CLEAR NR G Urine pH measurement by test strip 6 5-9 Specific gravity of urine by test strip 1.025 1.016-1.022 Urine protein assay by test strip, semi-quantitative 2+ NEGATIVE Urine glucose detection by automated test strip 1+ NEGATIVE Erythrocytes detection in urine sediment by light micr oscopy 5+ NEGATIVE Urine ketones detection by automated test strip 4+ NEGATIVE Urine nitrite detection by test strip NEGATIVE NEGATIVE Urine total bilirubin detection by test strip 1+ NEGATIVE Urine urobilinogen measurement by automated test strip (mass/volume) 1 mg/dL NORMAL Urine leukocyte esterase detection by dipstick 1+ NEGATIVE Automated urine sediment erythrocyte cou nt by microscopy (number/high power field) [HPF] NRG Automated urine sediment leukocyte count by microscopy (number/high power field) [HPF] NRG Bacteria detection in urine sediment by light microsco py FEW NRG Squamous epithelial cells detection in u rine sediment by light microscopy 2-5 NRG Crystals detection in urine sediment by light microsco py NONE NRG Casts detection in urine sediment by light microscopy NONE NRG Mucus detection in urine sediment by light microscopy LARGE NRG Complete urinalysis with reflex to culture NO NRG Complete blood count (CBC) with automate d white blood cell (WBC) differential - 06/02/17 18:20 Blood leukocytes automated count (number/volume) 15.4 10*3/uL 4.3-11.0 Blood erythrocytes automated count (number/volume) 5.04 10*6/uL 4.35-5.85 Venous blood hemoglobin measurement (mass/volume) 15.8 g/dL 11.5-16.0 Blood hematocrit (volume fraction) 45 % 35-52 Automated erythrocyte mean corpuscular volume 88 [ foz_us] 80-99 Automated erythrocyte mean corpuscular h emoglobin (mass per erythrocyte) 31 pg 25-34 Automated erythrocyte mean corpuscular h emoglobin concentration measurement (mass/volume) 36 g/dL 32-36 Automated erythrocyte distribution width ratio 12. 3 % 10.0- 14.5 Automated blood platelet count (count/volume) 283 10*3/uL 130-400 Automated blood platelet mean volume measurement 9.7 [foz_us] 7.4-10.4 Automated blood neutrophils/100 leukocytes 68 % 42-75 Automated blood lymphocytes/100 leukocytes 21 % 12-44 Blood monocytes/100 leukocytes 10 % 0-12 Automated blood eosinophils/100 leukocytes 0 % 0-10 Automated blood basophils/100 leukocytes 1 % 0-10 Blood neutrophils automated count (number/volume) 10.5 10*3 1.8-7.8 Blood lymphocytes automated count (number/volume) 3.3 10*3 1.0-4.0 Blood monocytes automated count (number/volume) 1. 5 10*3 0.0-1.0 Automated eosinophil count 0.0 10*3/uL 0 .0-0.3 Automated blood basophil count (count/volume) 0.1 10*3/uL 0.0-0.1 Blood manual differential performed dete ction - 06/02/17 18:20 Blood monocytes/100 leukocytes 2 % NRG Manual blood segmented neutrophils/100 leukocytes 73 % NRG Blood band neutrophils/100 leukocytes 0 % NRG Manual blood lymphocytes/100 leukocytes 25 % NRG Manual eosinophils/100 leukocytes in nose 0 % NRG Manual blood basophils/100 leukocytes 0 % NRG Blood erythrocyte morphology finding identification NORMAL NRG Comprehensive metabolic panel - 06/02/17 18:20 Serum or plasma sodium measurement (moles/volume) 140 mmol/L 135-145 Serum or plasma potassium measurement (moles/volume) 3.2 mmol/L 3.6-5.0 Serum or plasma chloride measurement (moles/volume) 103 mmol/L 98-107 Carbon dioxide 21 mmol/L 21-32 Serum or plasma anion gap determination (moles/volume) 16 mmol/L 5-14 Serum or plasma urea nitrogen measurement (mass/volume ) 13 mg/dL 7-18 Serum or plasma creatinine measurement (mass/volume) 0.76 mg/dL 0.60-1.30 Serum or plasma urea nitrogen/creatinine mass ratio 17 NRG Serum or plasma creatinine measurement w ith calculation of estimated glomerular filtration rate > NRG Serum or plasma glucose measurement (mass/volume) 164 mg/dL 70-105 Serum or plasma calcium measurement (mass/volume) 9.7 mg/dL 8.5-10.1 Serum or plasma total bilirubin measurement (mass/volu me) 0.4 mg/dL 0.1-1.0 Serum or plasma alkaline phosphatase gerardo surement (enzymatic activity/volume) 138 U/L 60-350 Serum or plasma aspartate aminotransfera se measurement (enzymatic activity/volume) 18 U/L 5-34 Serum or plasma alanine aminotransferase measurement (enzymatic activity/volume) 16 U/L 0-55 Serum or plasma protein measurement (mass/volume) 7.8 g/dL 6.4-8.2 Serum or plasma albumin measurement (mass/volume) 4.6 g/dL 3.2-4.5 Lipase - 06/02/17 18:20 Lipase 7 U/L 8-78 Complete blood count (CBC) with automate d white blood cell (WBC) differential - 07/19/17 05:40 Blood leukocytes automated count (number/volume) 17.1 10*3/uL 4.3-11.0 Blood erythrocytes automated count (number/volume) 4.91 10*6/uL 4.35-5.85 Venous blood hemoglobin measurement (mass/volume) 15.5 g/dL 11.5-16.0 Blood hematocrit (volume fraction) 43 % 35-52 Automated erythrocyte mean corpuscular volume 88 [ foz_us] 80-99 Automated erythrocyte mean corpuscular h emoglobin (mass per erythrocyte) 32 pg 25-34 Automated erythrocyte mean corpuscular h emoglobin concentration measurement (mass/volume) 36 g/dL 32-36 Automated erythrocyte distribution width ratio 12. 3 % 10.0- 14.5 Automated blood platelet count (count/volume) 329 10*3/uL 130-400 Automated blood platelet mean volume measurement 10.0 [foz_us] 7.4-10.4 Automated blood neutrophils/100 leukocytes 69 % 42-75 Automated blood lymphocytes/100 leukocytes 22 % 12-44 Blood monocytes/100 leukocytes 9 % 0-12 Automated blood eosinophils/100 leukocytes 0 % 0-10 Automated blood basophils/100 leukocytes 0 % 0-10 Blood neutrophils automated count (number/volume) 11.8 10*3 1.8-7.8 Blood lymphocytes automated count (number/volume) 3.8 10*3 1.0-4.0 Blood monocytes automated count (number/volume) 1. 5 10*3 0.0-1.0 Automated eosinophil count 0.0 10*3/uL 0 .0-0.3 Automated blood basophil count (count/volume) 0.0 10*3/uL 0.0-0.1 Comprehensive metabolic panel - 07/19/17 05:40 Serum or plasma sodium measurement (moles/volume) 139 mmol/L 135-145 Serum or plasma potassium measurement (moles/volume) 3.3 mmol/L 3.6-5.0 Serum or plasma chloride measurement (moles/volume) 105 mmol/L 98-107 Carbon dioxide 20 mmol/L 21-32 Serum or plasma anion gap determination (moles/volume) 14 mmol/L 5-14 Serum or plasma urea nitrogen measurement (mass/volume ) 6 mg/dL 7-18 Serum or plasma creatinine measurement (mass/volume) 0.68 mg/dL 0.60-1.30 Serum or plasma urea nitrogen/creatinine mass ratio 9 NRG Serum or plasma creatinine measurement w ith calculation of estimated glomerular filtration rate > NRG Serum or plasma glucose measurement (mass/volume) 203 mg/dL 70-105 Serum or plasma calcium measurement (mass/volume) 9.6 mg/dL 8.5-10.1 Serum or plasma total bilirubin measurement (mass/volu me) 0.5 mg/dL 0.1-1.0 Serum or plasma alkaline phosphatase gerardo surement (enzymatic activity/volume) 99 U/L 60-350 Serum or plasma aspartate aminotransfera se measurement (enzymatic activity/volume) 12 U/L 5-34 Serum or plasma alanine aminotransferase measurement (enzymatic activity/volume) 13 U/L 0-55 Serum or plasma protein measurement (mass/volume) 7.6 g/dL 6.4-8.2 Serum or plasma albumin measurement (mass/volume) 4.4 g/dL 3.2-4.5 Magnesium - 07/19/17 05:40 Magnesium 2.0 mg/dL 1.8-2.4 Serum or plasma thyrotropin measurement by detection limit <=0.05 miu/l (units/volume) - 07/19/17 05:40 Serum or plasma thyrotropin measurement by detection limit <=0.05 miu/l (units/volume) 2.00 u[iU]/mL 0.35-4.94 Blood manual differential performed dete ction - 07/19/17 05:40 Blood monocytes/100 leukocytes 7 % NRG Manual blood segmented neutrophils/100 leukocytes 67 % NRG Blood band neutrophils/100 leukocytes 2 % NRG Manual blood lymphocytes/100 leukocytes 23 % NRG Manual eosinophils/100 leukocytes in nose 1 % NRG Blood erythrocyte morphology finding identification NORMAL NRG Serum or plasma choriogonadotropin measu rement (units/volume) - 07/19/17 05:40 Serum or plasma choriogonadotropin measurement (units/ volume) [id number] m[iU]/mL <5 Serum or plasma ethanol measurement (mas s/volume) - 07/19/17 05:40 Serum or plasma ethanol measurement (mass/volume) < mg/dL <10 Complete urinalysis with reflex to cultu re - 07/19/17 06:35 Urine color determination YELLOW NRG Urine clarity determination CLEAR NR G Urine pH measurement by test strip 7 5-9 Specific gravity of urine by test strip 1.010 1.016-1.022 Urine protein assay by test strip, semi-quantitative 1+ NEGATIVE Urine glucose detection by automated test strip 4+ NEGATIVE Erythrocytes detection in urine sediment by light micr oscopy NEGATIVE NEGATIVE Urine ketones detection by automated test strip 3+ NEGATIVE Urine nitrite detection by test strip NEGATIVE NEGATIVE Urine total bilirubin detection by test strip NEGA TIVE NEGATIVE Urine urobilinogen measurement by automated test strip (mass/volume) NORMAL NORMAL Urine leukocyte esterase detection by dipstick NEG ATIVE NEGATIVE Automated urine sediment erythrocyte cou nt by microscopy (number/high power field) NONE NRG Automated urine sediment leukocyte count by microscopy (number/high power field) NONE NRG Bacteria detection in urine sediment by light microsco py MODERATE NRG Squamous epithelial cells detection in u rine sediment by light microscopy 5-10 NRG Crystals detection in urine sediment by light microsco py NONE NRG Casts detection in urine sediment by light microscopy NONE NRG Mucus detection in urine sediment by light microscopy MODERATE NRG Complete urinalysis with reflex to culture YES NRG Urine drug screening test - 07/19/17 06: 35 Urine phencyclidine detection by screening method NEGATIVE NEGATIVE Urine benzodiazepines detection by screening method NEGATIVE NEGATIVE Urine cocaine detection NEGATIVE NEGATI VE Urine amphetamines detection by screening method N EGATIVE NEGATIVE Urine methamphetamine detection by screening method NEGATIVE NEGATIVE Urine cannabinoids detection by screening method P OSITIVE NEGATIVE Urine opiates detection by screening method NEGATI VE NEGATIVE Urine barbiturates detection NEGATIVE N EGATIVE Screening urine tricyclic antidepressants detection NEGATIVE NEGATIVE Urine methadone detection by screening method NEGA TIVE NEGATIVE Urine oxycodone detection NEGATIVE NEGA TIVE Urine propoxyphene detection NEGATIVE N EGATIVE Bacterial urine culture - 07/19/17 06:35 URINE CULTURE RESULTS <10,000/ML NRG Capillary blood glucose measurement by g lucometer (mass/volume) - 08/01/17 21:53 Capillary blood glucose measurement by glucometer (mas s/volume) 55 mg/dL 70-110 Complete blood count (CBC) with automate d white blood cell (WBC) differential - 08/01/17 22:14 Blood leukocytes automated count (number/volume) 21.0 10*3/uL 4.3-11.0 Blood erythrocytes automated count (number/volume) 4.62 10*6/uL 4.35-5.85 Venous blood hemoglobin measurement (mass/volume) 14.3 g/dL 11.5-16.0 Blood hematocrit (volume fraction) 41 % 35-52 Automated erythrocyte mean corpuscular volume 89 [ foz_us] 80-99 Automated erythrocyte mean corpuscular h emoglobin (mass per erythrocyte) 31 pg 25-34 Automated erythrocyte mean corpuscular h emoglobin concentration measurement (mass/volume) 35 g/dL 32-36 Automated erythrocyte distribution width ratio 12. 6 % 10.0- 14.5 Automated blood platelet count (count/volume) 305 10*3/uL 130-400 Automated blood platelet mean volume measurement 9.8 [foz_us] 7.4-10.4 Automated blood neutrophils/100 leukocytes 69 % 42-75 Automated blood lymphocytes/100 leukocytes 22 % 12-44 Blood monocytes/100 leukocytes 8 % 0-12 Automated blood eosinophils/100 leukocytes 0 % 0-10 Automated blood basophils/100 leukocytes 0 % 0-10 Blood neutrophils automated count (number/volume) 14.6 10*3 1.8-7.8 Blood lymphocytes automated count (number/volume) 4.7 10*3 1.0-4.0 Blood monocytes automated count (number/volume) 1. 6 10*3 0.0-1.0 Automated eosinophil count 0.1 10*3/uL 0 .0-0.3 Automated blood basophil count (count/volume) 0.0 10*3/uL 0.0-0.1 Blood manual differential performed dete ction - 08/01/17 22:14 Blood monocytes/100 leukocytes 6 % NRG Manual blood segmented neutrophils/100 leukocytes 78 % NRG Blood band neutrophils/100 leukocytes 0 % NRG Manual blood lymphocytes/100 leukocytes 15 % NRG Manual eosinophils/100 leukocytes in nose 1 % NRG Manual blood basophils/100 leukocytes 0 % NRG Blood erythrocyte morphology finding identification NORMAL NRG Comprehensive metabolic panel - 08/01/17 22:14 Serum or plasma sodium measurement (moles/volume) 140 mmol/L 135-145 Serum or plasma potassium measurement (moles/volume) 3.2 mmol/L 3.6-5.0 Serum or plasma chloride measurement (moles/volume) 106 mmol/L 98-107 Carbon dioxide 21 mmol/L 21-32 Serum or plasma anion gap determination (moles/volume) 13 mmol/L 5-14 Serum or plasma urea nitrogen measurement (mass/volume ) 5 mg/dL 7-18 Serum or plasma creatinine measurement (mass/volume) 0.56 mg/dL 0.60-1.30 Serum or plasma urea nitrogen/creatinine mass ratio 9 NRG Serum or plasma creatinine measurement w ith calculation of estimated glomerular filtration rate > NRG Serum or plasma glucose measurement (mass/volume) 48 mg/dL 70-105 Serum or plasma calcium measurement (mass/volume) 9.6 mg/dL 8.5-10.1 Serum or plasma total bilirubin measurement (mass/volu me) 0.2 mg/dL 0.1-1.0 Serum or plasma alkaline phosphatase gerardo surement (enzymatic activity/volume) 90 U/L 60-350 Serum or plasma aspartate aminotransfera se measurement (enzymatic activity/volume) 14 U/L 5-34 Serum or plasma alanine aminotransferase measurement (enzymatic activity/volume) 11 U/L 0-55 Serum or plasma protein measurement (mass/volume) 7.2 g/dL 6.4-8.2 Serum or plasma albumin measurement (mass/volume) 4.1 g/dL 3.2-4.5 Serum or plasma choriogonadotropin measu rement (units/volume) - 08/01/17 22:14 Serum or plasma choriogonadotropin measurement (units/ volume) [id number] m[iU]/mL <5 Capillary blood glucose measurement by g lucometer (mass/volume) - 08/01/17 23:30 Capillary blood glucose measurement by glucometer (mas s/volume) 191 mg/dL 70-110 Complete urinalysis with reflex to cultu re - 08/01/17 23:46 Urine color determination YELLOW NRG Urine clarity determination CLEAR NR G Urine pH measurement by test strip 6.5 5-9 Specific gravity of urine by test strip 1.010 1.016-1.022 Urine protein assay by test strip, semi-quantitative NEGATIVE NEGATIVE Urine glucose detection by automated test strip 4+ NEGATIVE Erythrocytes detection in urine sediment by light micr oscopy NEGATIVE NEGATIVE Urine ketones detection by automated test strip NE GATIVE NEGATIVE Urine nitrite detection by test strip NEGATIVE NEGATIVE Urine total bilirubin detection by test strip NEGA TIVE NEGATIVE Urine urobilinogen measurement by automated test strip (mass/volume) NORMAL NORMAL Urine leukocyte esterase detection by dipstick NEG ATIVE NEGATIVE Automated urine sediment erythrocyte cou nt by microscopy (number/high power field) NONE NRG Automated urine sediment leukocyte count by microscopy (number/high power field) NONE NRG Bacteria detection in urine sediment by light microsco py TRACE NRG Squamous epithelial cells detection in u rine sediment by light microscopy 10-25 NRG Crystals detection in urine sediment by light microsco py NONE NRG Casts detection in urine sediment by light microscopy NONE NRG Mucus detection in urine sediment by light microscopy NEGATIVE NRG Complete urinalysis with reflex to culture NO NRG Complete blood count (CBC) with automate d white blood cell (WBC) differential - 02/05/18 23:00 Blood leukocytes automated count (number/volume) 15.8 10*3/uL 4.3-11.0 Blood erythrocytes automated count (number/volume) 4.04 10*6/uL 4.35-5.85 Venous blood hemoglobin measurement (mass/volume) 12.5 g/dL 11.5-16.0 Blood hematocrit (volume fraction) 36 % 35-52 Automated erythrocyte mean corpuscular volume 89 [ foz_us] 80-99 Automated erythrocyte mean corpuscular h emoglobin (mass per erythrocyte) 31 pg 25-34 Automated erythrocyte mean corpuscular h emoglobin concentration measurement (mass/volume) 35 g/dL 32-36 Automated erythrocyte distribution width ratio 12. 4 % 10.0- 14.5 Automated blood platelet count (count/volume) 293 10*3/uL 130-400 Automated blood platelet mean volume measurement 10.5 [foz_us] 7.4-10.4 Automated blood neutrophils/100 leukocytes 68 % 42-75 Automated blood lymphocytes/100 leukocytes 20 % 12-44 Blood monocytes/100 leukocytes 11 % 0-12 Automated blood eosinophils/100 leukocytes 0 % 0-10 Automated blood basophils/100 leukocytes 0 % 0-10 Blood neutrophils automated count (number/volume) 10.8 10*3 1.8-7.8 Blood lymphocytes automated count (number/volume) 3.1 10*3 1.0-4.0 Blood monocytes automated count (number/volume) 1. 8 10*3 0.0-1.0 Automated eosinophil count 0.1 10*3/uL 0 .0-0.3 Automated blood basophil count (count/volume) 0.1 10*3/uL 0.0-0.1 Blood manual differential performed dete ction - 02/05/18 23:00 Blood monocytes/100 leukocytes 8 % NRG Manual blood segmented neutrophils/100 leukocytes 71 % NRG Blood band neutrophils/100 leukocytes 5 % NRG Manual blood lymphocytes/100 leukocytes 15 % NRG Manual eosinophils/100 leukocytes in nose 1 % NRG Blood erythrocyte morphology finding identification NORMAL NRG Blood type T Indirect antibody screen pa rema - 02/05/18 23:00 ABO+Rh group AP NRG Transfusion band number [id number] NRG Blood group antibody screen NEGATIVE NR G Capillary blood glucose measurement by g lucometer (mass/volume) - 02/05/18 23:15 Capillary blood glucose measurement by glucometer (mas s/volume) 71 mg/dL 70-110 Capillary blood glucose measurement by g lucometer (mass/volume) - 02/06/18 00:11 Capillary blood glucose measurement by glucometer (mas s/volume) 50 mg/dL 70-110 Capillary blood glucose measurement by g lucometer (mass/volume) - 02/06/18 00:58 Capillary blood glucose measurement by glucometer (mas s/volume) 71 mg/dL 70-110 Capillary blood glucose measurement by g lucometer (mass/volume) - 02/06/18 02:12 Capillary blood glucose measurement by glucometer (mas s/volume) 106 mg/dL 70-110 Capillary blood glucose measurement by g lucometer (mass/volume) - 02/06/18 03:21 Capillary blood glucose measurement by glucometer (mas s/volume) 89 mg/dL 70-110 Capillary blood glucose measurement by g lucometer (mass/volume) - 02/06/18 05:14 Capillary blood glucose measurement by glucometer (mas s/volume) 74 mg/dL 70-110 Capillary blood glucose measurement by g lucometer (mass/volume) - 02/06/18 09:16 Capillary blood glucose measurement by glucometer (mas s/volume) 85 mg/dL 70-110 Capillary blood glucose measurement by g lucometer (mass/volume) - 02/06/18 11:58 Capillary blood glucose measurement by glucometer (mas s/volume) 64 mg/dL 70-110 Capillary blood glucose measurement by g lucometer (mass/volume) - 02/06/18 16:11 Capillary blood glucose measurement by glucometer (mas s/volume) 56 mg/dL 70-110 Capillary blood glucose measurement by g lucometer (mass/volume) - 02/06/18 17:19 Capillary blood glucose measurement by glucometer (mas s/volume) 54 mg/dL 70-110 Capillary blood glucose measurement by g lucometer (mass/volume) - 02/06/18 18:18 Capillary blood glucose measurement by glucometer (mas s/volume) 54 mg/dL 70-110 Capillary blood glucose measurement by g lucometer (mass/volume) - 02/06/18 23:20 Capillary blood glucose measurement by glucometer (mas s/volume) 43 mg/dL 70-110 Capillary blood glucose measurement by g lucometer (mass/volume) - 02/07/18 01:45 Capillary blood glucose measurement by glucometer (mas s/volume) 39 mg/dL 70-110 Capillary blood glucose measurement by g lucometer (mass/volume) - 02/07/18 02:45 Capillary blood glucose measurement by glucometer (mas s/volume) 75 mg/dL 70-110 Capillary blood glucose measurement by g lucometer (mass/volume) - 02/07/18 04:30 Capillary blood glucose measurement by glucometer (mas s/volume) 64 mg/dL 70-110 Capillary blood glucose measurement by g lucometer (mass/volume) - 02/07/18 05:34 Capillary blood glucose measurement by glucometer (mas s/volume) 41 mg/dL 70-110 Complete blood count (CBC) with automate d white blood cell (WBC) differential - 02/07/18 05:47 Blood leukocytes automated count (number/volume) 21.0 10*3/uL 4.3-11.0 Blood erythrocytes automated count (number/volume) 4.18 10*6/uL 4.35-5.85 Venous blood hemoglobin measurement (mass/volume) 12.9 g/dL 11.5-16.0 Blood hematocrit (volume fraction) 38 % 35-52 Automated erythrocyte mean corpuscular volume 90 [ foz_us] 80-99 Automated erythrocyte mean corpuscular h emoglobin (mass per erythrocyte) 31 pg 25-34 Automated erythrocyte mean corpuscular h emoglobin concentration measurement (mass/volume) 34 g/dL 32-36 Automated erythrocyte distribution width ratio 12. 7 % 10.0- 14.5 Automated blood platelet count (count/volume) 294 10*3/uL 130-400 Automated blood platelet mean volume measurement 10.2 [foz_us] 7.4-10.4 Automated blood neutrophils/100 leukocytes 69 % 42-75 Automated blood lymphocytes/100 leukocytes 21 % 12-44 Blood monocytes/100 leukocytes 9 % 0-12 Automated blood eosinophils/100 leukocytes 0 % 0-10 Automated blood basophils/100 leukocytes 0 % 0-10 Blood neutrophils automated count (number/volume) 14.5 10*3 1.8-7.8 Blood lymphocytes automated count (number/volume) 4.5 10*3 1.0-4.0 Blood monocytes automated count (number/volume) 1. 9 10*3 0.0-1.0 Automated eosinophil count 0.1 10*3/uL 0 .0-0.3 Automated blood basophil count (count/volume) 0.0 10*3/uL 0.0-0.1 Capillary blood glucose measurement by g lucometer (mass/volume) - 02/07/18 06:33 Capillary blood glucose measurement by glucometer (mas s/volume) 85 mg/dL 70-110 Capillary blood glucose measurement by g lucometer (mass/volume) - 02/07/18 09:22 Capillary blood glucose measurement by glucometer (mas s/volume) 56 mg/dL 70-110 Capillary blood glucose measurement by g lucometer (mass/volume) - 02/07/18 11:18 Capillary blood glucose measurement by glucometer (mas s/volume) 180 mg/dL 70-110 Lipase - 07/09/19 10:50 Lipase < U/L 8-78 Complete blood count (CBC) with automate d white blood cell (WBC) differential - 07/09/19 10:53 Blood leukocytes automated count (number/volume) 26.8 10*3/uL 4.3-11.0 Blood erythrocytes automated count (number/volume) 5.24 10*6/uL 4.35-5.85 Venous blood hemoglobin measurement (mass/volume) 16.5 g/dL 11.5-16.0 Blood hematocrit (volume fraction) 47 % 35-52 Automated erythrocyte mean corpuscular volume 89 [ foz_us] 80-99 Automated erythrocyte mean corpuscular h emoglobin (mass per erythrocyte) 31 pg 25-34 Automated erythrocyte mean corpuscular h emoglobin concentration measurement (mass/volume) 35 g/dL 32-36 Automated erythrocyte distribution width ratio 12. 5 % 10.0- 14.5 Automated blood platelet count (count/volume) 416 10*3/uL 130-400 Automated blood platelet mean volume measurement 9.8 [foz_us] 7.4-10.4 Automated blood neutrophils/100 leukocytes 87 % 42-75 Automated blood lymphocytes/100 leukocytes 8 % 12-44 Blood monocytes/100 leukocytes 4 % 0-12 Automated blood eosinophils/100 leukocytes 0 % 0-10 Automated blood basophils/100 leukocytes 0 % 0-10 Blood neutrophils automated count (number/volume) 23.4 10*3 1.8-7.8 Blood lymphocytes automated count (number/volume) 2.1 10*3 1.0-4.0 Blood monocytes automated count (number/volume) 1. 2 10*3 0.0-1.0 Automated eosinophil count 0.0 10*3/uL 0 .0-0.3 Automated blood basophil count (count/volume) 0.1 10*3/uL 0.0-0.1 Manual absolute plasma cell count - 03/20 10:53 Blood monocytes/100 leukocytes 5 % NRG Manual blood segmented neutrophils/100 leukocytes 87 % NRG Blood band neutrophils/100 leukocytes 2 % NRG Manual blood lymphocytes/100 leukocytes 6 % NRG Blood erythrocyte morphology finding identification NORMAL NRG Blood toxic granules detection by light microscopy 1+ NR Comprehensive metabolic panel - 07/09/19 10:53 Serum or plasma sodium measurement (moles/volume) 136 mmol/L 135-145 Serum or plasma potassium measurement (moles/volume) 4.7 mmol/L 3.6-5.0 Serum or plasma chloride measurement (moles/volume) 106 mmol/L 98-107 Carbon dioxide < mmol/L 21-32 Serum or plasma anion gap determination (moles/volume) 20 mmol/L 5-14 Serum or plasma urea nitrogen measurement (mass/volume ) 14 mg/dL 7-18 Serum or plasma creatinine measurement (mass/volume) 1.17 mg/dL 0.60-1.30 Serum or plasma urea nitrogen/creatinine mass ratio 12 NRG Serum or plasma creatinine measurement w ith calculation of estimated glomerular filtration rate 59 NRG Serum or plasma glucose measurement (mass/volume) 209 mg/dL 70-105 Serum or plasma calcium measurement (mass/volume) 10.1 mg/dL 8.5-10.1 Serum or plasma total bilirubin measurement (mass/volu me) 0.3 mg/dL 0.1-1.0 Serum or plasma alkaline phosphatase gerardo surement (enzymatic activity/volume) 162 U/L 40-136 Serum or plasma aspartate aminotransfera se measurement (enzymatic activity/volume) 35 U/L 5-34 Serum or plasma alanine aminotransferase measurement (enzymatic activity/volume) 37 U/L 0-55 Serum or plasma protein measurement (mass/volume) 9.2 g/dL 6.4-8.2 Serum or plasma albumin measurement (mass/volume) 5.6 g/dL 3.2-4.5 Serum or plasma salicylates measurement (mass/volume) - 07/09/19 10:53 Serum or plasma salicylates measurement (mass/volume) < mg/dL 5.0-20.0 Serum or plasma acetaminophen measuremen t (mass/volume) - 07/09/19 10:53 Serum or plasma acetaminophen measurement (mass/volume ) < ug/mL 10-30 Serum or plasma ethanol measurement (mas s/volume) - 07/09/19 10:53 Serum or plasma ethanol measurement (mass/volume) < mg/dL <10 Complete urinalysis with reflex to cultu re - 07/09/19 10:58 Urine color determination YELLOW NRG Urine clarity determination CLEAR NR G Urine pH measurement by test strip 5.5 5-9 Specific gravity of urine by test strip >= 1.016-1.022 Urine protein assay by test strip, semi-quantitative 1+ NEGATIVE Urine glucose detection by automated test strip TR [place] NEGATIVE Erythrocytes detection in urine sediment by light micr oscopy 1+ NEGATIVE Urine ketones detection by automated test strip 3+ NEGATIVE Urine nitrite detection by test strip NEGATIVE NEGATIVE Urine total bilirubin detection by test strip NEGA TIVE NEGATIVE Urine urobilinogen measurement by automated test strip (mass/volume) 0.2 mg/dL < = 1.0 Urine leukocyte esterase detection by dipstick NEG ATIVE NEGATIVE Automated urine sediment erythrocyte cou nt by microscopy (number/high power field) [HPF] NRG Automated urine sediment leukocyte count by microscopy (number/high power field) [HPF] NRG Bacteria detection in urine sediment by light microsco py FEW NRG Crystals detection in urine sediment by light microsco py NONE NRG Casts detection in urine sediment by light microscopy NONE NRG Mucus detection in urine sediment by light microscopy NEGATIVE NRG Complete urinalysis with reflex to culture NO NRG Urine drug screening test - 07/09/19 10: 58 Urine phencyclidine detection by screening method NEGATIVE NEGATIVE Urine benzodiazepines detection by screening method NEGATIVE NEGATIVE Urine cocaine detection NEGATIVE NEGATI VE Urine amphetamines detection by screening method P OSITIVE NEGATIVE Urine methamphetamine detection by screening method POSITIVE NEGATIVE Urine cannabinoids detection by screening method P OSITIVE NEGATIVE Urine opiates detection by screening method NEGATI VE NEGATIVE Urine barbiturates detection NEGATIVE N EGATIVE Screening urine tricyclic antidepressants detection NEGATIVE NEGATIVE Urine methadone detection by screening method NEGA TIVE NEGATIVE Urine oxycodone detection NEGATIVE NEGA TIVE Urine propoxyphene detection NEGATIVE N EGATIVE Arterial blood gas measurement - 9 12:30 Blood pCO2 11 mm[Hg] 35-45 Blood pO2 114 mm[Hg] 79-93 Arterial blood bicarbonate measurement (moles/volume) 3 mmol/L 23-27 Arterial blood base excess by calculation -25.1 mm ol/L -2.5-2.5 Arterial blood oxygen saturation measurement 97 % 94-100 * Inhaled oxygen flow rate ROOM AIR NRG Arterial blood pH measurement with patient temperature correction 7.10 7.37-7.43 Arterial blood carbon dioxide, total measurement (mole s/volume) 3.8 mmol/L 21.0-31.0 Body site RT RAD NRG Assessment of wrist artery patency prior to arterial p uncture YES-POS NRG Setting of ventilation mode NO NR G Measurement of body temperature 96.2 NRG Blood lactic acid measurement (moles/vol ume) - 07/09/19 12:31 Blood lactic acid measurement (moles/volume) 0.89 mmol/L 0.50-2.00 Bacterial blood culture - 07/09/19 12:31 Bacterial blood culture NG NRG Bacterial blood culture - 07/09/19 12:46 Bacterial blood culture NG NRG Capillary blood glucose measurement by g lucometer (mass/volume) - 07/09/19 12:51 Capillary blood glucose measurement by glucometer (mas s/volume) 232 mg/dL 70-110 Arterial blood gas measurement - 9 15:55 Blood pCO2 21 mm[Hg] 35-45 Blood pO2 143 mm[Hg] 79-93 Arterial blood bicarbonate measurement (moles/volume) 9 mmol/L 23-27 Arterial blood base excess by calculation -17.3 mm ol/L -2.5-2.5 Arterial blood oxygen saturation measurement 99 % 94-100 * Inhaled oxygen flow rate 30% NRG Arterial blood pH measurement with patient temperature correction 7.24 7.37-7.43 Arterial blood carbon dioxide, total measurement (mole s/volume) 9.6 mmol/L 21.0-31.0 Body site RT RAD NRG Assessment of wrist artery patency prior to arterial p uncture YES-POS NRG Setting of ventilation mode YES NR G Measurement of body temperature 36.0 NRG Capillary blood glucose measurement by g lucometer (mass/volume) - 07/09/19 16:01 Capillary blood glucose measurement by glucometer (mas s/volume) 256 mg/dL 70-110 Complete blood count (CBC) with automate d white blood cell (WBC) differential - 07/09/19 16:23 Blood leukocytes automated count (number/volume) 26.4 10*3/uL 4.3-11.0 Blood erythrocytes automated count (number/volume) 4.05 10*6/uL 4.35-5.85 Venous blood hemoglobin measurement (mass/volume) 12.9 g/dL 11.5-16.0 Blood hematocrit (volume fraction) 37 % 35-52 Automated erythrocyte mean corpuscular volume 91 [ foz_us] 80-99 Automated erythrocyte mean corpuscular h emoglobin (mass per erythrocyte) 32 pg 25-34 Automated erythrocyte mean corpuscular h emoglobin concentration measurement (mass/volume) 35 g/dL 32-36 Automated erythrocyte distribution width ratio 12. 1 % 10.0- 14.5 Automated blood platelet count (count/volume) 319 10*3/uL 130-400 Automated blood platelet mean volume measurement 9.9 [foz_us] 7.4-10.4 Automated blood neutrophils/100 leukocytes 87 % 42-75 Automated blood lymphocytes/100 leukocytes 8 % 12-44 Blood monocytes/100 leukocytes 5 % 0-12 Automated blood eosinophils/100 leukocytes 0 % 0-10 Automated blood basophils/100 leukocytes 0 % 0-10 Blood neutrophils automated count (number/volume) 22.9 10*3 1.8-7.8 Blood lymphocytes automated count (number/volume) 2.1 10*3 1.0-4.0 Blood monocytes automated count (number/volume) 1. 3 10*3 0.0-1.0 Automated eosinophil count 0.1 10*3/uL 0 .0-0.3 Automated blood basophil count (count/volume) 0.1 10*3/uL 0.0-0.1 Comprehensive metabolic panel - 07/09/19 16:23 Serum or plasma sodium measurement (moles/volume) 138 mmol/L 135-145 Serum or plasma potassium measurement (moles/volume) 4.0 mmol/L 3.6-5.0 Serum or plasma chloride measurement (moles/volume) 107 mmol/L 98-107 Carbon dioxide 8 mmol/L 21-32 Serum or plasma anion gap determination (moles/volume) 23 mmol/L 5-14 Serum or plasma urea nitrogen measurement (mass/volume ) 12 mg/dL 7-18 Serum or plasma creatinine measurement (mass/volume) 0.86 mg/dL 0.60-1.30 Serum or plasma urea nitrogen/creatinine mass ratio 14 NRG Serum or plasma creatinine measurement w ith calculation of estimated glomerular filtration rate > NRG Serum or plasma glucose measurement (mass/volume) 275 mg/dL 70-105 Serum or plasma calcium measurement (mass/volume) 8.1 mg/dL 8.5-10.1 Serum or plasma total bilirubin measurement (mass/volu me) 0.4 mg/dL 0.1-1.0 Serum or plasma alkaline phosphatase gerardo surement (enzymatic activity/volume) 113 U/L 40-136 Serum or plasma aspartate aminotransfera se measurement (enzymatic activity/volume) 24 U/L 5-34 Serum or plasma alanine aminotransferase measurement (enzymatic activity/volume) 28 U/L 0-55 Serum or plasma protein measurement (mass/volume) 6.4 g/dL 6.4-8.2 Serum or plasma albumin measurement (mass/volume) 4.0 g/dL 3.2-4.5 CALCIUM CORRECTED 8.1 mg/dL 8.5-10.1 Serum or plasma phosphate measurement (m ass/volume) - 07/09/19 16:23 Serum or plasma phosphate measurement (mass/volume) 4.1 mg/dL 2.3-4.7 Magnesium - 07/09/19 16:23 Magnesium 1.8 mg/dL 1.6-2.4 Serum or plasma triglyceride measurement (mass/volume) - 07/09/19 16:23 Serum or plasma triglyceride measurement (mass/volume) 180 mg/dL <150 [id number] - 07/09/19 16:23 [id number] 308 % 275-295 Beta-hydroxybutyric acid measurement - 1 09/09/18 16:25 Beta-hydroxybutyric acid measurement 8.97 mmol/L 0.00-0.27 Complete urinalysis with reflex to cultu re - 07/09/19 16:39 Urine color determination YELLOW NRG Urine clarity determination SL CLOUDY N RG Urine pH measurement by test strip 5.5 5-9 Specific gravity of urine by test strip >= 1.016-1.022 Urine protein assay by test strip, semi-quantitative 1+ NEGATIVE Urine glucose detection by automated test strip 1+ NEGATIVE Erythrocytes detection in urine sediment by light micr oscopy 1+ NEGATIVE Urine ketones detection by automated test strip 3+ NEGATIVE Urine nitrite detection by test strip NEGATIVE NEGATIVE Urine total bilirubin detection by test strip NEGA TIVE NEGATIVE Urine urobilinogen measurement by automated test strip (mass/volume) 0.2 mg/dL < = 1.0 Urine leukocyte esterase detection by dipstick NEG ATIVE NEGATIVE Automated urine sediment erythrocyte cou nt by microscopy (number/high power field) NONE NRG Automated urine sediment leukocyte count by microscopy (number/high power field) NONE NRG Bacteria detection in urine sediment by light microsco py NEGATIVE NRG Squamous epithelial cells detection in u rine sediment by light microscopy RARE NRG Crystals detection in urine sediment by light microsco py NONE NRG Casts detection in urine sediment by light microscopy NONE NRG Mucus detection in urine sediment by light microscopy SMALL NRG Complete urinalysis with reflex to culture NO NRG Renal epithelial cells detection in urin e sediment by light microscopy RARE NRG Capillary blood glucose measurement by g lucometer (mass/volume) - 07/09/19 16:58 Capillary blood glucose measurement by glucometer (mas s/volume) 255 mg/dL 70-110 Capillary blood glucose measurement by g lucometer (mass/volume) - 07/09/19 17:58 Capillary blood glucose measurement by glucometer (mas s/volume) 282 mg/dL 70-110 Whole blood basic metabolic panel - 1203/20 18:10 Serum or plasma sodium measurement (moles/volume) 140 mmol/L 135-145 Serum or plasma potassium measurement (moles/volume) 3.8 mmol/L 3.6-5.0 Serum or plasma chloride measurement (moles/volume) 111 mmol/L 98-107 Carbon dioxide 9 mmol/L 21-32 Serum or plasma anion gap determination (moles/volume) 20 mmol/L 5-14 Serum or plasma urea nitrogen measurement (mass/volume ) 11 mg/dL 7-18 Serum or plasma creatinine measurement (mass/volume) 0.80 mg/dL 0.60-1.30 Serum or plasma urea nitrogen/creatinine mass ratio 14 NRG Serum or plasma creatinine measurement w ith calculation of estimated glomerular filtration rate > NRG Serum or plasma glucose measurement (mass/volume) 307 mg/dL 70-105 Serum or plasma calcium measurement (mass/volume) 7.6 mg/dL 8.5-10.1 Capillary blood glucose measurement by g lucometer (mass/volume) - 07/09/19 18:57 Capillary blood glucose measurement by glucometer (mas s/volume) 253 mg/dL 70-110 Capillary blood glucose measurement by g lucometer (mass/volume) - 07/09/19 20:12 Capillary blood glucose measurement by glucometer (mas s/volume) 266 mg/dL 70-110 Capillary blood glucose measurement by g lucometer (mass/volume) - 07/09/19 21:10 Capillary blood glucose measurement by glucometer (mas s/volume) 261 mg/dL 70-110 Capillary blood glucose measurement by g lucometer (mass/volume) - 07/09/19 22:27 Capillary blood glucose measurement by glucometer (mas s/volume) 228 mg/dL 70-110 Capillary blood glucose measurement by g lucometer (mass/volume) - 07/09/19 23:27 Capillary blood glucose measurement by glucometer (mas s/volume) 209 mg/dL 70-110 Sputum Gram stain - 12/09/19 00:00 Sputum Gram stain No bacteria seen NR Bacterial sputum culture - 07/10/19 00:0 0 QUANTITY OF GROWTH Rare NR Bacterial sputum culture [id number] [facility] Capillary blood glucose measurement by g lucometer (mass/volume) - 07/10/19 00:13 Capillary blood glucose measurement by glucometer (mas s/volume) 216 mg/dL 70-110 Capillary blood glucose measurement by g lucometer (mass/volume) - 07/10/19 01:32 Capillary blood glucose measurement by glucometer (mas s/volume) 181 mg/dL 70-110 Capillary blood glucose measurement by g lucometer (mass/volume) - 07/10/19 02:16 Capillary blood glucose measurement by glucometer (mas s/volume) 161 mg/dL 70-110 Complete blood count (CBC) with automate d white blood cell (WBC) differential - 07/10/19 02:47 Blood leukocytes automated count (number/volume) 13.8 10*3/uL 4.3-11.0 Blood erythrocytes automated count (number/volume) 3.48 10*6/uL 4.35-5.85 Venous blood hemoglobin measurement (mass/volume) 11.0 g/dL 11.5-16.0 Blood hematocrit (volume fraction) 31 % 35-52 Automated erythrocyte mean corpuscular volume 88 [ foz_us] 80-99 Automated erythrocyte mean corpuscular h emoglobin (mass per erythrocyte) 32 pg 25-34 Automated erythrocyte mean corpuscular h emoglobin concentration measurement (mass/volume) 36 g/dL 32-36 Automated erythrocyte distribution width ratio 12. 0 % 10.0- 14.5 Automated blood platelet count (count/volume) 255 10*3/uL 130-400 Automated blood platelet mean volume measurement 9.6 [foz_us] 7.4-10.4 Automated blood neutrophils/100 leukocytes 64 % 42-75 Automated blood lymphocytes/100 leukocytes 29 % 12-44 Blood monocytes/100 leukocytes 7 % 0-12 Automated blood eosinophils/100 leukocytes 0 % 0-10 Automated blood basophils/100 leukocytes 0 % 0-10 Blood neutrophils automated count (number/volume) 8.8 10*3 1.8-7.8 Blood lymphocytes automated count (number/volume) 3.9 10*3 1.0-4.0 Blood monocytes automated count (number/volume) 1. 0 10*3 0.0-1.0 Automated eosinophil count 0.1 10*3/uL 0 .0-0.3 Automated blood basophil count (count/volume) 0.0 10*3/uL 0.0-0.1 Arterial blood gas measurement - 9 02:47 Blood pCO2 23 mm[Hg] 35-45 Blood pO2 111 mm[Hg] 79-93 Arterial blood bicarbonate measurement (moles/volume) 14 mmol/L 23-27 Arterial blood base excess by calculation -10.4 mm ol/L -2.5-2.5 Arterial blood oxygen saturation measurement 99 % 94-100 * Inhaled oxygen flow rate N NRG Arterial blood pH measurement with patient temperature correction 7.39 7.37-7.43 Arterial blood carbon dioxide, total measurement (mole s/volume) 14.7 mmol/L 21.0-31.0 Body site LEFT RADIAL NRG Assessment of wrist artery patency prior to arterial p uncture POSITIVE NRG Setting of ventilation mode YES NR G Measurement of body temperature 35.5 NRG Comprehensive metabolic panel - 07/10/19 02:47 Serum or plasma sodium measurement (moles/volume) 142 mmol/L 135-145 Serum or plasma potassium measurement (moles/volume) 2.6 mmol/L 3.6-5.0 Serum or plasma chloride measurement (moles/volume) 120 mmol/L 98-107 Carbon dioxide 14 mmol/L 21-32 Serum or plasma anion gap determination (moles/volume) 8 mmol/L 5-14 Serum or plasma urea nitrogen measurement (mass/volume ) 8 mg/dL 7-18 Serum or plasma creatinine measurement (mass/volume) 0.70 mg/dL 0.60-1.30 Serum or plasma urea nitrogen/creatinine mass ratio 11 NRG Serum or plasma creatinine measurement w ith calculation of estimated glomerular filtration rate > NRG Serum or plasma glucose measurement (mass/volume) 142 mg/dL 70-105 Serum or plasma calcium measurement (mass/volume) 8.2 mg/dL 8.5-10.1 Serum or plasma total bilirubin measurement (mass/volu me) 0.4 mg/dL 0.1-1.0 Serum or plasma alkaline phosphatase gerardo surement (enzymatic activity/volume) 87 U/L 40-136 Serum or plasma aspartate aminotransfera se measurement (enzymatic activity/volume) 13 U/L 5-34 Serum or plasma alanine aminotransferase measurement (enzymatic activity/volume) 16 U/L 0-55 Serum or plasma protein measurement (mass/volume) 4.8 g/dL 6.4-8.2 Serum or plasma albumin measurement (mass/volume) 3.1 g/dL 3.2-4.5 CALCIUM CORRECTED 8.9 mg/dL 8.5-10.1 Magnesium - 07/10/19 02:47 Magnesium 1.6 mg/dL 1.6-2.4 Beta-hydroxybutyric acid measurement - 1 09/10/18 02:47 Beta-hydroxybutyric acid measurement 0.05 mmol/L 0.00-0.27 Serum or plasma phosphate measurement (m ass/volume) - 07/10/19 02:47 Serum or plasma phosphate measurement (mass/volume) < mg/dL 2.3-4.7 Hemoglobin A1c measurement - 07/10/19 02 :47 Blood hemoglobin A1C measurement (mass/volume) 8.2 % 4.0-5.6 MEAN BLOOD GLUCOSE 189 % <=126 Capillary blood glucose measurement by g lucometer (mass/volume) - 07/10/19 03:21 Capillary blood glucose measurement by glucometer (mas s/volume) 144 mg/dL 70-110 Capillary blood glucose measurement by g lucometer (mass/volume) - 07/10/19 04:09 Capillary blood glucose measurement by glucometer (mas s/volume) 102 mg/dL 70-110 Capillary blood glucose measurement by g lucometer (mass/volume) - 07/10/19 05:15 Capillary blood glucose measurement by glucometer (mas s/volume) 111 mg/dL 70-110 Capillary blood glucose measurement by g lucometer (mass/volume) - 07/10/19 06:17 Capillary blood glucose measurement by glucometer (mas s/volume) 84 mg/dL 70-110 Capillary blood glucose measurement by g lucometer (mass/volume) - 07/10/19 08:13 Capillary blood glucose measurement by glucometer (mas s/volume) 178 mg/dL 70-110 Capillary blood glucose measurement by g lucometer (mass/volume) - 07/10/19 09:13 Capillary blood glucose measurement by glucometer (mas s/volume) 140 mg/dL 70-110 Capillary blood glucose measurement by g lucometer (mass/volume) - 07/10/19 10:14 Capillary blood glucose measurement by glucometer (mas s/volume) 129 mg/dL 70-110 Complete urinalysis with reflex to cultu re - 07/10/19 10:25 Urine color determination YELLOW NRG Urine clarity determination CLEAR NR G Urine pH measurement by test strip 6.0 5-9 Specific gravity of urine by test strip 1.020 1.016-1.022 Urine protein assay by test strip, semi-quantitative NEGATIVE NEGATIVE Urine glucose detection by automated test strip NE GATIVE NEGATIVE Erythrocytes detection in urine sediment by light micr oscopy TRACE-I NEGATIVE Urine ketones detection by automated test strip NE GATIVE NEGATIVE Urine nitrite detection by test strip NEGATIVE NEGATIVE Urine total bilirubin detection by test strip 1+ NEGATIVE Urine urobilinogen measurement by automated test strip (mass/volume) 0.2 mg/dL < = 1.0 Urine leukocyte esterase detection by dipstick 1+ NEGATIVE Automated urine sediment erythrocyte cou nt by microscopy (number/high power field) [HPF] NRG Automated urine sediment leukocyte count by microscopy (number/high power field) [HPF] NRG Bacteria detection in urine sediment by light microsco py FEW NRG Squamous epithelial cells detection in u rine sediment by light microscopy 2-5 NRG Crystals detection in urine sediment by light microsco py PRESENT NRG Casts detection in urine sediment by light microscopy NONE NRG Mucus detection in urine sediment by light microscopy SMALL NRG Complete urinalysis with reflex to culture YES NRG Amorphous sediment detection in urine sediment by ligh t microscopy FEW JASON URATES NRG Bacterial urine culture - 07/10/19 10:25 Bacterial urine culture NG NRG Capillary blood glucose measurement by g lucometer (mass/volume) - 07/10/19 11:00 Capillary blood glucose measurement by glucometer (mas s/volume) 97 mg/dL 70-110 Capillary blood glucose measurement by g lucometer (mass/volume) - 07/10/19 12:20 Capillary blood glucose measurement by glucometer (mas s/volume) 146 mg/dL 70-110 Capillary blood glucose measurement by g lucometer (mass/volume) - 07/10/19 13:05 Capillary blood glucose measurement by glucometer (mas s/volume) 111 mg/dL 70-110 Capillary blood glucose measurement by g lucometer (mass/volume) - 07/10/19 14:02 Capillary blood glucose measurement by glucometer (mas s/volume) 128 mg/dL 70-110 Capillary blood glucose measurement by g lucometer (mass/volume) - 07/10/19 15:10 Capillary blood glucose measurement by glucometer (mas s/volume) 141 mg/dL 70-110 Capillary blood glucose measurement by g lucometer (mass/volume) - 07/10/19 16:06 Capillary blood glucose measurement by glucometer (mas s/volume) 131 mg/dL 70-110 Capillary blood glucose measurement by g lucometer (mass/volume) - 07/10/19 17:10 Capillary blood glucose measurement by glucometer (mas s/volume) 162 mg/dL 70-110 Comprehensive metabolic panel - 07/10/19 18:00 Serum or plasma sodium measurement (moles/volume) 143 mmol/L 135-145 Serum or plasma potassium measurement (moles/volume) 4.2 mmol/L 3.6-5.0 Serum or plasma chloride measurement (moles/volume) 121 mmol/L 98-107 Carbon dioxide 16 mmol/L 21-32 Serum or plasma anion gap determination (moles/volume) 6 mmol/L 5-14 Serum or plasma urea nitrogen measurement (mass/volume ) 6 mg/dL 7-18 Serum or plasma creatinine measurement (mass/volume) 0.74 mg/dL 0.60-1.30 Serum or plasma urea nitrogen/creatinine mass ratio 8 NRG Serum or plasma creatinine measurement w ith calculation of estimated glomerular filtration rate > NRG Serum or plasma glucose measurement (mass/volume) 198 mg/dL 70-105 Serum or plasma calcium measurement (mass/volume) 7.8 mg/dL 8.5-10.1 Serum or plasma total bilirubin measurement (mass/volu me) 0.3 mg/dL 0.1-1.0 Serum or plasma alkaline phosphatase gerardo surement (enzymatic activity/volume) 78 U/L 40-136 Serum or plasma aspartate aminotransfera se measurement (enzymatic activity/volume) 46 U/L 5-34 Serum or plasma alanine aminotransferase measurement (enzymatic activity/volume) 28 U/L 0-55 Serum or plasma protein measurement (mass/volume) 4.4 g/dL 6.4-8.2 Serum or plasma albumin measurement (mass/volume) 2.8 g/dL 3.2-4.5 CALCIUM CORRECTED 8.8 mg/dL 8.5-10.1 Serum or plasma phosphate measurement (m ass/volume) - 07/10/19 18:00 Serum or plasma phosphate measurement (mass/volume) 2.0 mg/dL 2.3-4.7 Magnesium - 07/10/19 18:00 Magnesium 1.7 mg/dL 1.6-2.4 Capillary blood glucose measurement by g lucometer (mass/volume) - 07/10/19 18:05 Capillary blood glucose measurement by glucometer (mas s/volume) 205 mg/dL 70-110 Capillary blood glucose measurement by g lucometer (mass/volume) - 07/10/19 18:06 Capillary blood glucose measurement by glucometer (mas s/volume) 198 mg/dL 70-110 Capillary blood glucose measurement by g lucometer (mass/volume) - 07/10/19 18:53 Capillary blood glucose measurement by glucometer (mas s/volume) 150 mg/dL 70-110 Capillary blood glucose measurement by g lucometer (mass/volume) - 07/10/19 20:13 Capillary blood glucose measurement by glucometer (mas s/volume) 179 mg/dL 70-110 Capillary blood glucose measurement by g lucometer (mass/volume) - 07/10/19 21:24 Capillary blood glucose measurement by glucometer (mas s/volume) 188 mg/dL 70-110 Capillary blood glucose measurement by g lucometer (mass/volume) - 07/10/19 22:07 Capillary blood glucose measurement by glucometer (mas s/volume) 183 mg/dL 70-110 Capillary blood glucose measurement by g lucometer (mass/volume) - 07/10/19 23:06 Capillary blood glucose measurement by glucometer (mas s/volume) 164 mg/dL 70-110 Capillary blood glucose measurement by g lucometer (mass/volume) - 07/11/19 00:04 Capillary blood glucose measurement by glucometer (mas s/volume) 158 mg/dL 70-110 Capillary blood glucose measurement by g lucometer (mass/volume) - 07/11/19 00:59 Capillary blood glucose measurement by glucometer (mas s/volume) 152 mg/dL 70-110 Capillary blood glucose measurement by g lucometer (mass/volume) - 07/11/19 02:06 Capillary blood glucose measurement by glucometer (mas s/volume) 136 mg/dL 70-110 Capillary blood glucose measurement by g lucometer (mass/volume) - 07/11/19 02:58 Capillary blood glucose measurement by glucometer (mas s/volume) 119 mg/dL 70-110 Complete blood count (CBC) with automate d white blood cell (WBC) differential - 07/11/19 03:05 Blood leukocytes automated count (number/volume) 12.5 10*3/uL 4.3-11.0 Blood erythrocytes automated count (number/volume) 3.33 10*6/uL 4.35-5.85 Venous blood hemoglobin measurement (mass/volume) 10.5 g/dL 11.5-16.0 Blood hematocrit (volume fraction) 30 % 35-52 Automated erythrocyte mean corpuscular volume 90 [ foz_us] 80-99 Automated erythrocyte mean corpuscular h emoglobin (mass per erythrocyte) 32 pg 25-34 Automated erythrocyte mean corpuscular h emoglobin concentration measurement (mass/volume) 35 g/dL 32-36 Automated erythrocyte distribution width ratio 12. 3 % 10.0- 14.5 Automated blood platelet count (count/volume) 191 10*3/uL 130-400 Automated blood platelet mean volume measurement 9.9 [foz_us] 7.4-10.4 Automated blood neutrophils/100 leukocytes 56 % 42-75 Automated blood lymphocytes/100 leukocytes 35 % 12-44 Blood monocytes/100 leukocytes 10 % 0-12 Automated blood eosinophils/100 leukocytes 0 % 0-10 Automated blood basophils/100 leukocytes 0 % 0-10 Blood neutrophils automated count (number/volume) 6.9 10*3 1.8-7.8 Blood lymphocytes automated count (number/volume) 4.3 10*3 1.0-4.0 Blood monocytes automated count (number/volume) 1. 2 10*3 0.0-1.0 Automated eosinophil count 0.0 10*3/uL 0 .0-0.3 Automated blood basophil count (count/volume) 0.0 10*3/uL 0.0-0.1 Comprehensive metabolic panel - 07/11/19 03:05 Serum or plasma sodium measurement (moles/volume) 146 mmol/L 135-145 Serum or plasma potassium measurement (moles/volume) 3.5 mmol/L 3.6-5.0 Serum or plasma chloride measurement (moles/volume) 121 mmol/L 98-107 Carbon dioxide 15 mmol/L 21-32 Serum or plasma anion gap determination (moles/volume) 10 mmol/L 5-14 Serum or plasma urea nitrogen measurement (mass/volume ) 5 mg/dL 7-18 Serum or plasma creatinine measurement (mass/volume) 0.68 mg/dL 0.60-1.30 Serum or plasma urea nitrogen/creatinine mass ratio 7 NRG Serum or plasma creatinine measurement w ith calculation of estimated glomerular filtration rate > NRG Serum or plasma glucose measurement (mass/volume) 124 mg/dL 70-105 Serum or plasma calcium measurement (mass/volume) 7.8 mg/dL 8.5-10.1 Serum or plasma total bilirubin measurement (mass/volu me) 0.2 mg/dL 0.1-1.0 Serum or plasma alkaline phosphatase gerardo surement (enzymatic activity/volume) 79 U/L 40-136 Serum or plasma aspartate aminotransfera se measurement (enzymatic activity/volume) 49 U/L 5-34 Serum or plasma alanine aminotransferase measurement (enzymatic activity/volume) 33 U/L 0-55 Serum or plasma protein measurement (mass/volume) 4.1 g/dL 6.4-8.2 Serum or plasma albumin measurement (mass/volume) 2.5 g/dL 3.2-4.5 CALCIUM CORRECTED 9.0 mg/dL 8.5-10.1 Serum or plasma phosphate measurement (m ass/volume) - 07/11/19 03:05 Serum or plasma phosphate measurement (mass/volume) 2.1 mg/dL 2.3-4.7 Magnesium - 07/11/19 03:05 Magnesium 1.5 mg/dL 1.6-2.4 Arterial blood gas measurement - 9 03:10 Blood pCO2 21 mm[Hg] 35-45 Blood pO2 122 mm[Hg] 79-93 Arterial blood bicarbonate measurement (moles/volume) 15 mmol/L 23-27 Arterial blood base excess by calculation -8.3 mmo l/L -2.5-2.5 Arterial blood oxygen saturation measurement 99 % 94-100 * Inhaled oxygen flow rate 21 NRG Arterial blood pH measurement with patient temperature correction 7.46 7.37-7.43 Arterial blood carbon dioxide, total measurement (mole s/volume) 15.7 mmol/L 21.0-31.0 Body site LEFT RADIAL NRG Assessment of wrist artery patency prior to arterial p uncture POSITIVE NRG Setting of ventilation mode YES NR G Measurement of body temperature 35.8 NRG Capillary blood glucose measurement by g lucometer (mass/volume) - 07/11/19 03:57 Capillary blood glucose measurement by glucometer (mas s/volume) 124 mg/dL 70-110 Capillary blood glucose measurement by g lucometer (mass/volume) - 07/11/19 11:29 Capillary blood glucose measurement by glucometer (mas s/volume) 320 mg/dL 70-110 Capillary blood glucose measurement by g lucometer (mass/volume) - 07/11/19 15:10 Capillary blood glucose measurement by glucometer (mas s/volume) 392 mg/dL 70-110 Capillary blood glucose measurement by g lucometer (mass/volume) - 07/11/19 16:09 Capillary blood glucose measurement by glucometer (mas s/volume) 402 mg/dL 70-110 Capillary blood glucose measurement by g lucometer (mass/volume) - 07/11/19 20:13 Capillary blood glucose measurement by glucometer (mas s/volume) 243 mg/dL 70-110 Complete blood count (CBC) with automate d white blood cell (WBC) differential - 07/12/19 04:30 Blood leukocytes automated count (number/volume) 14.1 10*3/uL 4.3-11.0 Blood erythrocytes automated count (number/volume) 3.80 10*6/uL 4.35-5.85 Venous blood hemoglobin measurement (mass/volume) 11.9 g/dL 11.5-16.0 Blood hematocrit (volume fraction) 34 % 35-52 Automated erythrocyte mean corpuscular volume 90 [ foz_us] 80-99 Automated erythrocyte mean corpuscular h emoglobin (mass per erythrocyte) 31 pg 25-34 Automated erythrocyte mean corpuscular h emoglobin concentration measurement (mass/volume) 35 g/dL 32-36 Automated erythrocyte distribution width ratio 13. 0 % 10.0- 14.5 Automated blood platelet count (count/volume) 233 10*3/uL 130-400 Automated blood platelet mean volume measurement 10.4 [foz_us] 7.4-10.4 Automated blood neutrophils/100 leukocytes 57 % 42-75 Automated blood lymphocytes/100 leukocytes 31 % 12-44 Blood monocytes/100 leukocytes 12 % 0-12 Automated blood eosinophils/100 leukocytes 0 % 0-10 Automated blood basophils/100 leukocytes 0 % 0-10 Blood neutrophils automated count (number/volume) 8.0 10*3 1.8-7.8 Blood lymphocytes automated count (number/volume) 4.4 10*3 1.0-4.0 Blood monocytes automated count (number/volume) 1. 6 10*3 0.0-1.0 Automated eosinophil count 0.0 10*3/uL 0 .0-0.3 Automated blood basophil count (count/volume) 0.0 10*3/uL 0.0-0.1 Comprehensive metabolic panel - 07/12/19 04:30 Serum or plasma sodium measurement (moles/volume) 139 mmol/L 135-145 Serum or plasma potassium measurement (moles/volume) 3.9 mmol/L 3.6-5.0 Serum or plasma chloride measurement (moles/volume) 107 mmol/L 98-107 Carbon dioxide 20 mmol/L 21-32 Serum or plasma anion gap determination (moles/volume) 12 mmol/L 5-14 Serum or plasma urea nitrogen measurement (mass/volume ) 5 mg/dL 7-18 Serum or plasma creatinine measurement (mass/volume) 0.76 mg/dL 0.60-1.30 Serum or plasma urea nitrogen/creatinine mass ratio 7 NRG Serum or plasma creatinine measurement w ith calculation of estimated glomerular filtration rate > NRG Serum or plasma glucose measurement (mass/volume) 230 mg/dL 70-105 Serum or plasma calcium measurement (mass/volume) 7.9 mg/dL 8.5-10.1 Serum or plasma total bilirubin measurement (mass/volu me) 0.3 mg/dL 0.1-1.0 Serum or plasma alkaline phosphatase gerardo surement (enzymatic activity/volume) 119 U/L 40-136 Serum or plasma aspartate aminotransfera se measurement (enzymatic activity/volume) 68 U/L 5-34 Serum or plasma alanine aminotransferase measurement (enzymatic activity/volume) 59 U/L 0-55 Serum or plasma protein measurement (mass/volume) 5.5 g/dL 6.4-8.2 Serum or plasma albumin measurement (mass/volume) 3.2 g/dL 3.2-4.5 CALCIUM CORRECTED 8.5 mg/dL 8.5-10.1 Capillary blood glucose measurement by g lucometer (mass/volume) - 07/12/19 11:13 Capillary blood glucose measurement by glucometer (mas s/volume) 184 mg/dL 70-110 Capillary blood glucose measurement by g lucometer (mass/volume) - 07/12/19 15:50 Capillary blood glucose measurement by glucometer (mas s/volume) 236 mg/dL 70-110 Capillary blood glucose measurement by g lucometer (mass/volume) - 07/12/19 19:51 Capillary blood glucose measurement by glucometer (mas s/volume) 422 mg/dL 70-110 Complete blood count (CBC) with automate d white blood cell (WBC) differential - 07/13/19 05:00 Blood leukocytes automated count (number/volume) 11.9 10*3/uL 4.3-11.0 Blood erythrocytes automated count (number/volume) 3.98 10*6/uL 4.35-5.85 Venous blood hemoglobin measurement (mass/volume) 12.6 g/dL 11.5-16.0 Blood hematocrit (volume fraction) 36 % 35-52 Automated erythrocyte mean corpuscular volume 91 [ foz_us] 80-99 Automated erythrocyte mean corpuscular h emoglobin (mass per erythrocyte) 32 pg 25-34 Automated erythrocyte mean corpuscular h emoglobin concentration measurement (mass/volume) 35 g/dL 32-36 Automated erythrocyte distribution width ratio 12. 0 % 10.0- 14.5 Automated blood platelet count (count/volume) 227 10*3/uL 130-400 Automated blood platelet mean volume measurement 10.2 [foz_us] 7.4-10.4 Automated blood neutrophils/100 leukocytes 54 % 42-75 Automated blood lymphocytes/100 leukocytes 34 % 12-44 Blood monocytes/100 leukocytes 12 % 0-12 Automated blood eosinophils/100 leukocytes 0 % 0-10 Automated blood basophils/100 leukocytes 0 % 0-10 Blood neutrophils automated count (number/volume) 6.4 10*3 1.8-7.8 Blood lymphocytes automated count (number/volume) 4.1 10*3 1.0-4.0 Blood monocytes automated count (number/volume) 1. 4 10*3 0.0-1.0 Automated eosinophil count 0.1 10*3/uL 0 .0-0.3 Automated blood basophil count (count/volume) 0.0 10*3/uL 0.0-0.1 Comprehensive metabolic panel - 07/13/19 05:00 Serum or plasma sodium measurement (moles/volume) 137 mmol/L 135-145 Serum or plasma potassium measurement (moles/volume) 4.0 mmol/L 3.6-5.0 Serum or plasma chloride measurement (moles/volume) 101 mmol/L 98-107 Carbon dioxide 24 mmol/L 21-32 Serum or plasma anion gap determination (moles/volume) 12 mmol/L 5-14 Serum or plasma urea nitrogen measurement (mass/volume ) 7 mg/dL 7-18 Serum or plasma creatinine measurement (mass/volume) 0.72 mg/dL 0.60-1.30 Serum or plasma urea nitrogen/creatinine mass ratio 10 NRG Serum or plasma creatinine measurement w ith calculation of estimated glomerular filtration rate > NRG Serum or plasma glucose measurement (mass/volume) 262 mg/dL 70-105 Serum or plasma calcium measurement (mass/volume) 8.8 mg/dL 8.5-10.1 Serum or plasma total bilirubin measurement (mass/volu me) 0.2 mg/dL 0.1-1.0 Serum or plasma alkaline phosphatase gerardo surement (enzymatic activity/volume) 116 U/L 40-136 Serum or plasma aspartate aminotransfera se measurement (enzymatic activity/volume) 46 U/L 5-34 Serum or plasma alanine aminotransferase measurement (enzymatic activity/volume) 54 U/L 0-55 Serum or plasma protein measurement (mass/volume) 6.3 g/dL 6.4-8.2 Serum or plasma albumin measurement (mass/volume) 3.7 g/dL 3.2-4.5 CALCIUM CORRECTED 9.0 mg/dL 8.5-10.1 Capillary blood glucose measurement by g lucometer (mass/volume) - 07/13/19 05:22 Capillary blood glucose measurement by glucometer (mas s/volume) 208 mg/dL 70-110 Capillary blood glucose measurement by g lucometer (mass/volume) - 07/13/19 10:57 Capillary blood glucose measurement by glucometer (mas s/volume) 171 mg/dL 70-110 CULTURE, ANAEROBIC AND AEROBIC - 9 08:01 CULTURE, ANAEROBIC BACTERIA W/GRAM STAIN SEE NOTE NRG CULTURE, AEROBIC BACTERIA SEE NOTE NRG Encounters ACCT No. Visit Date/Time Discharge Status Pt. Type Provider Facility Loc./Unit Complaint [id number] 07/15/2019 15:10:00 07/15/2019 23:59:5 9 CLS Outpatient [facility]ARRY TO [facility] [id number] 07/15/2019 15:10:00 Document Registration [id number] 05/23/2014 08:51:00 05/23/2014 23:59: 59 CLS Outpatient BARBARA PERDOMOJaswant RYANNE A [id number] 05/10/2014 09:06:00 05/10/2014 23:59: 59 CLS Outpatient АНДРЕЙKYLEErika PERDOMORYANNE Michaud [id number] 10/09/2013 14:52:00 10/09/2013 23:59: 59 CLS Outpatient BARBARA RYANNE THOMAS [id number] 09/20/2013 16:07:00 09/20/2013 23:59: 59 CLS Outpatient PENNY XAVIER APRN [id number] 09/01/2013 09:50:00 09/01/2013 23:59: 59 CLS Outpatient PAULA JONES [id number] 08/31/2013 12:59:00 08/31/2013 23:59: 59 CLS Outpatient SARAH GUILLEN MD [id number] 08/15/2013 13:36:00 08/15/2013 23:59: 59 CLS Outpatient MARSHA VALERA MD [id number] 08/08/2013 13:40:00 08/08/2013 23:59: 59 CLS Outpatient PAULA JONES [id number] 08/03/2013 13:03:00 08/03/2013 23:59: 59 CLS Outpatient SARAH GUILLEN MD [id number] 07/25/2013 09:03:00 07/25/2013 23:59: 59 CLS Outpatient PAULA JONES [id number] 07/18/2013 11:27:00 07/18/2013 23:59: 59 CLS Outpatient ROSSI AGEE DO [id number] 07/11/2013 14:30:00 07/11/2013 23:59: 59 CLS Outpatient ROSSI AGEE DO [id number] 05/29/2013 08:35:00 05/29/2013 23:59: 59 CLS Outpatient PAULA JONES [id number] 05/12/2013 14:53:00 05/12/2013 23:59: 59 CLS Outpatient ASHLEY ROD APRN [id number] 04/10/2013 09:28:00 Document Registration [id number] 07/09/2019 12:40:00 019 12:30:00 DIS Outpatient DARION HERRING DO [facility] 4TH ACIDOSIS, UNRESPONSIVE [id number] 02/06/2018 00:06:00 018 11:30:00 DIS Inpatient CHERI DO SHANKAR Qamar [facility] LDRP LEAKAGE OF AMNIOTIC FLU ID [id number] 08/01/2017 21:25:00 018 00:48:00 DIS Emergency KENZIE PALMER MD [facility] ER VOMITING LOW BS HEADACHE [id number] 07/19/2017 05:16:00 017 07:33:00 DIS Emergency ADRIENNE EDEN DO [facility] ER VOMITING MIGRAINE [id number] 06/02/2017 16:44:00 017 21:48:00 DIS Emergency RUCHI GARCÍA [facility] ER PELVIC/ABD/LOWER BACK PAIN [id number] 10/24/2016 13:49:00 017 16:33:00 DIS Emergency RUCHI GARCÍA [facility] ER ABD PAIN [id number] 09/04/2016 18:19:00 017 19:35:00 DIS Emergency PIPPA BARRERA APRN [facility] ER L ARM PAIN [id number] 04/26/2016 06:10:00 016 11:58:00 DIS Inpatient DARION HERRING DO, [facility] ICU NEW ONSET DIABETES AMANDA ITUS; ELECTROLYTE IMBALANCE [id number] 01/04/2016 05:47:00 016 06:21:00 DIS Emergency ADRIENNE EDEN DO [facility] ER ARM PAIN [id number] 08/12/2012 11:48:00 Document Registration
--- NOTE | 2019-12-22 21:55 | ED General ---
General Stated Complaint: SUICIDAL Source of Information: Patient Exam Limitations: No Limitations (PIPPA CHAVEZ APRN) History of Present Illness Date Seen by Provider: December 22, 2019 Time Seen by Provider: 21:52 Initial Comments To ER per private vehicle from home with reports of suicidal ideation. She states she wants to kill herself because her life "fucking socks. She relates this to her fianc running off with her child, states her mother hates her and she is a methamphetamine addict. She also reports that she is a type I diabetic who uses insulin shots but hasn't taken them all day and has been eating sweets all day, that was her method for suicide attempt. She now reports nausea vomiting abdominal pain and frequent urination. Timing/Duration: 1-2 Days Severity: Moderate Associated Systoms: Nausea/Vomiting (PIPPA CHAVEZ APRN) Allergies and Home Medications Allergies Coded Allergies: No Known Drug Allergies (Unverified , 08/12/12) Home Medications Cefdinir 300 Mg Capsule, 300 MG PO BID Prescribed by: HARRY TO on 07/13/19 1149 Insulin Aspart 300 Units/3 Ml Solution, 16 UNITS SQ TIDAC, (Reported) Insulin Detemir 100 Unit/1 Ml Insuln.pen, 28 UNIT SQ DAILY, (Reported) Insulin Detemir 100 Unit/1 Ml Insuln.pen, 30 UNIT SQ HS, (Reported) Patient Home Medication List Home Medication List Reviewed: Yes (PIPPA CHAVEZ APRN) Review of Systems Review of Systems Constitutional: see HPI EENTM: see HPI Respiratory: no symptoms reported Cardiovascular: no symptoms reported Gastrointestinal: abdominal pain, nausea, vomiting Genitourinary: no symptoms reported Musculoskeletal: no symptoms reported Skin: no symptoms reported Psychiatric/Neurological: See HPI, Anxiety, Depressed, Emotional Problems Hematologic/Lymphatic: No Symptoms Reported (PIPPA CHAVEZ APRN) Past Wvmqnys-Qqrsat-Oxngtr Hx Patient Social History Alcohol Beverage of Choice: Whiskey, Vodka Drug of Choice: marijuana Type Used: Cigarettes Former Smoker, Quit: Apr 02, 2016 2nd Hand Smoke Exposure: Yes (history of IV drug usage, meth, opiates, etc in the past) Recent Foreign Travel: No Contact w/Someone Who Travel: No Recent Hopitalizations: No (PIPPA CHAVEZ APRN) Immunizations Up To Date Tetanus Booster (TDap): Less than 5yrs PED Vaccines UTD: No (PIPPA CHAVEZ APRN) Seasonal Allergies Seasonal Allergies: Yes (PIPPA CHAVEZ APRN) Past Medical History Surgeries: Yes (splinter removed from left foot ) Ear Surgery Respiratory: No Asthma Currently Using CPAP: No Currently Using BIPAP: No Cardiac: No Hypertension Neurological: No Reproductive Disorders: No Female Reproductive Disorders: Denies Sexually Transmitted Disease: No HIV/AIDS: No Genitourinary: No UTI-Chronic Gastrointestinal: No Musculoskeletal: No Endocrine: Yes Diabetes, Insulin dep HEENT: No Chronic Ear Infection, Tonsilitis Loss of Vision: Denies Hearing Impairment: Denies Cancer: No Psychosocial: Yes (no suicide but did self harm) Anxiety, Depression Integumentary: No Blood Disorders: No Adverse Reaction/Blood Tranf: No (PIPPA CHAVEZ APRN) Family Medical History Colon cancer 19 MOTHER (copd ; breast cancer ) Cystic fibrosis (nephew has CF ) Hypertension 19 MOTHER (copd ; breast cancer ) No Pertinent Family Hx (PIPPA CHAVEZ APRN) Physical Exam Vital Signs Vital Signs - First Documented 12/22/19 21:43 Temp 36.6 Pulse 97 Resp 22 B/P (MAP) 132/87 (102) Pulse Ox 99 O2 Delivery Room Air (KENZIE PALMER MD) Vital Signs Capillary Refill : (PIPPA CHAVEZ APRN) Height, Weight, BMI Height: 5'2.00" Weight: 210lbs. 0.0oz. 95.436037yt; 26.41 BMI Method:Stated General Appearance: No Apparent Distress, WD/WN, Anxious, Other (tearful, unable to sit still, constant writhing movements) Neck: Full Range of Motion, Normal Inspection Respiratory: No Accessory Muscle Use, No Respiratory Distress Cardiovascular: Normal Peripheral Pulses, Tachycardia Gastrointestinal: Normal Bowel Sounds, Soft, Tenderness Extremity: Normal Capillary Refill, Normal Inspection Neurologic/Psychiatric: Alert, Oriented x3 Skin: Normal Color, Warm/Dry (PIPPA CHAVEZ APRN) Procedures/Interventions Date of ETT Placement: Jul 09, 2019 Time of ETT Placement: 1435 (PIPPA CHAVEZ APRN) Progress/Results/Core Measures Suspected Sepsis SIRS Temperature: Pulse: Respiratory Rate: Blood Pressure / Mean: (PIPPA CHAVEZ APRN) Results/Orders Lab Results Laboratory Tests Test 12/22/19 21:48 12/22/19 21:50 12/22/19 22:01 12/22/19 23:36 Range/Units White Blood Count 10.9 4.3-11.0 10^3/uL Red Blood Count 4.07 L 4.35-5.85 10^6/uL Hemoglobin 13.0 11.5-16.0 G/DL Hematocrit 38 35-52 % Mean Corpuscular Volume 93 80-99 FL Mean Corpuscular Hemoglobin 32 25-34 PG Mean Corpuscular Hemoglobin Concent 34 32-36 G/DL Red Cell Distribution Width 12.6 10.0-14.5 % Platelet Count 302 130-400 10^3/uL Mean Platelet Volume 9.5 7.4-10.4 FL Neutrophils (%) (Auto) 57 42-75 % Lymphocytes (%) (Auto) 33 12-44 % Monocytes (%) (Auto) 8 0-12 % Eosinophils (%) (Auto) 1 0-10 % Basophils (%) (Auto) 1 0-10 % Neutrophils # (Auto) 6.2 1.8-7.8 X 10^3 Lymphocytes # (Auto) 3.6 1.0-4.0 X 10^3 Monocytes # (Auto) 0.9 0.0-1.0 X 10^3 Eosinophils # (Auto) 0.1 0.0-0.3 10^3/uL Basophils # (Auto) 0.1 0.0-0.1 10^3/uL Sodium Level 124 *L 135-145 MMOL/L Potassium Level 4.6 3.6-5.0 MMOL/L Chloride Level 90 L 98-107 MMOL/L Carbon Dioxide Level 19 L 21-32 MMOL/L Anion Gap 15 H 5-14 MMOL/L Blood Urea Nitrogen 23 H 7-18 MG/DL Creatinine 1.30 0.60-1.30 MG/DL Estimat Glomerular Filtration Rate 52 BUN/Creatinine Ratio 18 Glucose Level 1128 *H 70-105 MG/DL Calcium Level 9.1 8.5-10.1 MG/DL Corrected Calcium 9.2 8.5-10.1 MG/DL Total Bilirubin 0.2 0.1-1.0 MG/DL Aspartate Amino Transf (AST/SGOT) 57 H 5-34 U/L Alanine Aminotransferase (ALT/SGPT) 63 H 0-55 U/L Alkaline Phosphatase 139 H 40-136 U/L Total Protein 6.8 6.4-8.2 GM/DL Albumin 3.9 3.2-4.5 GM/DL Lipase 37 8-78 U/L Beta-Hydroxybutyrate (Chem panel) 0.21 0.00-0.27 MMOL/L Serum Test, Qualitative NEGATIVE NEGATIVE Salicylates Level < 5.0 L 5.0-20.0 MG/DL Acetaminophen Level < 10 L 10-30 UG/ML Serum Alcohol < 10 <10 MG/DL Glucometer > 600 *H 566 *H 70-110 MG/DL Test 12/22/19 23:40 Range/Units Urine Color OTHER H Urine Clarity CLEAR Urine pH 6.5 5-9 Urine Specific [place] <=1.005 1.016-1.022 Urine Protein NEGATIVE NEGATIVE Urine Glucose (UA) 3+ H NEGATIVE Urine Ketones NEGATIVE NEGATIVE Urine Nitrite NEGATIVE NEGATIVE Urine Bilirubin NEGATIVE NEGATIVE Urine Urobilinogen 0.2 < = 1.0 MG/DL Urine Leukocyte Esterase NEGATIVE NEGATIVE Urine RBC (Auto) NEGATIVE NEGATIVE Urine RBC NONE /HPF Urine WBC NONE /HPF Urine Squamous Epithelial Cells NONE /HPF Urine Crystals NONE /LPF Urine Bacteria NEGATIVE /HPF Urine Casts NONE /LPF Urine Mucus NEGATIVE /LPF Urine Culture Indicated NO Urine Opiates Screen NEGATIVE NEGATIVE Urine Oxycodone Screen NEGATIVE NEGATIVE Urine Methadone Screen NEGATIVE NEGATIVE Urine Propoxyphene Screen NEGATIVE NEGATIVE Urine Barbiturates Screen NEGATIVE NEGATIVE Ur Tricyclic Antidepressants Screen NEGATIVE NEGATIVE Urine Phencyclidine Screen NEGATIVE NEGATIVE Urine Amphetamines Screen NEGATIVE NEGATIVE Urine Methamphetamines Screen NEGATIVE NEGATIVE Urine Benzodiazepines Screen NEGATIVE NEGATIVE Urine Cocaine Screen NEGATIVE NEGATIVE Urine Cannabinoids Screen NEGATIVE NEGATIVE (KENZIE PALMER MD) My Orders Orders - KENZIE PALMER MD Glucose (12/22/19 21:50) (KENZIE PALMER MD) Medications Given in ED Current Medications Medications Dose Ordered Sig/Sisi Route Start Time Stop Time Status Last Admin Dose Admin Insulin Human Regular 8 unit ONCE ONCE SC 12/22/19 22:15 12/22/19 22:16 DC 12/22/19 22:17 8 UNIT Lorazepam 1 mg ONCE PRN IVP 12/22/19 22:00 12/22/19 22:02 1 MG Ondansetron HCl 8 mg ONCE ONCE IVP 12/22/19 22:00 12/22/19 22:01 DC 12/22/19 22:02 8 MG (KENZIE PALMER MD) Vital Signs/I&O 12/22/19 21:43 Temp 36.6 Pulse 97 Resp 22 B/P (MAP) 132/87 (102) Pulse Ox 99 O2 Delivery Room Air 12/23/19 00:00 Intake Total 1000 ml Output Total 1850 ml Balance -850 ml (KENZIE PALMER MD) Vital Signs/I&O Capillary Refill : (PIPPA CHAVEZ APRN) Progress Note : Progress Note 2240: Assumed care of the patient from Pippa Chavez APRN pending labs. Patient did receive IV as well as drip initiated at 5 units per hour with normal saline 1 L bolus followed by LR [address] abdomen and pelvis was ordered due to abdominal pain. 2350: CT abdomen pelvis complete and shows rather large bladder as well as concerns for gastric outlet obstruction although I believe the patient drank a lot of fluid was sugar initially to increase her blood sugar for the suicidal attempt. Her bladder was drained and 1800 mL was obtained. She has been very comfortable afterwards without significant pain. Catheter drainage was done as patient stated she could not urinate. Initial blood sugar had to be diluted to find out what was on arrival and ultimately this was 1128. Currently blood sugar 566. Patient will be admitted to the ICU. I did discuss the case with Dr. Bonilla and he accepts patient for admission, inpatient status. Hyperglycemia protocol initiated. Suicide precautions initiated. (KENZIE PALMER MD) ECG Initial ECG Impression Date: December 22, 2019 Initial ECG Impression Time: 22:17 Initial ECG Rate: 84 Initial ECG Rhythm: Normal Sinus Comment Sinus rhythm with normal axis. No evidence of ST elevation OR. Similar to previous of . Interpreted by me. (KENZIE PALMER MD) Diagnostic Imaging Diagonstic Imaging: CT Plain Films/CT/US/NM/MRI: abdomen, pelvis Comments Gastric distention. Cannot exclude gastric outlet obstruction. Distended bladder. Reviewed: Reviewed [place] Study (KENZIE PALMER MD) Departure Communication (Admissions) Time/Spoke to Admitting Phy: 23:58 (KENZIE PALMER MD) Impression Primary Impression: Methamphetamine abuse Additional Impressions: Hyperglycemia Suicidal ideation Disposition: 09 ADMITTED INPATIENT Condition: Stable Admissions Decision to Admit Reason: Admit from ER (General) Decision to Admit/Date: December 22, 2019 Time/Decision to Admit Time: 21:55 (PIPPA CHAVEZ APRN) Decision to Admit Reason: Admit from ER (General) Decision to Admit/Date: December 22, 2019 Time/Decision to Admit Time: 21:55 (KENZIE PALMER MD) Departure-Patient Inst. Referrals: [facility] [place] Primary Care Physician PIPPA CHAVEZ APRN December 22, 2019 21:55 KENZIE PALMER MD December 23, 2019 00:19
[2019-12-22 21:56] LABS: BASOPHILS # (AUTO) 0.1 10^3/uL (0.0-0.1); BASOPHILS % (AUTO) 1 % (0-10); EOSINOPHILS # (AUTO) 0.1 10^3/uL (0.0-0.3); EOSINOPHILS % (AUTO) 1 % (0-10); HEMATOCRIT 38 % (35-52); LYMPHOCYTES # (AUTO) 3.6 X 10^3 (1.0-4.0); LYMPHOCYTES % (AUTO) 33 % (12-44); MEAN CORPUSCULAR HEMOGLOBIN 32 PG (25-34); MEAN CORPUSCULAR HGB CONC 34 G/DL (32-36); MEAN CORPUSCULAR VOLUME 93 FL (80-99); MEAN PLATELET VOLUME 9.5 FL (7.4-10.4); MONOCYTES # (AUTO) 0.9 X 10^3 (0.0-1.0); MONOCYTES % (AUTO) 8 % (0-12); NEUTROPHILS # (AUTO) 6.2 X 10^3 (1.8-7.8); NEUTROPHILS % (AUTO) 57 % (42-75); PLATELET COUNT 302 10^3/uL (130-400); RED CELL DISTRIBUTION WIDTH 12.6 % (10.0-14.5); WHITE BLOOD COUNT 10.9 10^3/uL (4.3-11.0)
[2019-12-22] MEDS ORDERED: ONDANSETRON 4 MG/2 ML (SDV) Z0FRAN IVP ONE (22:00)
[2019-12-22] MEDS ORDERED: NS IV 1000 ML 1,000 ML IV SCH (22:00)
[2019-12-22] MEDS ORDERED: LORazepam INJ 2 MG/ML (ATIVAN) VIAL IVP PRN (22:00)
[2019-12-22] MEDS ORDERED: NORMAL SALINE 250 ML ONE (22:01)
[2019-12-22 22:09] LABS: ALBUMIN 3.9 GM/DL (3.2-4.5); CHLORIDE 90 MMOL/L (98-107); POTASSIUM 4.6 MMOL/L (3.6-5.0)
[2019-12-22 22:11] LABS: CALCIUM 9.1 MG/DL (8.5-10.1)
[2019-12-22 22:12] LABS: TOTAL PROTEIN 6.8 GM/DL (6.4-8.2)
[2019-12-22 22:13] LABS: CARBON DIOXIDE 19 MMOL/L (21-32)
[2019-12-22 22:14] LABS: BILIRUBIN,TOTAL 0.2 MG/DL (0.1-1.0)
[2019-12-22] MEDS ORDERED: inSUlin REGULAR TPN/DRIP ONLY 250 UNITS in NORMAL SALINE 250 ML IV SCH (22:15)
[2019-12-22] MEDS ORDERED: inSUlin (REGULAR) HUMAN 1 UNIT/0.01 ML (CHARGE PER UNIT) SC ONE (22:15)
[2019-12-22 22:16] LABS: ALKALINE PHOSPHATASE 139 U/L (40-136); GFR ESTIMATED 52
[2019-12-22 22:17] LABS: BUN/CREATININE RATIO 18
[2019-12-22 22:19] LABS: ALANINE AMINOTRANSFERASE 63 U/L (0-55); LIPASE 37 U/L (8-78)
[2019-12-22 22:43] LABS: SALICYLATE < 5.0 MG/DL (5.0-20.0)
[2019-12-22] MEDS ORDERED: LACTATED RINGERS 1,000 ML IV SCH (22:45)
[2019-12-22 22:52] LABS: ACETAMINOPHEN < 10 UG/ML (10-30)
[2019-12-22 22:56] LABS: SODIUM 124 MMOL/L (135-145)
[2019-12-22 23:50] LABS: BILIRUBIN,URINE NEGATIVE (NEGATIVE); CLARITY,URINE CLEAR; COLOR,URINE OTHER; GLUCOSE, URINE (UA) 3+ (NEGATIVE); KETONES,URINE NEGATIVE (NEGATIVE); LEUKOCYTE ESTERASE ,URINE NEGATIVE (NEGATIVE); NITRITE,URINE NEGATIVE (NEGATIVE); PH,URINE 6.5 (5-9); PROTEIN,URINE NEGATIVE (NEGATIVE)
[2019-12-23] VITALS (16 sets, daily range): BP systolic 99–147; BP diastolic 45–85
[2019-12-23 00:06] LABS: BACTERIA,URINE NEGATIVE /HPF
[2019-12-23 00:07] LABS: AMPHETAMINE SCREEN, URINE NEGATIVE (NEGATIVE); BARBITURATE SCREEN URINE NEGATIVE (NEGATIVE); BENZODIAZEPINES SCREEN URINE NEGATIVE (NEGATIVE); CANNABINOID SCREEN, URINE NEGATIVE (NEGATIVE); COCAINE SCREEN URINE NEGATIVE (NEGATIVE); METHADONE STAT NEGATIVE (NEGATIVE); METHAMPHETAMINE SCREEN URINE S NEGATIVE (NEGATIVE); OPIATE SCREEN URINE NEGATIVE (NEGATIVE); OXYCODONE STAT NEGATIVE (NEGATIVE); PROPOXYPHENE STAT NEGATIVE (NEGATIVE); TRICYCLIC ANTIDEPRESSANTS SCRE NEGATIVE (NEGATIVE)
--- NOTE | 2019-12-23 00:42 | NUR ---
JAREN WHITE admitted to room CU12-1, with an admitting diagnosis of DKA, on 12/22/19 from ED via stretcher, accompanied by staff.JAREN WHITE introduced to surroundings, call light, bed controls, phone, TV, temperature control, lights, meal times, smoking policy, visitor policy, side rail policy, bathrooms and showers. Patient Rights given to patient in the handbook. JAREN WHITE verbalizes understanding that [facility] is not responsible for the loss or damage to any personal effects or valuables that are kept in the patients possession during their hospitalization. The following Patient Care Plans were discussed with the patient: Discharge Planning, pain,activity, and diet. JAREN WHITE verbalizes understanding of Interdisciplinary Patient Education. Patient and/or family were informed about the Rapid Response Team and its purpose.
[2019-12-23] MEDS ORDERED: 1/2 NS IV SOLUTION 1,000 ML IV ONE (00:44)
[2019-12-23] MEDS ORDERED: POTASSIUM CL 10MEQ/50ML IVPB 100 ML IV ONE (00:44)
[2019-12-23] MEDS ORDERED: ONDANSETRON 4 MG/2 ML (SDV) Z0FRAN IV PRN (01:00)
[2019-12-23] MEDS ORDERED: NS IV 1000 ML X 1 WIDE OPEN IV ONE (01:00)
[2019-12-23] MEDS ORDERED: REGULAR inSUlin DRIP 250 UNITS/NS 250 ML IV SCH ×2 (01:00)
[2019-12-23] MEDS: D5 1/2 NS IV 1,000 ML IV SCH ×3 (01:11→05:53)
[2019-12-23] MEDS: DEXTROSE 10% IV SOLUTION 1,000 ML IV SCH ×2 (01:11→08:25)
[2019-12-23] MEDS: POTASSIUM CL 10MEQ/50ML IVPB 50 ML IV SCH ×5 (01:12→09:11)
[2019-12-23] MEDS: 1/2 NS IV SOLUTION 1,000 ML IV SCH ×3 (01:12→08:25)
[2019-12-23 01:35] LABS: BASOPHILS # (AUTO) 0.1 10^3/uL (0.0-0.1); BASOPHILS % (AUTO) 1 % (0-10); EOSINOPHILS # (AUTO) 0.1 10^3/uL (0.0-0.3); EOSINOPHILS % (AUTO) 1 % (0-10); HEMATOCRIT 36 % (35-52); HEMOGLOBIN 12.5 G/DL (11.5-16.0); LYMPHOCYTES # (AUTO) 3.4 X 10^3 (1.0-4.0); LYMPHOCYTES % (AUTO) 29 % (12-44); MEAN CORPUSCULAR HEMOGLOBIN 32 PG (25-34); MEAN CORPUSCULAR HGB CONC 35 G/DL (32-36); MEAN CORPUSCULAR VOLUME 92 FL (80-99); MEAN PLATELET VOLUME 9.3 FL (7.4-10.4); MONOCYTES % (AUTO) 9 % (0-12); NEUTROPHILS # (AUTO) 7.3 X 10^3 (1.8-7.8); NEUTROPHILS % (AUTO) 61 % (42-75); PLATELET COUNT 305 10^3/uL (130-400); RED CELL DISTRIBUTION WIDTH 12.4 % (10.0-14.5); WHITE BLOOD COUNT 11.9 10^3/uL (4.3-11.0)
[2019-12-23 01:44] LABS: ALBUMIN 3.7 GM/DL (3.2-4.5)
[2019-12-23 01:45] LABS: CHLORIDE 101 MMOL/L (98-107); POTASSIUM 3.1 MMOL/L (3.6-5.0); SODIUM 136 MMOL/L (135-145)
[2019-12-23 01:46] LABS: CALCIUM 8.9 MG/DL (8.5-10.1)
[2019-12-23 01:47] LABS: GLUCOSE 235 MG/DL (70-105); TOTAL PROTEIN 6.4 GM/DL (6.4-8.2)
[2019-12-23 01:48] LABS: CARBON DIOXIDE 21 MMOL/L (21-32)
[2019-12-23 01:49] LABS: BILIRUBIN,TOTAL 0.2 MG/DL (0.1-1.0)
[2019-12-23 01:50] LABS: ALKALINE PHOSPHATASE 122 U/L (40-136); PHOSPHORUS 3.4 MG/DL (2.3-4.7)
[2019-12-23 01:51] LABS: CREATININE SERUM 0.73 MG/DL (0.60-1.30); GFR ESTIMATED > 60
[2019-12-23 01:52] LABS: BUN/CREATININE RATIO 26
[2019-12-23 01:53] LABS: ALANINE AMINOTRANSFERASE 73 U/L (0-55); MAGNESIUM 1.8 MG/DL (1.6-2.4)
[2019-12-23 05:57] LABS: CHLORIDE 105 MMOL/L (98-107); POTASSIUM 3.7 MMOL/L (3.6-5.0); SODIUM 137 MMOL/L (135-145)
[2019-12-23 05:58] LABS: CALCIUM 8.4 MG/DL (8.5-10.1); GLUCOSE 155 MG/DL (70-105)
[2019-12-23 06:00] LABS: CARBON DIOXIDE 22 MMOL/L (21-32)
[2019-12-23 06:02] LABS: CREATININE SERUM 0.64 MG/DL (0.60-1.30); GFR ESTIMATED > 60
[2019-12-23 06:03] LABS: BUN/CREATININE RATIO 23
--- NOTE | 2019-12-23 06:08 | Diagnostic Imaging Report ---
PROCEDURE: CT abdomen and pelvis without contrast. TECHNIQUE: Multiple contiguous axial images were obtained through the abdomen and pelvis without the use of intravenous contrast. Auto Exposure Controls were utilized during the CT exam to meet ALARA standards for radiation dose reduction. INDICATION: Hyperglycemia CORRELATION STUDY: 06/02/2017 FINDINGS: Overall assessment is somewhat limited and compromised on this study LOWER THORAX: Clear. LIVER: Borderline enlarged. GALLBLADDER: Not well visualized, may contain a gallstone. No overt bile duct dilatation. SPLEEN: Unremarkable. PANCREAS: Generally unremarkable. ADRENAL GLANDS: Not well defined. KIDNEYS: Normal configuration. No calcification or obstruction. ABDOMINAL AORTA: Generally normal in contour. GASTROINTESTINAL TRACT: Rather pronounced gastric distention with retained gastric contents and fluid. No definitive small bowel obstruction. Moderate severity fecal retention of stool throughout the colon. Normal appendix is partially visualized. URINARY BLADDER: Moderately distended. REPRODUCTIVE: Uterus and adnexa grossly unremarkable. OSSEOUS STRUCTURES: No acute abnormality. OTHER: None. IMPRESSION: 1. Rather significant gastric distention with retained gastric contents. Possibility of underlying gastric outlet obstruction or gastroparesis are considerations. 2. Distended urinary bladder. 3. If symptoms persist and/or clinically warranted, postcontrast imaging would likely be of additional benefit. A preliminary report was provided by [facility]. Dictated by: Dictated on workstation # [id number]
[2019-12-23 09:27] LABS: CHLORIDE 103 MMOL/L (98-107); POTASSIUM 4.4 MMOL/L (3.6-5.0); SODIUM 135 MMOL/L (135-145)
[2019-12-23 09:28] LABS: CALCIUM 8.1 MG/DL (8.5-10.1); GLUCOSE 177 MG/DL (70-105)
[2019-12-23 09:30] LABS: CARBON DIOXIDE 22 MMOL/L (21-32)
[2019-12-23 09:32] LABS: CREATININE SERUM 0.64 MG/DL (0.60-1.30); GFR ESTIMATED > 60
[2019-12-23 09:33] LABS: BUN/CREATININE RATIO 19
--- NOTE | 2019-12-23 11:30 | NUR ---
pt on zoom with behavioral health.
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
[2019-12-23] MEDS: inSUlin ASPART (NovoLOG) 1 UNIT/0.01 ML (CHARGE PER UNIT) SC SCH ×2 (11:58→18:23)
[2019-12-23] MEDS ORDERED: INSULIN ASPART 16 UNIT SQ SCH (12:00)
--- NOTE | 2019-12-23 13:35 | NUR ---
pt returns from heart cath. placed on monitors resting with eyes closed.
--- NOTE | 2019-12-23 18:23 | NUR ---
1700 insulin held for bs of 96 until pt ate her supper.
[2019-12-24] VITALS: BP 127/62
[2019-12-24 04:00] VITALS: BP 107/67
[2019-12-24 06:21] LABS: CHLORIDE 103 MMOL/L (98-107); POTASSIUM 3.7 MMOL/L (3.6-5.0); SODIUM 138 MMOL/L (135-145)
[2019-12-24 06:23] LABS: CALCIUM 8.8 MG/DL (8.5-10.1)
[2019-12-24 06:24] LABS: CARBON DIOXIDE 25 MMOL/L (21-32)
[2019-12-24 06:27] LABS: CREATININE SERUM 0.61 MG/DL (0.60-1.30); GFR ESTIMATED > 60
[2019-12-24 06:28] LABS: BUN/CREATININE RATIO 28
[2019-12-24 06:29] LABS: GLUCOSE 42 MG/DL (70-105)
[2019-12-24] MEDS: inSUlin ASPART (NovoLOG) 1 UNIT/0.01 ML (CHARGE PER UNIT) SC SCH ×2 (06:38→11:13)
--- NOTE | 2019-12-24 06:38 | NUR ---
NOTIFIED DR. GARCIA OF CRITICAL BLOOD SUGAR OF 43. RECEIVED ORDER TO HOLD AM NOVOLOG.
[2019-12-24 07:19] VITALS: BP 108/69
[2019-12-24 11:09] VITALS: BP 119/78
[2019-12-24 12:55] VITALS: BP 119/78
== END 2019-12-24 12:57 | disposition home or self-care (01) | DRG 638 ==
LOC: EDUNIT# 21:36 → ER 21:38 → ICU 23:58 → 4TH 12-23 18:10
PROVIDERS: ADMIT Internal Medicine; ATTEND Internal Medicine
DX: E10.65 Type 1 diabetes mellitus with hyperglycemia (principal); R45.851 Suicidal ideations; F15.20 Other stimulant dependence, uncomplicated; F41.9 Anxiety disorder, unspecified; F32.9 Major depressive disorder, single episode, unspecified; Z87.891 Personal history of nicotine dependence; J45.909 Unspecified asthma, uncomplicated; I10 Essential (primary) hypertension; K31.89 Other diseases of stomach and duodenum
CPT/HCPCS: 36415; 74176; 80048; 80053; 80306; 80320; 80329; 81000; 82010; 82947; 82962; 83690; 83735; 84100; 84703; 85025; 87081; 93005

== ENCOUNTER 2020-01-12 17:46 | Observation (INO) | payer MEDICAID ==
[2020-01-12] VITALS (7 sets, daily range): BP systolic 94–108; BP diastolic 44–61
[~2020-01-12] VITALS: Ht 172 cm; Wt 68.1 kg
--- NOTE | 2020-01-12 17:58 | ED General ---
General Stated Complaint: HYPOGLYCEMIA Source of Information: EMS Exam Limitations: No Limitations History of Present Illness Date Seen by Provider: Jan 12, 2020 Time Seen by Provider: 17:54 Initial Comments To ER by EMS from home with reports of hypoglycemia. Found to be with an altered mental status by family, EMS was summoned. She is known to have been drinking alcohol today. EMS arrived and found a stick blood sugar of 43. IV was started and she was given 250 cc of D10. In route to the ER her sugar increased to 300 and was back to 190 upon arrival to ER. She is insulin-dependent, unknown if this was an attempt at self-harm. She does have some superficial cut cast to the right thigh that are fresh. Mother reports that a friend of the pateint's told her that she was at [employer] this morning and she was drinking and "taking trazodone" (but unknown what dose or how many but believed to be about 3). Timing/Duration: 1-2 Days Severity: Moderate Associated Systoms: Denies Symptoms Allergies and Home Medications Allergies Coded Allergies: No Known Drug Allergies (Unverified , 08/12/12) Home Medications Insulin Aspart 300 Units/3 Ml Solution, 16 UNITS SQ TIDAC, (Reported) Insulin Detemir 100 Unit/1 Ml Insuln.pen, 28 UNIT SQ DAILY, (Reported) Insulin Detemir 100 Unit/1 Ml Insuln.pen, 30 UNIT SQ HS, (Reported) Patient Home Medication List Home Medication List Reviewed: Yes Review of Systems Review of Systems Constitutional: see HPI, other (Unable unable to obtain due to altered mental status) Past Atjgpda-Zucedb-Oiusaq Hx Patient Social History Alcohol Beverage of Choice: Whiskey, Vodka Drug of Choice: METH Type Used: Cigarettes Former Smoker, Quit: Apr 02, 2016 2nd Hand Smoke Exposure: Yes Recent Hopitalizations: No Immunizations Up To Date Tetanus Booster (TDap): Unknown PED Vaccines UTD: No Seasonal Allergies Seasonal Allergies: Yes Past Medical History Surgeries: Yes Ear Surgery Respiratory: Yes Asthma Currently Using CPAP: No Currently Using BIPAP: No Cardiac: Yes Hypertension Neurological: No Reproductive Disorders: No Female Reproductive Disorders: Denies Sexually Transmitted Disease: No HIV/AIDS: No Genitourinary: No UTI-Chronic Gastrointestinal: No Musculoskeletal: No Endocrine: Yes Diabetes, Insulin dep HEENT: No Chronic Ear Infection, Tonsilitis Loss of Vision: Denies Hearing Impairment: Denies Cancer: No Psychosocial: Yes (CUTTING) Anxiety, Depression Integumentary: No Blood Disorders: No Adverse Reaction/Blood Tranf: No Family Medical History Colon cancer 19 MOTHER (copd ; breast cancer ) Cystic fibrosis (nephew has CF ) Hypertension 19 MOTHER (copd ; breast cancer ) No Pertinent Family Hx Physical Exam Vital Signs Vital Signs - First Documented 01/12/20 17:58 Temp 35.8 Pulse 76 Resp 18 B/P (MAP) 105/46 (65) Pulse Ox 96 Capillary Refill : Height, Weight, BMI Height: 5'2.00" Weight: 210lbs. 0.0oz. [id number]; 25.54 BMI Method:Stated General Appearance: Other (Lethargic, opens eyes to painful stimuli, alternating lethargy then she'll awaken and began crying and then become lethargic again. Pupils are equal. Superficial cut cast to the anterior right proximal thigh without active bleeding but do appear to be quite recent. Older healed scars to both forearms and thighs.) Eyes: Bilateral Eye Normal Inspection, Bilateral Eye PERRL, Bilateral Eye EOMI Respiratory: No Accessory Muscle Use, No Respiratory Distress Cardiovascular: Regular Rate, Rhythm, Normal Peripheral Pulses Gastrointestinal: Normal Bowel Sounds, Non Tender, Soft Extremity: Normal Capillary Refill, No Calf Tenderness Neurologic/Psychiatric: No Motor/Sensory Deficits, Disoriented Skin: Normal Color, Warm/Dry Procedures/Interventions Date of ETT Placement: Jul 09, 2019 Time of ETT Placement: 1435 Progress/Results/Core Measures Suspected Sepsis SIRS Temperature: Pulse: Respiratory Rate: Laboratory Tests 01/12/20 17:50: White Blood Count 10.9 Blood Pressure / Mean: Laboratory Tests 01/12/20 17:50: Creatinine 0.65, Platelet Count 355 Results/Orders Lab Results Laboratory Tests Test 01/12/20 17:50 01/12/20 17:52 01/12/20 18:05 01/12/20 18:49 Range/Units White Blood Count 10.9 4.3-11.0 10^3/uL Red Blood Count 4.11 L 4.35-5.85 10^6/uL Hemoglobin 13.2 11.5-16.0 G/DL Hematocrit 38 35-52 % Mean Corpuscular Volume 93 80-99 FL Mean Corpuscular Hemoglobin 32 25-34 PG Mean Corpuscular Hemoglobin Concent 35 32-36 G/DL Red Cell Distribution Width 12.6 10.0-14.5 % Platelet Count 355 130-400 10^3/uL Mean Platelet Volume 9.4 7.4-10.4 FL Neutrophils (%) (Auto) 50 42-75 % Lymphocytes (%) (Auto) 40 12-44 % Monocytes (%) (Auto) 10 0-12 % Eosinophils (%) (Auto) 1 0-10 % Basophils (%) (Auto) 1 0-10 % Neutrophils # (Auto) 5.4 1.8-7.8 X 10^3 Lymphocytes # (Auto) 4.3 H 1.0-4.0 X 10^3 Monocytes # (Auto) 1.1 H 0.0-1.0 X 10^3 Eosinophils # (Auto) 0.1 0.0-0.3 10^3/uL Basophils # (Auto) 0.1 0.0-0.1 10^3/uL Sodium Level 141 135-145 MMOL/L Potassium Level 3.1 L 3.6-5.0 MMOL/L Chloride Level 105 98-107 MMOL/L Carbon Dioxide Level 17 L 21-32 MMOL/L Anion Gap 19 H 5-14 MMOL/L Blood Urea Nitrogen 16 7-18 MG/DL Creatinine 0.65 0.60-1.30 MG/DL Estimat Glomerular Filtration Rate > 60 BUN/Creatinine Ratio 25 Glucose Level 44 *L 70-105 MG/DL Calcium Level 8.8 8.5-10.1 MG/DL Beta-Hydroxybutyrate (Chem panel) 0.32 H 0.00-0.27 MMOL/L Serum Test, Qualitative NEGATIVE NEGATIVE Serum Alcohol 236 H <10 MG/DL Glucometer 197 H 182 H 70-110 MG/DL Urine Color YELLOW Urine Clarity CLEAR Urine pH 6.0 5-9 Urine Specific [place] 1.010 L 1.016-1.022 Urine Protein NEGATIVE NEGATIVE Urine Glucose (UA) 1+ H NEGATIVE Urine Ketones NEGATIVE NEGATIVE Urine Nitrite NEGATIVE NEGATIVE Urine Bilirubin NEGATIVE NEGATIVE Urine Urobilinogen 0.2 < = 1.0 MG/DL Urine Leukocyte Esterase 1+ H NEGATIVE Urine RBC (Auto) NEGATIVE NEGATIVE Urine RBC NONE /HPF Urine WBC 0-2 /HPF Urine Crystals PRESENT H /LPF Urine Amorphous Sediment RARE JASON URATES H /LPF Urine Bacteria NEGATIVE /HPF Urine Casts NONE /LPF Urine Mucus NEGATIVE /LPF Urine Culture Indicated NO Urine Opiates Screen NEGATIVE NEGATIVE Urine Oxycodone Screen NEGATIVE NEGATIVE Urine Methadone Screen NEGATIVE NEGATIVE Urine Propoxyphene Screen NEGATIVE NEGATIVE Urine Barbiturates Screen NEGATIVE NEGATIVE Ur Tricyclic Antidepressants Screen NEGATIVE NEGATIVE Urine Phencyclidine Screen NEGATIVE NEGATIVE Urine Amphetamines Screen POSITIVE H NEGATIVE Urine Methamphetamines Screen POSITIVE H NEGATIVE Urine Benzodiazepines Screen NEGATIVE NEGATIVE Urine Cocaine Screen NEGATIVE NEGATIVE Urine Cannabinoids Screen NEGATIVE NEGATIVE My Orders Orders - PIPPA [employer]A [employer] Accucheck Stat ONCE (01/12/20 17:47) Cbc With Automated Diff (01/12/20 17:47) Hcg,Qualitative Serum (01/12/20 17:47) Basic Metabolic Panel (01/12/20 17:47) Ed Iv/Invasive Line Start (01/12/20 17:47) Accucheck Prn (01/12/20 17:53) Alcohol (01/12/20 17:53) Ua Culture If Indicated (01/12/20 17:53) Drug Screen Stat (Urine) (01/12/20 17:53) Beta Hydroxybutyrate (01/12/20 17:53) Amador Cath (01/12/20 18:47) Ekg Tracing (01/12/20 18:47) Potassium Cl 10meq/50ml Ivpb (Kcl 10 Meq (01/12/20 19:15) Ns Iv 500 Ml (Sodium Chloride 0.9%) (01/12/20 19:15) Potassium Chloride (Tablet) (Klor Con Ta (01/12/20 19:15) Medications Given in ED Current Medications Medications Dose Ordered Sig/Sisi Route Start Time Stop Time Status Last Admin Dose Admin Potassium Chloride 50 ml @ 50 mls/hr ONCE ONCE IV 01/12/20 19:15 01/12/20 20:14 01/12/20 19:31 50 MLS/HR Vital Signs/I&O 01/12/20 17:58 Temp 35.8 Pulse 76 Resp 18 B/P (MAP) 105/46 (65) Pulse Ox 96 Capillary Refill : Departure Communication (Admissions) Time/Spoke to Admitting Phy: 19:[address] Burns, given the patient's continued somnolence will admit for observation Impression Primary Impression: Alcohol intoxication Additional Impression: Methamphetamine abuse Disposition: 09 ADMITTED INPATIENT Condition: Stable Admissions Decision to Admit Reason: Admit from ER (General) Decision to Admit/Date: Jan 12, 2020 Time/Decision to Admit Time: 19:25 Departure-Patient Inst. Referrals: [facility] (PCP/Family) Primary Care Physician PIPPA BARRERA APRN Jan 12, 2020 17:58
[2020-01-12 18:18] LABS: BASOPHILS # (AUTO) 0.1 10^3/uL (0.0-0.1); BASOPHILS % (AUTO) 1 % (0-10); EOSINOPHILS # (AUTO) 0.1 10^3/uL (0.0-0.3); EOSINOPHILS % (AUTO) 1 % (0-10); HEMATOCRIT 38 % (35-52); HEMOGLOBIN 13.2 G/DL (11.5-16.0); LYMPHOCYTES # (AUTO) 4.3 X 10^3 (1.0-4.0); LYMPHOCYTES % (AUTO) 40 % (12-44); MEAN CORPUSCULAR HEMOGLOBIN 32 PG (25-34); MEAN CORPUSCULAR HGB CONC 35 G/DL (32-36); MEAN CORPUSCULAR VOLUME 93 FL (80-99); MEAN PLATELET VOLUME 9.4 FL (7.4-10.4); MONOCYTES # (AUTO) 1.1 X 10^3 (0.0-1.0); MONOCYTES % (AUTO) 10 % (0-12); NEUTROPHILS # (AUTO) 5.4 X 10^3 (1.8-7.8); NEUTROPHILS % (AUTO) 50 % (42-75); PLATELET COUNT 355 10^3/uL (130-400); RED CELL DISTRIBUTION WIDTH 12.6 % (10.0-14.5); WHITE BLOOD COUNT 10.9 10^3/uL (4.3-11.0)
[2020-01-12 18:23] LABS: BILIRUBIN,URINE NEGATIVE (NEGATIVE); CLARITY,URINE CLEAR; COLOR,URINE YELLOW; GLUCOSE, URINE (UA) 1+ (NEGATIVE); KETONES,URINE NEGATIVE (NEGATIVE); LEUKOCYTE ESTERASE ,URINE 1+ (NEGATIVE); NITRITE,URINE NEGATIVE (NEGATIVE); PROTEIN,URINE NEGATIVE (NEGATIVE)
[2020-01-12 18:35] LABS: BUN/CREATININE RATIO 25; CALCIUM 8.8 MG/DL (8.5-10.1); CARBON DIOXIDE 17 MMOL/L (21-32); CHLORIDE 105 MMOL/L (98-107); CREATININE SERUM 0.65 MG/DL (0.60-1.30); GFR ESTIMATED > 60; POTASSIUM 3.1 MMOL/L (3.6-5.0); SODIUM 141 MMOL/L (135-145)
[2020-01-12 18:41] LABS: GLUCOSE 44 MG/DL (70-105)
[2020-01-12 18:43] LABS: AMORPHOUS SEDIMENT,UR RARE AMOR URATES /LPF; BACTERIA,URINE NEGATIVE /HPF; WBC,URINE 0-2 /HPF
[2020-01-12 18:44] LABS: AMPHETAMINE SCREEN, URINE POSITIVE (NEGATIVE); BARBITURATE SCREEN URINE NEGATIVE (NEGATIVE); BENZODIAZEPINES SCREEN URINE NEGATIVE (NEGATIVE); CANNABINOID SCREEN, URINE NEGATIVE (NEGATIVE); COCAINE SCREEN URINE NEGATIVE (NEGATIVE); METHADONE STAT NEGATIVE (NEGATIVE); METHAMPHETAMINE SCREEN URINE S POSITIVE (NEGATIVE); OPIATE SCREEN URINE NEGATIVE (NEGATIVE); OXYCODONE STAT NEGATIVE (NEGATIVE); PROPOXYPHENE STAT NEGATIVE (NEGATIVE); TRICYCLIC ANTIDEPRESSANTS SCRE NEGATIVE (NEGATIVE)
[2020-01-12] MEDS ORDERED: POTASSIUM CL 10MEQ/50ML IVPB 50 ML IV ONE (19:15)
[2020-01-12] MEDS ORDERED: KCL 10 MEQ TAB (MICRO K) PO ONE (19:15)
[2020-01-12] MEDS: NS IV 500 ML 500 ML IV SCH (19:31)
--- NOTE | 2020-01-12 20:11 | NUR ---
PT RESTING IN BED WITH EYES CLOSED. VS ARE FOLLOWS: HR 87, 99% ON RA, RR 23, NIBP 108/58.
[2020-01-12] MEDS ORDERED: NS IV 1000 ML 1,000 ML ONE (21:18)
[2020-01-12] MEDS ORDERED: LORazepam INJ 2 MG/ML (ATIVAN) VIAL IV PRN (21:30)
[2020-01-12] MEDS ORDERED: ONDANSETRON 4 MG/2 ML (SDV) Z0FRAN IV PRN (21:30)
[2020-01-12] MEDS: NS IV 1000 ML 1,000 ML IV SCH (21:37)
[2020-01-12] MEDS: POTASSIUM CL 10 MEQ/50 ML IVPB (PRE-MIX) IV SCH ×3 (22:04→23:57)
--- OUTSIDE RECORDS SUMMARY | 2020-01-12 22:12 | XMS REPORT | Clinical Summary ---
Author Author [facility] Organization [facility] Address Unknown Phone Unavailable Care Team Providers Care Seal Skinner Name Role Phone Nathan Tapia RN Unavailable Unavailable No Pcp, Na PCP Unavailable Source Comments Some departments are not documenting in the electronic medical record. 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 necessary based on Dx
--- OUTSIDE RECORDS SUMMARY | 2020-01-12 22:20 | XMS REPORT | Continuity of Care Document ---
Author Organization Unknown Address Unknown Phone Unavailable Allergies Active Description Code Type Severity Reaction Onset Reported/Identified Relationship to Patient Clinical Status Yes No Known Drug Allergies [id number] Drug Allergy Unknown N/A 08/12/2012 Medications There [...] V7 0.0 [facility] - [facility] DEPRESSIVE DISORDER NOS [facility]/10[facility] V25.02 CONTRACEPTION - ANY METHOD 04/10/2013 [facility] V7 0.0 EXAM - ROUTINE H&P 04/10/2013 [...] V70.0 EXAM - ROUTINE H&P [facility]/10[facility] DEPRESSIVE DISORDER NOS 04/10/[facility] V25.02 CONTRACEPTION - ANY METHOD 04/10/2013 [facility] V7 0.0 EXAM - ROUTINE H&P 04/10/2013 SARAH GUILLEN MD 311 DEPRESSIVE DISORDER NOS 04/10/2013 SARAH GUILLEN MD V25.0 2 CONTRACEPTION - ANY METHOD 04/10/2013 MINDY DAVID, SARAH V70.0 EXAM - ROUTINE H&P 04/10/2013 [facility] 1 DEPRESSIVE DISORDER NOS 04/10/2013 [facility] A V25.02 CONTRACEPTION - ANY METHOD 04/10/2013 [facility] A V7 0.0 EXAM - ROUTINE H&P 04/10/2013 MORAIMA DAVID, MARSHA 311 DEPRESSIVE DISORDER NOS 04/10/2013 MORAIMA DAVID, MARSHA V25.02 CONTRACEPTION - ANY METHOD 04/10/2013 MORAIMA DAVID, MARSHA V70.0 EXAM - ROUTINE H&P 04/10/2013 SARAH GUILLEN MD 311 DEPRESSIVE DISORDER NOS 04/10/2013 SARAH GUILLEN MD V25.0 2 CONTRACEPTION - ANY METHOD 04/10/2013 SARAH GUILLEN MD V70.0 EXAM - ROUTINE H&P 04/10/2013 [facility] Zamudio 31 1 DEPRESSIVE DISORDER NOS 04/10/2013 [facility] Zamudio V25.02 CONTRACEPTION - ANY METHOD 04/10/2013 [facility] Lizz V7 0.0 EXAM - ROUTINE H&P 04/10/2013 PENNY XAVIER APRN S 311 DEPRESSIVE DISORDER NOS 04/10/2013 DAMION XAVIER APRNA S V25.02 CONTRACEPTION - ANY METHOD 04/10/2013 DAMION XAVIER APRNA S V70.0 EXAM - ROUTINE H&P 04/10/2013 MAUREENE PHYSICAL EDUCATION SPECIALIST, RYANNE A 311 DEPRESSIVE DISORDER NOS 04/10/2013 RAJKYLEE PHYSICAL EDUCATION SPECIALIST, RYANNE A V25.02 CONTRACEPTION - ANY METHOD 04/10/2013 RAJOTTE PHYSICAL EDUCATION SPECIALIST, RYANNE A V70.0 EXAM - ROUTINE H&P 04/10/2013 RAJOTTE PHYSICAL EDUCATION SPECIALIST, RYANNE A 311 DEPRESSIVE DISORDER NOS 04/10/2013 RAJOTTE PHYSICAL EDUCATION SPECIALIST, RYANNE A V25.02 CONTRACEPTION - ANY METHOD 04/10/2013 MAUREENE PHYSICAL EDUCATION SPECIALIST, RYANNE A V70.0 EXAM - ROUTINE H&P 04/10/2013 BARBARA THOMAS RYANNE A 311 DEPRESSIVE DISORDER NOS 04/10/2013 RYANNE JIMENEZ APRN A V25.02 CONTRACEPTION - ANY METHOD 04/10/2013 JOSE JIMENEZ APRNYL A V70.0 EXAM - ROUTINE H&P 05/12/2013 ASHLEY ROD APRN 00 8.8 GASTROENTERITIS, VIRAL 05/12/2013 [facility] A 00 8.8 GASTROENTERITIS, VIRAL 05/12/2013 AGEE DO, ROSSI K 008.8 GASTROENTERITIS, VIRAL 05/12/2013 AGEE DO, ROSSI K 008.8 GASTROENTERITIS, VIRAL 05/12/2013 [facility] A 00 8.8 GASTROENTERITIS, VIRAL 05/12/2013 SARAH GUILLEN MD 008.8 GASTROENTERITIS, VIRAL 05/12/2013 [facility] A 00 8.8 GASTROENTERITIS, VIRAL 05/12/2013 MARSHA VALERA MD 008.8 GASTROENTERITIS, VIRAL 05/12/2013 SARAH GUILLEN MD 008.8 GASTROENTERITIS, VIRAL 05/12/2013 [facility] A 00 8.8 GASTROENTERITIS, VIRAL 05/12/2013 PENNY XAVIER APRN S 008.8 GASTROENTERITIS, VIRAL 05/12/2013 JOSE JIMENEZ APRNYL A 008.8 GASTROENTERITIS, VIRAL 05/12/2013 BARBARA THOMAS RYANNE A 008.8 GASTROENTERITIS, VIRAL 05/12/2013 BARBARA THOMAS, RYANNE A 008.8 GASTROENTERITIS, VIRAL 07/11/2013 ROSSI AGEE DO K V25.09 CONTRACEPTIVE COUNSELING - GENERAL 07/11/2013 ROSSI AGEE DO K V25.09 CONTRACEPTIVE COUNSELING - GENERAL 07/11/2013 [facility] Zamudio V25.09 CONTRACEPTIVE COUNSELING - GENERAL 07/11/2013 SARAH GUILLEN MD V25.0 9 CONTRACEPTIVE COUNSELING - GENERAL 07/11/2013 [facility] Zamudio V25.09 CONTRACEPTIVE COUNSELING - GENERAL 07/11/2013 MARSHA VALERA MD V25.09 CONTRACEPTIVE COUNSELING - GENERAL 07/11/2013 SARAH GUILLEN MD V25.0 9 CONTRACEPTIVE COUNSELING - GENERAL 07/11/2013 [facility] Zamudio V25.09 CONTRACEPTIVE COUNSELING - GENERAL 07/11/2013 PENNY XAVIER APRN S V25.09 CONTRACEPTIVE COUNSELING - GENERAL 07/11/2013 RAJOTTE PHYSICAL EDUCATION SPECIALIST, RYANNE A V25.09 CONTRACEPTIVE COUNSELING - GENERAL 07/11/2013 BARBARA THOMAS, RYANNE A V25.09 CONTRACEPTIVE COUNSELING - GENERAL 07/11/2013 BARBARA THOMAS, RYANNE A V25.09 CONTRACEPTIVE COUNSELING - GENERAL 08/03/2013 SARAH GUILLEN MD 296.9 0 MOOD DISORDER NOS 08/03/2013 SARAH GUILLEN MD 304.8 0 SA POLYSUB DEP 08/03/2013 [facility] A 296.90 MOOD DISORDER NOS 08/03/2013 [facility] A 304.80 SA POLYSUB DEP 08/03/2013 MARSHA VALERA MD 296.90 MOOD DISORDER NOS 08/03/2013 MARSHA VALERA MD 304.80 SA POLYSUB DEP 08/03/2013 SARAH GUILLEN MD 296.9 0 MOOD DISORDER NOS 08/03/2013 SARAH GUILLEN MD 304.8 0 SA POLYSUB DEP 08/03/2013 [facility] A 296.90 MOOD DISORDER NOS 08/03/2013 [facility] A 304.80 SA POLYSUB DEP 08/03/2013 DUC THOMAS PENNY S 296.90 MOOD DISORDER NOS 08/03/2013 DUC PHYSICAL EDUCATION SPECIALIST, PENNY S 304.80 SA POLYSUB DEP 08/03/2013 MAUREENE PHYSICAL EDUCATION SPECIALIST, RYANNE A 296.90 MOOD DISORDER NOS 08/03/2013 RAJKYLEE PHYSICAL EDUCATION SPECIALIST, RYANNE A 304.80 SA POLYSUB DEP 08/03/2013 RAJKYLEE PHYSICAL EDUCATION SPECIALIST, RYANNE A 296.90 MOOD DISORDER NOS 08/03/2013 RAJKYLEE PHYSICAL EDUCATION SPECIALIST, RYANNE A 304.80 SA POLYSUB DEP 08/03/2013 RAJOTTE PHYSICAL EDUCATION SPECIALIST, RYANNE A 296.90 MOOD DISORDER NOS 08/03/2013 RAJOTTE PHYSICAL EDUCATION SPECIALIST, RYANNE A 304.80 SA POLYSUB DEP 08/15/2013 MARSHA VALERA MD 487.1 INFLUENZA 08/15/2013 SARAH GUILLEN MD 487.1 INFLUENZA 08/15/2013 [facility] A 48 7.1 INFLUENZA 08/15/2013 KEN XAVIRE APRNNDA S 487.1 INFLUENZA 08/15/2013 BARBARA THOMAS RYANNE A 487.1 INFLUENZA 08/15/2013 RAJOTTE PHYSICAL EDUCATION SPECIALIST, RYANNE A 487.1 INFLUENZA 08/15/2013 RAJOTTE PHYSICAL EDUCATION SPECIALIST, RYANNE A 487.1 INFLUENZA 08/29/2013 SARAH GUILLEN MD 461.8 OTHER ACUTE SINUSITIS 08/29/2013 SARAH GUILLEN MD 528.9 OTHER AND UNSPECIFIED DISEASES OF THE ORAL SOFT TISSUES 08/29/2013 [facility], [facility] A 46 1.8 OTHER ACUTE SINUSITIS 08/29/2013 [facility] A 52 8.9 OTHER AND UNSPECIFIED DISEASES OF THE ORAL SOFT TISSUES 08/29/2013 DUC PHYSICAL EDUCATION SPECIALIST, PENNY S 461.8 OTHER ACUTE SINUSITIS 08/29/2013 DUC PHYSICAL EDUCATION SPECIALIST, PENNY S 528.9 OTHER AND UNSPECIFIED DISEASES OF THE ORAL SOFT TISSUE S 08/29/2013 RAJOTTE PHYSICAL EDUCATION SPECIALIST, RYANNE A 461.8 OTHER ACUTE SINUSITIS 08/29/2013 RAJOTTE PHYSICAL EDUCATION SPECIALIST, RYANNE A 528.9 OTHER AND UNSPECIFIED DISEASES OF THE ORAL SOFT TISSUE S 08/29/2013 RAJOTTE PHYSICAL EDUCATION SPECIALIST, RYANNE A 461.8 OTHER ACUTE SINUSITIS 08/29/2013 RAJOTTE PHYSICAL EDUCATION SPECIALIST, RYANNE A 528.9 OTHER AND UNSPECIFIED DISEASES OF THE ORAL SOFT TISSUE S 08/29/2013 RAJOTTE PHYSICAL EDUCATION SPECIALIST, RYANNE A 461.8 OTHER ACUTE SINUSITIS 08/29/2013 RAJOTTE PHYSICAL EDUCATION SPECIALIST, RYANNE A 528.9 OTHER AND UNSPECIFIED DISEASES OF THE ORAL SOFT TISSUE S 09/20/2013 DUC PHYSICAL EDUCATION SPECIALIST, PENNY S 558.9 GASTROENTERITIS NONINFECTIOUS 09/20/2013 DUC PERDOMON, PENNY S 787.91 DIARRHEA 09/20/2013 RAJOTTE PHYSICAL EDUCATION SPECIALIST, RYANNE A 558.9 GASTROENTERITIS NONINFECTIOUS 09/20/2013 RAJOTTE PHYSICAL EDUCATION SPECIALIST, RYANNE A 787.91 DIARRHEA 09/20/2013 RAJOTTE PHYSICAL EDUCATION SPECIALIST, RYANNE A 558.9 GASTROENTERITIS NONINFECTIOUS 09/20/2013 RAJOTTE PHYSICAL EDUCATION SPECIALIST, RYANNE A 787.91 DIARRHEA 09/20/2013 RAJOTTE PHYSICAL EDUCATION SPECIALIST, RYANNE A 558.9 GASTROENTERITIS NONINFECTIOUS 09/20/2013 RAJOTTE PHYSICAL EDUCATION SPECIALIST, RYANNE A 787.91 DIARRHEA 10/09/2013 RAJOTTE PHYSICAL EDUCATION SPECIALIST, RYANNE A 305.1 TOBACCO ABUSE 10/09/2013 BARBARA PHYSICAL EDUCATION SPECIALIST, RYANEN A V70.3 SPORTS PHYSICAL 10/09/2013 BARBARA PHYSICAL EDUCATION SPECIALIST, RYANNE A 305.1 TOBACCO ABUSE 10/09/2013 АНДРЕЙOTTE PHYSICAL EDUCATION SPECIALIST, RYANNE A V70.3 SPORTS PHYSICAL 10/09/2013 RAJKYLEE PHYSICAL EDUCATION SPECIALIST, RYANNE A 305.1 TOBACCO ABUSE 10/09/2013 BARBARA [...] DIABETES MELLITUS WITHOUT COMPLIC 09/04/2016 PIPPA BARRERA PHYSICAL EDUCATION SPECIALIST Ot I10 ESSENTIAL (PRIMARY) HYPERTENSION 09/04/2016 PIPPA BARRERA APRN Ot M79.602 PAIN IN LEFT ARM 09/04/2016 PIPPA BARRERA PHYSICAL EDUCATION SPECIALIST Ot 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 09/06/2016 PIPPA BARRERA PHYSICAL EDUCATION SPECIALIST Ot E11 .9 TYPE 2 DIABETES MELLITUS WITHOUT COMPLIC 09/06/2016 PIPPA BARRERA PHYSICAL EDUCATION SPECIALIST Ot I10 ESSENTIAL (PRIMARY) HYPERTENSION 09/06/2016 PIPPA BARRERA PHYSICAL EDUCATION SPECIALIST Ot M79.602 PAIN IN LEFT ARM 09/06/2016 PIPPA BARRERA PHYSICAL EDUCATION SPECIALIST Ot Z79 .4 SNF (CURRENT) USE OF INSULIN 09/10/2016 PIPPA BARRERA PHYSICAL EDUCATION SPECIALIST Ot E11 .9 TYPE 2 DIABETES MELLITUS WITHOUT COMPLIC 09/10/2016 PIPPA BARRERA PHYSICAL EDUCATION SPECIALIST Ot I10 ESSENTIAL (PRIMARY) HYPERTENSION 09/10/2016 PIPPA BARRERA PHYSICAL EDUCATION SPECIALIST Ot M79.602 PAIN IN LEFT ARM 09/10/2016 PIPPA BARRERA PHYSICAL EDUCATION SPECIALIST Ot Z79 .4 SNF (CURRENT) USE OF [...] CAUSE STATUS 10/24/2016 RUCHI GARCÍA Ot 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 10/26/2016 RUCHI GARCÍA [...] CAUSE STATUS 10/26/2016 RUCHI GARCÍA Ot 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 06/02/2017 RUCHI GARCÍA [...] QUADRANT PAIN 06/02/2017 RUCHI GARCÍA Ot 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 06/02/2017 RUCHI GARCÍA Ot Z87.891 PERSONAL HISTORY OF NICOTINE DEPENDENCE 06/10/2017 RUCHI GARCÍA Ot E11.9 TYPE 2 DIABETES MELLITUS WITHOUT COMPLIC 06/10/2017 RUCHI GARCÍA Ot F12.90 CANNABIS USE, UNSPECIFIED, UNCOMPLICATED 06/10/2017 RUCHI GARCÍA Ot F32.9 MAJOR DEPRESSIVE DISORDER, SINGLE EPISOD 06/10/2017 RUCHI GACRÍA Ot F41.9 ANXIETY DISORDER, UNSPECIFIED 06/10/2017 RUCHI [...] 07/19/2017 CARLEY EDEN DOA K Ot 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 07/19/2017 CARLEY EDEN DOA K Ot Z87.891 PERSONAL HISTORY OF NICOTINE DEPENDENCE 07/25/2017 KAREY PENN ADRIENNE K Ot F12.90 CANNABIS USE, UNSPECIFIED, UNCOMPLICATED 07/25/2017 KAREY PENN ADRIENNE K Ot F32.9 MAJOR DEPRESSIVE DISORDER, SINGLE EPISOD 07/25/2017 KAREY CARLEY PENNA K Ot F41.9 ANXIETY DISORDER, UNSPECIFIED 07/25/2017 KAREY DO ADRIENNE K Ot F90.9 ATTENTION-DEFICIT HYPERACTIVITY DISORDER 07/25/2017 KAREY CARLEY PENNA K Ot J45.909 UNSPECIFIED ASTHMA, [...] QUADRANT PAIN 07/30/2017 RUCHI GARCÍA Ot 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 9 MAJOR DEPRESSIVE DISORDER, SINGLE EPISOD 12/24/2019 JOSE DAVID, YADIRA Gordillo Ot F41. 9 ANXIETY DISORDER, UNSPECIFIED 12/24/2019 JOSE DAVID, YADIRA Gordillo Ot I10 ESSENTIAL (PRIMARY) HYPERTENSION 12/24/2019 JOSE DAVID, YADIRA Gordillo Ot J45.909 UNSPECIFIED ASTHMA, UNCOMPLICATED 12/24/2019 JOSE DAVID, YADIRA Gordillo Ot K31. 89 OTHER DISEASES OF STOMACH AND DUODENUM 12/24/2019 JOSE DAVID, YADIRA Gordillo Ot R45.851 SUICIDAL IDEATIONS 12/24/2019 JOSE DAVID, YADIRA Gordillo Ot Z87.891 PERSONAL HISTORY OF NICOTINE DEPENDENCE 01/12/2020 JOSE DAVID, YADIRA Gordillo Ot E10. 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 9 MAJOR DEPRESSIVE DISORDER, SINGLE EPISOD 01/12/2020 JOSE DAVID, YADIRA Gordillo Ot F41. 9 ANXIETY DISORDER, UNSPECIFIED 01/12/2020 YADIRA GARCIA MD Ot I10 ESSENTIAL (PRIMARY) HYPERTENSION 01/12/2020 JOSE DAVID, YADIRA Gordillo Ot J45.909 UNSPECIFIED ASTHMA, UNCOMPLICATED 01/12/2020 JOSE DAVID, YADIRA Gordillo Ot K31. 89 OTHER DISEASES OF STOMACH AND DUODENUM 01/12/2020 JOSE DAVID, YADIRA Gordillo Ot R45.851 SUICIDAL IDEATIONS 01/12/2020 JOSE DAVID, YADIRA Gordillo Ot Z87.891 PERSONAL HISTORY OF NICOTINE DEPENDENCE 01/12/2020 JOSE DAVID, YADIRA Gordillo Ot E10. 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 9 MAJOR DEPRESSIVE DISORDER, SINGLE EPISOD 01/12/2020 JOSE DAVID, YADIRA Gordillo Ot F41. 9 ANXIETY DISORDER, UNSPECIFIED 01/12/2020 YADIRA GARCIA MD Ot I10 ESSENTIAL (PRIMARY) HYPERTENSION 01/12/2020 JOSE DAVID, YADIRA Gordillo Ot J45.909 UNSPECIFIED ASTHMA, UNCOMPLICATED 01/12/2020 YADIRA GARCIA MD Ot K31. 89 OTHER DISEASES OF STOMACH AND DUODENUM 01/12/2020 YADIRA GARCIA MD Ot R45.851 SUICIDAL IDEATIONS 01/12/2020 YADIRA GARCIA MD Ot Z87.891 PERSONAL HISTORY OF NICOTINE DEPENDENCE Procedures Code [place] [address] URIN E TEST (IN- HOUSE) 04/10/2013 J1050 DEPO PROVERA 04/10/2013 81383 THER APUTIC INJ SQ/IM 04/10/2013 57565 PSYC H DIAGNOSTIC EVALUATION 05/29/2013 67949 ROUT INE VENIPUNCTURE 07/11/2013 89619 HCG QUALITATIVE 07/11/2013 J1050 DEPO PROVERA 07/18/2013 21451 THER APUTIC INJ SQ/IM 07/18/2013 68450 PSYT X PT&/FAMILY 45 MINUTES 07/25/2013 33646 PSYT X PT&/FAMILY 45 MINUTES 08/08/2013 04511 PSYT X PT&/FAMILY 45 MINUTES 09/05/2013 44373 VISU AL ACUITY SCREEN 10/10/2013 [id number] DE LIVERY OF PRODUCTS OF CONCEPTION, EXTE 02/06/2018 [id number] IN SERTION OF ENDOTRACHEAL AIRWAY INTO TR 07/09/2019 [id number] RE SPIRATORY VENTILATION, 24- 96 CONSECUTI 07/09/2019 [...] 106 mmol/L 98-107 Carbon dioxide 15 mmol/L 21-32 [...] 108 mmol/L 98-107 Carbon dioxide 17 mmol/L 21-32 [...] 106 mmol/L 98-107 Carbon dioxide 17 mmol/L 21-32 [...] 106 mmol/L 98-107 Carbon dioxide 17 mmol/L 21-32 [...] 110 mmol/L 98-107 Carbon dioxide 17 mmol/L 21-32 [...] Serum or plasma choriogonadotropin measurement (units/ volume) 60868 m[iU]/mL <5 Serum or plasma ethanol measurement [...] Serum or plasma choriogonadotropin measurement (units/ volume) 97850 m[iU]/mL <5 Capillary blood glucose measurement by [...] ABO+Rh group AP NRG Transfusion band number [id number] NRG Blood group antibody screen NEGATIVE NR [...] toxic granules detection by light microscopy 1+ NRG Comprehensive metabolic panel - 07/09/19 10:53 Serum [...] plasma triglyceride measurement (mass/volume) 180 mg/dL <150 [id number] - 07/09/19 16:23 [id number] 308 % 275-295 Beta-hydroxybutyric acid measurement - [...] 70-110 Whole blood basic metabolic panel - 03/20 18:10 Serum or plasma sodium measurement (moles/volume) [...] 209 mg/dL 70-110 Sputum Gram stain - 07/10/19 00:00 Sputum Gram stain No bacteria seen NRG Bacterial sputum culture - 07/10/19 00:0 0 QUANTITY OF GROWTH Rare NRG Bacterial sputum culture [id number] NRG Capillary blood glucose measurement by g [...] mg/dL 70-110 CULTURE, ANAEROBIC AND AEROBIC - 12/14/1 9 08:01 CULTURE, ANAEROBIC BACTERIA W/GRAM STAIN SEE NOTE NRG CULTURE, AEROBIC BACTERIA SEE NOTE NRG Complete blood count (CBC) with automate d white blood cell (WBC) differential - 12/22/19 21:48 Blood leukocytes automated count (number/volume) 10.9 10*3/uL 4.3-11.0 Blood erythrocytes automated count (number/volume) 4.07 10*6/uL 4.35-5.85 Venous blood hemoglobin measurement (mass/volume) 13.0 g/dL 11.5-16.0 Blood hematocrit (volume fraction) 38 % 35-52 Automated erythrocyte mean corpuscular volume 93 [ foz_us] 80-99 Automated erythrocyte mean corpuscular h emoglobin (mass per erythrocyte) 32 pg 25-34 Automated erythrocyte mean corpuscular h emoglobin concentration measurement (mass/volume) 34 g/dL 32-36 Automated erythrocyte distribution width ratio 12. 6 % 10.0- 14.5 Automated blood platelet count (count/volume) 302 10*3/uL 130-400 Automated blood platelet mean volume measurement 9.5 [foz_us] 7.4-10.4 Automated blood neutrophils/100 leukocytes 57 % 42-75 Automated blood lymphocytes/100 leukocytes 33 % 12-44 Blood monocytes/100 leukocytes 8 % 0-12 Automated blood eosinophils/100 leukocytes 1 % 0-10 Automated blood basophils/100 leukocytes 1 % 0-10 Blood neutrophils automated count (number/volume) 6.2 10*3 1.8-7.8 Blood lymphocytes automated count (number/volume) 3.6 10*3 1.0-4.0 Blood monocytes automated count (number/volume) 0. 9 10*3 0.0-1.0 Automated eosinophil count 0.1 10*3/uL 0 .0-0.3 Automated blood basophil count (count/volume) 0.1 10*3/uL 0.0-0.1 Comprehensive metabolic panel - 12/22/19 21:48 Serum or plasma sodium measurement (moles/volume) 124 mmol/L 135-145 Serum or plasma potassium measurement (moles/volume) 4.6 mmol/L 3.6-5.0 Serum or plasma chloride measurement (moles/volume) 90 mmol/L 98-107 Carbon dioxide 19 mmol/L 21-32 Serum or plasma anion gap determination (moles/volume) 15 mmol/L 5-14 Serum or plasma urea nitrogen measurement (mass/volume ) 23 mg/dL 7-18 Serum or plasma creatinine measurement (mass/volume) 1.30 mg/dL 0.60-1.30 Serum or plasma urea nitrogen/creatinine mass ratio 18 NRG Serum or plasma creatinine measurement w ith calculation of estimated glomerular filtration rate 52 NRG Serum or plasma calcium measurement (mass/volume) 9.1 mg/dL 8.5-10.1 Serum or plasma total bilirubin measurement (mass/volu me) 0.2 mg/dL 0.1-1.0 Serum or plasma alkaline phosphatase gerardo surement (enzymatic activity/volume) 139 U/L 40-136 Serum or plasma aspartate aminotransfera se measurement (enzymatic activity/volume) 57 U/L 5-34 Serum or plasma alanine aminotransferase measurement (enzymatic activity/volume) 63 U/L 0-55 Serum or plasma protein measurement (mass/volume) 6.8 g/dL 6.4-8.2 Serum or plasma albumin measurement (mass/volume) 3.9 g/dL 3.2-4.5 CALCIUM CORRECTED 9.2 mg/dL 8.5-10.1 Serum or plasma choriogonadotropin (preg juan jose test) detection - 12/22/19 21:48 Serum or plasma choriogonadotropin ( test) de tection NEGATIVE NEGATIVE Lipase - 12/22/19 21:48 Lipase 37 U/L 8-78 Beta-hydroxybutyric acid measurement - 0 12/22/19 21:48 Beta-hydroxybutyric acid measurement 0.21 mmol/L 0.00-0.27 Serum or plasma salicylates measurement (mass/volume) - 12/22/19 21:48 Serum or plasma salicylates measurement (mass/volume) < mg/dL 5.0-20.0 Serum or plasma acetaminophen measuremen t (mass/volume) - 12/22/19 21:48 Serum or plasma acetaminophen measurement (mass/volume ) < ug/mL 10-30 Serum or plasma ethanol measurement (mas s/volume) - 12/22/19 21:48 Serum or plasma ethanol measurement (mass/volume) < mg/dL <10 Serum or plasma glucose measurement (mas s/volume) - 12/22/19 21:50 Serum or plasma glucose measurement (mass/volume) 1128 mg/dL 70-105 Capillary blood glucose measurement by g lucometer (mass/volume) - 12/22/19 22:01 Capillary blood glucose measurement by glucometer (mas s/volume) > mg/dL 70-110 Capillary blood glucose measurement by g lucometer (mass/volume) - 12/22/19 23:36 Capillary blood glucose measurement by glucometer (mas s/volume) 566 mg/dL 70-110 Complete urinalysis with reflex to cultu re - 12/22/19 23:40 Urine color determination OTHER NRG Urine clarity determination CLEAR NR G Urine pH measurement by test strip 6.5 5-9 Specific gravity of urine by test strip <= 1.016-1.022 Urine protein assay by test strip, semi-quantitative NEGATIVE NEGATIVE Urine glucose detection by automated test strip 3+ NEGATIVE Erythrocytes detection in urine sediment by [...] in u rine sediment by light microscopy NONE NRG Crystals detection in urine sediment by light microsco py NONE NRG Casts detection in urine sediment by light microscopy NONE NRG Mucus detection in urine sediment by light microscopy NEGATIVE NRG Complete urinalysis with reflex to culture NO NRG Urine drug screening test - 12/22/19 23: 40 Urine phencyclidine detection by screening method NEGATIVE NEGATIVE Urine benzodiazepines detection by screening method NEGATIVE NEGATIVE Urine cocaine detection NEGATIVE NEGATI VE Urine amphetamines detection by screening method N EGATIVE NEGATIVE Urine methamphetamine detection by screening method NEGATIVE NEGATIVE Urine cannabinoids detection by screening method N EGATIVE NEGATIVE Urine opiates detection by screening method NEGATI VE NEGATIVE Urine barbiturates detection NEGATIVE N EGATIVE Screening urine tricyclic antidepressants detection NEGATIVE NEGATIVE Urine methadone detection by screening method NEGA TIVE NEGATIVE Urine oxycodone detection NEGATIVE NEGA TIVE Urine propoxyphene detection NEGATIVE N EGATIVE Capillary blood glucose measurement by g lucometer (mass/volume) - 12/23/19 00:47 Capillary blood glucose measurement by glucometer (mas s/volume) 353 mg/dL 70-110 Methicillin resistant Staphylococcus aur eus (MRSA) screening culture - 12/23/19 01:00 Methicillin resistant Staphylococcus aureus (MRSA) scr eening culture NEG NRG Complete blood count (CBC) with automate d white blood cell (WBC) differential - 12/23/19 01:30 Blood leukocytes automated count (number/volume) 11.9 10*3/uL 4.3-11.0 Blood erythrocytes automated count (number/volume) 3.89 10*6/uL 4.35-5.85 Venous blood hemoglobin measurement (mass/volume) 12.5 g/dL 11.5-16.0 Blood hematocrit (volume fraction) 36 % 35-52 Automated erythrocyte mean corpuscular volume 92 [ foz_us] 80-99 Automated erythrocyte mean corpuscular h emoglobin (mass per erythrocyte) 32 pg 25-34 Automated erythrocyte mean corpuscular h emoglobin concentration measurement (mass/volume) 35 g/dL 32-36 Automated erythrocyte distribution width ratio 12. 4 % 10.0- 14.5 Automated blood platelet count (count/volume) 305 10*3/uL 130-400 Automated blood platelet mean volume measurement 9.3 [foz_us] 7.4-10.4 Automated blood neutrophils/100 leukocytes 61 % 42-75 Automated blood lymphocytes/100 leukocytes 29 % 12-44 Blood monocytes/100 leukocytes 9 % 0-12 Automated blood eosinophils/100 leukocytes 1 % 0-10 Automated blood basophils/100 leukocytes 1 % 0-10 Blood neutrophils automated count (number/volume) 7.3 10*3 1.8-7.8 Blood lymphocytes automated count (number/volume) 3.4 10*3 1.0-4.0 Blood monocytes automated count (number/volume) 1. 0 10*3 0.0-1.0 Automated eosinophil count 0.1 10*3/uL 0 .0-0.3 Automated blood basophil count (count/volume) 0.1 10*3/uL 0.0-0.1 Comprehensive metabolic panel - 12/23/19 01:30 Serum or plasma sodium measurement (moles/volume) 136 mmol/L 135-145 Serum or plasma potassium measurement (moles/volume) 3.1 mmol/L 3.6-5.0 Serum or plasma chloride measurement (moles/volume) 101 mmol/L 98-107 Carbon dioxide 21 mmol/L 21-32 Serum or plasma anion gap determination (moles/volume) 14 mmol/L 5-14 Serum or plasma urea nitrogen measurement (mass/volume ) 19 mg/dL 7-18 Serum or plasma creatinine measurement (mass/volume) 0.73 mg/dL 0.60-1.30 Serum or plasma urea nitrogen/creatinine mass ratio 26 NRG Serum or plasma creatinine measurement w ith calculation of estimated glomerular filtration rate > NRG Serum or plasma glucose measurement (mass/volume) 235 mg/dL 70-105 Serum or plasma calcium measurement (mass/volume) 8.9 mg/dL 8.5-10.1 Serum or plasma total bilirubin measurement (mass/volu me) 0.2 mg/dL 0.1-1.0 Serum or plasma alkaline phosphatase gerardo surement (enzymatic activity/volume) 122 U/L 40-136 Serum or plasma aspartate aminotransfera se measurement (enzymatic activity/volume) 80 U/L 5-34 Serum or plasma alanine aminotransferase measurement (enzymatic activity/volume) 73 U/L 0-55 Serum or plasma protein measurement (mass/volume) 6.4 g/dL 6.4-8.2 Serum or plasma albumin measurement (mass/volume) 3.7 g/dL 3.2-4.5 CALCIUM CORRECTED 9.1 mg/dL 8.5-10.1 Serum or plasma phosphate measurement (m ass/volume) - 12/23/19 01:30 Serum or plasma phosphate measurement (mass/volume) 3.4 mg/dL 2.3-4.7 Magnesium - 12/23/19 01:30 Magnesium 1.8 mg/dL 1.6-2.4 Capillary blood glucose measurement by g lucometer (mass/volume) - 12/23/19 01:51 Capillary blood glucose measurement by glucometer (mas s/volume) 189 mg/dL 70-110 Capillary blood glucose measurement by g lucometer (mass/volume) - 12/23/19 03:29 Capillary blood glucose measurement by glucometer (mas s/volume) 133 mg/dL 70-110 Capillary blood glucose measurement by g lucometer (mass/volume) - 12/23/19 04:42 Capillary blood glucose measurement by glucometer (mas s/volume) 180 mg/dL 70-110 Whole blood basic metabolic panel - 12/01 10/19 05:15 Serum or plasma sodium measurement (moles/volume) 137 mmol/L 135-145 Serum or plasma potassium measurement (moles/volume) 3.7 mmol/L 3.6-5.0 Serum or plasma chloride measurement (moles/volume) 105 mmol/L 98-107 Carbon dioxide 22 mmol/L 21-32 Serum or plasma anion gap determination (moles/volume) 10 mmol/L 5-14 Serum or plasma urea nitrogen measurement (mass/volume ) 15 mg/dL 7-18 Serum or plasma creatinine measurement (mass/volume) 0.64 mg/dL 0.60-1.30 Serum or plasma urea nitrogen/creatinine mass ratio 23 NRG Serum or plasma creatinine measurement w ith calculation of estimated glomerular filtration rate > NRG Serum or plasma glucose measurement (mass/volume) 155 mg/dL 70-105 Serum or plasma calcium measurement (mass/volume) 8.4 mg/dL 8.5-10.1 Capillary blood glucose measurement by g lucometer (mass/volume) - 12/23/19 05:50 Capillary blood glucose measurement by glucometer (mas s/volume) 123 mg/dL 70-110 Capillary blood glucose measurement by g lucometer (mass/volume) - 12/23/19 07:15 Capillary blood glucose measurement by glucometer (mas s/volume) 108 mg/dL 70-110 Capillary blood glucose measurement by g lucometer (mass/volume) - 12/23/19 08:14 Capillary blood glucose measurement by glucometer (mas s/volume) 153 mg/dL 70-110 Whole blood basic metabolic panel - 12/01 10/19 08:56 Serum or plasma sodium measurement (moles/volume) 135 mmol/L 135-145 Serum or plasma potassium measurement (moles/volume) 4.4 mmol/L 3.6-5.0 Serum or plasma chloride measurement (moles/volume) 103 mmol/L 98-107 Carbon dioxide 22 mmol/L 21-32 Serum or plasma anion gap determination (moles/volume) 10 mmol/L 5-14 Serum or plasma urea nitrogen measurement (mass/volume ) 12 mg/dL 7-18 Serum or plasma creatinine measurement (mass/volume) 0.64 mg/dL 0.60-1.30 Serum or plasma urea nitrogen/creatinine mass ratio 19 NRG Serum or plasma creatinine measurement w ith calculation of estimated glomerular filtration rate > NRG Serum or plasma glucose measurement (mass/volume) 177 mg/dL 70-105 Serum or plasma calcium measurement (mass/volume) 8.1 mg/dL 8.5-10.1 Capillary blood glucose measurement by g lucometer (mass/volume) - 12/23/19 09:37 Capillary blood glucose measurement by glucometer (mas s/volume) 248 mg/dL 70-110 Capillary blood glucose measurement by g lucometer (mass/volume) - 12/23/19 10:10 Capillary blood glucose measurement by glucometer (mas s/volume) 287 mg/dL 70-110 Capillary blood glucose measurement by g lucometer (mass/volume) - 12/23/19 10:55 Capillary blood glucose measurement by glucometer (mas s/volume) 240 mg/dL 70-110 Capillary blood glucose measurement by g lucometer (mass/volume) - 12/23/19 16:29 Capillary blood glucose measurement by glucometer (mas s/volume) 96 mg/dL 70-110 Capillary blood glucose measurement by g lucometer (mass/volume) - 12/23/19 20:37 Capillary blood glucose measurement by glucometer (mas s/volume) 74 mg/dL 70-110 Capillary blood glucose measurement by g lucometer (mass/volume) - 12/23/19 21:45 Capillary blood glucose measurement by glucometer (mas s/volume) 153 mg/dL 70-110 Capillary blood glucose measurement by g lucometer (mass/volume) - 12/24/19 01:25 Capillary blood glucose measurement by glucometer (mas s/volume) 182 mg/dL 70-110 Whole blood basic metabolic panel - 12/01 11/19 05:40 Serum or plasma sodium measurement (moles/volume) 138 mmol/L 135-145 Serum or plasma potassium measurement (moles/volume) 3.7 mmol/L 3.6-5.0 Serum or plasma chloride measurement (moles/volume) 103 mmol/L 98-107 Carbon dioxide 25 mmol/L 21-32 Serum or plasma anion gap determination (moles/volume) 10 mmol/L 5-14 Serum or plasma urea nitrogen measurement (mass/volume ) 17 mg/dL 7-18 Serum or plasma creatinine measurement (mass/volume) 0.61 mg/dL 0.60-1.30 Serum or plasma urea nitrogen/creatinine mass ratio 28 NRG Serum or plasma creatinine measurement w ith calculation of estimated glomerular filtration rate > NRG Serum or plasma glucose measurement (mass/volume) 42 mg/dL 70-105 Serum or plasma calcium measurement (mass/volume) 8.8 mg/dL 8.5-10.1 Capillary blood glucose measurement by g lucometer (mass/volume) - 12/24/19 06:22 Capillary blood glucose measurement by glucometer (mas s/volume) 107 mg/dL 70-110 Capillary blood glucose measurement by g lucometer (mass/volume) - 12/24/19 10:26 Capillary blood glucose measurement by glucometer (mas s/volume) 384 mg/dL 70-110 Complete blood count (CBC) with automate d white blood cell (WBC) differential - 01/12/20 17:50 Blood leukocytes automated count (number/volume) 10.9 10*3/uL 4.3-11.0 Blood erythrocytes automated count (number/volume) 4.11 10*6/uL 4.35-5.85 Venous blood hemoglobin measurement (mass/volume) 13.2 g/dL 11.5-16.0 Blood hematocrit (volume fraction) 38 % 35-52 Automated erythrocyte mean corpuscular volume 93 [ foz_us] 80-99 Automated erythrocyte mean corpuscular h emoglobin (mass per erythrocyte) 32 pg 25-34 Automated erythrocyte mean corpuscular h emoglobin concentration measurement (mass/volume) 35 g/dL 32-36 Automated erythrocyte distribution width ratio 12. 6 % 10.0- 14.5 Automated blood platelet count (count/volume) 355 10*3/uL 130-400 Automated blood platelet mean volume measurement 9.4 [foz_us] 7.4-10.4 Automated blood neutrophils/100 leukocytes 50 % 42-75 Automated blood lymphocytes/100 leukocytes 40 % 12-44 Blood monocytes/100 leukocytes 10 % 0-12 Automated blood eosinophils/100 leukocytes 1 % 0-10 Automated blood basophils/100 leukocytes 1 % 0-10 Blood neutrophils automated count (number/volume) 5.4 10*3 1.8-7.8 Blood lymphocytes automated count (number/volume) 4.3 10*3 1.0-4.0 Blood monocytes automated count (number/volume) 1. 1 10*3 0.0-1.0 Automated eosinophil count 0.1 10*3/uL 0 .0-0.3 Automated blood basophil count (count/volume) 0.1 10*3/uL 0.0-0.1 Serum or plasma choriogonadotropin (preg juan jose test) detection - 01/12/20 17:50 Serum or plasma choriogonadotropin ( test) de tection NEGATIVE NEGATIVE Whole blood basic metabolic panel - 12/31 09/21 17:50 Serum or plasma sodium measurement (moles/volume) 141 mmol/L 135-145 Serum or plasma potassium measurement (moles/volume) 3.1 mmol/L 3.6-5.0 Serum or plasma chloride measurement (moles/volume) 105 mmol/L 98-107 Carbon dioxide 17 mmol/L 21-32 Serum or plasma anion gap determination (moles/volume) 19 mmol/L 5-14 Serum or plasma urea nitrogen measurement (mass/volume ) 16 mg/dL 7-18 Serum or plasma creatinine measurement (mass/volume) 0.65 mg/dL 0.60-1.30 Serum or plasma urea nitrogen/creatinine mass ratio 25 NRG Serum or plasma creatinine measurement w ith calculation of estimated glomerular filtration rate > NRG Serum or plasma glucose measurement (mass/volume) 44 mg/dL 70-105 Serum or plasma calcium measurement (mass/volume) 8.8 mg/dL 8.5-10.1 Beta-hydroxybutyric acid measurement - 0 01/12/20 17:50 Beta-hydroxybutyric acid measurement 0.32 mmol/L 0.00-0.27 Serum or plasma ethanol measurement (mas s/volume) - 01/12/20 17:50 Serum or plasma ethanol measurement (mass/volume) 236 mg/dL <10 Capillary blood glucose measurement by g lucometer (mass/volume) - 01/12/20 17:52 Capillary blood glucose measurement by glucometer (mas s/volume) 197 mg/dL 70-110 Complete urinalysis with reflex to cultu re - 01/12/20 18:05 Urine color determination YELLOW NRG Urine clarity [...] urinalysis with reflex to culture NO NRG Amorphous sediment detection in urine sediment by ligh t microscopy RARE JASON URATES NRG Urine drug screening test - 01/12/20 18: 05 Urine phencyclidine detection by screening method NEGATIVE NEGATIVE Urine benzodiazepines detection by screening method NEGATIVE NEGATIVE Urine cocaine detection NEGATIVE NEGATI VE Urine amphetamines detection by screening method P OSITIVE NEGATIVE Urine methamphetamine detection by screening method POSITIVE NEGATIVE Urine cannabinoids detection by screening method N EGATIVE NEGATIVE Urine opiates detection by screening method NEGATI VE NEGATIVE Urine barbiturates detection NEGATIVE N EGATIVE Screening urine tricyclic antidepressants detection NEGATIVE NEGATIVE Urine methadone detection by screening method NEGA TIVE NEGATIVE Urine oxycodone detection NEGATIVE NEGA TIVE Urine propoxyphene detection NEGATIVE N EGATIVE Capillary blood glucose measurement by g lucometer (mass/volume) - 01/12/20 18:49 Capillary blood glucose measurement by glucometer (mas s/volume) 182 mg/dL 70-110 Capillary blood glucose measurement by g lucometer (mass/volume) - 01/12/20 19:57 Capillary blood glucose measurement by glucometer (mas s/volume) 154 mg/dL 70-110 Encounters ACCT No. Visit Date/Time Discharge Status Pt. Type Provider Facility Loc./Unit Complaint [id number] 07/15/2019 15:10:00 07/15/2019 23:59:5 9 CLS Outpatient HARRY TO [facility] [id number] 07/15/2019 15:10:00 Document Registration [id number] 05/23/2014 08:51:00 05/23/2014 23:59: 59 CLS Outpatient RYANNE JIMENEZ APRN [id number] 05/10/2014 09:06:00 05/10/2014 23:59: 59 CLS Outpatient RAYNNE JIMENEZ APRN [id number] 10/09/2013 14:52:00 10/09/2013 23:59: 59 CLS Outpatient RYANNE JIMENEZ APRN [id number] 09/20/2013 16:07:00 09/20/2013 23:59: 59 CLS Outpatient PENNY XAVIER APRN [id number] 09/01/2013 09:50:00 09/01/2013 23:59: 59 CLS Outpatient JAIME GHULAM PAULA Zamudio [id number] 08/31/2013 12:59:00 08/31/2013 23:59: 59 CLS Outpatient SARAH GUILLEN MD [id number] 08/15/2013 13:36:00 08/15/2013 23:59: 59 CLS Outpatient MARSHA VALERA MD [id number] 08/08/2013 13:40:00 08/08/2013 23:59: 59 CLS Outpatient SANDOVAL PAULA PARMAR [id number] 08/03/2013 13:03:00 08/03/2013 23:59: 59 CLS Outpatient SARAH GUILLEN MD [id number] 07/25/2013 09:03:00 07/25/2013 23:59: 59 CLS Outpatient JAIME PARMAR PAULA Zamudio [id number] 07/18/2013 11:27:00 07/18/2013 23:59: 59 CLS Outpatient ROSSI AGEE DO [id number] 07/11/2013 14:30:00 07/11/2013 23:59: 59 CLS Outpatient ROSSI AGEE DO [id number] 05/29/2013 08:35:00 05/29/2013 23:59: 59 CLS Outpatient JAIME PARMARPAULA [id number] 05/12/2013 14:53:00 05/12/2013 23:59: 59 CLS Outpatient MARCEL ASHLEY THOMAS Nakita [id number] 04/10/2013 09:28:00 Document Registration [id number] 12/22/2019 21:39:00 020 12:55:00 DIS Inpatient JOSE DAVID, YADIRA Gordillo [facility] 4TH SUICIDAL IDEATIONS,FABIEN RE HYPERGLYCEMIA [id number] 07/09/2019 12:40:00 019 12:30:00 DIS Outpatient HERRINGJOSELINE PENN DARION [facility] 4TH ACIDOSIS, UNRESPONSIVE [id number] 02/06/2018 00:06:00 018 11:30:00 DIS Inpatient CHERI DO SHANKAR Foote [facility] LDRP LEAKAGE OF AMNIOTIC FLU ID [id number] 08/01/2017 21:25:00 018 00:48:00 DIS Emergency KENZIE PALMER MD [facility] ER VOMITING LOW BS HEADACHE [id number] 07/19/2017 05:16:00 017 07:33:00 DIS Emergency ADRIENNE EDEN DO [facility] ER VOMITING MIGRAINE [id number] 06/02/2017 16:44:00 017 21:48:00 DIS Emergency RUCHI GARCÍA [facility] ER PELVIC/ABD/LOWER BACK PAIN [id number] 10/24/2016 13:49:00 017 16:33:00 DIS Emergency RUCHI GARCÍA [facility] ER ABD PAIN [id number] 09/04/2016 18:19:00 017 19:35:00 DIS Emergency PIPPA BARRERA APRN [facility] ER L ARM PAIN [id number] 04/26/2016 06:10:00 016 11:58:00 DIS Inpatient DARION HERRING DO [facility] ICU NEW ONSET DIABETES AMANDA ITUS; ELECTROLYTE IMBALANCE [id number] 01/04/2016 05:47:00 016 06:21:00 DIS Emergency ADRIENNE EDEN DO [facility] ER ARM PAIN [id number] 01/12/2020 19:37:[address] Inpatient HERRING DO DARION [facility] [place] ETOH INTOXICATION [id number] 08/12/2012 11:48:00 Document Registration
--- OUTSIDE RECORDS SUMMARY | 2020-01-12 22:44 | XMS REPORT | Clinical Summary ---
Author Author [facility] Organization [facility] Address Unknown Phone Unavailable Care Team Providers Care Casing Soaker Name Role Phone Nathan Tapia RN Unavailable Unavailable No Pcp, Na PCP Unavailable Source Comments Some departments are not documenting in the electronic medical record. If you d o not see the information that you expected, contact Release of Information in [facility] Information Management department at [phone] for further assistan ce in locating additional records.[facility] Allergies No Known Allergies Medications End [...] 36.6 C (97.9 F) 08/25/2017 4:15 PM [employer] [employer] Temperature - - Respiratory Rate 99% 08/25/2017 4:15 PM [employer] [employer] Oxygen Saturation - - Inhaled Oxygen Concentration [...] filefrom Last 3 Months Advance Directives Patient Data Programmer Explanation Type Date Recorded Advance 08/22/2017 11:23 AM Directive/DPOA Date Inactivated Comments Code Status Date Activated 08/25/2017 8:43 PM Full Code 08/21/2017 8:04 PM Provider has discussed Code Status No, discussion no t w/Patient or Family? necessary based on Dx
--- OUTSIDE RECORDS SUMMARY | 2020-01-12 22:50 | XMS REPORT | Continuity of Care Document ---
Author Organization Unknown Address Unknown Phone Unavailable Allergies Active Description Code Type Severity Reaction Onset Reported/Identified Relationship to Patient Clinical Status Yes No Known Drug Allergies [id number] Drug Allergy Unknown N/A 08/12/2012 Medications There [...] V7 0.0 EXAM - [facility]INE [facility] 1 DEPRESSIVE DISORDER NOS 04/10/[facility] V25.02 CONTRACEPTION - ANY METHOD 04/10/2013 [facility] V7 0.0 EXAM - ROUTINE H&P [...] V70.0 EXAM - ROUTINE H&P 04/10/2013 [facility] 1 DEPRESSIVE DISORDER NOS 04/10/2013 [facility] V25.02 CONTRACEPTION - ANY METHOD 04/10/2013 [facility] V7 0.0 EXAM - ROUTINE H&P 04/10/2013 SARAH GUILLEN MD 311 DEPRESSIVE DISORDER NOS 04/10/2013 SARAH GUILLEN MD V25.0 2 CONTRACEPTION - ANY METHOD 04/10/2013 MINDY DAVID, SARAH V70.0 EXAM - ROUTINE H&P 04/10/2013 [facility] 1 DEPRESSIVE DISORDER NOS 04/10/2013 [facility] A V25.02 CONTRACEPTION - ANY METHOD 04/10/2013 [facility] A V7 0.0 EXAM - ROUTINE H&P 04/10/2013 MORAIMA DAVID, MARSHA 311 DEPRESSIVE DISORDER NOS 04/10/2013 MORAIMA DAVID, MARSHA V25.02 CONTRACEPTION - ANY METHOD 04/10/2013 MORAIMA DAVID, MARSHA V70.0 EXAM - ROUTINE H&P 04/10/2013 SARAH GUILLEN MD 311 DEPRESSIVE DISORDER NOS 04/10/2013 SARAH GUILLEN MD V25.0 2 CONTRACEPTION - ANY METHOD 04/10/2013 SARAH GUILLEN MD V70.0 EXAM - ROUTINE H&P 04/10/2013 [facility] Zamudio 31 1 DEPRESSIVE DISORDER NOS 04/10/2013 [facility] Zamudio V25.02 CONTRACEPTION - ANY METHOD 04/10/2013 [facility] Lizz V7 0.0 EXAM - ROUTINE H&P 04/10/2013 PENNY XAVIER APRN S 311 DEPRESSIVE DISORDER NOS 04/10/2013 DAMION XAVIER APRNA S V25.02 CONTRACEPTION - ANY METHOD 04/10/2013 DAMION XAVIER APRNA S V70.0 EXAM - ROUTINE H&P 04/10/2013 MAUREENE INSPECTOR POISING, RYANNE A 311 DEPRESSIVE DISORDER NOS 04/10/2013 RAJKYLEE INSPECTOR POISING, RYANNE A V25.02 CONTRACEPTION - ANY METHOD 04/10/2013 RAJOTTE INSPECTOR POISING, RYANNE A V70.0 EXAM - ROUTINE H&P 04/10/2013 RAJOTTE INSPECTOR POISING, RYANNE A 311 DEPRESSIVE DISORDER NOS 04/10/2013 RAJOTTE INSPECTOR POISING, RYANNE A V25.02 CONTRACEPTION - ANY METHOD 04/10/2013 MAUREENE INSPECTOR POISING, RYANNE A V70.0 EXAM - ROUTINE H&P 04/10/2013 BARBARA THOMAS RYANNE A 311 DEPRESSIVE DISORDER NOS 04/10/2013 RYANNE JIMENEZ APRN A V25.02 CONTRACEPTION - ANY METHOD 04/10/2013 JOSE JIMENEZ APRNYL A V70.0 EXAM - ROUTINE H&P 05/12/2013 ASHLEY ROD APRN 00 8.8 GASTROENTERITIS, VIRAL 05/12/2013 [facility] A 00 8.8 GASTROENTERITIS, VIRAL 05/12/2013 AGEE DO, ROSSI K 008.8 GASTROENTERITIS, VIRAL 05/12/2013 AGEE DO, ROSSI K 008.8 GASTROENTERITIS, VIRAL 05/12/2013 [facility] A 00 8.8 GASTROENTERITIS, VIRAL 05/12/2013 SARAH GUILLEN MD 008.8 GASTROENTERITIS, VIRAL 05/12/2013 [facility] A 00 8.8 GASTROENTERITIS, VIRAL 05/12/2013 MARSHA VALERA MD 008.8 GASTROENTERITIS, VIRAL 05/12/2013 SARAH GUILLEN MD 008.8 GASTROENTERITIS, VIRAL 05/12/2013 [facility] A 00 8.8 GASTROENTERITIS, VIRAL 05/12/2013 PENNY XAVIER APRN S 008.8 GASTROENTERITIS, VIRAL 05/12/2013 JOSE JIMENEZ APRNYL A 008.8 GASTROENTERITIS, VIRAL 05/12/2013 BARBARA THOMAS RYANNE A 008.8 GASTROENTERITIS, VIRAL 05/12/2013 BARBARA THOMAS, RYANNE A 008.8 GASTROENTERITIS, VIRAL 07/11/2013 ROSSI AGEE DO K V25.09 CONTRACEPTIVE COUNSELING - GENERAL 07/11/2013 ROSSI AGEE DO K V25.09 CONTRACEPTIVE COUNSELING - GENERAL 07/11/2013 [facility] Zamudio V25.09 CONTRACEPTIVE COUNSELING - GENERAL 07/11/2013 SARAH GUILLEN MD V25.0 9 CONTRACEPTIVE COUNSELING - GENERAL 07/11/2013 [facility] Zamudio V25.09 CONTRACEPTIVE COUNSELING - GENERAL 07/11/2013 MARSHA VALERA MD V25.09 CONTRACEPTIVE COUNSELING - GENERAL 07/11/2013 SARAH GUILLEN MD V25.0 9 CONTRACEPTIVE COUNSELING - GENERAL 07/11/2013 [facility] Zamudio V25.09 CONTRACEPTIVE COUNSELING - GENERAL 07/11/2013 PENNY XAVIER APRN S V25.09 CONTRACEPTIVE COUNSELING - GENERAL 07/11/2013 RAJOTTE INSPECTOR POISING, RYANNE A V25.09 CONTRACEPTIVE COUNSELING - GENERAL 07/11/2013 BARBARA THOMAS, RYANNE A V25.09 CONTRACEPTIVE COUNSELING - GENERAL 07/11/2013 BARBARA THOMAS, RYANNE A V25.09 CONTRACEPTIVE COUNSELING - GENERAL 08/03/2013 SARAH GUILLEN MD 296.9 0 MOOD DISORDER NOS 08/03/2013 SARAH GUILLEN MD 304.8 0 SA POLYSUB DEP 08/03/2013 [facility] A 296.90 MOOD DISORDER NOS 08/03/2013 [facility] A 304.80 SA POLYSUB DEP 08/03/2013 MARSHA VALERA MD 296.90 MOOD DISORDER NOS 08/03/2013 MARSHA VALERA MD 304.80 SA POLYSUB DEP 08/03/2013 ASRAH GUILLEN MD 296.9 0 MOOD DISORDER NOS 08/03/2013 SARAH GUILLEN MD 304.8 0 SA POLYSUB DEP 08/03/2013 [facility] A 296.90 MOOD DISORDER NOS 08/03/2013 [facility] A 304.80 SA POLYSUB DEP 08/03/2013 DUC THOMAS PENNY S 296.90 MOOD DISORDER NOS 08/03/2013 DUC INSPECTOR POISING, PENNY S 304.80 SA POLYSUB DEP 08/03/2013 MAUREENE INSPECTOR POISING, RYANNE A 296.90 MOOD DISORDER NOS 08/03/2013 RAJKYLEE INSPECTOR POISING, RYANNE A 304.80 SA POLYSUB DEP 08/03/2013 RAJKYLEE INSPECTOR POISING, RYANNE A 296.90 MOOD DISORDER NOS 08/03/2013 RAJKYLEE INSPECTOR POISING, RYANNE A 304.80 SA POLYSUB DEP 08/03/2013 RAJOTTE INSPECTOR POISING, RYANNE A 296.90 MOOD DISORDER NOS 08/03/2013 RAJOTTE INSPECTOR POISING, RYANNE A 304.80 SA POLYSUB DEP 08/15/2013 MARSHA VALERA MD 487.1 INFLUENZA 08/15/2013 SARAH GUILLEN MD 487.1 INFLUENZA 08/15/2013 [facility] A 48 7.1 INFLUENZA 08/15/2013 KEN XAVIER APRNNDA S 487.1 INFLUENZA 08/15/2013 BARBARA THOMAS RYANNE A 487.1 INFLUENZA 08/15/2013 RAJOTTE INSPECTOR POISING, RYANNE A 487.1 INFLUENZA 08/15/2013 RAJOTTE INSPECTOR POISING, RYANNE A 487.1 INFLUENZA 08/29/2013 SARAH GUILLEN MD 461.8 OTHER ACUTE SINUSITIS 08/29/2013 SARAH GUILLEN MD 528.9 OTHER AND UNSPECIFIED DISEASES OF THE ORAL SOFT TISSUES 08/29/2013 [facility], [place] A 46 1.8 OTHER ACUTE SINUSITIS 08/29/2013 [facility] A 52 8.9 OTHER AND UNSPECIFIED DISEASES OF THE ORAL SOFT TISSUES 08/29/2013 DUC INSPECTOR POISING, PENNY S 461.8 OTHER ACUTE SINUSITIS 08/29/2013 DUC INSPECTOR POISING, PENNY S 528.9 OTHER AND UNSPECIFIED DISEASES OF THE ORAL SOFT TISSUE S 08/29/2013 RAJOTTE INSPECTOR POISING, RYANNE A 461.8 OTHER ACUTE SINUSITIS 08/29/2013 RAJOTTE INSPECTOR POISING, RYANNE A 528.9 OTHER AND UNSPECIFIED DISEASES OF THE ORAL SOFT TISSUE S 08/29/2013 RAJOTTE INSPECTOR POISING, RYANNE A 461.8 OTHER ACUTE SINUSITIS 08/29/2013 RAJOTTE INSPECTOR POISING, RYANNE A 528.9 OTHER AND UNSPECIFIED DISEASES OF THE ORAL SOFT TISSUE S 08/29/2013 RAJOTTE INSPECTOR POISING, RYANNE A 461.8 OTHER ACUTE SINUSITIS 08/29/2013 RAJOTTE INSPECTOR POISING, RYANNE A 528.9 OTHER AND UNSPECIFIED DISEASES OF THE ORAL SOFT TISSUE S 09/20/2013 DUC INSPECTOR POISING, PENNY S 558.9 GASTROENTERITIS NONINFECTIOUS 09/20/2013 DUC PERDOMON, PENNY S 787.91 DIARRHEA 09/20/2013 RAJOTTE INSPECTOR POISING, RYANNE A 558.9 GASTROENTERITIS NONINFECTIOUS 09/20/2013 RAJOTTE INSPECTOR POISING, RYANNE A 787.91 DIARRHEA 09/20/2013 RAJOTTE INSPECTOR POISING, RYANNE A 558.9 GASTROENTERITIS NONINFECTIOUS 09/20/2013 RAJOTTE INSPECTOR POISING, RYANNE A 787.91 DIARRHEA 09/20/2013 RAJOTTE INSPECTOR POISING, RYANNE A 558.9 GASTROENTERITIS NONINFECTIOUS 09/20/2013 RAJOTTE INSPECTOR POISING, RYANNE A 787.91 DIARRHEA 10/09/2013 RAJOTTE INSPECTOR POISING, RYANNE A 305.1 TOBACCO ABUSE 10/09/2013 BARBARA INSPECTOR POISING, RYANNE A V70.3 SPORTS PHYSICAL 10/09/2013 BARBARA INSPECTOR POISING, RYANNE A 305.1 TOBACCO ABUSE 10/09/2013 АНДРЕЙOTTE INSPECTOR POISING, RYANNE A V70.3 SPORTS PHYSICAL 10/09/2013 RAJKYLEE INSPECTOR POISING, RYANNE A 305.1 TOBACCO ABUSE 10/09/2013 BARBARA [...] DIABETES MELLITUS WITHOUT COMPLIC 09/04/2016 PIPPA BARRERA INSPECTOR POISING Ot I10 ESSENTIAL (PRIMARY) HYPERTENSION 09/04/2016 PIPPA BARRERA APRN Ot M79.602 PAIN IN LEFT ARM 09/04/2016 PIPPA BARRERA INSPECTOR POISING Ot Z79 .4 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 TECHNOLOGY PROFESSOR (CURRENT) USE OF INSULIN 09/06/2016 PIPPA BARRERA INSPECTOR POISING Ot E11 .9 TYPE 2 DIABETES MELLITUS WITHOUT COMPLIC 09/06/2016 PIPPA BARRERA INSPECTOR POISING Ot I10 ESSENTIAL (PRIMARY) HYPERTENSION 09/06/2016 PIPPA BARRERA INSPECTOR POISING Ot M79.602 PAIN IN LEFT ARM 09/06/2016 PIPPA BARRERA INSPECTOR POISING Ot Z79 .4 [facility] (CURRENT) USE OF INSULIN 09/10/2016 PIPPA BARRERA INSPECTOR POISING Ot E11 .9 TYPE 2 DIABETES MELLITUS WITHOUT COMPLIC 09/10/2016 PIPPA BARRERA INSPECTOR POISING Ot I10 ESSENTIAL (PRIMARY) HYPERTENSION 09/10/2016 PIPPA BARRERA INSPECTOR POISING Ot M79.602 PAIN IN LEFT ARM 09/10/2016 PIPPA BARRERA INSPECTOR POISING Ot Z79 .4 [facility] (CURRENT) USE OF INSULIN 10/24/2016 RUCHI GARCÍA [...] CAUSE STATUS 10/24/2016 RUCHI GARCÍA Ot Z79.4 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 TECHNOLOGY PROFESSOR (CURRENT) USE OF INSULIN 10/26/2016 RUCHI GARCÍA [...] CAUSE STATUS 10/26/2016 RUCHI GARCÍA Ot Z79.4 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 TECHNOLOGY PROFESSOR (CURRENT) USE OF INSULIN 06/02/2017 RUCHI GARCÍA [...] QUADRANT PAIN 06/02/2017 RUCHI GARCÍA Ot Z79.4 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 TECHNOLOGY PROFESSOR (CURRENT) USE OF INSULIN 06/02/2017 RUCHI GARCÍA [...] QUADRANT PAIN 06/10/2017 RUCHI GARCÍA Ot Z79.4 [facility] (CURRENT) USE OF INSULIN 06/10/2017 RUCHI GARCÍA [...] 07/19/2017 CARLEY EDEN DOA K Ot Z79.4 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 TECHNOLOGY PROFESSOR (CURRENT) USE OF INSULIN 07/19/2017 CARLEY EDEN [...] 07/25/2017 KAREY PENN ADRIENNE K Ot Z79.4 [facility] (CURRENT) USE OF INSULIN 07/25/2017 KAREY PENN [...] QUADRANT PAIN 07/30/2017 RUCHI GARCÍA Ot Z79.4 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 TECHNOLOGY PROFESSOR (CURRENT) USE OF INSULIN 07/30/2017 RUCHI GARCÍA [...] HEADACHE 08/02/2017 KENZIE PALMER MD Ot Z79.4 [facility] (CURRENT) USE OF INSULIN 08/02/2017 KENZIE PALMER [...] OBJE 07/13/2019 DARION HERRING DO Ot Z79.4 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 TECHNOLOGY PROFESSOR (CURRENT) USE OF INSULIN 12/24/2019 JOSE DAVID, [...] Code Description [place] [address] URIN E TEST (IN- HOUSE) 04/10/2013 J1050 DEPO PROVERA 04/10/2013 70547 THER APUTIC INJ SQ/IM 04/10/2013 67457 PSYC H DIAGNOSTIC EVALUATION 05/29/2013 20033 ROUT INE VENIPUNCTURE 07/11/2013 33395 HCG QUALITATIVE 07/11/2013 J1050 DEPO PROVERA 07/18/2013 31376 THER APUTIC INJ SQ/IM 07/18/2013 46790 PSYT X PT&/FAMILY 45 MINUTES 07/25/2013 24316 PSYT X PT&/FAMILY 45 MINUTES 08/08/2013 35516 PSYT X PT&/FAMILY 45 MINUTES 09/05/2013 64643 VISU AL ACUITY SCREEN 10/10/2013 [id number] DE LIVERY OF PRODUCTS OF CONCEPTION, EXTE 02/06/2018 [id number] IN SERTION OF ENDOTRACHEAL AIRWAY INTO TR 07/09/2019 [id number] RE SPIRATORY VENTILATION, 24- 96 CONSECUTI 07/09/2019 [...] Serum or plasma choriogonadotropin measurement (units/ volume) 45180 m[iU]/mL <5 Serum or plasma ethanol measurement [...] Serum or plasma choriogonadotropin measurement (units/ volume) 32043 m[iU]/mL <5 Capillary blood glucose measurement by [...] ABO+Rh group AP NRG Transfusion band number [id number] NRG Blood group antibody screen NEGATIVE NR [...] plasma triglyceride measurement (mass/volume) 180 mg/dL <150 [id number] - 07/09/19 16:23 [id number] 308 % 275-295 Beta-hydroxybutyric acid measurement - [...] OF GROWTH Rare NRG Bacterial sputum culture [id number] NRG Capillary blood glucose measurement by g [...] by glucometer (mas s/volume) 154 mg/dL 70-110 Capillary blood glucose measurement by g lucometer (mass/volume) - 01/12/20 22:17 Capillary blood glucose measurement by glucometer (mas s/volume) 89 mg/dL 70-110 Encounters ACCT No. Visit Date/Time Discharge Status Pt. Type Provider Facility Loc./Unit Complaint [id number] 07/15/2019 15:10:00 07/15/2019 23:59:5 9 CLS Outpatient GAULT, HARRY [facility] [id number] 07/15/2019 15:10:00 Document Registration [id number] 05/23/2014 08:51:00 05/23/2014 23:59: 59 CLS Outpatient BARBARA RYANNE THOMAS [id number] 05/10/2014 09:06:00 05/10/2014 23:59: 59 CLS Outpatient BARBARA RYANNE THOMAS [id number] 10/09/2013 14:52:00 10/09/2013 23:59: 59 CLS Outpatient BARBARA RYANNE THOMAS [id number] 09/20/2013 16:07:00 09/20/2013 23:59: 59 CLS Outpatient PENNY XAVIER APRN [id number] 09/01/2013 09:50:00 09/01/2013 23:59: 59 CLS Outpatient PAULA JONES [id number] 08/31/2013 12:59:00 08/31/2013 23:59: 59 CLS Outpatient SARAH GUILLEN MD [id number] 08/15/2013 13:36:00 08/15/2013 23:59: 59 CLS Outpatient MARSHA VALERA MD [id number] 08/08/2013 13:40:00 08/08/2013 23:59: 59 CLS Outpatient PAULA JONES [id number] 08/03/2013 13:03:00 08/03/2013 23:59: 59 CLS Outpatient SARAH GUILLEN MD [id number] 07/25/2013 09:03:00 07/25/2013 23:59: 59 CLS Outpatient PAULA JONES [id number] 07/18/2013 11:27:00 07/18/2013 23:59: 59 CLS Outpatient ROSSI AGEE DO [id number] 07/11/2013 14:30:00 07/11/2013 23:59: 59 CLS Outpatient ROSSI AGEE DO [id number] 05/29/2013 08:35:00 05/29/2013 23:59: 59 CLS Outpatient PAULA JONES [id number] 05/12/2013 14:53:00 05/12/2013 23:59: 59 CLS Outpatient ASHLEY ROD APRN [id number] 04/10/2013 09:28:00 Document Registration [id number] 12/22/2019 21:39:00 020 12:55:00 DIS Inpatient JOSE DAVID, YADIRA Gordillo [facility] 4TH SUICIDAL IDEATIONS,FABIEN RE HYPERGLYCEMIA [id number] 07/09/2019 12:40:00 019 12:30:00 DIS Outpatient DARION HERRING DO [facility] 4TH ACIDOSIS, UNRESPONSIVE [id number] 02/06/2018 00:06:00 018 11:30:00 DIS Inpatient SHANKAR ALONZO DO [facility] LDRP LEAKAGE OF AMNIOTIC FLU ID [id number] 08/01/2017 21:25:00 018 00:48:00 DIS Emergency KENZIE PALMER MD [facility] ER VOMITING LOW BS HEADACHE [id number] 07/19/2017 05:16:00 017 07:33:00 DIS Emergency ADRIENNE EDEN DO [facility] ER VOMITING MIGRAINE [id number] 06/02/2017 16:44:00 017 21:48:00 DIS Emergency RUCHI GARCÍA [facility] ER PELVIC/ABD/LOWER BACK PAIN [id number] 10/24/2016 13:49:00 017 16:33:00 DIS Emergency RUCHI GARCÍA [facility] ER ABD PAIN [id number] 09/04/2016 18:19:00 017 19:35:00 DIS Emergency PIPPA BARRERA APRN [facility] ER L ARM PAIN [id number] 04/26/2016 06:10:00 016 11:58:00 DIS Inpatient DARION HERRING DO, V [facility] ICU NEW ONSET DIABETES AMANDA ITUS; ELECTROLYTE IMBALANCE [id number] 01/04/2016 05:47:00 016 06:21:00 DIS Emergency ADRIENNE EDEN DO [facility] ER ARM PAIN [id number] 01/12/2020 19:37:[address] Inpatient DARION HERRING DO [facility] [place] [facility] ETOH INTOXICATION [id number] 08/12/2012 11:48:00 Document Registration
[2020-01-13] VITALS (12 sets, daily range): BP systolic 97–116; BP diastolic 48–76
[2020-01-13] MEDS: POTASSIUM CL 10 MEQ/50 ML IVPB (PRE-MIX) IV SCH (01:14)
[2020-01-13 03:05] LABS: BASOPHILS % (AUTO) 0 % (0-10); EOSINOPHILS # (AUTO) 0.1 10^3/uL (0.0-0.3); EOSINOPHILS % (AUTO) 1 % (0-10); HEMATOCRIT 37 % (35-52); HEMOGLOBIN 12.6 G/DL (11.5-16.0); LYMPHOCYTES # (AUTO) 3.6 X 10^3 (1.0-4.0); LYMPHOCYTES % (AUTO) 41 % (12-44); MEAN CORPUSCULAR HEMOGLOBIN 32 PG (25-34); MEAN CORPUSCULAR HGB CONC 34 G/DL (32-36); MEAN CORPUSCULAR VOLUME 94 FL (80-99); MEAN PLATELET VOLUME 9.2 FL (7.4-10.4); MONOCYTES # (AUTO) 0.7 X 10^3 (0.0-1.0); MONOCYTES % (AUTO) 9 % (0-12); NEUTROPHILS # (AUTO) 4.2 X 10^3 (1.8-7.8); NEUTROPHILS % (AUTO) 49 % (42-75); PLATELET COUNT 294 10^3/uL (130-400); RED CELL DISTRIBUTION WIDTH 12.8 % (10.0-14.5); WHITE BLOOD COUNT 8.6 10^3/uL (4.3-11.0)
[2020-01-13 03:10] LABS: ALBUMIN 3.7 GM/DL (3.2-4.5); CHLORIDE 107 MMOL/L (98-107); POTASSIUM 3.8 MMOL/L (3.6-5.0); SODIUM 140 MMOL/L (135-145)
[2020-01-13 03:11] LABS: CALCIUM 8.2 MG/DL (8.5-10.1)
[2020-01-13 03:13] LABS: GLUCOSE 121 MG/DL (70-105); TOTAL PROTEIN 6.5 GM/DL (6.4-8.2)
[2020-01-13 03:14] LABS: BILIRUBIN,TOTAL 0.1 MG/DL (0.1-1.0); CARBON DIOXIDE 20 MMOL/L (21-32)
[2020-01-13 03:16] LABS: ALKALINE PHOSPHATASE 103 U/L (40-136); CREATININE SERUM 0.61 MG/DL (0.60-1.30); GFR ESTIMATED > 60; PHOSPHORUS 4.4 MG/DL (2.3-4.7)
[2020-01-13 03:17] LABS: BUN/CREATININE RATIO 18
[2020-01-13 03:19] LABS: ALANINE AMINOTRANSFERASE 24 U/L (0-55); MAGNESIUM 1.5 MG/DL (1.6-2.4)
[2020-01-13] MEDS: NS IV 1000 ML 1,000 ML IV SCH (05:01)
[2020-01-13] MEDS: inSUlin ASPART (NovoLOG) 1 UNIT/0.01 ML (CHARGE PER UNIT) SC SCH ×2 (05:55→11:53)
--- NOTE | 2020-01-13 07:04 | Pulmonary Consultation ---
History of Present Illness History of Present Illness Date Seen by Provider: Jan 13, 2020 Time Seen by Provider: 07:03 Date of Admission Allergies and Home Medications Allergies Coded Allergies: No Known Drug Allergies (Unverified , 08/12/12) Home Medications Insulin Aspart 300 Units/3 Ml Solution, 16 UNITS SQ TIDAC, (Reported) Insulin Detemir 100 Unit/1 Ml Insuln.pen, 28 UNIT SQ DAILY, (Reported) Insulin Detemir 100 Unit/1 Ml Insuln.pen, 30 UNIT SQ HS, (Reported) Past Kmdoqbh-Wphfvp-Utssrz Hx Patient Social History Alcohol Use: Occasionally Uses Number of Drinks Today: GG Alcohol Beverage of Choice: Whiskey, Vodka Recreational Drug Use: Yes Drug of Choice: METH Smoking Status: Former Smoker Type Used: Cigarettes Former Smoker, Quit: Apr 02, 2016 2nd Hand Smoke Exposure: Yes Recent Foreign Travel: No Contact w/Someone Who Travel: No Recent Infectious Disease Expo: No Recent Hopitalizations: No Immunizations Up To Date Tetanus Booster (TDap): Unknown PED Vaccines UTD: No Seasonal Allergies Seasonal Allergies: Yes Past Medical History Surgeries: Yes Ear Surgery Respiratory: Yes Asthma Currently Using CPAP: No Currently Using BIPAP: No Cardiac: Yes Hypertension Neurological: No Reproductive Disorders: No Female Reproductive Disorders: Denies Sexually Transmitted Disease: No HIV/AIDS: No Genitourinary: No UTI-Chronic Gastrointestinal: No Musculoskeletal: No Endocrine: Yes Diabetes, Insulin dep HEENT: No Chronic Ear Infection, Tonsilitis Loss of Vision: Denies Hearing Impairment: Denies Cancer: No Psychosocial: Yes (CUTTING) Anxiety, Depression Integumentary: No Blood Disorders: No Adverse Reaction/Blood Tranf: No Family Medical History Colon cancer 19 MOTHER (copd ; breast cancer ) Cystic fibrosis (nephew has CF ) Hypertension 19 MOTHER (copd ; breast cancer ) No Pertinent Family Hx Sepsis Event Evaluation Height, Weight, BMI Height: 5'2.00" Weight: 210lbs. 0.0oz. 95.527167qb; 23.00 BMI Method:Stated Exam Exam Vital Signs Date Time Temp Pulse Resp B/P (MAP) Pulse Ox O2 Delivery O2 Flow Rate FiO2 01/13/20 06:00 89 14 106/57 (73) 99 Room Air 01/13/20 05:00 96 15 108/63 (78) 99 Room Air 01/13/20 04:56 36.8 01/13/20 04:00 92 16 112/61 (78) 98 Room Air 01/13/20 03:00 87 14 97/56 (70) 96 Room Air 01/13/20 02:00 85 14 108/63 (78) 96 Room Air 01/13/20 01:00 91 01/13/20 01:00 92 14 114/63 (80) 98 Room Air 01/13/20 00:16 36.5 01/13/20 00:00 93 15 99/48 (65) 96 Room Air 01/12/20 23:00 90 12 108/61 (77) 96 Room Air 01/12/20 22:30 89 15 98/47 (64) 96 Room Air 01/12/20 22:15 92 16 99/46 (63) 96 Room Air 01/12/20 22:00 86 14 100/51 (67) 96 Room Air 01/12/20 21:50 97 Room Air 01/12/20 21:45 87 12 100/59 (73) 96 Room Air 01/12/20 21:30 82 14 94/45 (61) 97 Room Air 01/12/20 21:21 36.3 80 11 96/44 (61) 97 Room Air 01/12/20 21:18 82 01/12/20 21:10 74 20 102/64 99 01/12/20 17:58 35.8 76 18 105/46 (65) 96 I & O0 01/13/20 07:00 Intake Total 2494 ml Output Total 1450 ml Balance 1044 ml Height & Weight Height: 5'2.00" Weight: 210lbs. 0.0oz. 95.657663en; 23.00 BMI Method:Stated General Appearance: Other (Lethargic, opens eyes to painful stimuli, alternating lethargy then she'll awaken and began crying and then become lethargic again. Pupils are equal. Superficial cut cast to the anterior right proximal thigh without active bleeding but do appear to be quite recent. Older healed scars to both forearms and thighs.) Respiratory: No Accessory Muscle Use, No Respiratory Distress Cardiovascular: Regular Rate, Rhythm, Normal Peripheral Pulses Capillary Refill: Less Than 3 Seconds Extremity: Normal Capillary Refill, No Calf Tenderness Neurologic/Psychiatric: No Motor/Sensory Deficits, Disoriented Skin: Normal Color, Warm/Dry Results Lab Laboratory Tests 01/12/20 17:50 01/13/20 02:51 Assessment/Plan Assessment/Plan Alcohol intoxication Methamphetamine abuse JAMEL NIEVES DO Jan 13, 2020 07:04
--- NOTE | 2020-01-13 08:24 | History & Physical-Hospitalist ---
History of Present Illness HPI/Chief Complaint CC: ETOH intoxication HPI: This is a 19yoWF who presented to the ER with aggression and ETOH intoxication along with meth use. Patient was admitted for safety reasons and currently ready for DC. Her sugar is stable now and she states she has enough insulin at home to take. Source: patient Exam Limitations: no limitations Date Seen 01/13/20 Time Seen by a Provider: 10:00 Attending Physician Shelia Burns DO [facility] [place] Referring Physician Date of Admission Jan 12, 2020 at 19:37 Home Medications & Allergies Home Medications Reviewed patient Home Medication Reconciliation performed by pharmacy medication reconciliations detail technician and/or nursing. Patients Allergies have been reviewed. Allergies Allergies Coded Allergies No Known Drug Allergies (Unverified08/12/12) Past Upyvjsi-Yyuldm-Iybdqc Hx Past Med/Social Hx: Reviewed Nursing Past Med/Soc Hx, Reviewed and Corrections made Patient Social History Marrital Status: single Employed/Student: unemployed Alcohol Use: Occasionally Uses Number of Drinks Today: GG Alcohol Beverage of Choice: Whiskey, Vodka Recreational Drug Use: Yes Drug of Choice: METH Smoking Status: Former Smoker Former Smoker, Quit: Apr 02, 2016 Type Used: Cigarettes 2nd Hand Smoke Exposure: Yes Recent Foreign Travel: No Contact w/other who traveled: No Recent Hopitalizations: No Recent Infectious Disease Expo: No Immunizations Up To Date Tetanus Booster (TDap): Unknown Pediatric: No Seasonal Allergies Seasonal Allergies: Yes Past Medical History Surgeries: Ear Surgery Currently Using CPAP: No Currently Using BIPAP: No Cardiac: Hypertension Reproductive: No Sexually Transmitted Disease: No HIV/AIDS: No Female Reproductive Disorders: Denies Genitourinary: UTI-Chronic Endocrine: Diabetes, Insulin dep HEENT: Chronic Ear Infection, Tonsilitis Loss of Vision: Denies Hearing Impairment: Denies Psychosocial: Anxiety, Depression History of Blood Disorders: No Adverse Reaction to Blood Marquez: No Family History Colon cancer 19 MOTHER (copd ; breast cancer ) Cystic fibrosis (nephew has CF ) Hypertension 19 MOTHER (copd ; breast cancer ) No Pertinent Family Hx Review of Systems Constitutional: see HPI Physical Exam Physical Exam Vital Signs Vital Signs - First Documented 01/12/20 01/12/20 17:58 21:21 Temp 35.8 Pulse 76 Resp 18 B/P (MAP) 105/46 (65) Pulse Ox 96 O2 Delivery Room Air Capillary Refill : Less Than 3 SecondsLess Than 3 Seconds Height, Weight, BMI Height: 5'2.00" Weight: 210lbs. 0.0oz. 95.619103st; 23.00 BMI Method:Stated General Appearance: No Apparent Distress Eyes: Right Eye Normal Inspection, Right Eye PERRL HEENT: PERRL/EOMI, TMs Normal, Normal ENT Inspection, Pharynx Normal, Moist Mucous Membranes Neck: Full Range of Motion, Normal Inspection, Non Tender Respiratory: Chest Non Tender, Lungs Clear, Normal Breath Sounds, No Accessory Muscle Use, No Respiratory Distress Cardiovascular: Regular Rate, Rhythm, No Edema, No Gallop, No JVD, No Murmur, Normal Peripheral Pulses Gastrointestinal: Normal Bowel Sounds, No Organomegaly, No Pulsatile Mass, Non Tender, Soft Back: Normal Inspection, No CVA Tenderness, No Vertebral Tenderness Extremity: Normal Capillary Refill, Normal Inspection, Normal Range of Motion, Non Tender, No Calf Tenderness, No Pedal Edema Neurologic/Psychiatric: Alert, Oriented x3, No Motor/Sensory Deficits, Normal Mood/Affect Skin: Normal Color, Warm/Dry Lymphatic: No Adenopathy Results Results/Procedures Labs Laboratory Tests 01/12/20 17:50 01/13/20 02:51 Patient resulted labs reviewed. Assessment/Plan Admission Diagnosis Assessment: ETOH intoxication Meth use DM OOC Plan: Insulin DC home Admission Status: Observation Diagnosis/Problems Diagnosis/Problems (1) Alcohol intoxication Status: Acute (2) Illicit drug use Status: Acute (3) Methamphetamine abuse Status: Chronic Clinical Quality Measures DVT/VTE Risk/Contraindication: Risk Factor Score Per Nursin RFS Level Per Nursing on Admit: 2=Moderate SHELIA BURNS DO Jan 13, 2020 08:24
[2020-01-13] MEDS: NS IV 500 ML 500 ML IV SCH (12:02)
--- NOTE | 2020-01-13 12:50 | NUR ---
JAREN WHITE demonstrates understanding of discharge instructions and accurately returns instructions upon questioning. Copy of Post-Discharge Instructions and Medication Discharge Instructions given to PT. JAREN WHITE is able to manage continuing needs after discharge. Patients belongings returned to PT. Skin dry and intact; no breakdown noted. Patient discharged from [facility] on 01/13/20 at 1250. JAREN WHITE left floor via , accompanied by STAFF.
== END 2020-01-13 12:50 | disposition home or self-care (01) ==
LOC: EDUNIT# 17:46 → ER 17:47 → ICU 19:37
PROVIDERS: ADMIT Internal Medicine; ATTEND Internal Medicine
DX: F10.129 Alcohol abuse with intoxication, unspecified (principal); F19.10 Other psychoactive substance abuse, uncomplicated; E11.649 Type 2 diabetes mellitus with hypoglycemia without coma; R41.82 Altered mental status, unspecified; J45.909 Unspecified asthma, uncomplicated; I10 Essential (primary) hypertension; N39.0 Urinary tract infection, site not specified; F41.9 Anxiety disorder, unspecified; F32.9 Major depressive disorder, single episode, unspecified; Z79.4 Long term (current) use of insulin; Z87.891 Personal history of nicotine dependence; Z80.0 Family history of malignant neoplasm of digestive organs
CPT/HCPCS: 36415; 51702; 80048; 80053; 80306; 80320; 81000; 82010; 82962; 83735; 84100; 84703; 85025; 87081; 93005; G0378

== ENCOUNTER 2020-03-30 13:35 | Emergency (ER) | payer MEDICAID ==
[~2020-03-30] VITALS: Ht 157.5 cm; Wt 61.2 kg
[2020-03-30 14:15] VITALS: BP 117/56
[2020-03-30] MEDS ORDERED: NS IV 1000 ML 1,000 ML IV SCH (14:31)
[2020-03-30] MEDS ORDERED: NS IV 1000 ML 1,000 ML ONE (14:34)
[2020-03-30] MEDS ORDERED: diphenhydrAMINE 50 MG/ML INJ (BENADRYL) ONE (14:34)
--- NOTE | 2020-03-30 14:37 | ED Abdominal Pain ---
General Chief Complaint: Abdominal/GI Problems Stated Complaint: ABD PAIN Source of Information: Patient Exam Limitations: No Limitations History of Present Illness Date Seen by Provider: Mar 30, 2020 Time Seen by Provider: 13:40 Initial Comments Charlotte White is a 20 yo female who presented to ED for vague complaints of abdominal pain. She is unable to described pain or precipitating events. Very non compliant with reviewing HPI. States she feels "very offended" that we asked her if she had used drugs/alcohol or taken any other substances. Her behavior is very erratic and thought processes scattered. Does note that she was recently treated for UTI but did not compete full course of Macrobid. She appears to be u nder the influence of some illegal substance. Severity/Quality: Severe, Sharp, Stabbing Location: Generalized Abdomen Radiation: No Radiation Activities at Onset: None Modifying Factors: Improves With Other (NONE) Associated Symptoms: Rash (Rash on abdomen and chest x 1 week. ) Allergies and Home Medications Allergies Coded Allergies: No Known Drug Allergies (Unverified , 08/12/12) Home Medications Ciprofloxacin HCl 500 Mg Tablet, 500 MG PO BID Prescribed by: TIM REYES on 03/30/20 1826 Insulin Aspart 300 Units/3 Ml Solution, 16 UNITS SQ TIDAC, (Reported) Insulin Detemir 100 Unit/1 Ml Insuln.pen, 28 UNIT SQ DAILY, (Reported) Insulin Detemir 100 Unit/1 Ml Insuln.pen, 30 UNIT SQ HS, (Reported) Patient Home Medication List Home Medication List Reviewed: Yes Review of Systems Review of Systems Constitutional: weakness EENTM: No Symptoms Reported Respiratory: No Symptoms Reported Cardiovascular: No Symptoms Reported Gastrointestinal: Abdominal Pain; Denies Blood Streaked Stools; Constipated; Denies Diarrhea, Denies Nausea, Denies Vomiting Genitourinary: Discharge Musculoskeletal: see HPI Skin: see HPI, rash Psychiatric/Neurological: Anxiety Endocrine: No Symptoms Reported Hematologic/Lymphatic: No Symptoms Reported Past Owctunt-Ffaoek-Dutzsz Hx Patient Social History Alcohol Beverage of Choice: Whiskey, Vodka Drug of Choice: METH Type Used: Cigarettes Former Smoker, Quit: Apr 02, 2016 2nd Hand Smoke Exposure: Yes Recent Foreign Travel: No Contact w/Someone Who Travel: No Recent Hopitalizations: No Immunizations Up To Date Tetanus Booster (TDap): Unknown PED Vaccines UTD: No Seasonal Allergies Seasonal Allergies: Yes Past Medical History Surgeries: Yes Ear Surgery Respiratory: Yes Asthma Currently Using CPAP: No Currently Using BIPAP: No Cardiac: Yes Hypertension Neurological: No Reproductive Disorders: No Female Reproductive Disorders: Denies Sexually Transmitted Disease: No HIV/AIDS: No Genitourinary: No UTI-Chronic Gastrointestinal: No Musculoskeletal: No Endocrine: Yes Diabetes, Insulin dep HEENT: No Chronic Ear Infection, Tonsilitis Loss of Vision: Denies Hearing Impairment: Denies Cancer: No Psychosocial: Yes (CUTTING) Anxiety, Depression Integumentary: No Blood Disorders: No Adverse Reaction/Blood Tranf: No Family Medical History Colon cancer 19 MOTHER (copd ; breast cancer ) Cystic fibrosis (nephew has CF ) Hypertension 19 MOTHER (copd ; breast cancer ) No Pertinent Family Hx Physical Exam Vital Signs Vital Signs - First Documented 03/30/20 14:15 Temp 36.9 Pulse 120 Resp 24 B/P (MAP) 117/56 (76) Pulse Ox 98 O2 Delivery Room Air Capillary Refill : Height/Weight/BMI Height: 5'2.00" Weight: 210lbs. 0.0oz. 95.020711oa; 23.00 BMI Method:Stated General Appearance: WD/WN, other (Anxious, fidgiting all over bed. ) HEENT: PERRL/EOMI, TMs normal, pharynx normal Neck: non-tender, full range of motion, supple, normal inspection Respiratory: chest non-tender, lungs clear, normal breath sounds, no respiratory distress, no accessory muscle use Cardiovascular: normal peripheral pulses (flat maculopapular rash on upper abdomen and chest), regular rate, rhythm, no edema Peripheral Pulses: 2+ Dorsalis Pedis (R), 2+ Left Dors-Pedis (L), 2+ Radial Pulses (R), 2+ Radial Pulses (L) Gastrointestinal: soft, abnormal bowel sounds (hypoactive ); No distended, No rebound; tenderness; No hepatomegaly, No spleenomegaly Genital/Rectal: other (refused pelvic examination ) Extremities: normal range of motion, non-tender, normal inspection, normal capillary refill Back: normal inspection; No decreased range of motion Pelvic: other (Refused ) Neurologic/Psychiatric: alert, normal mood/affect, oriented x 3 Skin: normal color, warm/dry, rash (flat erythematous ) Procedures/Interventions Date of ETT Placement: Jul 09, 2019 Time of ETT Placement: 1435 Progress/Results/Core Measures Results/Orders Lab Results Laboratory Tests Test 03/30/20 14:27 03/30/20 14:30 03/30/20 14:41 Range/Units Urine Color YELLOW Urine Clarity SL CLOUDY Urine pH 6.5 5-9 Urine Specific [place] 1.010 L 1.016-1.022 Urine Protein NEGATIVE NEGATIVE Urine Glucose (UA) 3+ H NEGATIVE Urine Ketones NEGATIVE NEGATIVE Urine Nitrite NEGATIVE NEGATIVE Urine Bilirubin NEGATIVE NEGATIVE Urine Urobilinogen 1.0 < = 1.0 MG/DL Urine Leukocyte Esterase TRACE H NEGATIVE Urine RBC (Auto) NEGATIVE NEGATIVE Urine RBC NONE /HPF Urine WBC 25-50 H /HPF Urine Squamous Epithelial Cells RARE /HPF Urine Crystals NONE /LPF Urine Bacteria MODERATE H /HPF Urine Casts NONE /LPF Urine Mucus NEGATIVE /LPF Urine Culture Indicated YES Urine Opiates Screen NEGATIVE NEGATIVE Urine Oxycodone Screen NEGATIVE NEGATIVE Urine Methadone Screen NEGATIVE NEGATIVE Urine Propoxyphene Screen NEGATIVE NEGATIVE Urine Barbiturates Screen NEGATIVE NEGATIVE Ur Tricyclic Antidepressants Screen NEGATIVE NEGATIVE Urine Phencyclidine Screen NEGATIVE NEGATIVE Urine Amphetamines Screen POSITIVE H NEGATIVE Urine Methamphetamines Screen POSITIVE H NEGATIVE Urine Benzodiazepines Screen NEGATIVE NEGATIVE Urine Cocaine Screen NEGATIVE NEGATIVE Urine Cannabinoids Screen NEGATIVE NEGATIVE White Blood Count 14.8 H 4.3-11.0 10^3/uL Red Blood Count 3.92 L 4.35-5.85 10^6/uL Hemoglobin 12.5 11.5-16.0 G/DL Hematocrit 37 35-52 % Mean Corpuscular Volume 95 80-99 FL Mean Corpuscular Hemoglobin 32 25-34 PG Mean Corpuscular Hemoglobin Concent 34 32-36 G/DL Red Cell Distribution Width 12.1 10.0-14.5 % Platelet Count 387 130-400 10^3/uL Mean Platelet Volume 8.8 7.4-10.4 FL Neutrophils (%) (Auto) 79 H 42-75 % Lymphocytes (%) (Auto) 12 12-44 % Monocytes (%) (Auto) 8 0-12 % Eosinophils (%) (Auto) 0 0-10 % Basophils (%) (Auto) 0 0-10 % Neutrophils # (Auto) 11.7 H 1.8-7.8 X 10^3 Lymphocytes # (Auto) 1.8 1.0-4.0 X 10^3 Monocytes # (Auto) 1.2 H 0.0-1.0 X 10^3 Eosinophils # (Auto) 0.1 0.0-0.3 10^3/uL Basophils # (Auto) 0.0 0.0-0.1 10^3/uL Neutrophils % (Manual) 80 % Lymphocytes % (Manual) 16 % Monocytes % (Manual) 4 % Blood Morphology Comment NORMAL Sodium Level 134 L 135-145 MMOL/L Potassium Level 3.7 3.6-5.0 MMOL/L Chloride Level 97 L 98-107 MMOL/L Carbon Dioxide Level 25 21-32 MMOL/L Anion Gap 12 5-14 MMOL/L Blood Urea Nitrogen 9 7-18 MG/DL Creatinine 0.71 0.60-1.30 MG/DL Estimat Glomerular Filtration Rate > 60 BUN/Creatinine Ratio 13 Glucose Level 262 H 70-105 MG/DL Calcium Level 9.1 8.5-10.1 MG/DL Corrected Calcium 9.2 8.5-10.1 MG/DL Total Bilirubin 0.4 0.1-1.0 MG/DL Aspartate Amino Transf (AST/SGOT) 13 5-34 U/L Alanine Aminotransferase (ALT/SGPT) 19 0-55 U/L Alkaline Phosphatase 180 H 40-136 U/L Lactate Dehydrogenase 171 125-220 U/L Total Creatine Kinase 59 29-168 U/L C-Reactive Protein High Sensitivity 12.37 H 0.00-0.50 MG/DL Total Protein 7.6 6.4-8.2 GM/DL Albumin 3.9 3.2-4.5 GM/DL Lipase 7 L 8-78 U/L Human Chorionic Gonadotropin, Quant < 5 <5 MIU/ML Serum Alcohol < 10 <10 MG/DL Glucometer 264 H 70-110 MG/DL My Orders Orders - TIM REYES MOLD MAKER APPRENTICE Alcohol (03/30/20 14:31) Cbc With Automated Diff (03/30/20 14:31) Comprehensive Metabolic Panel (03/30/20 14:31) Drug Screen Stat (Urine) (03/30/20 14:31) Hcg,Quantitative (03/30/20 14:31) Accucheck Stat ONCE (03/30/20 14:31) Ua Culture If Indicated (03/30/20 14:31) Lipase (03/30/20 14:31) Ed Iv/Invasive Line Start (03/30/20 14:31) Ns Iv 1000 Ml (Sodium Chloride 0.9%) (03/30/20 14:31) Diphenhydramine Injection (Benadryl Inje (03/30/20 14:45) Diphenhydramine Injection (Benadryl Inje (03/30/20 14:34) Ns Iv 1000 Ml (Sodium Chloride 0.9%) (03/30/20 14:34) Manual Differential (03/30/20 14:30) Urine Culture (03/30/20 14:27) Ct Abd/Pelv W (Appendicitis) (03/30/20 15:12) Ceftriaxone For Iv Use (Rocephin For I (03/30/20 15:30) Iohexol Injection (Omnipaque 350 Mg/Ml 1 (03/30/20 15:45) Received Contrast (Hold Metformin- Contr (03/30/20 15:45) Sodium Chloride Flush (Catheter Flush Sy (03/30/20 15:45) Ns (Ivpb) (Sodium Chloride 0.9% Ivpb Bag (03/30/20 15:45) LDH (03/30/20 16:44) Hs C Reactive Protein (03/30/20 16:44) Creatine Kinase (03/30/20 16:44) Water (Sterile) For Injection (Sterile W (03/30/20 17:44) Ceftriaxone For Iv Use (Rocephin For I (03/30/20 17:44) Medications Given in ED Current Medications Medications Dose Ordered Sig/Sisi Route Start Time Stop Time Status Last Admin Dose Admin Ceftriaxone Sodium 1000 mg/ Sterile Water 10 ml @ 200 mls/hr ONCE ONCE IV 03/30/20 15:30 03/30/20 15:32 DC 03/30/20 17:49 200 MLS/HR Diphenhydramine HCl 25 mg ONCE ONCE IVP 03/30/20 14:45 03/30/20 14:46 DC 03/30/20 14:40 25 MG Iohexol 100 ml ONCE ONCE IV 03/30/20 15:45 03/30/20 15:46 DC 03/30/20 15:58 77 ML Sodium Chloride 10 ml NEEDED PRN IV 03/30/20 15:45 03/30/20 18:41 DC 03/30/20 15:58 10 ML Sodium Chloride 100 ml ONCE ONCE IV 03/30/20 15:45 03/30/20 15:46 DC 03/30/20 15:59 80 ML Vital Signs/I&O 03/30/20 14:15 Temp 36.9 Pulse 120 Resp 24 B/P (MAP) 117/56 (76) Pulse Ox 98 O2 Delivery Room Air Progress Progress Note #1: Progress Note H&P difficult to obtain. Labs and CT abd/pelvis w/contrast ordered to evaluate vague c/o of abdominal pain. Progress Note #2: Progress Note Lab and CT abd reviewed. UA drug screen positive for Methamphetamines/Amphetamines. UTI still present, white count of 14.9 and BG of [address] abd shows enteritis vs Ileus. Discussed observation admission. Refused to discuss hospital admission stating she refuses to eat a clear liquid diet and she will go home so she can eat whatever she wants. I discussed risk of declining condition, including if she refuses to take insulin, antibiotics, and diet changes. Continued to refuse and signed AMA form. I discharged her with a prescription for Ciprofloxacin to cover UTI and enteritis. Instructed to eat a clear liquid diet for next 48 hours and to continue her home insulin. We discussed returning to ED if her condition worsens. She verbalized understanding. Diagnostic Imaging Diagonstic Imaging: CT Plain Films/CT/US/NM/MRI: abdomen Comments NAME: [facility] REC#: [id number] PT STATUS: REG ER : 2000 PHYSICIAN: TIM REYES MOLD MAKER APPRENTICE ADMIT DATE: 03/30/20/ER Signed Date of Exam:03/30/20 CT ABD/PELV W (APPENDICITIS) PROCEDURE: CT abdomen and pelvis with contrast, rule out appendicitis. TECHNIQUE: Multiple contiguous axial images were obtained through the abdomen and pelvis after the administration of intravenous contrast. All CT scans use one or more of the following dose optimizing techniques: automated exposure control, MA and/or KvP adjustment based on patient size and exam type or iterative reconstruction. INDICATION: Right lower quadrant pain. Rash on the back and stomach. COMPARISON: Prior study from 12/22/2019. FINDINGS: There is hepatomegaly. No focal liver lesion is seen. The gallbladder and bile ducts are normal. The spleen, pancreas and adrenals are normal. The kidneys, ureters and bladder are normal. There are multiple fluid-filled loops of nondilated small bowel which may be related to an ileus or enteritis. No marked bowel wall edema is evident. No obstruction is evident. I believe a portion of the pancreas is seen lateral to the cecum. No acute inflammation evident. There is no free intraperitoneal air or fluid. There is no acute bony abnormality. IMPRESSION: Hepatomegaly. Possible mild ileus versus enteritis. No other acute abnormality is evident. Dictated by: Dictated on workstation # [id number] Dict: 03/30/20 1604 Trans: 03/30/20 1618 PJ [id number] Interpreted by: RYAN RAZA MD Electronically signed by: RYAN RAZA MD 03/30/20 1618 Reviewed: Reviewed by Me Departure Impression Primary Impression: Urinary tract infection Additional Impression: Enteritis Disposition: 01 HOME, SELF-CARE Condition: Stable/Unchanged Departure-Patient Inst. Referrals: [facility] [place] Primary Care Physician Add. Discharge Instructions: Plan: 1. Discharge home. 2. Continue insulin and monitor blood glucose. 3. Take Ciprofloxacin as directed and complete full course. 4. Return for any new or concerning symptoms. All discharge instructions reviewed with patient and/or family. Voiced understanding. Scripts Ciprofloxacin HCl (Ciprofloxacin HCl) 500 Mg Tablet 500 MG PO BID for 7 Days, #14 TAB 0 Refills Prov: TIM REYES MOLD MAKER APPRENTICE 03/30/20 TIM REYES MOLD MAKER APPRENTICE Mar 30, 2020 14:37
[2020-03-30 14:41] LABS: BASOPHILS % (AUTO) 0 % (0-10); EOSINOPHILS # (AUTO) 0.1 10^3/uL (0.0-0.3); EOSINOPHILS % (AUTO) 0 % (0-10); HEMATOCRIT 37 % (35-52); HEMOGLOBIN 12.5 G/DL (11.5-16.0); LYMPHOCYTES # (AUTO) 1.8 X 10^3 (1.0-4.0); LYMPHOCYTES % (AUTO) 12 % (12-44); MEAN CORPUSCULAR HEMOGLOBIN 32 PG (25-34); MEAN CORPUSCULAR HGB CONC 34 G/DL (32-36); MEAN CORPUSCULAR VOLUME 95 FL (80-99); MEAN PLATELET VOLUME 8.8 FL (7.4-10.4); MONOCYTES # (AUTO) 1.2 X 10^3 (0.0-1.0); MONOCYTES % (AUTO) 8 % (0-12); NEUTROPHILS # (AUTO) 11.7 X 10^3 (1.8-7.8); NEUTROPHILS % (AUTO) 79 % (42-75); PLATELET COUNT 387 10^3/uL (130-400); RED CELL DISTRIBUTION WIDTH 12.1 % (10.0-14.5); WHITE BLOOD COUNT 14.8 10^3/uL (4.3-11.0)
[2020-03-30 14:42] LABS: BILIRUBIN,URINE NEGATIVE (NEGATIVE); CLARITY,URINE SL CLOUDY; COLOR,URINE YELLOW; GLUCOSE, URINE (UA) 3+ (NEGATIVE); KETONES,URINE NEGATIVE (NEGATIVE); LEUKOCYTE ESTERASE ,URINE TRACE (NEGATIVE); NITRITE,URINE NEGATIVE (NEGATIVE); PH,URINE 6.5 (5-9); PROTEIN,URINE NEGATIVE (NEGATIVE)
[2020-03-30] MEDS ORDERED: diphenhydrAMINE 50 MG/ML INJ (BENADRYL) IVP ONE (14:45)
[2020-03-30 14:52] LABS: BACTERIA,URINE MODERATE /HPF; SQUAMOUS EPITHELIAL CELL,UR RARE /HPF; WBC,URINE 25-50 /HPF
[2020-03-30 14:53] LABS: ALBUMIN 3.9 GM/DL (3.2-4.5); CHLORIDE 97 MMOL/L (98-107); POTASSIUM 3.7 MMOL/L (3.6-5.0); SODIUM 134 MMOL/L (135-145)
[2020-03-30 14:55] LABS: CALCIUM 9.1 MG/DL (8.5-10.1)
[2020-03-30 14:56] LABS: GLUCOSE 262 MG/DL (70-105); TOTAL PROTEIN 7.6 GM/DL (6.4-8.2)
[2020-03-30 14:56] LABS: AMPHETAMINE SCREEN, URINE POSITIVE (NEGATIVE); BARBITURATE SCREEN URINE NEGATIVE (NEGATIVE); BENZODIAZEPINES SCREEN URINE NEGATIVE (NEGATIVE); CANNABINOID SCREEN, URINE NEGATIVE (NEGATIVE); COCAINE SCREEN URINE NEGATIVE (NEGATIVE); METHADONE STAT NEGATIVE (NEGATIVE); METHAMPHETAMINE SCREEN URINE S POSITIVE (NEGATIVE); OPIATE SCREEN URINE NEGATIVE (NEGATIVE); OXYCODONE STAT NEGATIVE (NEGATIVE); PROPOXYPHENE STAT NEGATIVE (NEGATIVE); TRICYCLIC ANTIDEPRESSANTS SCRE NEGATIVE (NEGATIVE)
[2020-03-30 14:57] LABS: BILIRUBIN,TOTAL 0.4 MG/DL (0.1-1.0); CARBON DIOXIDE 25 MMOL/L (21-32)
[2020-03-30 14:59] LABS: ALKALINE PHOSPHATASE 180 U/L (40-136)
[2020-03-30 15:00] LABS: CREATININE SERUM 0.71 MG/DL (0.60-1.30); GFR ESTIMATED > 60
[2020-03-30 15:01] LABS: BUN/CREATININE RATIO 13
[2020-03-30 15:02] LABS: ALANINE AMINOTRANSFERASE 19 U/L (0-55)
[2020-03-30 15:03] LABS: LIPASE 7 U/L (8-78)
[2020-03-30 15:13] LABS: LYMPHOCYTES % (MANUAL) 16 %; MONOCYTES % (MANUAL) 4 %; NEUTROPHILS % (MANUAL) 80 %
[2020-03-30 15:14] LABS: RBC MORPH NORMAL
[2020-03-30] MEDS ORDERED: cefTRIAXone FOR IV USE 1,000 MG in WATER (STERILE) FOR INJECTION 10 ML IV ONE (15:30)
[2020-03-30] MEDS ORDERED: CATHETER FLUSH 10 ML SYR IV PRN (15:45)
[2020-03-30] MEDS ORDERED: IOHEXOL 350 MG/ML 100 ML (OMNIPAQUE 350) VIAL IV ONE (15:45)
[2020-03-30] MEDS ORDERED: HOLD METFORMIN - RECEIVED CONTRAST 20 ML VIAL IV SCH (15:45)
[2020-03-30] MEDS ORDERED: NS 100 ML (IVPB) BAG IV ONE (15:45)
--- NOTE | 2020-03-30 16:10 | Diagnostic Imaging Report ---
PROCEDURE: CT abdomen and pelvis with contrast, rule out appendicitis. TECHNIQUE: Multiple contiguous axial images were obtained through the abdomen and pelvis after the administration of intravenous contrast. All CT scans use one or more of the following dose optimizing techniques: automated exposure control, MA and/or KvP adjustment based on patient size and exam type or iterative reconstruction. INDICATION: Right lower quadrant pain. Rash on the back and stomach. COMPARISON: Prior study from 12/22/2019. FINDINGS: There is hepatomegaly. No focal liver lesion is seen. The gallbladder and bile ducts are normal. The spleen, pancreas and adrenals are normal. The kidneys, ureters and bladder are normal. There are multiple fluid-filled loops of nondilated small bowel which may be related to an ileus or enteritis. No marked bowel wall edema is evident. No obstruction is evident. I believe a portion of the pancreas is seen lateral to the cecum. No acute inflammation evident. There is no free intraperitoneal air or fluid. There is no acute bony abnormality. IMPRESSION: Hepatomegaly. Possible mild ileus versus enteritis. No other acute abnormality is evident. Dictated by: Dictated on workstation # [id number]
[2020-03-30] MEDS ORDERED: cefTRIAXone 1,000 MG IV (ROCEPHIN) VIAL ONE (17:44)
[2020-03-30] MEDS ORDERED: WATER (STERILE) FOR INJECTION 10 ML ONE (17:44)
[2020-03-30] MEDS ORDERED: METR500T PO (18:23)
[2020-03-30] MEDS ORDERED: CIPR500T4 PO (18:26)
== END 2020-03-30 18:40 | disposition home or self-care (01) ==
LOC: EDUNIT# 13:35 → ER 13:36
DX: N39.0 Urinary tract infection, site not specified (principal); K52.9 Noninfective gastroenteritis and colitis, unspecified; E11.9 Type 2 diabetes mellitus without complications; F41.9 Anxiety disorder, unspecified; Z79.4 Long term (current) use of insulin; Z87.891 Personal history of nicotine dependence; Z82.49 Family history of ischemic heart disease and other diseases of the circulatory system; Z80.0 Family history of malignant neoplasm of digestive organs; Z80.3 Family history of malignant neoplasm of breast
CPT/HCPCS: 36415; 74177; 80053; 80306; 80320; 81000; 82550; 82962; 83615; 83690; 84702; 85007; 85027; 86141; 87077; 87088

== ENCOUNTER 2020-04-04 06:36 | Inpatient (IN) | payer MEDICAID ==
[~2020-04-04] VITALS: Ht 157 cm; Wt 61.0 kg
[2020-04-04] VITALS (10 sets, daily range): BP systolic 107–123; BP diastolic 60–79
[~2020-04-04 06:36] MED LIST changes: +METR500T PO
[2020-04-04] MEDS ORDERED: KETOROLAC 30 MG/ML VIAL IVP STA (07:06)
[2020-04-04] MEDS ORDERED: LACTATED RINGERS 1,000 ML IV ONE (07:06)
[2020-04-04] MEDS ORDERED: fentaNYL INJECTION 100 MCG/2 ML AMP IVP STA (07:06)
--- NOTE | 2020-04-04 07:13 | ED Abdominal Pain ---
General Chief Complaint: General Problems/Pain Stated Complaint: PAIN ALL OVER Nursing Triage Note: Pt arrives with multiple complaints that include chest wall pain to her right upper chest, right lower ribcage pain, nausea, and anxiety. Pt is hyperventilating; attempts at coaching her RR are not successful at this time. Pt to exam room with ECG obtained. Sepsis Screen: No Definite Risk Source of Information: Patient Exam Limitations: No Limitations History of Present Illness Date Seen by Provider: Apr 04, 2020 Time Seen by Provider: 06:56 Initial Comments Here with continuing abdominal pain and now with right upper chest pain that has persisted for the last several days. Seen on 03/30 for abdominal pain and found to have urinary tract infection. At that time had a CT scan that showed mild i leus. She has been treated for the urinary tract infection and despite that was worsening. She was seen 2 days ago for the same and labs were reviewed. These were better. She continued on her Cipro and with discharge instructions but is worse today. She does admit that she used methamphetamine yesterday because she thought she might be withdrawing because someone told her that. States overall not better. States that she is eating a lot but hasn't gone to the bathroom. His pain is worsened and is now not just her abdomen but is going into her chest. States that it hurts to breathe or move and that everything is just worse and she is concerns things are worsening. She is also complaining of a rash to her abdomen that is worsening and not being unable to get for 2 years. Timing/Duration: 5-6 Days, Getting Worse Severity/Quality: Moderate, Severe, Aching, Cramping Location: Generalized Abdomen Radiation: Chest Activities at Onset: None Modifying Factors: Worsens With Eating, Worsens With Movement Associated Symptoms: Chest Pain; No Fever/Chills, No Nausea/Vomiting, No Shortness of Air, No Weakness Allergies and Home Medications Allergies Coded Allergies: No Known Drug Allergies (Unverified , 08/12/12) Home Medications Ciprofloxacin HCl 500 Mg Tablet, 500 MG PO BID Prescribed by: TIM REYES on 03/30/20 7916 Insulin Aspart 300 Units/3 Ml Solution, 16 UNITS SQ TIDAC, (Reported) Insulin Detemir 100 Unit/1 Ml Insuln.pen, 28 UNIT SQ DAILY, (Reported) Insulin Detemir 100 Unit/1 Ml Insuln.pen, 30 UNIT SQ HS, (Reported) Patient Home Medication List Home Medication List Reviewed: Yes Review of Systems Review of Systems Constitutional: see HPI; No chills, No fever EENTM: No Symptoms Reported Respiratory: See HPI; Denies Cough; Other (pain with deep breathing) Cardiovascular: Chest Pain; Denies Edema Gastrointestinal: Abdominal Pain (global); Denies Diarrhea, Denies Vomiting Genitourinary: No Symptoms Reported Musculoskeletal: No muscle pain, No muscle weakness Skin: rash (macular rash to abdomen without pustules), other (multiple old healed cutting cast to arms and legs) Psychiatric/Neurological: Anxiety, Emotional Problems All Other Systems Reviewed Negative Unless Noted: Yes Past Eqpfxfu-Crwvje-Jevxfz Hx Past Med/Social Hx: Reviewed Nursing Past Med/Soc Hx Patient Social History Alcohol Use: Occasionally Uses Number of Drinks Today: GG Alcohol Beverage of Choice: Whiskey, Vodka Recreational Drug Use: Yes Drug of Choice: METH Smoking Status: Current Everyday Smoker Type Used: Cigarettes Former Smoker, Quit: Apr 02, 2016 2nd Hand Smoke Exposure: Yes Recent Foreign Travel: No Contact w/Someone Who Travel: No Recent Infectious Disease Expo: No Recent Hopitalizations: No Immunizations Up To Date Tetanus Booster (TDap): Unknown PED Vaccines UTD: No Seasonal Allergies Seasonal Allergies: Yes Past Medical History Surgeries: Yes Ear Surgery Respiratory: Yes Asthma Currently Using CPAP: No Currently Using BIPAP: No Cardiac: Yes Hypertension Neurological: No Reproductive Disorders: No Female Reproductive Disorders: Denies Sexually Transmitted Disease: No HIV/AIDS: No Genitourinary: No UTI-Chronic Gastrointestinal: No Musculoskeletal: No Endocrine: Yes Diabetes, Insulin dep HEENT: No Chronic Ear Infection, Tonsilitis Loss of Vision: Denies Hearing Impairment: Denies Cancer: No Psychosocial: Yes (CUTTING) Anxiety, Depression Integumentary: No Blood Disorders: No Adverse Reaction/Blood Tranf: No Family Medical History Reviewed Nursing Family Hx Colon cancer 19 MOTHER (copd ; breast cancer ) Cystic fibrosis (nephew has CF ) Hypertension 19 MOTHER (copd ; breast cancer ) No Pertinent Family Hx Physical Exam Vital Signs Vital Signs - First Documented 04/04/20 06:40 Temp 36.8 Pulse 125 Resp 32 B/P (MAP) 143/87 (105) Pulse Ox 97 O2 Delivery Room Air Capillary Refill : Less Than 3 Seconds Height/Weight/BMI Height: 5'2.00" Weight: 210lbs. 0.0oz. 95.011512lw; 24.00 BMI Method:Stated General Appearance: WD/WN, moderate distress, other (very anxious appearing, crying) HEENT: PERRL/EOMI, pharynx normal Neck: full range of motion, supple Respiratory: lungs clear, normal breath sounds Cardiovascular: no murmur, tachycardia Gastrointestinal: soft; No guarding, No rebound; tenderness (global) Extremities: non-tender, normal inspection Back: normal inspection, no CVA tenderness, no vertebral tenderness Neurologic/Psychiatric: alert, oriented x 3 Skin: normal color, warm/dry Focused Exam Lactate Level 04/04/20 07:25: Lactic Acid Level 0.97 Lactic Acid Level Laboratory Tests Test 04/04/20 07:25 Lactic Acid Level 0.97 MMOL/L (0.50-2.00) Procedures/Interventions Date of ETT Placement: Jul 09, 2019 Time of ETT Placement: 1435 Progress/Results/Core Measures Results/Orders Lab Results Laboratory Tests Test 04/04/20 07:08 04/04/20 07:15 04/04/20 07:25 04/04/20 08:40 Range/Units Glucometer 55 *L 70-110 MG/DL White Blood Count 12.3 H 4.3-11.0 10^3/uL Red Blood Count 3.94 L 4.35-5.85 10^6/uL Hemoglobin 12.2 11.5-16.0 G/DL Hematocrit 37 35-52 % Mean Corpuscular Volume 93 80-99 FL Mean Corpuscular Hemoglobin 31 25-34 PG Mean Corpuscular Hemoglobin Concent 33 32-36 G/DL Red Cell Distribution Width 11.7 10.0-14.5 % Platelet Count 436 H 130-400 10^3/uL Mean Platelet Volume 8.8 7.4-10.4 FL Neutrophils (%) (Auto) 75 42-75 % Lymphocytes (%) (Auto) 12 12-44 % Monocytes (%) (Auto) 12 0-12 % Eosinophils (%) (Auto) 0 0-10 % Basophils (%) (Auto) 0 0-10 % Neutrophils # (Auto) 9.3 H 1.8-7.8 X 10^3 Lymphocytes # (Auto) 1.5 1.0-4.0 X 10^3 Monocytes # (Auto) 1.5 H 0.0-1.0 X 10^3 Eosinophils # (Auto) 0.0 0.0-0.3 10^3/uL Basophils # (Auto) 0.0 0.0-0.1 10^3/uL Erythrocyte Sedimentation Rate 95 H 0-20 MM/HR D-Dimer 5.44 H 0.00-0.49 UG/ML Sodium Level 140 135-145 MMOL/L Potassium Level 3.1 L 3.6-5.0 MMOL/L Chloride Level 100 98-107 MMOL/L Carbon Dioxide Level 28 21-32 MMOL/L Anion Gap 12 5-14 MMOL/L Blood Urea Nitrogen 7 7-18 MG/DL Creatinine 0.65 0.60-1.30 MG/DL Estimat Glomerular Filtration Rate > 60 BUN/Creatinine Ratio 11 Glucose Level 87 70-105 MG/DL Calcium Level 9.6 8.5-10.1 MG/DL Corrected Calcium 9.9 8.5-10.1 MG/DL Total Bilirubin 0.4 0.1-1.0 MG/DL Aspartate Amino Transf (AST/SGOT) 8 5-34 U/L Alanine Aminotransferase (ALT/SGPT) 10 0-55 U/L Alkaline Phosphatase 163 H 40-136 U/L Lactate Dehydrogenase 95 L 125-220 U/L C-Reactive Protein High Sensitivity 16.41 H 0.00-0.50 MG/DL Total Protein 7.5 6.4-8.2 GM/DL Albumin 3.6 3.2-4.5 GM/DL Procalcitonin 0.42 H <0.10 NG/ML Serum Test, Qualitative NEGATIVE NEGATIVE Lactic Acid Level 0.97 0.50-2.00 MMOL/L Coronavirus 2019 ([facility]) Negative Negative Test 04/04/20 09:25 04/04/20 09:32 Range/Units Glucometer 200 H 70-110 MG/DL My Orders Orders - KENZIE PALMER MD Cbc With Automated Diff (04/04/20 07:06) Comprehensive Metabolic Panel (04/04/20 07:06) Hs C Reactive Protein (04/04/20 07:06) Fibrin Degradation Products (04/04/20 07:06) Lactic Acid Analyzer (04/04/20 07:06) Ua Culture If Indicated (04/04/20 07:06) Blood Culture (04/04/20 07:06) Erythrocyte Sedimentation Rate (04/04/20 07:06) Procalcitonin (Pct) (04/04/20 07:06) LDH (04/04/20 07:06) Ed Iv/Invasive Line Start (04/04/20 07:06) Lactated Ringers (Lr 1000 Ml Iv Solution (04/04/20 07:06) Fentanyl Injection (Sublimaze Injection (04/04/20 07:06) Ketorolac Injection (Toradol Injection) (04/04/20 07:06) Hcg,Qualitative Serum (04/04/20 07:06) Chest 1 View, Ap/Pa Only (04/04/20 07:13) Accucheck Stat ONCE (04/04/20 07:23) D50w (Emergency) Syringe (Dextrose 50% 5 (04/04/20 07:30) Covid 19 Inhouse Test (04/04/20 08:24) Ct Angio Chst/Abd/Pelv W (04/04/20 08:33) Iohexol Injection (Omnipaque 350 Mg/Ml 1 (04/04/20 09:15) Received Contrast (Hold Metformin- Contr (04/04/20 09:15) Sodium Chloride Flush (Catheter Flush Sy (04/04/20 09:15) Ns (Ivpb) (Sodium Chloride 0.9% Ivpb Bag (04/04/20 09:15) Coronavirus Sars-Cov-2 So 2018 (04/04/20 09:17) Medications Given in ED Current Medications Medications Dose Ordered Sig/Sisi Route Start Time Stop Time Status Last Admin Dose Admin Dextrose 50 ml ONCE ONCE IV 04/04/20 07:30 04/04/20 07:31 DC 04/04/20 07:27 50 ML Iohexol 100 ml ONCE ONCE IV 04/04/20 09:15 04/04/20 09:16 DC 04/04/20 10:21 122 ML Lactated Ringer's 1,000 ml @ 0 mls/hr Q0M ONCE IV 04/04/20 07:06 04/04/20 07:09 DC 04/04/20 07:24 1,000 MLS/HR Sodium Chloride 10 ml NEEDED PRN IV 9/3/20 09:15 04/04/20 10:22 10 ML Sodium Chloride 100 ml ONCE ONCE IV 04/04/20 09:15 04/04/20 09:16 DC 04/04/20 10:22 80 ML Vital Signs/I&O 04/04/20 06:40 Temp 36.8 Pulse 125 Resp 32 B/P (MAP) 143/87 (105) Pulse Ox 97 O2 Delivery Room Air Blood Pressure Mean: 105 Progress Progress Note : Progress Note Seen and evaluated. IV, labs, UA, LR 1 L bolus, Toradol 15 mg IV and fentanyl 50 g IV ordered. Accu-Chek ordered and blood glucose noted to be in the 50s. D50 1 amp IV ordered. Previous charts reviewed as well as previous laboratory and CT data. Given the severe nature of the pain and worsening and that she is saying she is not passing stool, we will have to consider CT scan. We will reevaluate after labs are resulted. Monitor patient. 1115: Patient did have markedly elevated d-dimer and we did do rapid COVID-19 testing which was negative. Confirmatory testing has been sent. Given the markedly elevated d-dimer and the severe chest and abdominal pain, vascular issues are concerned. She has previous CT with normal aorta so dissection is highly unlikely. Needs enteric ischemia and/or pulmonary embolism are still likely and this was discussed with the radiologist. He agreed and CT angiogram of the chest, abdomen and pelvis were ordered. The embolism studies were negative the patient was found to have concerns for ruptured appendicitis. Dr. Ybarra has been called and is evaluating. Patient likely go to the OR. I discussed the COVID-19 testing and current status. Patient informed of findings and concerns and agrees. Pain was well-controlled after Toradol and fentanyl earlier although still has some pain. Admit, inpatient status. Patient agrees with plan. Initial ECG Impression Date: Apr 04, 2020 Initial ECG Impression Time: 06:46 Initial ECG Rate: 1116 Initial ECG Rhythm: S.Tach Comment Sinus tachycardia with normal axis. No evidence of ST elevation [place]. Unchanged from previous except for rate. Interpreted by me. Diagnostic Imaging Diagonstic Imaging: Xray Plain Films/CT/US/NM/MRI: chest Comments [facility]. [place], [place] NAME: CINDYJAREN [facility] REC#: [id number] PT STATUS: REG ER : 2000 PHYSICIAN: KENZIE PALMER MD ADMIT DATE: 04/04/20/ER Signed Date of Exam:04/04/20 CHEST 1 VIEW, AP/PA ONLY INDICATION: Chest pain. FINDINGS: The heart size, mediastinal configuration, and pulmonary vascularity are within normal limits. There is no pleural effusion, pneumothorax, or pneumonia. The osseous structures are unremarkable. IMPRESSION: No acute cardiopulmonary abnormality. Dictated by: Dictated on workstation # [id number] Dict: 04/04/20811 Trans: 04/04/20918 [id number] Interpreted by: DEEDEE HANEY MD Electronically signed by: DEEDEE HANEY MD 04/04/20918 Reviewed: Reviewed by Nm Diagonstic Imaging: CT Plain Films/CT/US/NM/MRI: chest, abdomen, pelvis Comments [facility] [place] NAME: JAREN WHITE [facility] REC#: [id number] PT STATUS: REG ER : 2000 PHYSICIAN: KENZIE PALMER MD ADMIT DATE: 04/04/20/ER Signed Date of Exam:04/04/20 CT ANGIO CHST/ABD/PELV W PROCEDURE: CT angiography of the chest with contrast and CT abdomen and pelvis with contrast. TECHNIQUE: Multiple contiguous axial images were obtained through the chest, abdomen and pelvis after administration of intravenous contrast. 3D MIP reconstructed CT angiography acquisitions of the aorta were then performed. Auto Exposure Controls were utilized during the CT exam to meet ALARA standards for radiation dose reduction. INDICATION: Severe right lower quadrant pain. COMPARISON: CT abdomen and pelvis from 03/30/2020. FINDINGS: CHEST: Normal caliber thoracic aorta without dissection or pseudoaneurysm. The heart is normal in size without pericardial effusion. No intrathoracic lymphadenopathy. No pleural effusion or pneumothorax. No endoluminal nodule within the trachea. No pulmonary mass, nodule or consolidation. Normal regional skeleton. ABDOMEN AND PELVIS: Complex material is noted within the right paracolic gutter and fluid within the pelvis. The appendix has some hyperattenuation in its distal aspect and this is likely due to ruptured appendicitis. Borderline hepatomegaly is unchanged. Spleen remains normal in size. No focal hepatic or splenic lesion. The gallbladder is unremarkable. Pancreas is normal. No adrenal mass. Kidneys enhance symmetrically without mass, lesion, or obstruction. No bowel obstruction. No worrisome focal osseous lesions. No abdominal or pelvic lymphadenopathy. Normal aorta without dissection. IMPRESSION: 1. Highly likely ruptured appendicitis with complex debris in the right pericolic gutter. No loculated drainable fluid collection at this time to indicate abscess. 2. No acute aortic syndrome. 3. No acute pathology in the chest. Report was given to Iain in the emergency department at 10:34 a.m. on 04/04/2020. Dictated by: Dictated on workstation # [id number] Dict: 04/04/20 1024 Trans: 04/04/20 1055 [facility] [id number] Interpreted by: SARITA ROSAS MD Electronically signed by: SARITA ROSAS MD 04/04/20 1055 Reviewed: Reviewed by Me, Discussed w/Radiologist Departure Communication (Admissions) Time/Spoke to Admitting Phy: 10:39 Impression Primary Impression: Ruptured appendicitis Additional Impression: covid 19 evulation Disposition: ADMITTED INPATIENT Condition: Stable Admissions Decision to Admit Reason: Admit from ER (General) Decision to Admit/Date: Apr 04, 2020 Time/Decision to Admit Time: 10:39 Departure-Patient Inst. Referrals: [facility] (PCP/Family) Primary Care Physician KENZIE PALMER MD Apr 04, 2020 07:13
[2020-04-04 07:22] LABS: BASOPHILS % (AUTO) 0 % (0-10); EOSINOPHILS % (AUTO) 0 % (0-10); HEMATOCRIT 37 % (35-52); HEMOGLOBIN 12.2 G/DL (11.5-16.0); LYMPHOCYTES # (AUTO) 1.5 X 10^3 (1.0-4.0); LYMPHOCYTES % (AUTO) 12 % (12-44); MEAN CORPUSCULAR HEMOGLOBIN 31 PG (25-34); MEAN CORPUSCULAR HGB CONC 33 G/DL (32-36); MEAN CORPUSCULAR VOLUME 93 FL (80-99); MEAN PLATELET VOLUME 8.8 FL (7.4-10.4); MONOCYTES # (AUTO) 1.5 X 10^3 (0.0-1.0); MONOCYTES % (AUTO) 12 % (0-12); NEUTROPHILS # (AUTO) 9.3 X 10^3 (1.8-7.8); NEUTROPHILS % (AUTO) 75 % (42-75); PLATELET COUNT 436 10^3/uL (130-400); WHITE BLOOD COUNT 12.3 10^3/uL (4.3-11.0)
[2020-04-04] MEDS ORDERED: DEXTROSE 50% 50 ML (IMS) SYR IV ONE (07:30)
[2020-04-04 07:39] LABS: ALANINE AMINOTRANSFERASE 10 U/L (0-55); ALBUMIN 3.6 GM/DL (3.2-4.5); ALKALINE PHOSPHATASE 163 U/L (40-136); BILIRUBIN,TOTAL 0.4 MG/DL (0.1-1.0); BUN/CREATININE RATIO 11; CALCIUM 9.6 MG/DL (8.5-10.1); CARBON DIOXIDE 28 MMOL/L (21-32); CHLORIDE 100 MMOL/L (98-107); CREATININE SERUM 0.65 MG/DL (0.60-1.30); GFR ESTIMATED > 60; GLUCOSE 87 MG/DL (70-105); POTASSIUM 3.1 MMOL/L (3.6-5.0); SODIUM 140 MMOL/L (135-145); TOTAL PROTEIN 7.5 GM/DL (6.4-8.2)
[2020-04-04 07:43] LABS: ERYTHROCYTE SEDIMENTATION RATE 95 MM/HR (0-20)
--- NOTE | 2020-04-04 08:14 | Diagnostic Imaging Report ---
INDICATION: Chest pain. FINDINGS: The heart size, mediastinal configuration, and pulmonary vascularity are within normal limits. There is no pleural effusion, pneumothorax, or pneumonia. The osseous structures are unremarkable. IMPRESSION: No acute cardiopulmonary abnormality. Dictated by: Dictated on workstation # [id number]
--- NOTE | 2020-04-04 08:46 | NUR ---
PT UNABLE TO VOID AT THIS TIME. Addendum: 04/04/20 at 1106 by NSNYDER ANESTHESIA HERE TO SEE PT.
[2020-04-04] MEDS ORDERED: CATHETER FLUSH 10 ML SYR IV PRN (09:15)
[2020-04-04] MEDS ORDERED: IOHEXOL 350 MG/ML 100 ML (OMNIPAQUE 350) VIAL IV ONE (09:15)
[2020-04-04] MEDS ORDERED: NS 100 ML (IVPB) BAG IV ONE (09:15)
[2020-04-04] MEDS ORDERED: HOLD METFORMIN - RECEIVED CONTRAST 20 ML VIAL IV SCH (09:15)
--- NOTE | 2020-04-04 10:44 | Diagnostic Imaging Report ---
PROCEDURE: CT angiography of the chest with contrast and CT abdomen and pelvis with contrast. TECHNIQUE: Multiple contiguous axial images were obtained through the chest, abdomen and pelvis after administration of intravenous contrast. 3D MIP reconstructed CT angiography acquisitions of the aorta were then performed. Auto Exposure Controls were utilized during the CT exam to meet ALARA standards for radiation dose reduction. INDICATION: Severe right lower quadrant pain. COMPARISON: CT abdomen and pelvis from 03/30/2020. FINDINGS: CHEST: Normal caliber thoracic aorta without dissection or pseudoaneurysm. The heart is normal in size without pericardial effusion. No intrathoracic lymphadenopathy. No pleural effusion or pneumothorax. No endoluminal nodule within the trachea. No pulmonary mass, nodule or consolidation. Normal regional skeleton. ABDOMEN AND PELVIS: Complex material is noted within the right paracolic gutter and fluid within the pelvis. The appendix has some hyperattenuation in its distal aspect and this is likely due to ruptured appendicitis. Borderline hepatomegaly is unchanged. Spleen remains normal in size. No focal hepatic or splenic lesion. The gallbladder is unremarkable. Pancreas is normal. No adrenal mass. Kidneys enhance symmetrically without mass, lesion, or obstruction. No bowel obstruction. No worrisome focal osseous lesions. No abdominal or pelvic lymphadenopathy. Normal aorta without dissection. IMPRESSION: 1. Highly likely ruptured appendicitis with complex debris in the right pericolic gutter. No loculated drainable fluid collection at this time to indicate abscess. 2. No acute aortic syndrome. 3. No acute pathology in the chest. Report was given to Iain in the emergency department at 10:34 a.m. on 04/04/2020. Dictated by: Dictated on workstation # [id number]
--- NOTE | 2020-04-04 11:30 | NUR ---
RESTING IN BED. DENIES NEEDS AT THIS TIME.
--- NOTE | 2020-04-04 11:52 | Consultation - Surgery ---
PIPPA CHEEK MED STUDENT 04/04/20 1152: History of Present Illness History of Present Illness Patient Consulted On(merline/time) 04/04/20 between 8:30 and 11:00 Date Seen by Provider: Apr 04, 2020 Time Seen by Provider: 11:10 History of Present Illness Consult requested by Dr. Paulson for expected surgical intervention. CT today is showing peritoneal fluid collection with likely appendicitis per radiologist. Charlotte Echevarria is a 20 yo F with history of DM1 who complains of diffuse abdominal pain. The pt has been taking Ciprofloxacin for UTI diagnosed approximately 2 weeks ago. She has visited the ER several times in the past few days with previo us CT showing ileus but complains her abdominal pain worsened last night. She now complains of severe RUQ and RLQ pain with severe LLQ pain. The patient denied diarrhea, nausea, and vomiting. Last BM was yesterday. Allergies and Home Medications Allergies Coded Allergies: No Known Drug Allergies (Unverified , 08/12/12) Home Medications Ciprofloxacin HCl 500 Mg Tablet, 500 MG PO BID Prescribed by: TIM REYES on 03/30/20 182 Insulin Aspart 300 Units/3 Ml Solution, 16 UNITS SQ TIDAC, (Reported) Insulin Detemir 100 Unit/1 Ml Insuln.pen, 28 UNIT SQ DAILY, (Reported) Insulin Detemir 100 Unit/1 Ml Insuln.pen, 30 UNIT SQ HS, (Reported) Past Fffrpgz-Vjqpsb-Zzdjtp Hx Patient Social History Alcohol Use: Occasionally Uses Number of Drinks Today: GG Recreational Drug Use: Yes Drug of Choice: METH Smoking Status: Current Everyday Smoker Former Smoker, Quit: Apr 02, 2016 Type Used: Cigarettes 2nd Hand Smoke Exposure: Yes Recent Foreign Travel: No Contact w/Someone Who Travel: No Recent Infectious Disease Expo: No Recent Hopitalizations: No Immunizations Up To Date Tetanus Booster (TDap): Unknown PED Vaccines UTD: No Seasonal Allergies Seasonal Allergies: Yes Surgeries History of Surgeries: Yes Surgeries: Ear Surgery Respiratory History of Respiratory Disorde: Yes Respiratory Disorders: Asthma Cardiovascular History of Cardiac Disorders: Yes Cardiac Disorders: Hypertension Neurological History of Neurological Disord: No Reproductive System Hx Reproductive Disorders: No Sexually Transmitted Disease: No HIV/AIDS: No Female Reproductive Disorders: Denies Genitourinary History of Genitourinary Disor: No Genitourinary Disorders: UTI-Chronic Gastrointestinal History of Gastrointestinal Di: No Musculoskeletal History of Musculoskeletal Dis: No Endocrine History of Endocrine Disorders: Yes Endocrine Disorders: Diabetes, Insulin dep HEENT History of HEENT Disorders: No HEENT Disorders: Chronic Ear Infection, Tonsilitis Loss of Vision: Denies Hearing Impairment: Denies Cancer History of Cancer: No Psychosocial History of Psychiatric Problem: Yes (CUTTING) Behavioral Health Disorders: Anxiety, Depression Integumentary History of Skin or Integumenta: No Blood Transfusions History of Blood Disorders: No Adverse Reaction to a Blood Tr: No Family Medical History Significant Family History: No Pertinent Family Hx Family Medial History: Colon cancer 19 MOTHER (copd ; breast cancer ) Cystic fibrosis (nephew has CF ) Hypertension 19 MOTHER (copd ; breast cancer ) Review of Systems-General Gastrointestinal: abdominal pain : No Physical Exam-General Problems Physical Exam Vital Signs Vital Signs - First Documented 04/04/20 06:40 Temp 36.8 Pulse 125 Resp 32 B/P (MAP) 143/87 (105) Pulse Ox 97 O2 Delivery Room Air Capillary Refill : Less Than 3 Seconds General Appearance: WD/WN, no apparent distress, thin Eyes: Bilateral Eye Normal Inspection, Bilateral Eye EOMI Neck: normal inspection Respiratory: chest non-tender, lungs clear, normal breath sounds, no respiratory distress, no accessory muscle use Cardiovascular: regular rate, rhythm, no gallop, no JVD, no murmur Gastrointestinal: no pulsatile mass, rebound, tenderness (most severe RUQ, LLQ), other (global abd tenderness. Negative murphys. Negative McBurneys (equal tenderness to deep palpation elsewhere in the abdomen)) Back: no CVA tenderness Neurologic/Psychiatric: alert, normal mood/affect Skin: normal color, warm/dry, rash Data Review Labs Laboratory Tests 04/04/20 07:08: Glucometer 55*L 04/04/20 07:15: White Blood Count 12.3H, Red Blood Count 3.94L, Hemoglobin 12.2, Hematocrit 37, Mean Corpuscular Volume 93, Mean Corpuscular Hemoglobin 31, Mean Corpuscular Hemoglobin Concent 33, Red Cell Distribution Width 11.7, Platelet Count 436H, Mean Platelet Volume 8.8, Neutrophils (%) (Auto) 75, Lymphocytes (%) (Auto) 12, Monocytes (%) (Auto) 12, Eosinophils (%) (Auto) 0, Basophils (%) (Auto) 0, Neutrophils # (Auto) 9.3H, Lymphocytes # (Auto) 1.5, Monocytes # (Auto) 1.5H, Eosinophils # (Auto) 0.0, Basophils # (Auto) 0.0, Erythrocyte Sedimentation Rate 95H, D-Dimer 5.44H, Sodium Level 140, Potassium Level 3.1L, Chloride Level 100, Carbon Dioxide Level 28, Anion Gap 12, Blood Urea Nitrogen 7, Creatinine 0.65, Estimat Glomerular Filtration Rate > 60, BUN/Creatinine Ratio 11, Glucose Level 87, Calcium Level 9.6, Corrected Calcium 9.9, Total Bilirubin 0.4, Aspartate Amino Transf (AST/SGOT) 8, Alanine Aminotransferase (ALT/SGPT) 10, Alkaline Phosphatase 163H, Lactate Dehydrogenase 95L, C-Reactive Protein High Sensitivity 16.41H, Total Protein 7.5, Albumin 3.6, Procalcitonin 0.42H, Serum Test, Qualitative NEGATIVE 04/04/20 07:25: Lactic Acid Level 0.97 04/04/20 08:40: Coronavirus 2019 ([facility]) Negative 04/04/20 09:25: 04/04/20 09:32: Glucometer 200H Assessment/Plan Assessment/Plan Assessment/Plan likely appendicitis peritonitis laparoscopic appendectomy for likely appendicitis KURT NAJERA DO 04/04/20 1315: History of Present Illness History of Present Illness Time Seen by Provider: 12:34 History of Present Illness Surgery asked to consult regarding peritonitis and possible ruptured appendicitis. HPI per ED: Here with continuing abdominal pain and now with right upper chest pain that has persisted for the last several days. Seen on 03/30 for abdominal pain and found to have urinary tract infection. At that time had a CT scan that showed mild ileus. She has been treated for the urinary tract infection and despite that was worsening. She was seen 2 days ago for the same and labs were reviewed. These were better. She continued on her Cipro and with discharge instructions but is worse today. She does admit that she used methamphetamine yesterday because she thought she might be withdrawing because someone told her that. States overall not better. States that she is eating a lot but hasn't gone to the bathroom. His pain is worsened and is now not just her abdomen but is going into her chest. States that it hurts to breathe or move and that everything is just worse and she is concerns things are worsening. She is also complaining of a rash to her abdomen that is worsening and not being unable to get for 2 years. Timing/Duration: 5-6 Days, Getting Worse Severity/Quality: Moderate, Severe, Aching, Cramping Location: Generalized Abdomen Radiation: Chest Activities at Onset: None Modifying Factors: Worsens With Eating, Worsens With Movement Associated Symptoms: Chest Pain; No Fever/Chills, No Nausea/Vomiting, No Shortness of Air, No Weakness When I spoke to pt she states the pain has been getting worse and nothing helps it, now it is mostly RUQ. Allergies and Home Medications Allergies Coded Allergies: No Known Drug Allergies (Unverified , 08/12/12) Home Medications Ciprofloxacin HCl 500 Mg Tablet, 500 MG PO BID Prescribed by: TIM REYES on 03/30/20 1826 Insulin Aspart 300 Units/3 Ml Solution, 16 UNITS SQ TIDAC, (Reported) Insulin Detemir 100 Unit/1 Ml Insuln.pen, 28 UNIT SQ DAILY, (Reported) Insulin Detemir 100 Unit/1 Ml Insuln.pen, 30 UNIT SQ HS, (Reported) Patient Home Medication List Home Medication List Reviewed: Yes Past Lnplrzx-Cqaqli-Mvnbgq Hx Patient Social History Alcohol Use: Occasionally Uses Recreational Drug Use: Yes Smoking Status: Current Everyday Smoker Seasonal Allergies Seasonal Allergies: No Surgeries History of Surgeries: No Respiratory History of Respiratory Disorde: No Cardiovascular History of Cardiac Disorders: No Neurological History of Neurological Disord: No Reproductive System : No Genitourinary History of Genitourinary Disor: No Gastrointestinal History of Gastrointestinal Di: No Musculoskeletal History of Musculoskeletal Dis: No Endocrine History of Endocrine Disorders: Yes Endocrine Disorders: Diabetes, Insulin dep HEENT History of HEENT Disorders: No Loss of Vision: Denies Hearing Impairment: Denies Cancer History of Cancer: No Psychosocial History of Psychiatric Problem: Yes Behavioral Health Disorders: Anxiety Integumentary History of Skin or Integumenta: No Family Medical History Significant Family History: Cancer, Hypertension Family Medial History: Colon cancer 19 MOTHER (copd ; breast cancer ) Cystic fibrosis (nephew has CF ) Hypertension 19 MOTHER (copd ; breast cancer ) Review of Systems-General Constitutional: No diaphoresis; malaise, weakness EENTM: No mouth pain, No mouth swelling, No epistaxis Respiratory: No cough; short of breath (secondary to chest pain) Cardiovascular: chest pain; No Hx of Intervention, No syncope Gastrointestinal: abdominal pain; No jaundice; nausea; No vomiting Genitourinary: No dysuria, No frequency, No hematuria Musculoskeletal: joint pain, joint swelling, muscle stiffness Skin: No change in color, No change in hair/nails Psychiatric/Neurological: Anxiety, Emotional Problems; Denies Seizure, Denies Tremors Other pt denies any hx of abnormal bleeding or bruising Physical Exam-General Problems Physical Exam General Appearance: WD/WN, moderate distress Eyes: Bilateral Eye PERRL, Bilateral Eye EOMI HEENT: No scleral icterus (R), No scleral icterus (L) Neck: non-tender, full range of motion Respiratory: lungs clear, normal breath sounds, no respiratory distress, no accessory muscle use Cardiovascular: regular rate, rhythm, no murmur Gastrointestinal: soft, rebound, tenderness (most severe RUQ, LLQ), other (global abd tenderness. Negative murphys. 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 TECHNIQUE: Multiple contiguous axial images were obtained through the chest, abdomen and pelvis after administration of intravenous contrast. 3D MIP reconstructed CT angiography acquisitions of the aorta were then performed. Auto Exposure Controls were utilized during the CT exam to meet ALARA standards for radiation dose reduction. INDICATION: Severe right lower quadrant pain. COMPARISON: CT abdomen and pelvis from 03/30/2020. FINDINGS: CHEST: Normal caliber thoracic aorta without dissection or pseudoaneurysm. The heart is normal in size without pericardial effusion. No intrathoracic lymphadenopathy. No pleural effusion or pneumothorax. No endoluminal nodule within the trachea. No pulmonary mass, nodule or consolidation. Normal regional skeleton. ABDOMEN AND PELVIS: Complex material is noted within the right paracolic gutter and fluid within the pelvis. The appendix has some hyperattenuation in its distal aspect and this is likely due to ruptured appendicitis. Borderline hepatomegaly is unchanged. Spleen remains normal in size. No focal hepatic or splenic lesion. The gallbladder is unremarkable. Pancreas is normal. No adrenal mass. Kidneys enhance symmetrically without mass, lesion, or obstruction. No bowel obstruction. No worrisome focal osseous lesions. No abdominal or pelvic lymphadenopathy. Normal aorta without dissection. IMPRESSION: 1. Highly likely ruptured appendicitis with complex debris in the right pericolic gutter. No loculated drainable fluid collection at this time to indicate abscess. 2. No acute aortic syndrome. 3. No acute pathology in the chest. Report was given to Pippa in the emergency department at 10:34 a.m. on 04/04/2020. Dictated by: Dictated on workstation # [id number] Assessment/Plan Assessment/Plan Assessment/Plan Peritonitis with Free fluid in the abdomen R/O ruptured Appendicitis R/O Covid Suspect Plan is to the OR for Laparoscopic Appendectomy possible open with all other indicated procedures. Will get consent for this, preop IV ABX, pain control, IV fluids and send pt down to the OR. Pt is very anxious and was crying as I was explaining everything. She was scared of "foreign bodies in her, holes and surgery in general". I tried to explain that I don't think she is going to get better without surgery. She understood but was still scared. I discussed risks and complications not limited to; pain, bleeding, infection, scar, damage to bowel and need for further procedure. All questions answered to her satisfaction. Supervisory-Addendum Brief Verification & Attestation Participated in pt care: history, MDM, physical Personally performed: exam, history, MDM Care discussed with: Medical Student Procedures: n/a Verification and Attestation of Medical Student E/M Service A medical student performed and documented this service. I then reviewed and verified all information documented by the medical student and made modifications to such information, when appropriate. I personally performed a physical exam, medical decision making and then discussed any differences between the notes and made revisions as necessary to create one note. Kurt Najera , 04/04/20 , 13:15 PIPPA CHEEK MED STUDENT Apr 04, 2020 11:52 KURT NAJERA DO Apr 04, 2020 13:15
[2020-04-04] MEDS ORDERED: BUP/EPI 0.5% 1:200,000 (SENSORCAINE) 30 ML VIAL ONE (12:05)
--- NOTE | 2020-04-04 12:17 | NUR ---
PHONE PROVINCE ARCHIVIST GIVEN TO PT. PT UP TRYING TO GO TO THE BATHROOM AT THIS TIME.
[2020-04-04] MEDS ORDERED: LACTATED RINGERS 1,000 ML IV PRN (13:07)
[2020-04-04] MEDS ORDERED: proPOfol 200 MG/20 ML (DIPRIVAN) VIAL IV ONE (13:13)
[2020-04-04] MEDS ORDERED: ROCURONIUM 10 MG/ML 5 ML SYRINGE IV ONE (13:13)
[2020-04-04] MEDS ORDERED: LIDOCAINE PF 2% 5 ML (XYLOCAINE) VIAL ONE (13:13)
[2020-04-04] MEDS ORDERED: SUCCINYLCHOLINE INJ 100 MG/5 ML SYR/VIAL ONE (13:13)
[2020-04-04] MEDS ORDERED: MIDAZOLAM 2 MG/2 ML (VERSED) VIAL ONE (13:14)
[2020-04-04] MEDS ORDERED: fentaNYL INJECTION 100 MCG/2 ML AMP ONE (13:14)
[2020-04-04] MEDS ORDERED: ceFAZolin INJECTION 2,000 MG ONE (13:51)
[2020-04-04] MEDS ORDERED: ONDANSETRON 4 MG/2 ML (SDV) Z0FRAN ONE ×2 (14:26→14:40)
[2020-04-04] MEDS ORDERED: SEVOFLURANE (ULTANE) 15 ML INHAL SOLN ONE (14:26)
[2020-04-04] MEDS ORDERED: HYDROmorphone 2 MG/ML VIAL (DILAUDID) ONE (14:31)
[2020-04-04] MEDS ORDERED: morphine INJ 10 MG/ML 1ML (SYR OR VIAL) ONE (14:39)
--- NOTE | 2020-04-04 15:07 | Anesthesia-General Post-Op ---
General Patient Condition Mental Status/LOC: Same as Preop Cardiovascular: Satisfactory Nausea/Vomiting: Absent Respiratory: Satisfactory Pain: Controlled Complications: Absent Post Op Complications Complications None Follow Up Care/Instructions Patient Instructions None needed. Anesthesia/Patient Condition Patient Condition Patient is doing well, no complaints, stable vital signs, no apparent adverse anesthesia problems. No complications reported per nursing. CJ HERNÁNDEZ CRNA Apr 04, 2020 15:07
[2020-04-04 15:13] LABS: BILIRUBIN,URINE NEGATIVE (NEGATIVE); CLARITY,URINE CLEAR; COLOR,URINE YELLOW; GLUCOSE, URINE (UA) 2+ (NEGATIVE); KETONES,URINE TRACE (NEGATIVE); LEUKOCYTE ESTERASE ,URINE NEGATIVE (NEGATIVE); NITRITE,URINE NEGATIVE (NEGATIVE); PH,URINE 6.5 (5-9); PROTEIN,URINE NEGATIVE (NEGATIVE)
[2020-04-04] MEDS ORDERED: morphine INJ 10 MG/ML 1ML (SYR OR VIAL) IVP ONE (15:15)
[2020-04-04] MEDS ORDERED: ONDANSETRON 4 MG/2 ML (SDV) Z0FRAN IVP PRN ×2 (15:15→17:00)
[2020-04-04 15:30] LABS: BACTERIA,URINE TRACE /HPF; SQUAMOUS EPITHELIAL CELL,UR 0-2 /HPF
--- NOTE | 2020-04-04 16:09 | Progress Note-Post Operative ---
Post-Operative Progess Note Surgeon (s)/Structural Metal Worker (s) Surgeon KURT NAJERA DO Structural Metal Worker: none Pre-Operative Diagnosis Peritonitis, Free fluid in ABd, r/o appy Post-Operative Diagnosis Appy, purulent fluid Procedure & Operative Findings Date of Procedure 04/04/20 Procedure Performed/Findings PROCEDURE: Laparoscopic appendectomy. COMPLICATIONS: None. INDICATIONS: The patient is a 20 year old female who has been having right lower quadrant abdominal pain. Patient's exam consistent with appendicitis. I discussed risk and benefits of laparoscopic appendectomy and all indicated procedures with the possibility being a normal appendix. The patient understands the risks and benefits and wishes to proceed. Consent was signed on the chart. DESCRIPTION OF PROCEDURE: The patient was taken to the operating suite, prepped and draped in a sterile fashion. Timeout was performed. Local anesthetic was infiltrated just above the umbilicus and 11-blade scalpel was used to make a skin incision. Cautery was used to dissect down to the fascia and scored. Kochers were used to grasp and elevate it and the abdomen was then entered. A 0 Vicryl was placed in a [id number] fashion for closure at the end of the case. The balloon trocar was inserted into the abdomen and pneumoperitoneum was achieved. Under direct visualization of the laparoscope, a 5 mm trocar was placed in the suprapubic region and a 5 mm trocar was placed in the left lower quadrant. There was a lot of purulent fluid seen in the abdomen; appendix was slightly firm, erythematous but was not perforated. Appendix was and the base of the appendix was dissected around. Once at the base an Endo-NILSA 2.5 stapler was then fired across the base of the appendix. The mesoappendix was then divided. It was then placed in an Endobag and removed through the 12 mm trocar site. The abdomen was then irrigated and suctioned. I ran the small bowel looking for inflamed Meckel's (none found), b/l tube and ovaries looked fine, nothing obvious in large intestine, GB looked ok as did the stomach. No other pathology noted. The abdomen was then desufflated and the trocars were removed. The 0 Vicryl placed at the beginning of the case was then tied closing the 12 mm fascial defect. The skin was then closed using 4-0 Monocryl in a subcuticular fashion. The abdomen was then washed and dried and Skin Affix was placed over the incisions. The patient tolerated the procedure well without any complications and was taken to the recovery room in stable condition. Anesthesia Type GET Estimated Blood Loss Estimated blood loss (mL): scant Specimens/Packing Specimens Removed KURT Chanel DO Apr 04, 2020 16:09
[2020-04-04] MEDS ORDERED: LACTATED RINGERS 1,000 ML IV SCH (16:57)
[2020-04-04] MEDS ORDERED: metroNIDAZOLE 500MG/100ML IVPB 100 ML IV SCH (17:00)
[2020-04-04] MEDS ORDERED: HYDROcodone/APAP 10 MG/325 MG (LORTAB) TAB PO PRN (17:00)
[2020-04-04] MEDS ORDERED: HALOPERIDOL 5 MG/ML (HALDOL) VIAL ONE (19:57)
[2020-04-04] MEDS ORDERED: HALOPERIDOL 5 MG/ML (HALDOL) VIAL IM NR (20:00)
[2020-04-04] MEDS ORDERED: inSUlin ASPART (NovoLOG) 1 UNIT/0.01 ML (CHARGE PER UNIT) SC SCH (21:00)
--- NOTE | 2020-04-04 21:26 | NUR ---
1934 This RN assessed patient. Patient anxious, belligerent, uncooperative but alert and oriented x4. Patient crying loudly and screaming in her room, expressing suspiciousness against staff. Patient stating staff was trying to medicate her to keep her captive in her room against her will. This RN attempted to redirect patient with therapeutic communication with no success. 1954 Patient blood sugar 490, this RN contacted Dr Ybarra and received orders for 12 units Novolog and to recheck in 1 hour. Order also received for 2mg Haldol for anxiety. 2016 Patient refused Haldol, 12u Novolog administered. Patient continued to be uncooperative and belligerent, requested to leave AMA. [address] Ybarra and informed him of patient request to leave AMA, Dr Ybarra agreed to allow patient to go AMA if she wishes. Patient discontinued IV herself, this RN observed no bleeding at site, patient refused blood sugar recheck, and signed AMA waiver. Patient stated that her brother would pick her up and that she wishes to wait for him outside. 2039 Patient collected all of her belongings including snacks that were on her bedside table (soup and saltine crackers). This RN transported patient to front door via wheelchair, patient donned mask prior to leaving room.
[2020-04-04] MEDS ORDERED: ceFAZolin 2 GM IV Premixed 50 ML IV SCH (22:00)
--- NOTE | 2020-04-04 22:15 | NUR ---
2100: Patient IV catheter on bedside table in room, catheter tip intact.
[2020-04-05] MEDS ORDERED: PANTOPRAZOLE 40 MG (PROTONIX) VIAL IVP SCH (09:00)
== END 2020-04-04 20:35 | disposition left against medical advice (07) | DRG 342 ==
LOC: EDUNIT# 06:36 → ER 06:38 → SDC 12:30 → 4TH 15:40 → SDC 16:57 → 4TH 18:57
PROVIDERS: ADMIT Surgery; ATTEND Surgery
PROC: 0DTJ4ZZ Resection of Appendix, Percutaneous Endoscopic Approach (ICD-10-PCS; principal; 2020-04-04 13:45)
DX: K37 Unspecified appendicitis (principal); N39.0 Urinary tract infection, site not specified; E10.9 Type 1 diabetes mellitus without complications; I10 Essential (primary) hypertension; F15.90 Other stimulant use, unspecified, uncomplicated; R21 Rash and other nonspecific skin eruption; F41.9 Anxiety disorder, unspecified; F32.9 Major depressive disorder, single episode, unspecified; F17.210 Nicotine dependence, cigarettes, uncomplicated; J45.909 Unspecified asthma, uncomplicated; R00.0 Tachycardia, unspecified; Z20.828 Contact with and (suspected) exposure to other viral communicable diseases; Z79.4 Long term (current) use of insulin
CPT/HCPCS: 36415; 71045; 71275; 74174; 80053; 81000; 82962; 83605; 83615; 84145; 84703; 85025; 85379; 85652; 86141; 87040; 87081; 87635; 88304; 93005; 96361; 96374; 96375

== ENCOUNTER 2020-04-10 06:29 | Emergency (ER) | payer MEDICAID ==
[~2020-04-10] VITALS: Ht 158 cm; Wt 56.3 kg
[2020-04-10] MEDS ORDERED: NS IV 1000 ML 1,000 ML IV ONE (07:09)
--- NOTE | 2020-04-10 07:17 | ED Abdominal Pain ---
General Chief Complaint: Abdominal/GI Problems Stated Complaint: ABD PAIN Nursing Triage Note: c/o intermittant abdominal cramping since appendectomy. rash x2 months to abdomen. Sepsis Screen: No Definite Risk Source of Information: Patient Exam Limitations: No Limitations History of Present Illness Date Seen by Provider: Apr 10, 2020 Time Seen by Provider: 06:58 Initial Comments Here with complaint of abdominal cramping since her appendectomy on April 04 (6 days ago). She apparently left AGAINST MEDICAL ADVICE after the appendectomy. Reports that she's been trying to make sure the wound stay clean and did have a bowel movement yesterday but has had intermittent abdominal cramping and is concerned that something is going on. States her anxiety is quite active right now. Admits to using methamphetamine earlier today because somebody told her it may help her. She knows that it does not. Also reports she does not know her blood sugar is. She is a known diabetic and does take insulin but does not have a glucometer so she guesses. Has noted to be 400-500 during her visits recently. Reports that she is urinating a lot. Denies blood in her urine or stools. Denies fever, sore throat, runny nose or cough. Does have rash to her abdomen that she is worried that is worsening. Timing/Duration: 1 Week, Changing Over Time Severity/Quality: Cramping Location: Generalized Abdomen Radiation: RLQ, LLQ Activities at Onset: None Modifying Factors: Improves With Resting Associated Symptoms: No Back Pain, No Chest Pain, No Fever/Chills, No Nausea/Vomiting; Rash; No Shortness of Air, No Weakness Allergies and Home Medications Allergies Coded Allergies: No Known Drug Allergies (Unverified , 08/12/12) Home Medications Ciprofloxacin HCl 500 Mg Tablet, 500 MG PO BID Prescribed by: TIM REYES on 03/30/20 0689 Insulin Aspart 300 Units/3 Ml Solution, 16 UNITS SQ TIDAC, (Reported) Insulin Detemir 100 Unit/1 Ml Insuln.pen, 28 UNIT SQ DAILY, (Reported) Insulin Detemir 100 Unit/1 Ml Insuln.pen, 30 UNIT SQ HS, (Reported) Patient Home Medication List Home Medication List Reviewed: Yes Review of Systems Review of Systems Constitutional: see HPI; No chills, No fever EENTM: No Nose Congestion, No Throat Pain Respiratory: Denies Cough Cardiovascular: Denies Chest Pain, Denies Edema Gastrointestinal: Abdominal Pain; Denies Diarrhea, Denies Nausea, Denies Vomiting Genitourinary: Frequency; Denies Pain Musculoskeletal: no symptoms reported Skin: No pruritus; rash Psychiatric/Neurological: Anxiety, Emotional Problems Endocrine: See HPI, Increased Thrist, Increased Urine All Other Systems Reviewed Negative Unless Noted: Yes Past Lsbhujt-Qdpypj-Dwobjv Hx Past Med/Social Hx: Reviewed Nursing Past Med/Soc Hx Patient Social History Alcohol Use: Denies Use Number of Drinks Today: GG Alcohol Beverage of Choice: Whiskey, Vodka Recreational Drug Use: Yes (today) Drug of Choice: METH Smoking Status: Former Smoker Type Used: Cigarettes Former Smoker, Quit: Apr 02, 2016 2nd Hand Smoke Exposure: Yes Recent Foreign Travel: No Contact w/Someone Who Travel: No Recent Infectious Disease Expo: No Recent Hopitalizations: No Physical Abuse: No Sexual Abuse: No Mistreated: No Fear: No Immunizations Up To Date Tetanus Booster (TDap): Less than 5yrs PED Vaccines UTD: No Seasonal Allergies Seasonal Allergies: No Past Medical History Surgeries: No Appendectomy, Ear Surgery Respiratory: No Asthma Currently Using CPAP: No Currently Using BIPAP: No Cardiac: No Hypertension Neurological: No : No Reproductive Disorders: No Female Reproductive Disorders: Denies Sexually Transmitted Disease: No HIV/AIDS: No Genitourinary: No UTI-Chronic Gastrointestinal: No Musculoskeletal: No Endocrine: Yes Diabetes, Insulin dep HEENT: No Chronic Ear Infection, Tonsilitis Loss of Vision: Denies Hearing Impairment: Denies Cancer: No Psychosocial: Yes Anxiety Integumentary: No Blood Disorders: No Adverse Reaction/Blood Tranf: No Family Medical History Reviewed Nursing Family Hx Colon cancer 19 MOTHER (copd ; breast cancer ) Cystic fibrosis (nephew has CF ) Hypertension 19 MOTHER (copd ; breast cancer ) Cancer, Hypertension Physical Exam Vital Signs Vital Signs - First Documented 04/10/20 06:44 Temp 36.4 Pulse 134 B/P (MAP) 132/84 (100) Pulse Ox 36 O2 Delivery Room Air Capillary Refill : Less Than 3 Seconds Height/Weight/BMI Height: 5'2.00" Weight: 210lbs. 0.0oz. [id number]; 22.00 BMI Method:Stated General Appearance: WD/WN, mild distress HEENT: PERRL/EOMI, pharynx normal Neck: full range of motion, supple Respiratory: lungs clear, normal breath sounds Cardiovascular: no murmur, tachycardia Gastrointestinal: soft, tenderness (mild lower bilateral left greater than right), other (surgical incisions that umbilicus and left lower quadrant are clean, dry and intact without signs of infection.) Extremities: non-tender, normal inspection Back: normal inspection, no CVA tenderness, no vertebral tenderness Neurologic/Psychiatric: alert, oriented x 3 Skin: normal color, warm/dry Focused Exam Lactate Level 04/10/20 08:58: Lactic Acid Level 1.38 Lactic Acid Level Laboratory Tests Test 04/10/20 08:58 Lactic Acid Level 1.38 MMOL/L (0.50-2.00) Procedures/Interventions Date of ETT Placement: Jul 09, 2019 Time of ETT Placement: 1435 Progress/Results/Core Measures Results/Orders Lab Results Laboratory Tests Test 04/10/20 06:44 04/10/20 07:45 04/10/20 07:47 04/10/20 08:58 Range/Units Urine Color YELLOW Urine Clarity SL CLOUDY Urine pH 5.5 5-9 Urine Specific [place] 1.010 L 1.016-1.022 Urine Protein NEGATIVE NEGATIVE Urine Glucose (UA) 3+ H NEGATIVE Urine Ketones 1+ H NEGATIVE Urine Nitrite NEGATIVE NEGATIVE Urine Bilirubin NEGATIVE NEGATIVE Urine Urobilinogen 0.2 < = 1.0 MG/DL Urine Leukocyte Esterase TRACE H NEGATIVE Urine RBC (Auto) TRACE-I NEGATIVE Urine RBC 2-5 H /HPF Urine WBC 25-50 H /HPF Urine Squamous Epithelial Cells 10-25 H /HPF Urine Crystals NONE /LPF Urine Bacteria MODERATE H /HPF Urine Casts NONE /LPF Urine Mucus NEGATIVE /LPF Urine Culture Indicated YES Urine Opiates Screen NEGATIVE NEGATIVE Urine Oxycodone Screen NEGATIVE NEGATIVE Urine Methadone Screen NEGATIVE NEGATIVE Urine Propoxyphene Screen NEGATIVE NEGATIVE Urine Barbiturates Screen NEGATIVE NEGATIVE Ur Tricyclic Antidepressants Screen NEGATIVE NEGATIVE Urine Phencyclidine Screen NEGATIVE NEGATIVE Urine Amphetamines Screen POSITIVE H NEGATIVE Urine Methamphetamines Screen POSITIVE H NEGATIVE Urine Benzodiazepines Screen NEGATIVE NEGATIVE Urine Cocaine Screen NEGATIVE NEGATIVE Urine Cannabinoids Screen NEGATIVE NEGATIVE White Blood Count 16.1 H 4.3-11.0 10^3/uL Red Blood Count 3.94 L 4.35-5.85 10^6/uL Hemoglobin 12.1 11.5-16.0 G/DL Hematocrit 36 35-52 % Mean Corpuscular Volume 91 80-99 FL Mean Corpuscular Hemoglobin 31 25-34 PG Mean Corpuscular Hemoglobin Concent 34 32-36 G/DL Red Cell Distribution Width 11.6 10.0-14.5 % Platelet Count 580 H 130-400 10^3/uL Mean Platelet Volume 8.4 7.4-10.4 FL Neutrophils (%) (Auto) 74 42-75 % Lymphocytes (%) (Auto) 15 12-44 % Monocytes (%) (Auto) 10 0-12 % Eosinophils (%) (Auto) 1 0-10 % Basophils (%) (Auto) 1 0-10 % Neutrophils # (Auto) 11.9 H 1.8-7.8 X 10^3 Lymphocytes # (Auto) 2.5 1.0-4.0 X 10^3 Monocytes # (Auto) 1.6 H 0.0-1.0 X 10^3 Eosinophils # (Auto) 0.2 0.0-0.3 10^3/uL Basophils # (Auto) 0.1 0.0-0.1 10^3/uL Neutrophils % (Manual) 70 % Lymphocytes % (Manual) 20 % Monocytes % (Manual) 6 % Eosinophils % (Manual) 1 % Band Neutrophils 1 % Reactive Lymphocytes 2 % Anisocytosis SLIGHT Sodium Level 136 135-145 MMOL/L Potassium Level 3.6 3.6-5.0 MMOL/L Chloride Level 93 L 98-107 MMOL/L Carbon Dioxide Level 29 21-32 MMOL/L Anion Gap 14 5-14 MMOL/L Blood Urea Nitrogen 10 7-18 MG/DL Creatinine 0.77 0.60-1.30 MG/DL Estimat Glomerular Filtration Rate > 60 BUN/Creatinine Ratio 13 Glucose Level 165 H 70-105 MG/DL Calcium Level 10.3 H 8.5-10.1 MG/DL Corrected Calcium 10.4 H 8.5-10.1 MG/DL Total Bilirubin 0.2 0.1-1.0 MG/DL Aspartate Amino Transf (AST/SGOT) 15 5-34 U/L Alanine Aminotransferase (ALT/SGPT) 14 0-55 U/L Alkaline Phosphatase 220 H 40-136 U/L C-Reactive Protein High Sensitivity 15.30 H 0.00-0.50 MG/DL Total Protein 9.2 H 6.4-8.2 GM/DL Albumin 3.9 3.2-4.5 GM/DL Glucometer 184 H 70-110 MG/DL Lactic Acid Level 1.38 0.50-2.00 MMOL/L My Orders Orders - KENZIE PALMER MD Cbc With Automated Diff (04/10/20 07:09) Comprehensive Metabolic Panel (04/10/20 07:09) Hs C Reactive Protein (04/10/20 07:09) Drug Screen Stat (Urine) (04/10/20 07:09) Ua Culture If Indicated (04/10/20 07:09) Accucheck Stat ONCE (04/10/20 07:09) Ed Iv/Invasive Line Start (04/10/20 07:09) Ns Iv 1000 Ml (Sodium Chloride 0.9%) (04/10/20 07:09) Urine Bedside (04/10/20 07:09) Urine Culture (04/10/20 06:44) Manual Differential (04/10/20 07:45) Lactic Acid Analyzer (04/10/20 08:37) Blood Culture (04/10/20 08:37) Ct Abdomen/Pelvis W (04/10/20 08:37) Fentanyl Injection (Sublimaze Injection (04/10/20 09:09) Iohexol Injection (Omnipaque 350 Mg/Ml 1 (04/10/20 09:15) Received Contrast (Hold Metformin- Contr (04/10/20 09:15) Sodium Chloride Flush (Catheter Flush Sy (04/10/20 09:15) Ns (Ivpb) (Sodium Chloride 0.9% Ivpb Bag (04/10/20 09:15) Medications Given in ED Current Medications Medications Dose Ordered Sig/Sisi Route Start Time Stop Time Status Last Admin Dose Admin Iohexol 100 ml ONCE ONCE IV 04/10/20 09:15 04/10/20 09:16 DC 04/10/20 09:38 68 ML Sodium Chloride 100 ml ONCE ONCE IV 04/10/20 09:15 04/10/20 09:16 DC 04/10/20 09:38 80 ML Sodium Chloride 1,000 ml @ 0 mls/hr Q0M ONCE IV 04/10/20 07:09 04/10/20 07:11 DC 04/10/20 07:44 1,000 MLS/HR Vital Signs/I&O 04/10/20 06:44 Temp 36.4 Pulse 134 B/P (MAP) 132/84 (100) Pulse Ox 36 O2 Delivery Room Air Blood Pressure Mean: 100 Progress Progress Note : Progress Note Seen and evaluated. IV, labs, UA and pharynx stick blood sugar ordered. Normal saline 1 L bolus. Monitor patient. CT abdomen pelvis ordered due to persistent pain and elevated white count. Fentanyl 50 g IV ordered. Monitor patient. 1230: CT scan read still pending. I have talked with the radiologist and got phone read. Moderate amount of stool but no abscess noted. Currently she is doing a little better. There is question of urinary tract infection and we will initiate ciprofloxacin based on previous culture. Discharged home with return precautions. Patient verbalize understanding instructions and agreement with plan. Diagnostic Imaging Diagonstic Imaging: CT Plain Films/CT/US/NM/MRI: abdomen, pelvis Comments Moderate amount of stool but no abscess. Pending final read. Reviewed: Reviewed by Me, Discussed w/Radiologist Departure Impression Primary Impression: Lower abdominal pain Additional Impression: Urinary tract infection Qualified Codes: N30.00 - Acute cystitis without hematuria Disposition: HOME, SELF-CARE Condition: Stable Departure-Patient Inst. Decision time for Depature: 12:39 Referrals: [facility] (PCP/Family) Primary Care Physician Patient Instructions: Severe Abdominal Pain, Adult (DC), Constipation, Adult (DC), Urinary Tract Infection, Adult (DC) Add. Discharge Instructions: All discharge instructions reviewed with patient and/or family. Voiced understanding. Drink plenty of fluids and eat a clear light diet for the next few days. You should initiate MiraLAX packets one twice daily for the next 3 days and then daily thereafter as needed to keep stools soft. You may increase or decrease the dose as needed to keep stools in normal range. Follow-up with Dr. Ybarra for recheck and further evaluation. Return for worse pain, fever, vomiting, weakness, breathing problems or other concerns as needed. It is very important that he follow up with your doctor for recheck and further evaluation. Also discuss your diabetes and blood sugar monitoring. Scripts Polyethylene Glycol 3350 (Miralax) 17 Gm Powd.pack 17 GM PO BID PRN PRN for CONSTIPATION-1ST LINE, #20 EACH 0 Refills Prov: KENZIE PALMER MD 04/10/20 Ciprofloxacin HCl (Ciprofloxacin HCl) 500 Mg Tablet 500 MG PO BID, #10 TAB Prov: KENZIE PALMER MD 04/10/20 KENZIE PALMER MD Apr 10, 2020 07:17
[2020-04-10 07:40] LABS: BILIRUBIN,URINE NEGATIVE (NEGATIVE); CLARITY,URINE SL CLOUDY; COLOR,URINE YELLOW; GLUCOSE, URINE (UA) 3+ (NEGATIVE); KETONES,URINE 1+ (NEGATIVE); LEUKOCYTE ESTERASE ,URINE TRACE (NEGATIVE); NITRITE,URINE NEGATIVE (NEGATIVE); PH,URINE 5.5 (5-9); PROTEIN,URINE NEGATIVE (NEGATIVE)
[2020-04-10 07:48] LABS: BACTERIA,URINE MODERATE /HPF; WBC,URINE 25-50 /HPF
[2020-04-10 07:53] LABS: AMPHETAMINE SCREEN, URINE POSITIVE (NEGATIVE); BARBITURATE SCREEN URINE NEGATIVE (NEGATIVE); BENZODIAZEPINES SCREEN URINE NEGATIVE (NEGATIVE); CANNABINOID SCREEN, URINE NEGATIVE (NEGATIVE); COCAINE SCREEN URINE NEGATIVE (NEGATIVE); METHADONE STAT NEGATIVE (NEGATIVE); METHAMPHETAMINE SCREEN URINE S POSITIVE (NEGATIVE); OPIATE SCREEN URINE NEGATIVE (NEGATIVE); OXYCODONE STAT NEGATIVE (NEGATIVE); PROPOXYPHENE STAT NEGATIVE (NEGATIVE); TRICYCLIC ANTIDEPRESSANTS SCRE NEGATIVE (NEGATIVE)
[2020-04-10 08:01] LABS: BASOPHILS # (AUTO) 0.1 10^3/uL (0.0-0.1); BASOPHILS % (AUTO) 1 % (0-10); EOSINOPHILS # (AUTO) 0.2 10^3/uL (0.0-0.3); EOSINOPHILS % (AUTO) 1 % (0-10); HEMATOCRIT 36 % (35-52); HEMOGLOBIN 12.1 G/DL (11.5-16.0); LYMPHOCYTES # (AUTO) 2.5 X 10^3 (1.0-4.0); LYMPHOCYTES % (AUTO) 15 % (12-44); MEAN CORPUSCULAR HEMOGLOBIN 31 PG (25-34); MEAN CORPUSCULAR HGB CONC 34 G/DL (32-36); MEAN CORPUSCULAR VOLUME 91 FL (80-99); MEAN PLATELET VOLUME 8.4 FL (7.4-10.4); MONOCYTES # (AUTO) 1.6 X 10^3 (0.0-1.0); MONOCYTES % (AUTO) 10 % (0-12); NEUTROPHILS # (AUTO) 11.9 X 10^3 (1.8-7.8); NEUTROPHILS % (AUTO) 74 % (42-75); PLATELET COUNT 580 10^3/uL (130-400); WHITE BLOOD COUNT 16.1 10^3/uL (4.3-11.0)
[2020-04-10 08:22] LABS: ALANINE AMINOTRANSFERASE 14 U/L (0-55); ALBUMIN 3.9 GM/DL (3.2-4.5); ALKALINE PHOSPHATASE 220 U/L (40-136); BILIRUBIN,TOTAL 0.2 MG/DL (0.1-1.0); BUN/CREATININE RATIO 13; CALCIUM 10.3 MG/DL (8.5-10.1); CARBON DIOXIDE 29 MMOL/L (21-32); CHLORIDE 93 MMOL/L (98-107); CREATININE SERUM 0.77 MG/DL (0.60-1.30); GFR ESTIMATED > 60; GLUCOSE 165 MG/DL (70-105); POTASSIUM 3.6 MMOL/L (3.6-5.0); SODIUM 136 MMOL/L (135-145); TOTAL PROTEIN 9.2 GM/DL (6.4-8.2)
[2020-04-10 08:38] LABS: ANISOCYTOSIS SLIGHT; BAND NEUTROPHILS 1 %; EOSINOPHILS % (MANUAL) 1 %; LYMPHOCYTES % (MANUAL) 20 %; MONOCYTES % (MANUAL) 6 %; NEUTROPHILS % (MANUAL) 70 %; REACTIVE LYMPHOCYTES 2 %
[2020-04-10] MEDS ORDERED: fentaNYL INJECTION 100 MCG/2 ML AMP IVP STA (09:09)
[2020-04-10] MEDS ORDERED: CATHETER FLUSH 10 ML SYR IV PRN (09:15)
[2020-04-10] MEDS ORDERED: NS 100 ML (IVPB) BAG IV ONE (09:15)
[2020-04-10] MEDS ORDERED: HOLD METFORMIN - RECEIVED CONTRAST 20 ML VIAL IV SCH (09:15)
[2020-04-10] MEDS ORDERED: IOHEXOL 350 MG/ML 100 ML (OMNIPAQUE 350) VIAL IV ONE (09:15)
--- NOTE | 2020-04-10 09:18 | NUR ---
WHILE GIVING MEDS FOR PAIN PATIENT REQUESTING TO EAT AND DRINK.
[2020-04-10] MEDS ORDERED: CIPR500T4 PO (12:43)
[2020-04-10] MEDS ORDERED: POLY17PO6 PO (12:43)
[2020-04-10 12:57] VITALS: BP 124/71
== END 2020-04-10 12:59 | disposition home or self-care (01) ==
LOC: EDUNIT# 06:29 → ER 06:32
DX: R10.84 Generalized abdominal pain (principal); E11.9 Type 2 diabetes mellitus without complications; N39.0 Urinary tract infection, site not specified; Z87.891 Personal history of nicotine dependence; Z79.4 Long term (current) use of insulin; Z82.49 Family history of ischemic heart disease and other diseases of the circulatory system; Z80.0 Family history of malignant neoplasm of digestive organs
CPT/HCPCS: 36415; 74177; 80053; 80306; 81000; 82962; 83605; 84703; 85007; 85027; 86141; 87040; 87088

== ENCOUNTER 2020-09-17 21:49 | Inpatient (IN) | payer SELFPAY ==
[~2020-09-17] VITALS: Ht 158 cm; Wt 70.2 kg
[~2020-09-17 21:49] MED LIST changes: -CIPR500T4 PO; +CIPR500T5 PO; +POLY17PO6 PO; +POLY238P32 PO
[2020-09-17 22:12] LABS: ABG BASE EXCESS 0.7 MMOL/L (-2.5-2.5); ABG OXYGEN SATURATION 98 % (94-100); ABG PCO2 44 MMHG (35-45); ABG PH 7.38 (7.37-7.43); ABG PO2 104 MMHG (79-93); ABG TCO2 26.3 MMOL/L (21.0-31.0)
[2020-09-17 22:14] LABS: ALLENS TEST POSITIVE; INSPIRED O2 RA; PATIENT TEMP 38.2; VENTILATOR NO
[2020-09-17] MEDS ORDERED: NS IV 1000 ML 1,000 ML IV SCH ×2 (22:15)
[2020-09-17] MEDS ORDERED: PIPERACILLIN/TAZOBACTAM (BULK) 4.5 GM in NS (IVPB) 100 ML IV ONE (22:15)
[2020-09-17 22:21] LABS: BASOPHILS % (AUTO) 0 % (0-10); EOSINOPHILS # (AUTO) 0.1 10^3/uL (0.0-0.3); EOSINOPHILS % (AUTO) 1 % (0-10); HEMATOCRIT 34 % (35-52); HEMOGLOBIN 11.6 g/dL (11.5-16.0); LYMPHOCYTES # (AUTO) 2.5 10^3/uL (1.0-4.0); LYMPHOCYTES % (AUTO) 25 % (12-44); MEAN CORPUSCULAR HEMOGLOBIN 30 pg (25-34); MEAN CORPUSCULAR HGB CONC 34 g/dL (32-36); MEAN CORPUSCULAR VOLUME 88 fL (80-99); MEAN PLATELET VOLUME 9.5 fL (9.0-12.2); MONOCYTES # (AUTO) 0.8 10^3/uL (0.0-1.0); MONOCYTES % (AUTO) 9 % (0-12); NEUTROPHILS # (AUTO) 6.4 10^3/uL (1.8-7.8); NEUTROPHILS % (AUTO) 65 % (42-75); PLATELET COUNT 257 10^3/uL (130-400); WHITE BLOOD COUNT 9.8 10^3/uL (4.3-11.0)
[2020-09-17 22:23] LABS: ALBUMIN 3.8 GM/DL (3.2-4.5)
--- NOTE | 2020-09-17 22:23 | ED General ---
General Chief Complaint: Glucose Problems Stated Complaint: HIGH BLOOD SUGAR Source of Information: Patient Exam Limitations: No Limitations History of Present Illness Date Seen by Provider: Sep 17, 2020 Time Seen by Provider: 21:55 Initial Comments Patient presents ER by EMS from home with chief complaint her father said she was just fine about half an hour prior to calling 911. She went to her room and he went to check on her and she said she took 1 or 2 tablets of her Seroquel. No suicidal ideation. She does have a history of type 1 diabetes with frequent DKA. EMS says the patient was able to walk to the ambulance and they helped her onto the gurney. I said she is oriented to self and who the president is but very somnolent. Denies shortness of breath cough fever chills nausea vomiting or diarrhea. The patient gives a limited history mostly muttering that she does not want an IV and responds only after some noxious stimuli. EMS reports the blood sugar read high on their Accu-Chek. Allergies and Home Medications Allergies Coded Allergies: No Known Drug Allergies (Unverified , 08/12/12) Home Medications Insulin Aspart 300 Units/3 Ml Solution, 18 UNITS SQ TIDAC LAST FILLED 04-22-2020 #5PENS/27 DAY SUPPLY Prescribed by: ISAÍAS ULLOA on 06/13/20 0708 Insulin Detemir 100 Unit/1 Ml Insuln.pen, 28 UNIT SQ BID LAST FILLED 04-22-2020 #5PENS/28 DAY SUPPLY Prescribed by: ISAÍAS ULLOA on 06/13/20 0708 Polyethylene Glycol 3350 238 Gm Powder, 17 GM PO DAILY PRN for CONSTIPATION-2ND LINE, (Reported) Patient Home Medication List Home Medication List Reviewed: Yes Review of Systems Review of Systems Constitutional: see HPI (Limited review of systems second the patient's clinical presentation); No chills, No fever EENTM: No ear discharge, No ear pain Respiratory: No cough, No short of breath Cardiovascular: No chest pain, No edema Gastrointestinal: No abdominal pain, No vomiting Genitourinary: No discharge, No dysuria Musculoskeletal: No back pain, No joint pain Psychiatric/Neurological: Denies Anxiety, Denies Depressed All Other Systems Reviewed Negative Unless Noted: Yes Past Khztrir-Annjij-Cbfhwy Hx Patient Social History Alcohol Use: Regular Use Alcohol Beverage of Choice: Whiskey, Vodka Drug of Choice: METH Smoking Status: Current Everyday Smoker Type Used: Cigarettes Former Smoker, Quit: Apr 02, 2016 2nd Hand Smoke Exposure: Yes Recent Hopitalizations: No Immunizations Up To Date Tetanus Booster (TDap): Less than 5yrs PED Vaccines UTD: No Seasonal Allergies Seasonal Allergies: No Past Medical History Surgeries: No Appendectomy, Ear Surgery Respiratory: No Asthma Currently Using CPAP: No Currently Using BIPAP: No Cardiac: No Hypertension Neurological: No Reproductive Disorders: No Female Reproductive Disorders: Denies Sexually Transmitted Disease: No HIV/AIDS: No Genitourinary: No UTI-Chronic Gastrointestinal: No Musculoskeletal: No Endocrine: Yes Diabetes, Insulin dep HEENT: No Chronic Ear Infection, Tonsilitis Loss of Vision: Denies Hearing Impairment: Denies Cancer: No Psychosocial: Yes Anxiety Integumentary: No Blood Disorders: No Adverse Reaction/Blood Tranf: No Family Medical History Colon cancer 19 MOTHER (copd ; breast cancer ) Cystic fibrosis (nephew has CF ) Hypertension 19 MOTHER (copd ; breast cancer ) Cancer, Hypertension Physical Exam Vital Signs Vital Signs - First Documented 09/17/20 21:52 Temp 37.6 Pulse 108 Resp 14 B/P (MAP) 93/45 (61) O2 Delivery Room Air Capillary Refill : Height, Weight, BMI Height: 5'2.00" Weight: 210lbs. 0.0oz. [id number]; 26.85 BMI Method:Stated General Appearance: Chronically ill, Moderate Distress, Other Eyes: Bilateral Eye Normal Inspection, Bilateral Eye PERRL, Bilateral Eye EOMI HEENT: PERRL/EOMI (Disheveled), TMs Normal, Pharynx Normal (Oral mucosa is exquisitely dry); No Moist Mucous Membranes Neck: Full Range of Motion, Normal Inspection Respiratory: Lungs Clear, Normal Breath Sounds, No Accessory Muscle Use, No Respiratory Distress Cardiovascular: Regular Rate, Rhythm, No Edema, Normal Peripheral Pulses Gastrointestinal: Normal Bowel Sounds, Non Tender, Soft Neurologic/Psychiatric: Alert (GCS is 12), Oriented x3 (Oriented to self place and time), 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 She is not particularly cooperative however she does not refused to allow us to start IVs or get an ABG) Skin: Normal Color, Warm/Dry Focused Exam Sepsis Stage: Sepsis Lactate Level 09/17/20 22:25: Lactic Acid Level 2.00 Time of Focused Exam: 23:40 Respiratory: Lungs Clear, Normal Breath Sounds, No Accessory Muscle Use, No Respiratory Distress Cardiovascular: Regular Rate, Rhythm, No Edema, Normal Peripheral Pulses Capillary Refill: Less Than 3 Seconds Peripheral Pulses: 2+ Radial Pulses (R), 2+ Radial Pulses (L) Skin: normal color, warm/dry Lactic Acid Level Laboratory Tests Test 09/17/20 22:25 Lactic Acid Level 2.00 MMOL/L (0.50-2.00) Within 3hrs of presentation: Admin fluids, Admin ABX, Blood cultures prior to ABX's, Focus exam, Lactate level Procedures/Interventions Date of ETT Placement: Jul 09, 2019 Time of ETT Placement: 1435 Progress/Results/Core Measures Suspected Sepsis SIRS Temperature: Pulse: Respiratory Rate: Laboratory Tests 09/17/20 22:00: White Blood Count 9.8 Blood Pressure / Mean: 09/17/20 22:25: Lactic Acid Level 2.00 Laboratory Tests 09/17/20 22:00: Creatinine 0.95, INR Comment 1.0, Platelet Count 257, Total Bilirubin 0.5 Results/Orders Lab Results Laboratory Tests Test 09/17/20 22:00 09/17/20 22:05 09/17/20 22:08 09/17/20 22:25 Range/Units White Blood Count 9.8 4.3-11.0 10^3/uL Red Blood Count 3.84 3.80-5.11 10^6/uL Hemoglobin 11.6 11.5-16.0 g/dL Hematocrit 34 L 35-52 % Mean Corpuscular Volume 88 80-99 fL Mean Corpuscular Hemoglobin 30 25-34 pg Mean Corpuscular Hemoglobin Concent 34 32-36 g/dL Red Cell Distribution Width 12.9 10.0-14.5 % Platelet Count 257 130-400 10^3/uL Mean Platelet Volume 9.5 9.0-12.2 fL Immature Granulocyte % (Auto) 0 % Neutrophils (%) (Auto) 65 42-75 % Lymphocytes (%) (Auto) 25 12-44 % Monocytes (%) (Auto) 9 0-12 % Eosinophils (%) (Auto) 1 0-10 % Basophils (%) (Auto) 0 0-10 % Neutrophils # (Auto) 6.4 1.8-7.8 10^3/uL Lymphocytes # (Auto) 2.5 1.0-4.0 10^3/uL Monocytes # (Auto) 0.8 0.0-1.0 10^3/uL Eosinophils # (Auto) 0.1 0.0-0.3 10^3/uL Basophils # (Auto) 0.0 0.0-0.1 10^3/uL Immature Granulocyte # (Auto) 0.0 0.0-0.1 10^3/uL Prothrombin Time 13.1 12.2-14.7 SEC INR Comment 1.0 0.8-1.4 Activated Partial Thromboplast Time 26 24-35 SEC Sodium Level 132 L 135-145 MMOL/L Potassium Level 3.8 3.6-5.0 MMOL/L Chloride Level 97 L 98-107 MMOL/L Carbon Dioxide Level 21 21-32 MMOL/L Anion Gap 14 5-14 MMOL/L Blood Urea Nitrogen 20 H 7-18 MG/DL Creatinine 0.95 0.60-1.30 MG/DL Estimat Glomerular Filtration Rate > 60 BUN/Creatinine Ratio 21 Glucose Level 573 *H 70-105 MG/DL Calcium Level 8.5 8.5-10.1 MG/DL Corrected Calcium 8.7 8.5-10.1 MG/DL Total Bilirubin 0.5 0.1-1.0 MG/DL Aspartate Amino Transf (AST/SGOT) 21 5-34 U/L Alanine Aminotransferase (ALT/SGPT) 30 0-55 U/L Alkaline Phosphatase 133 40-136 U/L Total Creatine Kinase 266 H 29-168 U/L Total Protein 7.3 6.4-8.2 GM/DL Albumin 3.8 3.2-4.5 GM/DL Serum Test, Qualitative NEGATIVE NEGATIVE Blood Gas Puncture Site RIGHT RADIAL Blood Gas Patient Temperature 38.2 Arterial Blood pH 7.38 7.37-7.43 Arterial Blood Partial Pressure CO2 44 35-45 MMHG Arterial Blood Partial Pressure O2 104 H 79-93 MMHG Arterial Blood HCO3 25 23-27 MMOL/L Arterial Blood Total CO2 26.3 21.0-31.0 MMOL/L Arterial Blood Oxygen Saturation 98 94-100 % Arterial Blood Base Excess 0.7 -2.5-2.5 MMOL/L Montez Test POSITIVE Blood Gas Ventilator Setting NO Blood Gas Inspired Oxygen RA Coronavirus 2019 (SHILPI) Negative Negative Lactic Acid Level 2.00 0.50-2.00 MMOL/L Test 09/17/20 23:30 09/18/20 00:12 Range/Units Urine Color YELLOW Urine Clarity SL CLOUDY Urine pH 6.5 5-9 Urine Specific Warren 1.010 L 1.016-1.022 Urine Protein NEGATIVE NEGATIVE Urine Glucose (UA) 3+ H NEGATIVE Urine Ketones NEGATIVE NEGATIVE Urine Nitrite NEGATIVE NEGATIVE Urine Bilirubin NEGATIVE NEGATIVE Urine Urobilinogen 0.2 < = 1.0 MG/DL Urine Leukocyte Esterase NEGATIVE NEGATIVE Urine RBC (Auto) NEGATIVE NEGATIVE Urine RBC 5-10 H /HPF Urine WBC 2-5 /HPF Urine Squamous Epithelial Cells 2-5 /HPF Urine Crystals NONE /LPF Urine Bacteria NEGATIVE /HPF Urine Casts NONE /LPF Urine Mucus NEGATIVE /LPF Urine Culture Indicated CULTURE PENDING Urine Opiates Screen NEGATIVE NEGATIVE Urine Oxycodone Screen NEGATIVE NEGATIVE Urine Methadone Screen NEGATIVE NEGATIVE Urine Propoxyphene Screen NEGATIVE NEGATIVE Urine Barbiturates Screen NEGATIVE NEGATIVE Ur Tricyclic Antidepressants Screen POSITIVE H NEGATIVE Urine Phencyclidine Screen NEGATIVE NEGATIVE Urine Amphetamines Screen POSITIVE H NEGATIVE Urine Methamphetamines Screen POSITIVE H NEGATIVE Urine Benzodiazepines Screen NEGATIVE NEGATIVE Urine Cocaine Screen NEGATIVE NEGATIVE Urine Cannabinoids Screen NEGATIVE NEGATIVE Glucometer 233 H 70-110 MG/DL Micro Results Microbiology 09/17/20 Influenza Types A,B Antigen (EMILIA) - Final, Complete My Orders Orders - NAOMY YEH Arterial Blood Gas (09/17/20 22:05) Catheter(Urinary) Insert & Ass 03,15 (09/17/20 22:08) Ua Culture If Indicated (09/17/20 22:08) Cbc With Automated Diff (09/17/20 22:08) Comprehensive Metabolic Panel (09/17/20 22:08) Drug Screen Stat (Urine) (09/17/20 22:08) Hcg,Qualitative Serum (09/17/20 22:08) Covid 19 Inhouse Test (09/17/20 22:08) Influenza A And B Antigens (09/17/20 22:08) Ed Iv/Invasive Line Start (09/17/20 22:08) Ns Iv 1000 Ml (Sodium Chloride 0.9%) (09/17/20 22:15) Ed Iv/Invasive Line Start (09/17/20 22:13) Ns Iv 1000 Ml (Sodium Chloride 0.9%) (09/17/20 22:15) Piperacillin/Tazobactam (Bulk) (Zosyn In (09/17/20 22:15) Blood Culture (09/17/20 22:14) Sputum Culture (09/17/20 22:14) Urine Culture (09/17/20 22:14) Protime With Inr (09/17/20 22:14) Partial Thromboplastin Time (09/17/20 22:14) Ed Iv/Invasive Line Start (09/17/20 22:14) Ed Iv/Invasive Line Start (09/17/20 22:14) Vital Signs Adult Sepsis Patie Q15M (09/17/20 22:14) O2 (09/17/20 22:14) Remove Rings In Anticipation O (09/17/20 22:14) Lactic Acid Analyzer (09/17/20 22:14) Piperacillin Sodium/Tazobactam (Zosyn Vi (09/17/20 22:34) Ns (Ivpb) (Sodium Chloride 0.9% Ivpb Bag (09/17/20 22:34) Piperacillin Sodium/Tazobactam (Zosyn Vi (09/17/20 23:00) Insulin (Regular) Human (Novolin R (Per (09/17/20 23:00) Potassium Cl 10meq/50ml Ivpb (Kcl 10 Meq (09/17/20 23:00) Straight Cath For Spec.-Adult (09/17/20 23:47) Creatine Kinase (09/17/20 23:55) Chest 1 View, Ap/Pa Only (09/18/20 00:01) Accucheck Stat ONCE (09/18/20 00:09) Medications Given in ED Current Medications Medications Dose Ordered Sig/Sisi Route Start Time Stop Time Status Last Admin Dose Admin Insulin Human Regular 5 unit ONCE ONCE IV 09/17/20 23:00 09/17/20 23:01 DC 09/17/20 23:35 5 UNIT Piperacillin Sod/ Tazobactam Sod 4.5 gm ONCE ONCE IV 09/17/20 23:00 09/17/20 23:07 DC 09/17/20 22:58 4.5 GM Potassium Chloride 50 ml @ 50 mls/hr ONCE ONCE IV 09/17/20 23:00 09/17/20 23:59 DC 09/17/20 23:35 50 MLS/HR Sodium Chloride 100 ml @ STK-MED ONCE .ROUTE 09/17/20 22:34 09/17/20 22:39 DC 09/17/20 22:59 240 MLS/HR Vital Signs/I&O 09/17/20 09/17/20 21:52 22:25 Temp 37.6 Pulse 108 Resp 14 B/P (MAP) 93/45 (61) O2 Delivery Room Air 09/18/20 00:00 Intake Total 1100 ml Balance 1100 ml Capillary Refill : Progress Note : Time: 22:31 Progress Note Suspect DKA. Because of her history of methamphetamines use we will get a drug screen and as well as a urinalysis and bedside by Amador catheter. We will give her 2 L and some Zosyn since she had a fever of 38 on arrival. We will get a Covid and influenza swab. UTI would be suspected with DKA. Diagnostic Imaging Diagonstic Imaging: Xray Plain Films/CT/US/NM/MRI: chest Comments No acute cardiopulmonary process on a 1 view chest x-ray. Reviewed: Reviewed by Me Departure Communication (Admissions) Time/Spoke to Admitting Phy: 23:30 Discussed the case with Dr. Aberu and she agrees take the patient on the floor and resume her on subcutaneous insulins. Suspicious that she has not actually taking them as prescribed at this time. IV fluids and she will see the patient in the morning Impression Primary Impression: Hyperglycemia Additional Impressions: Sepsis Qualified Codes: A41.9 - Sepsis, unspecified organism; R65.20 - Severe sepsis without septic shock; G93.40 - Encephalopathy, unspecified Type 1 diabetes mellitus Qualified Codes: E10.69 - Type 1 diabetes mellitus with other specified complication Methamphetamine abuse Disposition: ADMITTED INPATIENT Condition: Stable Admissions Decision to Admit Reason: Admit from ER (General) Decision to Admit/Date: Sep 17, 2020 Time/Decision to Admit Time: 22:30 Departure-Patient Inst. Referrals: [facility] (PCP/Family) Primary Care Physician NAOMY YEH Sep 17, 2020 22:23
[2020-09-17 22:24] LABS: CHLORIDE 97 MMOL/L (98-107); POTASSIUM 3.8 MMOL/L (3.6-5.0); SODIUM 132 MMOL/L (135-145)
[2020-09-17 22:25] LABS: CALCIUM 8.5 MG/DL (8.5-10.1)
[2020-09-17 22:26] LABS: TOTAL PROTEIN 7.3 GM/DL (6.4-8.2)
[2020-09-17 22:27] LABS: CARBON DIOXIDE 21 MMOL/L (21-32)
[2020-09-17 22:28] LABS: BILIRUBIN,TOTAL 0.5 MG/DL (0.1-1.0); PROTHROMBIN TIME PATIENT 13.1 SEC (12.2-14.7)
[2020-09-17 22:29] LABS: ALKALINE PHOSPHATASE 133 U/L (40-136)
[2020-09-17 22:30] LABS: CREATININE SERUM 0.95 MG/DL (0.60-1.30); GFR ESTIMATED > 60
[2020-09-17 22:31] LABS: BUN/CREATININE RATIO 21
[2020-09-17 22:32] LABS: GLUCOSE 573 MG/DL (70-105)
[2020-09-17 22:33] LABS: ALANINE AMINOTRANSFERASE 30 U/L (0-55)
[2020-09-17] MEDS ORDERED: NS (IVPB) 100 ML ONE (22:34)
[2020-09-17] MEDS ORDERED: PIPERACILLIN/TAZO 4.5 GM VIAL (ZOSYN) IV ONE ×2 (22:34→23:00)
[2020-09-17] MEDS ORDERED: inSUlin (REGULAR) HUMAN 1 UNIT/0.01 ML (CHARGE PER UNIT) IV ONE (23:00)
[2020-09-17] MEDS ORDERED: POTASSIUM CL 10MEQ/50ML IVPB 50 ML IV ONE (23:00)
[2020-09-17 23:35] LABS: BILIRUBIN,URINE NEGATIVE (NEGATIVE); CLARITY,URINE SL CLOUDY; COLOR,URINE YELLOW; GLUCOSE, URINE (UA) 3+ (NEGATIVE); KETONES,URINE NEGATIVE (NEGATIVE); LEUKOCYTE ESTERASE ,URINE NEGATIVE (NEGATIVE); NITRITE,URINE NEGATIVE (NEGATIVE); PH,URINE 6.5 (5-9); PROTEIN,URINE NEGATIVE (NEGATIVE)
[2020-09-17 23:47] LABS: BACTERIA,URINE NEGATIVE /HPF
[2020-09-17 23:51] LABS: AMPHETAMINE SCREEN, URINE POSITIVE (NEGATIVE); BARBITURATE SCREEN URINE NEGATIVE (NEGATIVE); BENZODIAZEPINES SCREEN URINE NEGATIVE (NEGATIVE); CANNABINOID SCREEN, URINE NEGATIVE (NEGATIVE); COCAINE SCREEN URINE NEGATIVE (NEGATIVE); METHADONE STAT NEGATIVE (NEGATIVE); METHAMPHETAMINE SCREEN URINE S POSITIVE (NEGATIVE); OPIATE SCREEN URINE NEGATIVE (NEGATIVE); OXYCODONE STAT NEGATIVE (NEGATIVE); PROPOXYPHENE STAT NEGATIVE (NEGATIVE); TRICYCLIC ANTIDEPRESSANTS SCRE POSITIVE (NEGATIVE)
[2020-09-18] MEDS ORDERED: NS W/KCL 20 MEQ/L 1,000 ML IV ONE (00:53)
[2020-09-18 01:00] VITALS: BP 88/42
[2020-09-18] MEDS ORDERED: ONDANSETRON 4 MG/2 ML (SDV) Z0FRAN IVP PRN (01:15)
[2020-09-18] MEDS ORDERED: ACETAMINOPHEN 500 MG TAB (TYLENOL) PO PRN (01:15)
[2020-09-18] MEDS ORDERED: LORazepam INJ 2 MG/ML (ATIVAN) VIAL IVP PRN (01:15)
[2020-09-18] MEDS: NS W/KCL 20 MEQ/L 1,000 ML IV SCH ×2 (01:38→08:58)
[2020-09-18 04:05] VITALS: BP 101/51
[2020-09-18] MEDS ORDERED: PIPERACILLIN/TAZO 4.5 GM VIAL (ZOSYN) IV ONE (04:36)
[2020-09-18] MEDS ORDERED: NS (IVPB) 100 ML ONE (04:38)
[2020-09-18] MEDS: PIPERACILLIN/TAZO 4.5 GM/NS 100 ML IV SCH ×4 (05:02→12:55)
[2020-09-18 06:24] LABS: BASOPHILS % (AUTO) 1 % (0-10); EOSINOPHILS # (AUTO) 0.1 10^3/uL (0.0-0.3); EOSINOPHILS % (AUTO) 2 % (0-10); HEMATOCRIT 31 % (35-52); HEMOGLOBIN 10.3 g/dL (11.5-16.0); LYMPHOCYTES # (AUTO) 2.4 10^3/uL (1.0-4.0); LYMPHOCYTES % (AUTO) 29 % (12-44); MEAN CORPUSCULAR HEMOGLOBIN 30 pg (25-34); MEAN CORPUSCULAR HGB CONC 33 g/dL (32-36); MEAN CORPUSCULAR VOLUME 90 fL (80-99); MEAN PLATELET VOLUME 9.8 fL (9.0-12.2); MONOCYTES # (AUTO) 0.8 10^3/uL (0.0-1.0); MONOCYTES % (AUTO) 9 % (0-12); NEUTROPHILS # (AUTO) 4.8 10^3/uL (1.8-7.8); NEUTROPHILS % (AUTO) 59 % (42-75); PLATELET COUNT 220 10^3/uL (130-400); WHITE BLOOD COUNT 8.1 10^3/uL (4.3-11.0)
[2020-09-18] MEDS: inSUlin ASPART (NovoLOG) 1 UNIT/0.01 ML (CHARGE PER UNIT) SC SCH ×4 (06:32→12:42)
[2020-09-18 06:33] LABS: ALBUMIN 3.2 GM/DL (3.2-4.5)
[2020-09-18 06:34] LABS: CHLORIDE 108 MMOL/L (98-107); POTASSIUM 3.9 MMOL/L (3.6-5.0); SODIUM 138 MMOL/L (135-145)
[2020-09-18 06:35] LABS: CALCIUM 7.4 MG/DL (8.5-10.1)
[2020-09-18 06:36] LABS: GLUCOSE 307 MG/DL (70-105); TOTAL PROTEIN 6.1 GM/DL (6.4-8.2)
[2020-09-18 06:37] LABS: CARBON DIOXIDE 19 MMOL/L (21-32)
[2020-09-18 06:38] LABS: BILIRUBIN,TOTAL 0.6 MG/DL (0.1-1.0)
[2020-09-18 06:40] LABS: ALKALINE PHOSPHATASE 113 U/L (40-136); CREATININE SERUM 0.67 MG/DL (0.60-1.30); GFR ESTIMATED > 60
[2020-09-18 06:41] LABS: BUN/CREATININE RATIO 22
[2020-09-18 06:43] LABS: ALANINE AMINOTRANSFERASE 23 U/L (0-55)
[2020-09-18] MEDS ORDERED: inSUlin ASPART (NovoLOG) 1 UNIT/0.01 ML (CHARGE PER UNIT) SC SCH (07:00)
--- NOTE | 2020-09-18 07:26 | Diagnostic Imaging Report ---
INDICATION: Sepsis. Somnolent Single view the chest shows normal heart size and vascularity. There is less than maximal inspiration with no infiltrate seen. There is no effusion or pneumothorax. No bony abnormality. IMPRESSION: No acute abnormality is seen. Dictated by: Dictated on workstation # [id number]
[2020-09-18 08:00] VITALS: BP 105/53
[2020-09-18] MEDS ORDERED: ENOXAPARIN 40 MG/0.4 ML (LOVENOX) SYR SC SCH (09:00)
[2020-09-18] MEDS ORDERED: INSU100I14 SQ (11:20)
[2020-09-18] MEDS ORDERED: QUET200T PO (11:20)
[2020-09-18] MEDS ORDERED: INSU100I29 SQ (11:20)
--- NOTE | 2020-09-18 12:17 | Short Stay Summary ---
HPI History of Present Illness: 20 yo F well known to me with Type I DM and meth abuse that presented to ER with altered mental status and elevated blood sugars. Patient states that she last used yesterday morning and then took seraquin last night and then started feeling funny and called her dad. States that she has been taking her insulin but not every dose. States that she has been using meth daily. Denies any illness or fever. No N/V or abdominal pain. States that she would like to go home today. Source: patient Exam Limitations: no limitations Date seen by provider: Sep 18, 2020 Time Seen by Provider: 09:00 Attending Physician Harry Abreu MD PCP [place] Consult Date of Admission Sep 17, 2020 at 23:45 Home Medications Home Medications Reviewed patient Home Medication Reconciliation performed by pharmacy medication reconciliations dialysis patient care technician and/or nursing. Patients Allergies have been reviewed. Allergies Coded Allergies: No Known Drug Allergies (Unverified , 08/12/12) ZQH-Izgutq-Lcejho Hx Patient Social History Living Status: Lives at home with father Drug of Choice: METH Smoking Status: Current Everyday Smoker 2nd Hand Smoke Exposure: Yes Recent Hopitalizations: No Substance type: Methamphetamine, Misuse of prescript meds Immunizations Up To Date Tetanus Booster (TDap): Less than 5yrs Past Medical History PMHx: DMI Meth Abuse Depression Anxiety SurgHx: Tonsils/adenoids Family Medical History Significant Family History: Cancer, Hypertension Family History: Colon cancer 19 MOTHER (copd ; breast cancer ) Cystic fibrosis (nephew has CF ) Hypertension 19 MOTHER (copd ; breast cancer ) Review of Systems (CHC) Constitutional: No chills, No fever; malaise EENTM: no symptoms reported; No mouth pain, No nose congestion, No nose pain Respiratory: no symptoms reported; No cough, No dyspnea on exertion, No short of breath Cardiovascular: no symptoms reported; No chest pain, No edema, No palpitations Gastrointestinal: no symptoms reported; No abdominal pain, No constipation, No diarrhea, No nausea, No vomiting Genitourinary: no symptoms reported; No dysuria, No frequency, No hematuria : No Musculoskeletal: no symptoms reported Skin: no symptoms reported Psychiatric/Neurological: Anxiety, Depressed Reviewed Test Results Reviewed Test Results Lab Laboratory Tests Test 09/17/20 22:00 09/17/20 22:05 09/17/20 22:08 09/17/20 22:25 Range/Units White Blood Count 9.8 4.3-11.0 10^3/uL Red Blood Count 3.84 3.80-5.11 10^6/uL Hemoglobin 11.6 11.5-16.0 g/dL Hematocrit 34 L 35-52 % Mean Corpuscular Volume 88 80-99 fL Mean Corpuscular Hemoglobin 30 25-34 pg Mean Corpuscular Hemoglobin Concent 34 32-36 g/dL Red Cell Distribution Width 12.9 10.0-14.5 % Platelet Count 257 130-400 10^3/uL Mean Platelet Volume 9.5 9.0-12.2 fL Immature Granulocyte % (Auto) 0 % Neutrophils (%) (Auto) 65 42-75 % Lymphocytes (%) (Auto) 25 12-44 % Monocytes (%) (Auto) 9 0-12 % Eosinophils (%) (Auto) 1 0-10 % Basophils (%) (Auto) 0 0-10 % Neutrophils # (Auto) 6.4 1.8-7.8 10^3/uL Lymphocytes # (Auto) 2.5 1.0-4.0 10^3/uL Monocytes # (Auto) 0.8 0.0-1.0 10^3/uL Eosinophils # (Auto) 0.1 0.0-0.3 10^3/uL Basophils # (Auto) 0.0 0.0-0.1 10^3/uL Immature Granulocyte # (Auto) 0.0 0.0-0.1 10^3/uL Prothrombin Time 13.1 12.2-14.7 SEC INR Comment 1.0 0.8-1.4 Activated Partial Thromboplast Time 26 24-35 SEC Sodium Level 132 L 135-145 MMOL/L Potassium Level 3.8 3.6-5.0 MMOL/L Chloride Level 97 L 98-107 MMOL/L Carbon Dioxide Level 21 21-32 MMOL/L Anion Gap 14 5-14 MMOL/L Blood Urea Nitrogen 20 H 7-18 MG/DL Creatinine 0.95 0.60-1.30 MG/DL Estimat Glomerular Filtration Rate > 60 BUN/Creatinine Ratio 21 Glucose Level 573 *H 70-105 MG/DL Calcium Level 8.5 8.5-10.1 MG/DL Corrected Calcium 8.7 8.5-10.1 MG/DL Total Bilirubin 0.5 0.1-1.0 MG/DL Aspartate Amino Transf (AST/SGOT) 21 5-34 U/L Alanine Aminotransferase (ALT/SGPT) 30 0-55 U/L Alkaline Phosphatase 133 40-136 U/L Total Creatine Kinase 266 H 29-168 U/L Total Protein 7.3 6.4-8.2 GM/DL Albumin 3.8 3.2-4.5 GM/DL Serum Test, Qualitative NEGATIVE NEGATIVE Blood Gas Puncture Site RIGHT RADIAL Blood Gas Patient Temperature 38.2 Arterial Blood pH 7.38 7.37-7.43 Arterial Blood Partial Pressure CO2 44 35-45 MMHG Arterial Blood Partial Pressure O2 104 H 79-93 MMHG Arterial Blood HCO3 25 23-27 MMOL/L Arterial Blood Total CO2 26.3 21.0-31.0 MMOL/L Arterial Blood Oxygen Saturation 98 94-100 % Arterial Blood Base Excess 0.7 -2.5-2.5 MMOL/L Montez Test POSITIVE Blood Gas Ventilator Setting NO Blood Gas Inspired Oxygen RA Coronavirus 2019 (SHILPI) Negative Negative Lactic Acid Level 2.00 0.50-2.00 MMOL/L Test 09/17/20 23:30 09/18/20 00:12 09/18/20 05:32 09/18/20 05:47 Range/Units Urine Color YELLOW Urine Clarity SL CLOUDY Urine pH 6.5 5-9 Urine Specific Morley 1.010 L 1.016-1.022 Urine Protein NEGATIVE NEGATIVE Urine Glucose (UA) 3+ H NEGATIVE Urine Ketones NEGATIVE NEGATIVE Urine Nitrite NEGATIVE NEGATIVE Urine Bilirubin NEGATIVE NEGATIVE Urine Urobilinogen 0.2 < = 1.0 MG/DL Urine Leukocyte Esterase NEGATIVE NEGATIVE Urine RBC (Auto) NEGATIVE NEGATIVE Urine RBC 5-10 H /HPF Urine WBC 2-5 /HPF Urine Squamous Epithelial Cells 2-5 /HPF Urine Crystals NONE /LPF Urine Bacteria NEGATIVE /HPF Urine Casts NONE /LPF Urine Mucus NEGATIVE /LPF Urine Culture Indicated CULTURE PENDING Urine Opiates Screen NEGATIVE NEGATIVE Urine Oxycodone Screen NEGATIVE NEGATIVE Urine Methadone Screen NEGATIVE NEGATIVE Urine Propoxyphene Screen NEGATIVE NEGATIVE Urine Barbiturates Screen NEGATIVE NEGATIVE Ur Tricyclic Antidepressants Screen POSITIVE H NEGATIVE Urine Phencyclidine Screen NEGATIVE NEGATIVE Urine Amphetamines Screen POSITIVE H NEGATIVE Urine Methamphetamines Screen POSITIVE H NEGATIVE Urine Benzodiazepines Screen NEGATIVE NEGATIVE Urine Cocaine Screen NEGATIVE NEGATIVE Urine Cannabinoids Screen NEGATIVE NEGATIVE Glucometer 233 H 269 H 70-110 MG/DL White Blood Count 8.1 4.3-11.0 10^3/uL Red Blood Count 3.45 L 3.80-5.11 10^6/uL Hemoglobin 10.3 L 11.5-16.0 g/dL Hematocrit 31 L 35-52 % Mean Corpuscular Volume 90 80-99 fL Mean Corpuscular Hemoglobin 30 25-34 pg Mean Corpuscular Hemoglobin Concent 33 32-36 g/dL Red Cell Distribution Width 13.1 10.0-14.5 % Platelet Count 220 130-400 10^3/uL Mean Platelet Volume 9.8 9.0-12.2 fL Immature Granulocyte % (Auto) 0 % Neutrophils (%) (Auto) 59 42-75 % Lymphocytes (%) (Auto) 29 12-44 % Monocytes (%) (Auto) 9 0-12 % Eosinophils (%) (Auto) 2 0-10 % Basophils (%) (Auto) 1 0-10 % Neutrophils # (Auto) 4.8 1.8-7.8 10^3/uL Lymphocytes # (Auto) 2.4 1.0-4.0 10^3/uL Monocytes # (Auto) 0.8 0.0-1.0 10^3/uL Eosinophils # (Auto) 0.1 0.0-0.3 10^3/uL Basophils # (Auto) 0.0 0.0-0.1 10^3/uL Immature Granulocyte # (Auto) 0.0 0.0-0.1 10^3/uL Sodium Level 138 135-145 MMOL/L Potassium Level 3.9 3.6-5.0 MMOL/L Chloride Level 108 H 98-107 MMOL/L Carbon Dioxide Level 19 L 21-32 MMOL/L Anion Gap 11 5-14 MMOL/L Blood Urea Nitrogen 15 7-18 MG/DL Creatinine 0.67 0.60-1.30 MG/DL Estimat Glomerular Filtration Rate > 60 BUN/Creatinine Ratio 22 Glucose Level 307 H 70-105 MG/DL Calcium Level 7.4 L 8.5-10.1 MG/DL Corrected Calcium 8.0 L 8.5-10.1 MG/DL Total Bilirubin 0.6 0.1-1.0 MG/DL Aspartate Amino Transf (AST/SGOT) 16 5-34 U/L Alanine Aminotransferase (ALT/SGPT) 23 0-55 U/L Alkaline Phosphatase 113 40-136 U/L Total Protein 6.1 L 6.4-8.2 GM/DL Albumin 3.2 3.2-4.5 GM/DL Test 09/18/20 12:07 Range/Units Glucometer 235 H 70-110 MG/DL Physical Exam-(CHC) Physical Exam Vital Signs VS - Last 72 Hours, by Label 09/17/20 09/17/20 09/18/20 09/18/20 21:52 22:25 00:23 01:00 Temp 37.6 37.6 35.8 Pulse 108 100 99 Resp 14 14 22 B/P (MAP) 93/45 (61) 105/40 (61) 88/42 (57) Pulse Ox 100 98 O2 Delivery Room Air Room Air Room Air 09/18/20 09/18/20 09/18/20 09/18/20 01:15 04:05 08:00 08:00 Temp 36.5 36.4 Pulse 94 92 Resp 16 16 B/P (MAP) 101/51 (68) 105/53 (70) Pulse Ox 98 99 99 O2 Delivery Room Air Room Air Room Air Room Air Capillary Refill : Less Than 3 SecondsLess Than 3 Seconds General Appearance: mild distress HEENT: PERRL/EOMI Neck: non-tender, full range of motion, supple Respiratory: chest non-tender, lungs clear, normal breath sounds, no respiratory distress, no accessory muscle use Cardiovascular: normal peripheral pulses, regular rate, rhythm, no edema, no murmur Gastrointestinal: normal bowel sounds, non tender, soft Back: no CVA tenderness, no vertebral tenderness Extremities: normal range of motion, non-tender, normal inspection, no pedal edema, no calf tenderness, normal capillary refill Neurologic/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: 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 as tested, no motor/sensory deficits, alert, oriented x 3, depressed affect Skin: normal color, warm/dry Lymphatic: no adenopathy Short Stay Diagnosis Discharge Diagnosis-Short Stay Admission Diagnosis Altered Mental status Uncontrolled type I DM Meth Intoxication Final Discharge Diagnosis See Above Conclusion Plan See problem list Was the Problem List Reviewed?: Yes Assessment/Plan Assessment/Plan Admission Status: Observation (1) Altered mental status Status: Resolved Assessment & Plan: - Patient back to baseline, likely 2/2 to meth intoxication and medication use Qualifiers: Qualified Codes: R41.0 - Disorientation, unspecified (2) Severe hyperglycemia due to diabetes mellitus Status: Acute Assessment & Plan: - Patient was not acidotic and did not require insulin drip, start on home insulin (3) Type 1 diabetes mellitus Status: Acute Qualifiers: Qualified Codes: E10.69 - Type 1 diabetes mellitus with other specified complication (4) Methamphetamine abuse Status: Chronic Assessment & Plan: - Discussed with patient the need for cessation, states that she is not ready to seek out treatment at this time, offered ATS with HARRY VERA MD Sep 18, 2020 12:17
--- NOTE | 2020-09-18 12:24 | Discharge Summary ---
Discharge [facility] Reconcile Patient Problems Problems Reviewed?: Yes Discharge Medications New, Converted or Re-Newed RX: Other (No new meds) Continued Medications: Insulin Aspart (Novolog Flexpen) 300 Units/3 Ml Solution 16 UNITS SQ AC, EA Insulin Detemir (Levemir Flextouch) 100 Unit/1 Ml Insuln.pen 28 UNIT SQ BID, EA LAST FILLED 07-17-2020 #5 PENS/28 DAY SUPPLY Discontinued Medications: Quetiapine Fumarate (Seroquel) 200 Mg Tablet 200 MG PO HS, TAB Patient Instructions Goal/Follow Up Appt: You have an appt with PCP Won Wright in [place] on Sep 26 @ 11AM Patient Instructions: - Make sure that you are taking your insulin and staying well hydrated - Discussed the need for Meth cessation, offered outpatient services Activity & Diet Discharge Diet: ADA Diet Activity as Tolerated: Yes [facility] Sep 18, 2020 12:24
--- NOTE | 2020-09-20 08:44 | Physician Query Clarification ---
PQ-Uncertain Diagnosis Admission/Discharge Admission Date: Sep 17, 2020 at 23:45 Discharge Date: Sep 18, 2020 at 14:53 Dr. Abreu, The medical record reflects the following clinical scenario: History/Risk Factors: meth abuse, type 1 DM w/hyperglycemia, AMS Clinical Findings: T 37.6, P 108, R 22, BP 88/42, WBC 9.8, Lactic acid 2.00 Treatment: IV Piperacillin Question: Is sepsis a clinically valid diagnosis? sepsis was documented in the ER record by Dr. Engle with no further documentation in the medical record. Please document a response in Progress Note or Discharge Summary. 1. Yes, clinically valid, condition resolved. 2. No, condition ruled out. 3. Other, with explanation of clinical findings. 4. Undetermined, no explanation for clinical findings. PHYSICIAN RESPONSE Diagnosis clinically valid: No, conditon ruled out Please remember a lack of response to the above will prompt a phone page by CDI/Coding staff. In responding to this query, please exercise your independent professional judgment. The purpose of this communication is to more accurately reflect the complexity of your patients condition. The fact that a question is asked does not imply that any particular answer is desired or expected. Thank you for your timely response to this clarification. Requestors name: [email or web address] THIS PHYSICIAN QUERY FORM IS A PERMANENT PART OF THE MEDICAL RECORD [facility] MANE Sep 20, 2020 08:44 HARRY ABREU MD Sep 25, 2020 13:31
== END 2020-09-18 14:53 | disposition home or self-care (01) | DRG 897 ==
LOC: EDUNIT# 21:49 → ER 21:51 → 4TH 23:45
PROVIDERS: ADMIT Family Medicine; ATTEND Family Medicine
DX: F15.129 Other stimulant abuse with intoxication, unspecified (principal); R41.82 Altered mental status, unspecified; E10.65 Type 1 diabetes mellitus with hyperglycemia; F32.9 Major depressive disorder, single episode, unspecified; F17.210 Nicotine dependence, cigarettes, uncomplicated; J45.909 Unspecified asthma, uncomplicated; I10 Essential (primary) hypertension; F41.9 Anxiety disorder, unspecified; Z20.822 Contact with and (suspected) exposure to COVID-19; Z79.4 Long term (current) use of insulin; Z82.49 Family history of ischemic heart disease and other diseases of the circulatory system
CPT/HCPCS: 36415; 51701; 71045; 80053; 80306; 81000; 82550; 82805; 82962; 83605; 84703; 85025; 85610; 85730; 87040; 87088; 87635; 87804; 96361; 96365; 96375

== ENCOUNTER 2021-11-10 11:22 | Inpatient (IN) | payer SELFPAY ==
[~2021-11-10] VITALS: Ht 160 cm; Wt 62.0 kg
[~2021-11-10 11:22] MED LIST changes: +QUET200T PO
[2021-11-10] MEDS ORDERED: NS IV 1000 ML 1,000 ML IV STA (11:34)
--- NOTE | 2021-11-10 11:43 | ED General ---
General Chief Complaint: Glucose Problems Stated Complaint: WEAKNESS, N/V Nursing Triage Note: PT ARRIVED PER EMS, PT CO OF ELEVATED BS AND N/V AND ABD PAIN 03/11. PT HAS IV NS INFUSING R AC #18 BY EMS. Source of Information: Patient Exam Limitations: No Limitations History of Present Illness Date Seen by Provider: Nov 10, 2021 Time Seen by Provider: 11:39 Initial Comments Patient is a 21-year-old female who presents ED with generalized weakness, fatigue, vomiting. Patient is a type I diabetic. Currently on long-acting and short acting insulin. She states she did take her NovoLog this morning and took her long-acting last night. She states her blood sugar has been as high 500 on her blood sugar. She reports generalized abdominal pain with few episodes of vomiting today. Dizziness started this morning. She reports methamphetamine use a few days ago. Patient appears in no acute distress. She does appear sleepy but is able to answer all questions appropriately. Alert and orient x3. Denies of any other drug use or alcohol use. Frequent urination. Not concern for . Denies chest pain, abdominal pain, headache, diarrhea, hallucinations, unilateral muscle weakness or sensory changes, visual changes. Up-to-date on her Covid vaccines Allergies and Home Medications Allergies Coded Allergies: No Known Drug Allergies (Unverified , 08/12/12) Patient Home Medication List Home Medication List Reviewed: Yes Insulin Aspart (Novolog Flexpen) 300 Units/3 Ml Solution, 16 UNITS SQ AC, (Reported) Entered as Reported by: TRINO DANIEL on 09/18/20 1120 Insulin Detemir (Levemir Flextouch) 100 Unit/1 Ml Insuln.pen, 28 UNIT SQ BID, (Reported) Entered as Reported by: TRINO DANIEL on 09/18/20 1120 Review of Systems Review of Systems Constitutional: No chills; malaise, weakness EENTM: No hearing loss, No blurred vision, No double vision Respiratory: No cough, No dyspnea on exertion, No hemoptysis Cardiovascular: No chest pain Gastrointestinal: No abdominal pain, No diarrhea; nausea Musculoskeletal: No back pain, No gout Skin: No change in color, No change in hair/nails All Other Systems Reviewed Negative Unless Noted: Yes Past Beslkwt-Ejfdjg-Czpers Hx Patient Social History Tobacco Use?: No Substance use?: Yes Substance type: Methamphetamine Additional substance use comme: 4 DAYS AGO Substance frequency: Couple times a week Alcohol Use?: No Pt feels they are or have been: No Immunizations Up To Date Tetanus Booster (TDap): Less than 5yrs PED Vaccines UTD: No Seasonal Allergies Seasonal Allergies: No Past Medical History Surgery/Hospitalization HX: DIABETES TYPE 1 Surgeries: No Appendectomy, Ear Surgery Respiratory: No Asthma Currently Using CPAP: No Currently Using BIPAP: No Cardiac: No Hypertension Neurological: No Reproductive Disorders: No Female Reproductive Disorders: Denies Sexually Transmitted Disease: No HIV/AIDS: No Genitourinary: No UTI-Chronic Gastrointestinal: No Musculoskeletal: No Endocrine: Yes Diabetes, Insulin dep HEENT: No Chronic Ear Infection, Tonsilitis Loss of Vision: Denies Hearing Impairment: Denies Cancer: No Psychosocial: Yes Anxiety Integumentary: No Blood Disorders: No Adverse Reaction/Blood Tranf: No Family Medical History Colon cancer 19 MOTHER (copd ; breast cancer ) Cystic fibrosis (nephew has CF ) Hypertension 19 MOTHER (copd ; breast cancer ) Cancer, Hypertension Physical Exam Vital Signs Vital Signs - First Documented 11/10/21 11:22 Temp 36.4 Pulse 102 Resp 16 B/P (MAP) 110/60 (77) Pulse Ox 99 Capillary Refill : Less Than 3 Seconds Height, Weight, BMI Height: 5'2.00" Weight: 210lbs. 0.0oz. 95.205754am; 24.00 BMI Method:Stated General Appearance: No Apparent Distress, Other (Sleepy but arousable) Eyes: Bilateral Eye Normal Inspection HEENT: PERRL/EOMI, TMs Normal, Normal ENT Inspection, Pharynx Normal Neck: Full Range of Motion, Normal Inspection, Non Tender, Supple Respiratory: Chest Non Tender, Lungs Clear, Normal Breath Sounds, No Accessory Muscle Use, No Respiratory Distress Cardiovascular: Regular Rate, Rhythm, No Edema, No Gallop, No JVD, No Murmur Gastrointestinal: Normal Bowel Sounds, No Organomegaly, No Pulsatile Mass, Soft, Tenderness (Generalized tenderness) Back: Normal Inspection, No CVA Tenderness Extremity: Normal Capillary Refill, Normal Inspection Neurologic/Psychiatric: Alert, Oriented x3 Skin: Normal Color, Warm/Dry Focused Exam Lactate Level 11/10/21 12:56: Lactic Acid Level 0.55 Lactic Acid Level Laboratory Tests Test 11/10/21 12:56 Lactic Acid Level 0.55 MMOL/L (0.50-2.00) Procedures/Interventions Date of ETT Placement: Jul 09, 2019 Time of ETT Placement: 1435 Progress/Results/Core Measures Suspected Sepsis SIRS Temperature: Pulse: Respiratory Rate: Laboratory Tests 11/10/21 12:56: White Blood Count 22.6H Blood Pressure 110 /60 Mean: 77 11/10/21 12:56: Lactic Acid Level 0.55 Laboratory Tests 11/10/21 12:56: Creatinine 0.97, Platelet Count 275, Total Bilirubin 0.5 Results/Orders Lab Results Laboratory Tests Test 11/10/21 11:25 11/10/21 11:31 11/10/21 12:17 11/10/21 12:47 Range/Units Serum Test, Qualitative NEGATIVE NEGATIVE Glucometer 576 *H 70-110 MG/DL Blood Gas Puncture Site R HAND Blood Gas Patient Temperature 36.4 Arterial Blood pH 7.23 *L 7.37-7.43 Arterial Blood Partial Pressure CO2 32 L 35-45 MMHG Arterial Blood Partial Pressure O2 70 L 79-93 MMHG Arterial Blood HCO3 13 *L 23-27 MMOL/L Arterial Blood Total CO2 14.3 L 21.0-31.0 MMOL/L Arterial Blood Oxygen Saturation 94 94-100 % Arterial Blood Base Excess -12.8 L -2.5-2.5 MMOL/L [place] Test NA Blood Gas Ventilator Setting NO Blood Gas Inspired Oxygen ROOM AIR Urine Color YELLOW Urine Clarity CLEAR Urine pH 5.0 5-9 Urine Specific [place] 1.015 L 1.016-1.022 Urine Protein NEGATIVE NEGATIVE Urine Glucose (UA) 3+ H NEGATIVE Urine Ketones 1+ H NEGATIVE Urine Nitrite NEGATIVE NEGATIVE Urine Bilirubin NEGATIVE NEGATIVE Urine Urobilinogen 0.2 < = 1.0 MG/DL Urine Leukocyte Esterase TRACE H NEGATIVE Urine RBC (Auto) TRACE-I H NEGATIVE Urine RBC NONE /HPF Urine WBC 2-5 /HPF Urine Squamous Epithelial Cells 2-5 /HPF Urine Crystals NONE /LPF Urine Bacteria TRACE /HPF Urine Casts NONE /LPF Urine Mucus NEGATIVE /LPF Urine Culture Indicated NO Urine Opiates Screen NEGATIVE NEGATIVE Urine Oxycodone Screen NEGATIVE NEGATIVE Urine Methadone Screen NEGATIVE NEGATIVE Urine Propoxyphene Screen NEGATIVE NEGATIVE Urine Barbiturates Screen NEGATIVE NEGATIVE Ur Tricyclic Antidepressants Screen NEGATIVE NEGATIVE Urine Phencyclidine Screen NEGATIVE NEGATIVE Urine Amphetamines Screen NEGATIVE NEGATIVE Urine Methamphetamines Screen POSITIVE H NEGATIVE Urine Benzodiazepines Screen NEGATIVE NEGATIVE Urine Cocaine Screen NEGATIVE NEGATIVE Urine Cannabinoids Screen NEGATIVE NEGATIVE Test 11/10/21 12:56 Range/Units White Blood Count 22.6 H 4.3-11.0 10^3/uL Red Blood Count 4.72 3.80-5.11 10^6/uL Hemoglobin 15.1 11.5-16.0 g/dL Hematocrit 44 35-52 % Mean Corpuscular Volume 93 80-99 fL Mean Corpuscular Hemoglobin 32 25-34 pg Mean Corpuscular Hemoglobin Concent 34 32-36 g/dL Red Cell Distribution Width 12.2 10.0-14.5 % Platelet Count 275 130-400 10^3/uL Mean Platelet Volume 9.5 9.0-12.2 fL Immature Granulocyte % (Auto) 1 % Neutrophils (%) (Auto) 84 H 42-75 % Lymphocytes (%) (Auto) 9 L 12-44 % Monocytes (%) (Auto) 7 0-12 % Eosinophils (%) (Auto) 0 0-10 % Basophils (%) (Auto) 0 0-10 % Neutrophils # (Auto) 18.9 H 1.8-7.8 10^3/uL Lymphocytes # (Auto) 1.9 1.0-4.0 10^3/uL Monocytes # (Auto) 1.5 H 0.0-1.0 10^3/uL Eosinophils # (Auto) 0.0 0.0-0.3 10^3/uL Basophils # (Auto) 0.1 0.0-0.1 10^3/uL Immature Granulocyte # (Auto) 0.1 0.0-0.1 10^3/uL Neutrophils % (Manual) 84 % Lymphocytes % (Manual) 7 % Monocytes % (Manual) 7 % Eosinophils % (Manual) 1 % Band Neutrophils 1 % Blood Morphology Comment NORMAL Sodium Level 132 L 135-145 MMOL/L Potassium Level 4.6 3.6-5.0 MMOL/L Chloride Level 104 98-107 MMOL/L Carbon Dioxide Level 11 L 21-32 MMOL/L Anion Gap 17 H 5-14 MMOL/L Blood Urea Nitrogen 17 7-18 MG/DL Creatinine 0.97 0.60-1.30 MG/DL Estimat Glomerular Filtration Rate 85 BUN/Creatinine Ratio 18 Glucose Level 545 *H 70-105 MG/DL Lactic Acid Level 0.55 0.50-2.00 MMOL/L Calcium Level 7.8 L 8.5-10.1 MG/DL Corrected Calcium 8.1 L 8.5-10.1 MG/DL Total Bilirubin 0.5 0.1-1.0 MG/DL Aspartate Amino Transf (AST/SGOT) 27 5-34 U/L Alanine Aminotransferase (ALT/SGPT) 51 0-55 U/L Alkaline Phosphatase 146 H 40-136 U/L Total Protein 6.6 6.4-8.2 GM/DL Albumin 3.6 3.2-4.5 GM/DL Lipase 21 8-78 U/L Beta-Hydroxybutyrate (Chem panel) 4.86 H 0.00-0.27 MMOL/L Salicylates Level < 5.0 L 5.0-20.0 MG/DL Acetaminophen Level < 10 L 10-30 UG/ML Serum Alcohol < 10 <10 MG/DL My Orders Orders - CARLO MCKINNEY Cbc With Automated Diff (11/10/21 11:34) Comprehensive Metabolic Panel (11/10/21 11:34) Beta Hydroxybutyrate (11/10/21 11:34) Lactic Acid Analyzer (11/10/21 11:34) Arterial Blood Gas (11/10/21 11:34) Ua Culture If Indicated (11/10/21 11:34) Hcg,Qualitative Serum (11/10/21 11:34) Lipase (11/10/21 11:34) Drug Screen Stat (Urine) (11/10/21 11:34) Ns Iv 1000 Ml (Sodium Chloride 0.9%) (11/10/21 11:34) Alcohol (11/10/21 11:39) Acetaminophen (11/10/21 11:39) Salicylate (11/10/21 11:39) Manual Differential (11/10/21 12:56) Insulin (Regular) Human (Novolin R (Per (11/10/21 13:30) Ed Admission (Communication) (11/10/21 13:39) Medications Given in ED Current Medications Medications Dose Ordered Sig/Sisi Route Start Time Stop Time Status Last Admin Dose Admin Insulin Human Regular 10 unit ONCE ONCE SC 11/10/21 13:30 11/10/21 13:31 DC 11/10/21 13:43 10 UNIT Vital Signs/I&O 11/10/21 11:22 Temp 36.4 Pulse 102 Resp 16 B/P (MAP) 110/60 (77) Pulse Ox 99 Capillary Refill : Less Than 3 Seconds Blood Pressure Mean: 77 Departure Communication (Admissions) Time/Spoke to Admitting Phy: 13:[address] Brandon who accepts patient to ICU for DKA. Patient vital signs stable. Blood sugar 536. Was given 10 units subcu insulin. Was given 2 L of fluid. pH 7.23. Bicarb of 13. A slightly dehydrated with normal kidney function. Normal lactic acid. Negative for . Positive for methamphetamine use. She did have generalized abdominal pain but that has improved. White blood count 22,000. She is not tachycardic or hypoxic. CT imaging of the belly was held. Patient will be admitted to the ICU for DKA.. Blood sugar improved to 500 Impression Primary Impression: DKA (diabetic ketoacidosis) Disposition: ADMITTED INPATIENT Condition: Stable Admissions Decision to Admit Reason: Admit from ER (General) Decision to Admit/Date: Nov 10, 2021 Time/Decision to Admit Time: 13:37 Departure-Patient Inst. Referrals: [facility] (PCP/Family) Primary Care Physician CARLO MCKINNEY Nov 10, 2021 11:43
[2021-11-10 12:51] LABS: ABG BASE EXCESS -12.8 MMOL/L (-2.5-2.5); ABG OXYGEN SATURATION 94 % (94-100); ABG PCO2 32 MMHG (35-45); ABG PO2 70 MMHG (79-93); ABG TCO2 14.3 MMOL/L (21.0-31.0)
[2021-11-10 12:54] LABS: ABG PH 7.23 (7.37-7.43); INSPIRED O2 ROOM AIR; PATIENT TEMP 36.4; VENTILATOR NO
[2021-11-10 12:55] LABS: BILIRUBIN,URINE NEGATIVE (NEGATIVE); CLARITY,URINE CLEAR; COLOR,URINE YELLOW; GLUCOSE, URINE (UA) 3+ (NEGATIVE); KETONES,URINE 1+ (NEGATIVE); LEUKOCYTE ESTERASE ,URINE TRACE (NEGATIVE); NITRITE,URINE NEGATIVE (NEGATIVE); PROTEIN,URINE NEGATIVE (NEGATIVE)
[2021-11-10 13:03] LABS: BASOPHILS # (AUTO) 0.1 10^3/uL (0.0-0.1); BASOPHILS % (AUTO) 0 % (0-10); EOSINOPHILS % (AUTO) 0 % (0-10); HEMATOCRIT 44 % (35-52); HEMOGLOBIN 15.1 g/dL (11.5-16.0); LYMPHOCYTES # (AUTO) 1.9 10^3/uL (1.0-4.0); LYMPHOCYTES % (AUTO) 9 % (12-44); MEAN CORPUSCULAR HEMOGLOBIN 32 pg (25-34); MEAN CORPUSCULAR HGB CONC 34 g/dL (32-36); MEAN CORPUSCULAR VOLUME 93 fL (80-99); MEAN PLATELET VOLUME 9.5 fL (9.0-12.2); MONOCYTES # (AUTO) 1.5 10^3/uL (0.0-1.0); MONOCYTES % (AUTO) 7 % (0-12); NEUTROPHILS # (AUTO) 18.9 10^3/uL (1.8-7.8); NEUTROPHILS % (AUTO) 84 % (42-75); PLATELET COUNT 275 10^3/uL (130-400); WHITE BLOOD COUNT 22.6 10^3/uL (4.3-11.0)
[2021-11-10 13:08] LABS: BACTERIA,URINE TRACE /HPF
[2021-11-10 13:09] LABS: AMPHETAMINE SCREEN, URINE NEGATIVE (NEGATIVE); BARBITURATE SCREEN URINE NEGATIVE (NEGATIVE); BENZODIAZEPINES SCREEN URINE NEGATIVE (NEGATIVE); CANNABINOID SCREEN, URINE NEGATIVE (NEGATIVE); COCAINE SCREEN URINE NEGATIVE (NEGATIVE); METHADONE STAT NEGATIVE (NEGATIVE); METHAMPHETAMINE SCREEN URINE S POSITIVE (NEGATIVE); OPIATE SCREEN URINE NEGATIVE (NEGATIVE); OXYCODONE STAT NEGATIVE (NEGATIVE); PROPOXYPHENE STAT NEGATIVE (NEGATIVE); TRICYCLIC ANTIDEPRESSANTS SCRE NEGATIVE (NEGATIVE)
[2021-11-10 13:14] LABS: CHLORIDE 104 MMOL/L (98-107); POTASSIUM 4.6 MMOL/L (3.6-5.0); SODIUM 132 MMOL/L (135-145)
[2021-11-10 13:15] LABS: ALBUMIN 3.6 GM/DL (3.2-4.5)
[2021-11-10 13:16] LABS: CALCIUM 7.8 MG/DL (8.5-10.1)
[2021-11-10 13:17] LABS: TOTAL PROTEIN 6.6 GM/DL (6.4-8.2)
[2021-11-10 13:18] LABS: CARBON DIOXIDE 11 MMOL/L (21-32)
[2021-11-10 13:19] LABS: BILIRUBIN,TOTAL 0.5 MG/DL (0.1-1.0); GLUCOSE 545 MG/DL (70-105)
[2021-11-10 13:21] LABS: ALKALINE PHOSPHATASE 146 U/L (40-136); CREATININE SERUM 0.97 MG/DL (0.60-1.30); GFR ESTIMATED 85
[2021-11-10 13:22] LABS: BUN/CREATININE RATIO 18
[2021-11-10 13:23] LABS: BAND NEUTROPHILS 1 %; EOSINOPHILS % (MANUAL) 1 %; LYMPHOCYTES % (MANUAL) 7 %; MONOCYTES % (MANUAL) 7 %; NEUTROPHILS % (MANUAL) 84 %; SALICYLATE < 5.0 MG/DL (5.0-20.0)
[2021-11-10 13:24] LABS: ALANINE AMINOTRANSFERASE 51 U/L (0-55); RBC MORPH NORMAL
[2021-11-10 13:25] LABS: LIPASE 21 U/L (8-78)
[2021-11-10 13:26] LABS: ACETAMINOPHEN < 10 UG/ML (10-30)
[2021-11-10] MEDS ORDERED: inSUlin (REGULAR) HUMAN 1 UNIT/0.01 ML (CHARGE PER UNIT) SC ONE (13:30)
[2021-11-10] MEDS ORDERED: NS IV 1000 ML 1,000 ML IV SCH (14:15)
--- NOTE | 2021-11-10 14:33 | Tele-ICU Progress Note ---
Subjective Date Seen by a Provider: Nov 10, 2021 Time Seen by a Provider: 14:00 Subjective/Events-last exam This virtual visit was conducted using real time audio/video. Thank you for asking us to see this patient for DKA, vomiting, Positive urine tox. for amphetamines. PMH: asthma, DM1. SH: smoking history :N FH: Non-contributory ROS: Negative as in HPI. PE: VSS. O2 sat 99% on RA HEENT: No obvious masses, adenopathy or JVD. Chest: clear to auscultation. CV: RRR S1 S2 No murmur or added sounds. Abd: Non-tender. Bowel sounds Y. : Unremarkable. Amador N. 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 SERVICES COORDINATOR/psychiatric: Grossly intact. No obvious focal findings. Extremities: No edema. Capillary refill < 3 seconds. Skin: unremarkable. Results: Elevated WCC 22.6, BG 545, AG 17. Decreased Na 132. B.23/32/70. CXR: Not done. Available chart/ vitals / labs / images reviewed. Video assessment done using teleICU camera, rest of exam as per RN. A/P: DKA: cont IVF, IV insulin, PRN antiemetics. Discussed with RN Shagufta. Asked RN to reach out to eICU if any questions or concerns later. Time spent with patient/coordination of care with other health professionals (mins): 22 Sepsis Event Evaluation Height, Weight, BMI Height: 5'2.00" Weight: 210lbs. 0.0oz. 95.726867nz; 24.00 BMI Method:Stated Focused Exam Lactate Level 11/10/21 12:56: Lactic Acid Level 0.55 Lactic Acid Level Laboratory Tests Test 11/10/21 12:56 Lactic Acid Level 0.55 MMOL/L (0.50-2.00) Exam Exam Patient acknowledged, consented, and participated in this virtual visit which was conducted using real time audio/video Vital Signs Date Time Temp Pulse Resp B/P (MAP) Pulse Ox O2 Delivery O2 Flow Rate FiO2 11/10/21 14:19 85 15 114/70 100 11/10/21 11:22 36.4 102 16 110/60 (77) 99 Height & Weight Height: 5'2.00" Weight: 210lbs. 0.0oz. 95.372441qw; 24.00 BMI Method:Stated General Appearance: No Apparent Distress, Other (Sleepy but arousable) HEENT: PERRL/EOMI, TMs Normal, Normal ENT Inspection, Pharynx Normal Neck: Full Range of Motion, Normal Inspection, Non Tender, Supple Respiratory: Chest Non Tender, Lungs Clear, Normal Breath Sounds, No Accessory Muscle Use, No Respiratory Distress Cardiovascular: Regular Rate, Rhythm, No Edema, No Gallop, No JVD, No Murmur Capillary Refill: Less Than 3 Seconds Extremity: Normal Capillary Refill, Normal Inspection Neurologic/Psychiatric: Alert, Oriented x3 Skin: Normal Color, Warm/Dry Results Lab Laboratory Tests 11/10/21 12:56 Assessment/Plan Assessment/Plan See free text Critical Care: Critically Ill Patient FANNY ABEBE MD Nov 10, 2021 14:33
[2021-11-10 14:45] VITALS: BP 108/69
[2021-11-10] MEDS: POTASSIUM CL 10MEQ/50ML IVPB 50 ML IV SCH ×5 (15:11→23:27)
[2021-11-10] MEDS: 1/2 NS IV SOLUTION 1,000 ML IV SCH ×3 (15:13→23:40)
[2021-11-10 15:15] VITALS: BP 106/72
[2021-11-10 15:18] LABS: HEMATOCRIT 48 % (35-52); HEMOGLOBIN 16.1 g/dL (11.5-16.0); MEAN CORPUSCULAR HEMOGLOBIN 32 pg (25-34); MEAN CORPUSCULAR HGB CONC 34 g/dL (32-36); MEAN CORPUSCULAR VOLUME 94 fL (80-99); MEAN PLATELET VOLUME 9.4 fL (9.0-12.2); PLATELET COUNT 293 10^3/uL (130-400); WHITE BLOOD COUNT 22.6 10^3/uL (4.3-11.0)
[2021-11-10 15:30] LABS: POTASSIUM 4.3 MMOL/L (3.6-5.0)
[2021-11-10 15:31] LABS: CALCIUM 8.4 MG/DL (8.5-10.1)
[2021-11-10 15:35] LABS: CREATININE SERUM 1.17 MG/DL (0.60-1.30)
[2021-11-10 15:45] VITALS: BP 107/64
[2021-11-10 18:00] VITALS: BP 121/77
[2021-11-10] MEDS: D5 1/2 NS 1000 ML IV SOLUTION 1,000 ML IV SCH ×2 (18:32→23:27)
[2021-11-10 19:05] LABS: POTASSIUM 3.8 MMOL/L (3.6-5.0)
[2021-11-10 19:06] LABS: CALCIUM 8.4 MG/DL (8.5-10.1)
[2021-11-10 19:11] LABS: CREATININE SERUM 0.79 MG/DL (0.60-1.30)
[2021-11-10 21:41] LABS: CALCIUM 7.8 MG/DL (8.5-10.1); CREATININE SERUM 0.72 MG/DL (0.60-1.30)
[2021-11-10 22:12] VITALS: BP 131/83
[2021-11-10 23:24] VITALS: BP 130/76
[2021-11-11] VITALS (16 sets, daily range): BP systolic 91–115; BP diastolic 56–81
[2021-11-11] MEDS: D5 1/2 NS 1000 ML IV SOLUTION 1,000 ML IV SCH ×3 (02:08→10:24)
[2021-11-11] MEDS: POTASSIUM CL 10MEQ/50ML IVPB 50 ML IV SCH ×4 (02:08→10:38)
[2021-11-11] MEDS: 1/2 NS IV SOLUTION 1,000 ML IV SCH ×4 (02:15→14:20)
[2021-11-11 04:47] LABS: BASOPHILS % (AUTO) 0 % (0-10); EOSINOPHILS # (AUTO) 0.1 10^3/uL (0.0-0.3); EOSINOPHILS % (AUTO) 1 % (0-10); HEMATOCRIT 39 % (35-52); HEMOGLOBIN 13.7 g/dL (11.5-16.0); LYMPHOCYTES # (AUTO) 4.2 10^3/uL (1.0-4.0); LYMPHOCYTES % (AUTO) 32 % (12-44); MEAN CORPUSCULAR HEMOGLOBIN 32 pg (25-34); MEAN CORPUSCULAR HGB CONC 35 g/dL (32-36); MEAN CORPUSCULAR VOLUME 91 fL (80-99); MEAN PLATELET VOLUME 9.4 fL (9.0-12.2); MONOCYTES # (AUTO) 1.1 10^3/uL (0.0-1.0); MONOCYTES % (AUTO) 8 % (0-12); NEUTROPHILS # (AUTO) 7.8 10^3/uL (1.8-7.8); NEUTROPHILS % (AUTO) 59 % (42-75); PLATELET COUNT 279 10^3/uL (130-400); WHITE BLOOD COUNT 13.3 10^3/uL (4.3-11.0)
[2021-11-11 04:54] LABS: POTASSIUM 3.8 MMOL/L (3.6-5.0)
[2021-11-11 04:57] LABS: TOTAL PROTEIN 5.5 GM/DL (6.4-8.2)
[2021-11-11 04:58] LABS: BILIRUBIN,TOTAL 0.5 MG/DL (0.1-1.0)
[2021-11-11 05:00] LABS: CREATININE SERUM 0.71 MG/DL (0.60-1.30); PHOSPHORUS 1.8 MG/DL (2.3-4.7)
[2021-11-11 05:03] LABS: MAGNESIUM 1.7 MG/DL (1.6-2.4)
[2021-11-11] MEDS ORDERED: MAGNESIUM 1 GM/100 ML IVPB 100 ML IV SCH (06:00)
[2021-11-11] MEDS ORDERED: KCL 20 MEQ TAB (K-DUR) PO SCH (06:00)
[2021-11-11] MEDS ORDERED: POTASSIUM CL 10MEQ/50ML IVPB 50 ML IV SCH (06:00)
[2021-11-11] MEDS: MAGNESIUM 1 GM/100 ML IVPB 100 ML IV SCH ×2 (06:24→07:20)
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
--- NOTE | 2021-11-11 08:50 | Tele-ICU Progress Note ---
Subjective Date Seen by a Provider: Nov 11, 2021 Time Seen by a Provider: 08:50 Subjective/Events-last exam (Tele-ICU Physician , Progress Note ) Available chart/ vitals / labs / Images reviewed Video assessment done using teleICU camera, rest of exam as per RN Discussed with RN , EXAM PER RN Events overnight : Afebrile FiO2 - ra I/O = + Drips: insulin Pressors: , hemodynamically stable Consultants: Hospital course: (11/10) 21f admitted for DKA. (+) methamphetamine A/P DKA insulin drip continue to monitor for resolution of acidosis, AG and electrolytes. Continue hydration. Leukocytosis - reactive, , UA unremarkable >off ABX , follow Lines : (Central Line Necessity Reviewed) [place]: void OG: Nutrition: Analgesia: Anxiety/ delirium VTE Prophylaxis: scd ambulate Stress Ulcer Prophylaxis: po Plans in collaboration with bedside consultants and IM MDs. Discussed with RN to reach out if any questions or concerns A total of 15 minutes of critical care time was devoted to this patient today, required to treat and/or prevent further deterioration of critical care condition ( as above) . Sepsis Event Evaluation Height, Weight, BMI Height: 5'2.00" Weight: 210lbs. 0.0oz. [id number]; 23.04 BMI Method:Stated Focused Exam Lactate Level 11/10/21 12:56: Lactic Acid Level 0.55 Exam Exam Patient acknowledged, consented, and participated in this virtual visit which was conducted using real time audio/video Vital Signs Date Time Temp Pulse Resp B/P (MAP) Pulse Ox O2 Delivery O2 Flow Rate FiO2 11/11/21 08:00 75 34 100 Room Air 11/11/21 08:00 36.9 11/11/21 07:00 94 99 Room Air 11/11/21 06:00 93 13 114/65 (81) 98 Room Air 11/11/21 05:00 82 17 108/72 (84) 99 Room Air 11/11/21 04:00 93 16 107/74 (85) 97 Room Air 11/11/21 04:00 100 Room Air 11/11/21 03:00 93 14 114/65 (81) 98 Room Air 11/11/21 02:00 90 18 110/65 (80) 99 Room Air 11/11/21 01:13 93 15 112/65 (81) 98 Room Air 11/11/21 01:00 98 11/11/21 00:00 100 Room Air 11/10/21 23:24 98 28 130/76 (94) 98 Room Air 11/10/21 23:00 80 14 100 Room Air 11/10/21 22:12 96 22 131/83 (99) 98 Room Air 11/10/21 22:00 81 15 99 Room Air 11/10/21 21:00 90 10 100 Room Air 11/10/21 20:00 100 Room Air 11/10/21 20:00 75 34 100 Room Air 11/10/21 19:00 84 39 99 Room Air 11/10/21 19:00 84 11/10/21 18:00 78 23 121/77 (92) 99 Room Air 11/10/21 16:40 100 Room Air 11/10/21 16:00 100 Room Air 11/10/21 15:45 69 26 107/64 (78) 100 Room Air 11/10/21 15:15 67 16 106/72 (83) 100 Room Air 11/10/21 14:49 80 11/10/21 14:45 80 20 108/69 (82) 97 Room Air 11/10/21 14:19 85 15 114/70 100 11/10/21 11:22 36.4 102 16 110/60 (77) 99 I & O 11/11/21 07:00 Intake Total 6250 ml Output Total 500 ml Balance 5750 ml Height & Weight Height: 5'2.00" Weight: 210lbs. 0.0oz. [id number]; 23.04 BMI Method:Stated General Appearance: No Apparent Distress, Other (Sleepy but arousable) HEENT: PERRL/EOMI, TMs Normal, Normal ENT Inspection, Pharynx Normal Neck: Full Range of Motion, Normal Inspection, Non Tender, Supple Respiratory: Chest Non Tender, Lungs Clear, Normal Breath Sounds, No Accessory Muscle Use, No Respiratory Distress Cardiovascular: Regular Rate, Rhythm, No Edema, No Gallop, No JVD, No Murmur Capillary Refill: Less Than 3 Seconds Extremity: Normal Capillary Refill, Normal Inspection Neurologic/Psychiatric: Alert, Oriented x3 Skin: Normal Color, Warm/Dry Results Lab Laboratory Tests 11/10/21 12:56 11/10/21 15:10 11/10/21 18:45 11/10/21 21:09 11/11/21 04:35 Assessment/Plan Assessment/Plan ` ALLIE VAZQUEZ MD Nov 11, 2021 08:50
[2021-11-11] MEDS ORDERED: IBUPROFEN 600 MG (MOTRIN) TAB PO PRN (12:00)
[2021-11-11] MEDS: inSUlin ASPART (NovoLOG) 1 UNIT/0.01 ML (CHARGE PER UNIT) SC SCH ×4 (12:16→20:40)
[2021-11-11] MEDS: ENOXAPARIN 40 MG/0.4 ML (LOVENOX) SYR SQ SCH (12:24)
[2021-11-11 13:59] LABS: POTASSIUM 4.1 MMOL/L (3.6-5.0)
[2021-11-11 14:01] LABS: CALCIUM 7.6 MG/DL (8.5-10.1)
[2021-11-11 14:05] LABS: CREATININE SERUM 0.75 MG/DL (0.60-1.30)
[2021-11-12 00:32] VITALS: BP 96/58
[2021-11-12 04:20] VITALS: BP 104/64
[2021-11-12] MEDS: inSUlin ASPART (NovoLOG) 1 UNIT/0.01 ML (CHARGE PER UNIT) SC SCH ×4 (05:00→12:26)
[2021-11-12 05:54] LABS: BASOPHILS % (AUTO) 0 % (0-10); EOSINOPHILS # (AUTO) 0.1 10^3/uL (0.0-0.3); EOSINOPHILS % (AUTO) 1 % (0-10); HEMATOCRIT 37 % (35-52); HEMOGLOBIN 12.9 g/dL (11.5-16.0); LYMPHOCYTES # (AUTO) 3.9 10^3/uL (1.0-4.0); LYMPHOCYTES % (AUTO) 55 % (12-44); MEAN CORPUSCULAR HEMOGLOBIN 32 pg (25-34); MEAN CORPUSCULAR HGB CONC 35 g/dL (32-36); MEAN CORPUSCULAR VOLUME 91 fL (80-99); MEAN PLATELET VOLUME 9.5 fL (9.0-12.2); MONOCYTES # (AUTO) 0.6 10^3/uL (0.0-1.0); MONOCYTES % (AUTO) 9 % (0-12); NEUTROPHILS # (AUTO) 2.6 10^3/uL (1.8-7.8); NEUTROPHILS % (AUTO) 36 % (42-75); PLATELET COUNT 193 10^3/uL (130-400); WHITE BLOOD COUNT 7.2 10^3/uL (4.3-11.0)
[2021-11-12 06:13] LABS: ALBUMIN 2.8 GM/DL (3.2-4.5); POTASSIUM 3.3 MMOL/L (3.6-5.0)
[2021-11-12 06:14] LABS: CALCIUM 7.9 MG/DL (8.5-10.1)
[2021-11-12 06:15] LABS: TOTAL PROTEIN 5.4 GM/DL (6.4-8.2)
[2021-11-12 06:17] LABS: BILIRUBIN,TOTAL 0.2 MG/DL (0.1-1.0)
[2021-11-12 06:19] LABS: CREATININE SERUM 0.57 MG/DL (0.60-1.30)
[2021-11-12 07:29] VITALS: BP 102/56
[2021-11-12] MEDS ORDERED: INSU100I29 SQ (08:35)
[2021-11-12] MEDS ORDERED: INSU100I14 SQ (08:35)
[2021-11-12] MEDS ORDERED: KCL 20 MEQ TAB (K-DUR) PO ONE (08:45)
[2021-11-12 11:07] VITALS: BP 95/59
[2021-11-12] MEDS: ENOXAPARIN 40 MG/0.4 ML (LOVENOX) SYR SQ SCH (12:27)
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
[2021-11-12 15:51] VITALS: BP 95/59
[2021-11-12 15:53] VITALS: BP 95/59
[2021-11-12 21:45] LABS: HEPATITIS C ANTIBODY C Non-Reactive (Non-Reactive)
== END 2021-11-12 15:18 | disposition home or self-care (01) | DRG 638 ==
LOC: EDUNIT# 11:22 → ER 11:23 → ICU 13:39 → 4TH 11-11 15:47
PROVIDERS: ADMIT Family Medicine; ATTEND Family Medicine
DX: E10.10 Type 1 diabetes mellitus with ketoacidosis without coma (principal); E87.1 Hypo-osmolality and hyponatremia; F15.10 Other stimulant abuse, uncomplicated; E86.0 Dehydration; R41.0 Disorientation, unspecified; F41.9 Anxiety disorder, unspecified; Z79.4 Long term (current) use of insulin
CPT/HCPCS: 36410; 36415; 76937; 80048; 80053; 80074; 80306; 80320; 80329; 81000; 82010; 82805; 82947; 83036; 83605; 83690; 83735; 84100; 84703; 85007; 85025; 85027; 87081

== ENCOUNTER 2021-11-18 23:00 | Inpatient (IN) | payer SELFPAY ==
[~2021-11-18] VITALS: Ht 157.4 cm; Wt 62.1 kg
[2021-11-18] MEDS ORDERED: inSUlin ASPART (NovoLOG) 1 UNIT/0.01 ML (CHARGE PER UNIT) SC ONE (23:15)
[2021-11-18] MEDS ORDERED: NS IV 1000 ML 1,000 ML IV SCH (23:15)
[2021-11-18 23:33] LABS: BASOPHILS # (AUTO) 0.3 10^3/uL (0.0-0.1); BASOPHILS % (AUTO) 2 % (0-10); EOSINOPHILS % (AUTO) 0 % (0-10); HEMATOCRIT 50 % (35-52); HEMOGLOBIN 15.7 g/dL (11.5-16.0); LYMPHOCYTES # (AUTO) 2.8 10^3/uL (1.0-4.0); LYMPHOCYTES % (AUTO) 19 % (12-44); MEAN CORPUSCULAR HEMOGLOBIN 32 pg (25-34); MEAN CORPUSCULAR HGB CONC 31 g/dL (32-36); MEAN CORPUSCULAR VOLUME 101 fL (80-99); MEAN PLATELET VOLUME 9.6 fL (9.0-12.2); MONOCYTES # (AUTO) 0.5 10^3/uL (0.0-1.0); MONOCYTES % (AUTO) 4 % (0-12); NEUTROPHILS # (AUTO) 10.6 10^3/uL (1.8-7.8); NEUTROPHILS % (AUTO) 71 % (42-75); PLATELET COUNT 402 10^3/uL (130-400)
[2021-11-18 23:42] LABS: ALBUMIN 4.7 GM/DL (3.2-4.5); CHLORIDE 91 MMOL/L (98-107); POTASSIUM 4.9 MMOL/L (3.6-5.0); SODIUM 129 MMOL/L (135-145)
[2021-11-18 23:43] LABS: CALCIUM 9.5 MG/DL (8.5-10.1)
[2021-11-18 23:45] LABS: TOTAL PROTEIN 8.8 GM/DL (6.4-8.2)
[2021-11-18 23:47] LABS: BILIRUBIN,TOTAL 0.3 MG/DL (0.1-1.0)
[2021-11-18 23:48] LABS: ALKALINE PHOSPHATASE 257 U/L (40-136); PHOSPHORUS 6.9 MG/DL (2.3-4.7)
[2021-11-18 23:49] LABS: CREATININE SERUM 1.39 MG/DL (0.60-1.30); GFR ESTIMATED 55
[2021-11-18 23:50] LABS: BUN/CREATININE RATIO 17
[2021-11-18 23:51] LABS: ALANINE AMINOTRANSFERASE 142 U/L (0-55); MAGNESIUM 2.7 MG/DL (1.6-2.4)
[2021-11-18 23:52] LABS: LIPASE 18 U/L (8-78)
[2021-11-18 23:54] LABS: CARBON DIOXIDE < 5 MMOL/L (21-32); GLUCOSE 711 MG/DL (70-105)
[2021-11-19] MEDS ORDERED: 1/2 NS IV SOLUTION 1,000 ML IV SCH
[2021-11-19] MEDS ORDERED: POTASSIUM CL 10MEQ/50ML IVPB 50 ML IV SCH
[2021-11-19 00:25] LABS: ABG BASE EXCESS -26.9 MMOL/L (-2.5-2.5); ABG OXYGEN SATURATION 97 % (94-100); ABG PO2 122 MMHG (79-93)
[2021-11-19 00:26] LABS: ABG PCO2 9 MMHG (35-45); ABG PH 7.04 (7.37-7.43)
[2021-11-19 00:27] LABS: ABG TCO2 2.8 MMOL/L (21.0-31.0); ALLENS TEST YES-POS; INSPIRED O2 ROOM AIR; PATIENT TEMP 35.8; VENTILATOR NO
[2021-11-19] MEDS: POTASSIUM CL 10MEQ/50ML IVPB 50 ML IV SCH ×7 (00:39→23:55)
--- NOTE | 2021-11-19 00:52 | ED General ---
General Chief Complaint: Glucose Problems Stated Complaint: MENTAL STATUS CHANGE, HIGH GLUCOSE Nursing Triage Note: PATIENT ARRIVED VIA EMS WITH C/O OF ABD PAIN, VOMITING AND ELEVATED BLOOD GLUCOSE. History of Present Illness Date Seen by Provider: Nov 18, 2021 Time Seen by Provider: 23:00 Initial Comments 21-year-old female with PMH of diabetes/drug abuse/noncompliance with insulin, is brought in by EMS with complaints of elevated blood sugar and mild confusion which began today. Patient's mouth and hands are bright red and when asked what she ate, patient states she had a frozen jello popsicle before EMS came. Patient smells like Jell-O. Patient feels tired and weak but is able to speak clearly and answer all questions asked of her. Patient states that she knew her blood sugar was rising because she felt she had to drink more and more water. Patient has associated complaints of nausea and vomiting. Denies fever, chest pain, abdominal pain, headache, dizziness, recent URI or any other infections, diarrhea. Allergies and Home Medications Allergies Coded Allergies: No Known Drug Allergies (Unverified , 08/12/12) Patient Home Medication List Home Medication List Reviewed: Yes Insulin Aspart (Novolog Flexpen) 300 Units/3 Ml Solution, 10 UNITS SQ AC Prescribed by: ISAÍAS ULLOA on 11/12/2135 Insulin Detemir (Levemir Flextouch) 100 Unit/1 Ml Insuln.pen, 20 UNIT SQ BID Prescribed by: ISAÍAS ULLOA on 11/12/21 0835 Review of Systems Review of Systems Constitutional: malaise EENTM: no symptoms reported Respiratory: no symptoms reported Cardiovascular: no symptoms reported Gastrointestinal: nausea, vomiting Genitourinary: no symptoms reported Musculoskeletal: no symptoms reported Skin: no symptoms reported Psychiatric/Neurological: No Symptoms Reported Hematologic/Lymphatic: No Symptoms Reported Immunological/Allergic: no symptoms reported Past Jybvuhz-Doijem-Gfgdms Hx Immunizations Up To Date Tetanus Booster (TDap): Less than 5yrs PED Vaccines UTD: No Seasonal Allergies Seasonal Allergies: No Past Medical History Surgery/Hospitalization HX: DIABETES TYPE 1 Surgeries: No Appendectomy, Ear Surgery Respiratory: No Asthma Currently Using CPAP: No Currently Using BIPAP: No Cardiac: No Hypertension Neurological: No Reproductive Disorders: No Female Reproductive Disorders: Denies Sexually Transmitted Disease: No HIV/AIDS: No Genitourinary: No UTI-Chronic Gastrointestinal: No Musculoskeletal: No Endocrine: Yes Diabetes, Insulin dep HEENT: No Chronic Ear Infection, Tonsilitis Loss of Vision: Denies Hearing Impairment: Denies Cancer: No Psychosocial: Yes Anxiety Integumentary: No Blood Disorders: No Adverse Reaction/Blood Tranf: No Family Medical History Colon cancer 19 MOTHER (copd ; breast cancer ) Cystic fibrosis (nephew has CF ) Hypertension 19 MOTHER (copd ; breast cancer ) Cancer, Hypertension Physical Exam Vital Signs Vital Signs - First Documented 11/18/21 23:02 Temp 35.8 Pulse 84 Resp 21 B/P (MAP) 114/70 (85) Pulse Ox 100 O2 Delivery Room Air Capillary Refill : Less Than 3 Seconds Height, Weight, BMI Height: 5'2.00" Weight: 210lbs. 0.0oz. 95.752529ye; 23.00 BMI Method:Stated General Appearance: Mild Distress, Thin HEENT: PERRL/EOMI, Pharynx Normal Neck: Full Range of Motion, Normal Inspection, Supple Respiratory: Lungs Clear, Normal Breath Sounds, No Accessory Muscle Use, No Respiratory Distress Cardiovascular: Regular Rate, Rhythm, No Edema, No Murmur Gastrointestinal: Normal Bowel Sounds, Non Tender, Soft Back: No CVA Tenderness Extremity: Normal Range of Motion Neurologic/Psychiatric: Alert, Oriented x3, No Motor/Sensory Deficits, Normal Mood/Affect, Other (Pt is only mildly intermittently ) Focused Exam Lactate Level 11/19/21 00:02: Lactic Acid Level 0.87 Lactic Acid Level Laboratory Tests Test 11/19/21 00:02 Lactic Acid Level 0.87 MMOL/L (0.50-2.00) Procedures/Interventions Date of ETT Placement: Jul 09, 2019 Time of ETT Placement: 1435 Progress/Results/Core Measures Suspected Sepsis SIRS Temperature: Pulse: 84 Respiratory Rate: 21 Laboratory Tests 11/18/21 23:26: White Blood Count 15.0H Blood Pressure 114 /70 Mean: 85 11/19/21 00:02: Lactic Acid Level 0.87 Laboratory Tests 11/18/21 23:26: Creatinine 1.39H, Platelet Count 402H, Total Bilirubin 0.3 Results/Orders Lab Results Laboratory Tests Test 11/18/21 00:08 11/18/21 23:26 11/18/21 23:32 11/19/21 00:02 Range/Units Blood Gas Puncture Site RIGHT RADIAL Blood Gas Patient Temperature 35.8 Arterial Blood pH 7.04 *L 7.06 *L 7.37-7.43 Arterial Blood Partial Pressure CO2 9 *L 35-45 MMHG Arterial Blood Partial Pressure O2 122 H 79-93 MMHG Arterial Blood HCO3 3 *L 23-27 MMOL/L Arterial Blood Total CO2 2.8 *L 21.0-31.0 MMOL/L Arterial Blood Oxygen Saturation 97 94-100 % Arterial Blood Base Excess -26.9 L -2.5-2.5 MMOL/L Montez Test YES-POS Blood Gas Ventilator Setting NO Blood Gas Inspired Oxygen ROOM AIR White Blood Count 15.0 H 4.3-11.0 10^3/uL Red Blood Count 4.96 3.80-5.11 10^6/uL Hemoglobin 15.7 # 11.5-16.0 g/dL Hematocrit 50 35-52 % Mean Corpuscular Volume 101 H 80-99 fL Mean Corpuscular Hemoglobin 32 25-34 pg Mean Corpuscular Hemoglobin Concent 31 L 32-36 g/dL Red Cell Distribution Width 12.7 10.0-14.5 % Platelet Count 402 H 130-400 10^3/uL Mean Platelet Volume 9.6 9.0-12.2 fL Immature Granulocyte % (Auto) 5 % Neutrophils (%) (Auto) 71 42-75 % Lymphocytes (%) (Auto) 19 12-44 % Monocytes (%) (Auto) 4 0-12 % Eosinophils (%) (Auto) 0 0-10 % Basophils (%) (Auto) 2 0-10 % Neutrophils # (Auto) 10.6 H 1.8-7.8 10^3/uL Lymphocytes # (Auto) 2.8 1.0-4.0 10^3/uL Monocytes # (Auto) 0.5 0.0-1.0 10^3/uL Eosinophils # (Auto) 0.0 0.0-0.3 10^3/uL Basophils # (Auto) 0.3 H 0.0-0.1 10^3/uL Immature Granulocyte # (Auto) 0.8 H 0.0-0.1 10^3/uL Sodium Level 129 L 135-145 MMOL/L Potassium Level 4.9 3.6-5.0 MMOL/L Chloride Level 91 L 98-107 MMOL/L Carbon Dioxide Level < 5 *L 21-32 MMOL/L Anion Gap 33 H 5-14 MMOL/L Blood Urea Nitrogen 24 H 7-18 MG/DL Creatinine 1.39 H 0.60-1.30 MG/DL Estimat Glomerular Filtration Rate 55 BUN/Creatinine Ratio 17 Glucose Level 711 *H 70-105 MG/DL Calcium Level 9.5 8.5-10.1 MG/DL Corrected Calcium 8.5-10.1 MG/DL Phosphorus Level 6.9 H 2.3-4.7 MG/DL Magnesium Level 2.7 H 1.6-2.4 MG/DL Total Bilirubin 0.3 0.1-1.0 MG/DL Aspartate Amino Transf (AST/SGOT) 45 H 5-34 U/L Alanine Aminotransferase (ALT/SGPT) 142 H 0-55 U/L Alkaline Phosphatase 257 H 40-136 U/L Troponin I < 0.028 <0.028 NG/ML Total Protein 8.8 H 6.4-8.2 GM/DL Albumin 4.7 H 3.2-4.5 GM/DL Lipase 18 8-78 U/L Procalcitonin 0.09 <0.10 NG/ML Serum Alcohol < 10 <10 MG/DL Lactic Acid Level 0.87 0.50-2.00 MMOL/L Test 11/19/21 00:45 Range/Units Urine Color YELLOW Urine Clarity CLEAR Urine pH 5.0 5-9 Urine Specific Carey 1.025 H 1.016-1.022 Urine Protein NEGATIVE NEGATIVE Urine Glucose (UA) 3+ H NEGATIVE Urine Ketones 3+ H NEGATIVE Urine Nitrite NEGATIVE NEGATIVE Urine Bilirubin NEGATIVE NEGATIVE Urine Urobilinogen 0.2 < = 1.0 MG/DL Urine Leukocyte Esterase NEGATIVE NEGATIVE Urine RBC (Auto) TRACE-I H NEGATIVE Urine RBC NONE /HPF Urine WBC NONE /HPF Urine Squamous Epithelial Cells 0-2 /HPF Urine Crystals NONE /LPF Urine Bacteria NEGATIVE /HPF Urine Casts NONE /LPF Urine Mucus NEGATIVE /LPF Urine Culture Indicated NO Urine Test NEGATIVE NEGATIVE Urine Opiates Screen NEGATIVE NEGATIVE Urine Oxycodone Screen NEGATIVE NEGATIVE Urine Methadone Screen NEGATIVE NEGATIVE Urine Propoxyphene Screen NEGATIVE NEGATIVE Urine Barbiturates Screen NEGATIVE NEGATIVE Ur Tricyclic Antidepressants Screen NEGATIVE NEGATIVE Urine Phencyclidine Screen NEGATIVE NEGATIVE Urine Amphetamines Screen NEGATIVE NEGATIVE Urine Methamphetamines Screen POSITIVE H NEGATIVE Urine Benzodiazepines Screen NEGATIVE NEGATIVE Urine Cocaine Screen NEGATIVE NEGATIVE Urine Cannabinoids Screen NEGATIVE NEGATIVE My Orders Orders - MATHIEU WOODRUFF MD Alcohol (11/18/21 23:05) Cbc With Automated Diff (11/18/21:05) Comprehensive Metabolic Panel (11/18/21:05) Drug Screen Stat (Urine) (11/18/21 23:05) Hcg,Qualitative Urine (11/18/21:05) Lipase (11/18/21:05) Magnesium (11/18/21:05) Procalcitonin (Pct) (11/18/21:05) Ua Culture If Indicated (11/18/21:05) Phosphorus (11/18/21:05) Accucheck Stat ONCE (11/18/21:) Troponin I Nan (11/18/21:05) Chest 1 View, Ap/Pa Only (11/18/21:05) Ns Iv 1000 Ml (Sodium Chloride 0.9%) (11/18/21 23:15) Ed Iv/Invasive Line Start (11/18/21 23:08) Ed Iv/Invasive Line Start (11/18/21 23:08) Abg Ph (11/18/21 23:08) Insulin Aspart (Novolog) (Novolog (Charg (11/18/21 23:15) Lactic Acid Analyzer (11/18/21 23:48) Arterial Blood Gas (11/18/21 23:48) Straight Cath (Urinary) (11/18/21 23:51) Accucheck Stat ONCE (11/19/21 00:00) Beta Hydroxybutyrate (11/19/21 00:00) Beta Hydroxybutyrate (11/20/21 00:00) Beta Hydroxybutyrate (11/21/21 00:00) Beta Hydroxybutyrate (11/22/21 00:00) Hemoglobin A1c (11/19/21 00:00) Vital Signs: Special (Order) Q2HX8 (11/19/21 00:00) Neurological Checks Q1HX8 (11/19/21 00:00) Oxygen Delivery Set Up (11/19/21 00:00) Ns Iv 1000 Ml (Sodium Chloride 0.9%) (11/19/21 00:00) 1/2 Ns Iv Solution (0.45% Sodium Chlorid (11/19/21 00:00) D5 1/2 Ns 1000 Ml Iv Solution (Dextrose (11/19/21 00:00) Insulin Regular Drip (Myxredlin 100 Unit (11/19/21 00:00) Nursing Communication (Order) (11/19/21 00:00) Notify Physician (11/19/21 00:00) Accucheck Q1hr Q1HR (11/19/21 00:00) Potassium Cl 10meq/50ml Ivpb (Kcl 10 Meq (11/19/21 00:00) Follow Hypoglycemia Protocol (11/19/21 00:00) Ed Admission (Communication) (11/19/21 00:45) Medications Given in ED Current Medications Medications Dose Ordered Sig/Sisi Route Start Time Stop Time Status Last Admin Dose Admin Insulin Aspart 7 unit ONCE ONCE SC 11/18/21 23:15 11/18/21 23:16 DC 11/18/21 23:17 7 UNIT Vital Signs/I&O 11/18/21 23:02 Temp 35.8 Pulse 84 Resp 21 B/P (MAP) 114/70 (85) Pulse Ox 100 O2 Delivery Room Air Capillary Refill : Less Than 3 Seconds Blood Pressure Mean: 85 Point of Care Testing Finger Stick Blood Glucose: 711 Progress Note : Progress Note 1. DKA : Compensated Respiratory Alkalosis/ DEHYDRATION: - ABG after initial insulin: Compensated Respiratory alkalosis: pH 7.40/ PCO:9/ HCO3:3, CO2: 2.8. - While waiting for pt to get a line, gave 7 units Aspart Insulin. - Pt able to converse and AOx3, with very mild intermittent AMS - CBC is 15 but overall unremarkable with normal lactate levels. - Pt is dehydrated with creatinineof 1.39 - Phosphorus elevated, potassium normal - Admission to ICU accepted by Dr Burns. - Consulted with E-ICU over phone, talked to Dr Marroquin. Discussed labs adn ABG, and will continue DKA protocols and pH will improve. - DKA protocols Diagnostic Imaging Diagonstic Imaging: Xray Plain Films/CT/US/NM/MRI: chest Departure Communication (Admissions) Time/Spoke to Admitting Phy: 23:[address] Burns: admit to ICU Time/Spoke to Consulting Phy: 00:15 Discussed with E-ICU , Dr Marroquin, initiated DKA protocols . Impression Primary Impression: DKA (diabetic ketoacidosis) Qualified Codes: E10.10 - Type 1 diabetes mellitus with ketoacidosis without coma Additional Impressions: Compensated respiratory alkalosis Dehydration Disposition: 30 STILL A PATIENT Condition: Critical Admissions Decision to Admit Reason: Admit from ER (General) Decision to Admit/Date: Nov 18, 2021 Time/Decision to Admit Time: 23:54 Departure-Patient Inst. Referrals: [facility] (PCP/Family) Primary Care Physician MATHIEU WOODRUFF MD Nov 19, 2021 00:52
[2021-11-19 00:54] LABS: BILIRUBIN,URINE NEGATIVE (NEGATIVE); CLARITY,URINE CLEAR; COLOR,URINE YELLOW; GLUCOSE, URINE (UA) 3+ (NEGATIVE); KETONES,URINE 3+ (NEGATIVE); LEUKOCYTE ESTERASE ,URINE NEGATIVE (NEGATIVE); NITRITE,URINE NEGATIVE (NEGATIVE); PROTEIN,URINE NEGATIVE (NEGATIVE)
[2021-11-19 00:59] LABS: HCG,QUALITATIVE URINE NEGATIVE (NEGATIVE)
[2021-11-19 01:04] LABS: BACTERIA,URINE NEGATIVE /HPF; SQUAMOUS EPITHELIAL CELL,UR 0-2 /HPF
[2021-11-19 01:09] LABS: AMPHETAMINE SCREEN, URINE NEGATIVE (NEGATIVE); BARBITURATE SCREEN URINE NEGATIVE (NEGATIVE); BENZODIAZEPINES SCREEN URINE NEGATIVE (NEGATIVE); CANNABINOID SCREEN, URINE NEGATIVE (NEGATIVE); COCAINE SCREEN URINE NEGATIVE (NEGATIVE); METHADONE STAT NEGATIVE (NEGATIVE); METHAMPHETAMINE SCREEN URINE S POSITIVE (NEGATIVE); OPIATE SCREEN URINE NEGATIVE (NEGATIVE); OXYCODONE STAT NEGATIVE (NEGATIVE); PROPOXYPHENE STAT NEGATIVE (NEGATIVE); TRICYCLIC ANTIDEPRESSANTS SCRE NEGATIVE (NEGATIVE)
[2021-11-19] MEDS ORDERED: NS IV 1000 ML 1,000 ML ONE (01:36)
[2021-11-19 01:50] VITALS: BP 128/81
[2021-11-19] MEDS: D5 1/2 NS 1000 ML IV SOLUTION 1,000 ML IV SCH ×2 (02:47→21:32)
[2021-11-19] MEDS ORDERED: D5 1/2 NS 1000 ML IV SOLUTION 1,000 ML IV SCH (03:00)
[2021-11-19] MEDS ORDERED: NS IV 1000 ML 1,000 ML IV SCH ×2 (03:00)
[2021-11-19] MEDS: 1/2 NS IV SOLUTION 1,000 ML IV SCH ×6 (03:02→23:24)
[2021-11-19 03:08] LABS: BASOPHILS # (AUTO) 0.2 10^3/uL (0.0-0.1); BASOPHILS % (AUTO) 1 % (0-10); EOSINOPHILS % (AUTO) 0 % (0-10); HEMATOCRIT 44 % (35-52); HEMOGLOBIN 14.3 g/dL (11.5-16.0); LYMPHOCYTES # (AUTO) 2.1 10^3/uL (1.0-4.0); LYMPHOCYTES % (AUTO) 13 % (12-44); MEAN CORPUSCULAR HEMOGLOBIN 32 pg (25-34); MEAN CORPUSCULAR HGB CONC 33 g/dL (32-36); MEAN CORPUSCULAR VOLUME 97 fL (80-99); MEAN PLATELET VOLUME 8.8 fL (9.0-12.2); MONOCYTES # (AUTO) 0.9 10^3/uL (0.0-1.0); MONOCYTES % (AUTO) 6 % (0-12); NEUTROPHILS # (AUTO) 12.4 10^3/uL (1.8-7.8); NEUTROPHILS % (AUTO) 77 % (42-75); PLATELET COUNT 360 10^3/uL (130-400); WHITE BLOOD COUNT 16.2 10^3/uL (4.3-11.0)
[2021-11-19 03:16] LABS: ALBUMIN 4.1 GM/DL (3.2-4.5)
[2021-11-19 03:17] LABS: POTASSIUM 4.4 MMOL/L (3.6-5.0)
[2021-11-19 03:19] LABS: TOTAL PROTEIN 7.5 GM/DL (6.4-8.2)
[2021-11-19 03:21] LABS: BILIRUBIN,TOTAL 0.2 MG/DL (0.1-1.0)
[2021-11-19 03:22] LABS: PHOSPHORUS 3.7 MG/DL (2.3-4.7)
[2021-11-19 03:23] LABS: CREATININE SERUM 0.94 MG/DL (0.60-1.30)
[2021-11-19 03:31] LABS: BAND NEUTROPHILS 6 %; LYMPHOCYTES % (MANUAL) 12 %; MONOCYTES % (MANUAL) 7 %; NEUTROPHILS % (MANUAL) 75 %; RBC MORPH NORMAL
--- NOTE | 2021-11-19 04:00 | Tele-ICU Progress Note ---
Progress Note 21F with DM1, poorly compliant with insulin, has jello frozen pops residue over face and has been using meth recently. Most recent admit 11/10-11/12 for DKA. Glucose on BMP 711, POC 1 hour later only 327. b-hydroxy 12.8. Gap 33. pH 7.04/CO2 9/ HCO3 3. No reports of recent infection. - insulin gtt per protocol, IVF per protocol. Glucose dropped rapidly with initiation of insulin therapy, will likely need d5 IVF for support. Initial anion gap 33, repeat just returned at 25. Bicarb improved from <5 to 8. Focused Exam Lactate Level 11/19/21 00:02: Lactic Acid Level 0.87 Height, Weight, BMI Height: 5'2.00" Weight: 210lbs. 0.0oz. 95.775626rk; 23.20 BMI Method:Stated Lactic Acid Level Laboratory Tests Test 11/19/21 00:02 Lactic Acid Level 0.87 MMOL/L (0.50-2.00) MARYBETH PATEL MD Nov 19, 2021 04:00
--- NOTE | 2021-11-19 05:28 | Diagnostic Imaging Report ---
INDICATION: DKA COMPARISON: 09/18/2020 FINDINGS: Single frontal view of the chest demonstrates normal heart size and pulmonary vascularity. The lungs are well aerated and clear. No large pleural effusion or pneumothorax is seen. The visualized osseous structures show no acute abnormalities. IMPRESSION: 1. No acute cardiopulmonary process. Dictated by: Dictated on workstation # [id number]
[2021-11-19] MEDS ORDERED: CATHETER FLUSH 10 ML SYR IV PRN (07:00)
[2021-11-19 08:15] LABS: CALCIUM 8.1 MG/DL (8.5-10.1); CREATININE SERUM 0.81 MG/DL (0.60-1.30); POTASSIUM 5.3 MMOL/L (3.6-5.0)
[2021-11-19 10:50] LABS: CALCIUM 8.2 MG/DL (8.5-10.1); CREATININE SERUM 0.8 MG/DL (0.60-1.30)
[2021-11-19] MEDS ORDERED: CALCIUM GLUC. 10% 4.65 MEQ/10 ML VIAL IV ONE (11:00)
[2021-11-19] MEDS ORDERED: inSUlin (REGULAR) HUMAN 1 UNIT/0.01 ML (CHARGE PER UNIT) IV NR (11:15)
[2021-11-19] MEDS ORDERED: SODIUM BICARB 8.4% 50 MEQ/50 ML (ABBOTT) SYR IV NR (11:15)
[2021-11-19] MEDS ORDERED: DEXTROSE 50% 50 ML (IMS) SYR IV NR (11:15)
[2021-11-19] MEDS ORDERED: INJECT IV NR (11:30)
[2021-11-19] MEDS ORDERED: CALCIUM GLUCONATE 10% IV NR (11:30)
[2021-11-19] MEDS ORDERED: NS IV NR (11:30)
[2021-11-19] MEDS ORDERED: inSUlin NPH (NovoLIN N) 1 UNIT/0.01 ML (CHARGE PER UNIT) SQ ONE (11:40)
--- NOTE | 2021-11-19 12:47 | History & Physical-Hospitalist ---
RJ VASQUEZ 11/19/21 1247: History of Present Illness HPI/Chief Complaint CC: elevated blood sugar and mild confusion. HPI: The patient was lethargic and unable to speak to me this morning. She presented to the ED today, refer below for history. PER ED: 21-year-old female with PMH of diabetes/drug abuse/noncompliance with insulin, is brought in by EMS with complaints of elevated blood sugar and mild confusion which began today. Patient's mouth and hands are bright red and when asked what she ate, patient states she had a frozen jello popsicle before EMS came. Patient smells like Jell-O. Patient feels tired and weak but is able to speak clearly and answer all questions asked of her. Patient states that she knew her blood sugar was rising because she felt she had to drink more and more water. Patient has associated complaints of nausea and vomiting. Denies fever, chest pain, abdominal pain, headache, dizziness, recent URI or any other infections, diarrhea Date Seen 11/19/21 Time Seen by a Provider: 09:15 Attending Physician Shelia Burns DO [facility] Referring Physician Date of Admission Nov 19, 2021 at 00:46 Home Medications & Allergies Home Medications Reviewed patient Home Medication Reconciliation performed by pharmacy medication reconciliations biomedical engineering technician and/or nursing. Patients Allergies have been reviewed. Allergies Allergies Coded Allergies No Known Drug Allergies (Unverified08/12/12) Past Aepwbrk-Pgirso-Oymitf Hx Patient Social History Tobacco Use?: No Use of E-Cig and/or Vaping dev: No Substance use?: Yes Substance type: Methamphetamine Substance frequency: Daily Alcohol Use?: No Pt feels they are or have been: No Immunizations Up To Date Tetanus Booster (TDap): Unknown Hepatitis A: Yes Hepatitis B: Yes PED Vaccines UTD: No Seasonal Allergies Seasonal Allergies: No Current Status status: No status: No Advance Directives: No Communicates: Verbally Primary Language: Telugu Preferred Spoken Language: Telugu Is interpretation needed?: No Implanted or Applied Medical D: None Past Medical History Surgeries: Appendectomy, Ear Surgery Asthma Currently Using CPAP: No Currently Using BIPAP: No Hypertension Sexually Transmitted Disease: No HIV/AIDS: No UTI-Chronic Diabetes, Insulin dep Chronic Ear Infection, Tonsilitis Loss of Vision: Denies Hearing Impairment: Denies Anxiety Blood Disorders: No Adverse Reaction/Blood Tranf: No PMHx: DMI Meth Abuse Depression Anxiety BPD SurgHx: Tonsils/adenoids Appendectomy Family Medical History Colon cancer 19 MOTHER (copd ; breast cancer ) Cystic fibrosis (nephew has CF ) Hypertension 19 MOTHER (copd ; breast cancer ) Cancer, Hypertension Review of Systems ROS-Unable to Obtain: PT was very lethargic, and was not able to answer my ROS questions Physical Exam Physical Exam Vital Signs Vital Signs - First Documented 11/18/21 23:02 Temp 35.8 Pulse 84 Resp 21 B/P (MAP) 114/70 (85) Pulse Ox 100 O2 Delivery Room Air Capillary Refill : Less Than 3 Seconds Height, Weight, BMI Height: 5'2.00" Weight: 210lbs. 0.0oz. 95.070971fk; 23.20 BMI Method:Stated General Appearance: No Apparent Distress, Chronically ill, Other (lethargic ) HEENT: Other (eyes closed unable to perform eye exam) Neck: Normal Inspection Respiratory: Chest Non Tender, Lungs Clear, Normal Breath Sounds, No Accessory Muscle Use, No Respiratory Distress Cardiovascular: Regular Rate, Rhythm, No Edema, No Murmur, Normal Peripheral Pulses Gastrointestinal: Normal Bowel Sounds, No Organomegaly, No Pulsatile Mass, Non Tender, Soft Extremity: Normal Inspection, No Calf Tenderness, No Pedal Edema Neurologic/Psychiatric: Other (lethargic unable to assess mental status ) Skin: Normal Color, Warm/Dry Results Results/Procedures Labs Laboratory Tests 11/18/21 23:26 11/19/21 03:00 11/19/21 07:50 11/19/21 10:25 Patient resulted labs reviewed. Assessment/Plan Admission Diagnosis Diabetic Ketoacidosis Assessment and Plan Assessment: DKA DM type 1 non-insulin compliant Hyponatremia Falsely elevated potassium Substance abuse Plan: DKA DM type 1 non-insulin compliant Hyponatremia Falsely elevated potassium PT will continue in the ICU. She will continue on IVF of sodium chloride and potassium chloride replacement. She will continue on an insulin drip. Substance abuse Discuss cessation when PT is more alert. SHELIA BURNS DO 11/19/21 2013: History of Present Illness HPI/Chief Complaint CC: DKA HPI: This is a 21 yr old [facility] pt who was just in for DKA and she reported to the ER with SOB and fatigue. She was found to be in DKA because she didn't take any of her insulin when she went home. Currently she doesn't divulge any details. Source: patient Past Cqfwaxl-Ccbjua-Kfoper Hx Patient Social History Marrital Status: single Employed/Student: unemployed Smoking Status: Current Everyday Smoker Past Medical History Diabetes, Insulin dep Family Medical History Colon cancer 19 MOTHER (copd ; breast cancer ) Cystic fibrosis (nephew has CF ) Hypertension 19 MOTHER (copd ; breast cancer ) Review of Systems Constitutional: see HPI Physical Exam Physical Exam General Appearance: No Apparent Distress, Chronically ill Eyes: Right Eye Normal Inspection, Right Eye PERRL HEENT: PERRL/EOMI, Normal ENT Inspection, Pharynx Normal, Moist Mucous Membranes Neck: Full Range of Motion, Normal Inspection, Non Tender Respiratory: Chest Non Tender, Lungs Clear, Normal Breath Sounds, No Accessory Muscle Use, No Respiratory Distress Cardiovascular: Regular Rate, Rhythm, No Edema, No Gallop, No JVD, No Murmur, Normal Peripheral Pulses Gastrointestinal: Normal Bowel Sounds, No Organomegaly, No Pulsatile Mass, Non Tender, Soft Back: Normal Inspection, No CVA Tenderness, No Vertebral Tenderness Extremity: Normal Capillary Refill, Normal Inspection, Normal Range of Motion, Non Tender, No Calf Tenderness, No Pedal Edema Neurologic/Psychiatric: Alert, Oriented x3, No Motor/Sensory Deficits, Depressed Affect, Other (lethargic unable to assess mental status ) Skin: Normal Color, Warm/Dry Lymphatic: No Adenopathy Assessment/Plan Admission Diagnosis DKA Insulin drip Admission Status: Inpatient Order (span 2 midnights) Reason for Inpatient Admission: DKA Supervisory-Addendum Brief Verification & Attestation Participated in pt care: history, MDM, physical Personally performed: exam, history, MDM, supervision of care Care discussed with: Medical Student Procedures: n/a Results interpretation: Verified all documentation Verification and Attestation of Medical Student E/M Service A medical student performed and documented this service in my presence. I reviewed and verified all information documented by the medical student and made modifications to such information, when appropriate. I personally performed the physical exam and medical decision making. Shelia Burns Nov 20, 2021,05:33 RJ VASQUEZ Nov 19, 2021 12:47 SHELIA BURNS DO Nov 19, 2021 20:13
[2021-11-19 14:27] LABS: CALCIUM 8.8 MG/DL (8.5-10.1); CREATININE SERUM 0.98 MG/DL (0.60-1.30); POTASSIUM 3.9 MMOL/L (3.6-5.0)
[2021-11-19] MEDS: CATHETER FLUSH 10 ML SYR IV SCH ×2 (15:10→23:24)
[2021-11-19] MEDS: ACETAMINOPHEN 500 MG TAB (TYLENOL) PO PRN ×2 (15:33→20:02)
[2021-11-19 19:25] LABS: CALCIUM 8.9 MG/DL (8.5-10.1)
[2021-11-19 19:28] LABS: POTASSIUM 4.3 MMOL/L (3.6-5.0)
[2021-11-19 19:30] LABS: CREATININE SERUM 1.13 MG/DL (0.60-1.30)
[2021-11-19] MEDS ORDERED: CALCIUM CARBONATE 500 MG (TUMS) TAB.CHEW PO PRN (20:15)
[2021-11-19] MEDS ORDERED: LACTULOSE SYRUP 10GM/15ML (ENULOSE) 30ML UDC PO PRN (20:15)
[2021-11-19] MEDS ORDERED: LOPERAMIDE 2 MG (IMODIUM) TABLET PO PRN (20:15)
[2021-11-19] MEDS ORDERED: ENOXAPARIN 40 MG/0.4 ML (LOVENOX) SYR SC SCH (20:15)
[2021-11-19] MEDS ORDERED: diphenhydrAMINE 25 MG TAB (BENADRYL) PO PRN (20:15)
[2021-11-19] MEDS ORDERED: ONDANSETRON 4 MG/2 ML (SDV) Z0FRAN IVP PRN (20:15)
[2021-11-19] MEDS ORDERED: MELATONIN 3 MG TABLET PO PRN (20:15)
[2021-11-19] MEDS ORDERED: PANTOPRAZOLE 40 MG (PROTONIX) TAB PO ONE (20:15)
[2021-11-19] MEDS ORDERED: ONDANSETRON 4 MG (ZOFRAN) ORAL DISSOLVE TAB PO PRN (20:15)
[2021-11-19] MEDS ORDERED: BISACODYL 10 MG SUPP (DULCOLAX) PR PRN (20:15)
[2021-11-19] MEDS ORDERED: ALPRAZolam 0.25 MG (XANAX) TAB PO PRN (20:15)
[2021-11-19] MEDS ORDERED: HYDROcodone/APAP 5 MG/325 MG (LORTAB) TAB PO PRN (20:15)
[2021-11-19] MEDS ORDERED: DOCUSATE SODIUM 100 MG (COLACE) CAP PO PRN (20:15)
[2021-11-19] MEDS: polyethylene glycoL POWDER 17 GM (MIRALAX) PACK PO SCH (23:24)
[2021-11-19] MEDS: SENNA W/DOCUSATE (SENOKOT S) TABLET PO SCH (23:24)
[2021-11-20] MEDS: D5 1/2 NS 1000 ML IV SOLUTION 1,000 ML IV SCH (01:09)
[2021-11-20] MEDS: POTASSIUM CL 10MEQ/50ML IVPB 50 ML IV SCH ×2 (02:03→04:02)
[2021-11-20] MEDS: 1/2 NS IV SOLUTION 1,000 ML IV SCH (02:05)
[2021-11-20] MEDS: ACETAMINOPHEN 500 MG TAB (TYLENOL) PO PRN (04:02)
[2021-11-20] MEDS: CATHETER FLUSH 10 ML SYR IV SCH (05:14)
[2021-11-20 05:43] LABS: BASOPHILS % (AUTO) 0 % (0-10); EOSINOPHILS % (AUTO) 0 % (0-10); HEMATOCRIT 39 % (35-52); HEMOGLOBIN 13.5 g/dL (11.5-16.0); LYMPHOCYTES # (AUTO) 3.2 10^3/uL (1.0-4.0); LYMPHOCYTES % (AUTO) 19 % (12-44); MEAN CORPUSCULAR HEMOGLOBIN 33 pg (25-34); MEAN CORPUSCULAR HGB CONC 35 g/dL (32-36); MEAN CORPUSCULAR VOLUME 93 fL (80-99); MEAN PLATELET VOLUME 10.5 fL (9.0-12.2); MONOCYTES # (AUTO) 1.8 10^3/uL (0.0-1.0); MONOCYTES % (AUTO) 10 % (0-12); NEUTROPHILS % (AUTO) 70 % (42-75); PLATELET COUNT 240 10^3/uL (130-400); WHITE BLOOD COUNT 17.2 10^3/uL (4.3-11.0)
[2021-11-20 05:54] LABS: ALBUMIN 3.2 GM/DL (3.2-4.5); POTASSIUM 3.5 MMOL/L (3.6-5.0)
[2021-11-20 05:56] LABS: CALCIUM 8.2 MG/DL (8.5-10.1)
[2021-11-20 05:57] LABS: TOTAL PROTEIN 5.8 GM/DL (6.4-8.2)
[2021-11-20 05:59] LABS: BILIRUBIN,TOTAL 0.2 MG/DL (0.1-1.0)
[2021-11-20 06:00] LABS: PHOSPHORUS 1.8 MG/DL (2.3-4.7)
[2021-11-20 06:01] LABS: CREATININE SERUM 0.73 MG/DL (0.60-1.30)
[2021-11-20 06:04] LABS: MAGNESIUM 1.8 MG/DL (1.6-2.4)
[2021-11-20] MEDS ORDERED: PANTOPRAZOLE 40 MG (PROTONIX) TAB PO SCH (09:00)
[2021-11-20] MEDS: SENNA W/DOCUSATE (SENOKOT S) TABLET PO SCH (09:15)
[2021-11-20] MEDS: polyethylene glycoL POWDER 17 GM (MIRALAX) PACK PO SCH (09:16)
[2021-11-20] MEDS ORDERED: IBUP-2185 PO (10:31)
[2021-11-20] MEDS ORDERED: INSU100I29 SQ (10:31)
[2021-11-20] MEDS ORDERED: INSU100I14 SQ (10:31)
--- NOTE | 2021-11-20 10:49 | Discharge Summary ---
Discharge Summary Hospital Course Was the Problem List Reviewed?: Yes Problems/Dx: (1) DKA (diabetic ketoacidosis) Status: Acute Qualifiers: Qualified Codes: E10.10 - Type 1 diabetes mellitus with ketoacidosis without coma Hospital Course Date of Admission: Nov 19, 2021 at 00:46 Admission Diagnosis : Family Physician/Provider: [place] Date of Discharge: 11/20/21 Discharge Diagnosis: DKA Hospital Course: Brief Hospital Course: Patient was admitted on 11/18/21 and discharged 11/20/21. Patient was admitted from the ED to the ICU, with her initial chief complaint on presentation to the ED of glucose problem. The PT had a ABG pH of 7.04 pCO2 of 9 pO2 of 122 HCO3 of 3, ABG CO2 total of 2.8, Glucose of 711 and a lactic acid of 0.87 in the ED. She was also dehydrated with a creatinine of 1.39 at that time. PT was found to be in DKA, and she was given 7 units of Aspart Insulin in the ED. She was then admitted to the ICU on DKA protocols. The patient was started on an insulin drip and IVF of NaCl and KCl replacement in the ICU. Potassium was 7.0 on 11/19/21 and 3.5 on DC. Sodium was 129 on 11/18/21 and 137 on DC. Glucose on 11/19/21 was 327. She had a glucose of 98 the morning of 11/20/21, and a glucose of 451 later on 11/20/21 at DC. Anion gap was 33 on 11/18/21 and 11 on 11/20/21. WBC count was 15 o n 11/18/21, 16.2 on 11/19/21, and 17.2 on 11/20/21. On discharge, patient was sent home. The patient will continue Insulin Aspart and Insulin Detemir at home. This summary does not include the entirety of the patient's visit and is only a short description of pertinent lab values and information. For the complete hospital course, please refer to the patient's chart. Date of Admission: 11/18/21 Date of Discharge: 11/20/21 Attending Physician: Dr. Shelia Bunrs, Admission Diagnosis: DKA Discharge Diagnosis: DM Type 1 hx of non-insulin compliance Consultations: Tele-ICU Procedures: IV placements RJ VASQUEZ Nov 20, 2021 13:33 Labs and Pending Lab Test: Laboratory Tests 11/19/21 11:36: Glucometer 258H 11/19/21 12:10: Glucometer 280H 11/19/21 12:46: Glucometer 233H 11/19/21 13:53: Glucometer 168H 11/19/21 14:00: Sodium Level 135, Potassium Level 3.9, Chloride Level 103, Carbon Dioxide Level 16L, Anion Gap 16H, Blood Urea Nitrogen 12, Creatinine 0.98, Estimat Glomerular Filtration Rate 84, BUN/Creatinine Ratio 12, Glucose Level 177H, Calcium Level 8.8 11/19/21 14:55: Glucometer 210H 11/19/21 16:02: Glucometer 205H 11/19/21 16:57: Glucometer 221H 11/19/21 18:03: Glucometer 232H 11/19/21 18:52: Sodium Level 130L, Potassium Level 4.3, Chloride Level 99, Carbon Dioxide Level 14L, Anion Gap 17H, Blood Urea Nitrogen 12, Creatinine 1.13, Estimat Glomerular Filtration Rate 71, BUN/Creatinine Ratio 11, Glucose Level 331H, Calcium Level 8 .9 11/19/21 19:01: Glucometer 291H 11/19/21 19:55: Glucometer 318H 11/19/21 21:14: Glucometer 207H 11/19/21 22:09: Glucometer 266H 11/19/21 23:18: Glucometer 249H 11/19/21 23:54: Glucometer 188H 11/20/21 00:57: Beta-Hydroxybutyrate (Chem panel) 0.12 11/20/21 01:07: Glucometer 131H 11/20/21 02:00: Glucometer 202H 11/20/21 03:18: Glucometer 181H 11/20/21 04:04: Glucometer 154H 11/20/21 05:08: Glucometer 135H 11/20/21 05:26: White Blood Count 17.2H, Red Blood Count 4.15, Hemoglobin 13.5, Hematocrit 39, Mean Corpuscular Volume 93, Mean Corpuscular Hemoglobin 33, Mean Corpuscular Hemoglobin Concent 35, Red Cell Distribution Width 12.8, Platelet Count 240, Mean Platelet Volume 10.5, Immature Granulocyte % (Auto) 1, Neutrophils (%) (Au to) 70, Lymphocytes (%) (Auto) 19, Monocytes (%) (Auto) 10, Eosinophils (%) (Auto) 0, Basophils (%) (Auto) 0, Neutrophils # (Auto) 12.0H, Lymphocytes # (Auto) 3.2, Monocytes # (Auto) 1.8H, Eosinophils # (Auto) 0.0, Basophils # (Auto) 0.0, Immature Granulocyte # (Auto) 0.1, Sodium Level 137, Potassium Level 3.5L, Chloride Level 108H, Carbon Dioxide Level 18L, Anion Gap 11, Blood Urea Nitrogen 13, Creatinine 0.73, Estimat Glomerular Filtration Rate 119, BUN/Creatinine Ratio 18, Glucose Level 112H, Calcium Level 8.2L, Corrected Calcium 8.8, Phosphorus Level 1.8L, Magnesium Level 1.8, Total Bilirubin 0.2, Aspartate Amino Transf (AST/SGOT) 61H, Alanine Aminotransferase (ALT/SGPT) 84H, Alkaline Phosphatase 135, Total Protein 5.8L, Albumin 3.2 11/20/21 06:21: Glucometer 130H 11/20/21 07:04: Glucometer 152H 11/20/21 08:08: Glucometer 125H 11/20/21 09:03: Glucometer 98 11/20/21 10:05: Glucometer 241H Home Meds Active Reported Ibuprofen 200 Mg Capsule 400-600 Mg PO Q8H PRN Levemir Flextouch (Insulin Detemir) 100 Unit/Ml (3 Ml) Insuln.pen 20 Unit SQ BID Novolog Flexpen (Insulin Aspart) 100 Unit/Ml (3 Ml) Solution 10 Units SQ AC Assessment/Pt Instructions pcp 1 week Discharge Planning: <30 minutes discharge planning Discharge Instructions Discharge Diet: ADA Diet Activity as Tolerated: Yes Discharge Physical Examination Vital Signs Vital Signs Date Time Temp Pulse Resp B/P (MAP) Pulse Ox O2 Delivery O2 Flow Rate FiO2 11/20/21 10:00 89 13 128/85 100 Room Air 11/20/21 08:00 36.7 General Appearance: No Apparent Distress, WD/WN, Chronically ill Allergies: Coded Allergies: No Known Drug Allergies (Unverified , 08/12/12) Discharge Summary Date of Admission Nov 19, 2021 at 00:46 Date of Discharge Discharge Date: Nov 20, 2021 Admission Diagnosis DKA Insulin SHELIA Austin DO Nov 20, 2021 10:49
--- NOTE | 2021-11-20 13:33 | Progress Note ---
RJ VASQUEZ 11/20/21 1333: Progress Note Brief Hospital Course: Patient was admitted on 11/18/21 and discharged 11/20/21. Patient was admitted from the ED to the ICU, with her initial chief complaint on presentation to the ED of glucose problem. The PT had a ABG pH of 7.04 pCO2 of 9 pO2 of 122 HCO3 of 3, ABG CO2 total of 2.8, Glucose of 711 and a lactic acid of 0.87 in the ED. She was also dehydrated with a creatinine of 1.39 at that time. PT was found to be in DKA, and she was given 7 units of Aspart Insulin in the ED. She was then admitted to the ICU on DKA protocols. The patient was started on an insulin drip and IVF of NaCl and KCl replacement in the ICU. Potassium was 7.0 on 11/19/21 and 3.5 on DC. Sodium was 129 on 11/18/21 and 137 on DC. Glucose on 11/19/21 was 327. She had a glucose of 98 the morning of 11/20/21, and a glucose of 451 later on 11/20/21 at DC. Anion gap was 33 on 11/18/21 and 11 on 11/20/21. WBC count was 15 on 11/18/21, 16.2 on 11/19/21, and 17.2 on 11/20/21. On discharge, patient was sent home. The patient will continue Insulin Aspart and Insulin Detemir at home. This summary does not include the entirety of the patient's visit and is only a short description of pertinent lab values and information. For the complete hospital course, please refer to the patient's chart. Date of Admission: 11/18/21 Date of Discharge: 11/20/21 Attending Physician: Dr. Shelia Burns DO Admission Diagnosis: DKA Discharge Diagnosis: DM Type 1 hx of non-insulin compliance Consultations: Tele-ICU Procedures: IV placements SHELIA BURNS DO 11/21/21 [id number]: Supervisory-Addendum Brief Verification & Attestation Participated in pt care: history, MDM, physical Personally performed: exam, history, MDM, supervision of care Care discussed with: Medical Student Procedures: n/a Results interpretation: Verified all documentation Verification and Attestation of Medical Student E/M Service A medical student performed and documented this service in my presence. I reviewed and verified all information documented by the medical student and made modifications to such information, when appropriate. I personally performed the physical exam and medical decision making. Shelia Burns, Nov 21, 2021,05:46 JR VASQUEZ Nov 20, 2021 13:33 SHELIA BURNS DO Nov 21, 2021 05:46
== END 2021-11-20 12:30 | disposition home or self-care (01) | DRG 638 ==
LOC: EDUNIT# 23:00 → ER 23:03 → EDLOC 11-19 00:46 → ICU 11-19 00:46
PROVIDERS: ADMIT Internal Medicine; ATTEND Internal Medicine
DX: E10.10 Type 1 diabetes mellitus with ketoacidosis without coma (principal); E87.1 Hypo-osmolality and hyponatremia; E87.3 Alkalosis; Z79.4 Long term (current) use of insulin; E86.0 Dehydration; F15.10 Other stimulant abuse, uncomplicated; Z91.14 Patient's other noncompliance with medication regimen
CPT/HCPCS: 36415; 71045; 80048; 80053; 80306; 80320; 81000; 82010; 82800; 82805; 82947; 83036; 83690; 83735; 84100; 84145; 84484; 84703; 85007; 85025; 85027; 87081; 93005; 99291